=== PATIENT | female | born 1960 | race African-American/Black ===

== ENCOUNTER 2016-05-24 10:36 | Emergency (ER) | payer OTHER ==
[2016-05-24 10:53] VITALS: BMI 35.2
--- NOTE | 2016-05-24 11:49 | PDOC ---
History of Present Illness - General Chief Complaint: Blood Pressure Problem Stated Complaint: HEADACHES, LIGHTHEADED Time Seen by Provider: 05/24/16 11:10 History Source: Patient Exam Limitations: No Limitations - History of Present Illness Initial Comments: 05/24/16 11:51 56-year-old female presents to the ED with complaints of episodic lightheadedness and mild occipital throbbing headache while at work this morning. Patient states had her blood pressure checked at work and was noted to be 180/94 so came to the ER for further evaluation. Patient states has had these episodes before normally associate with her blood pressure but states does take her meds every day with no recent adjustment or new medication added to regimen. Patient has no other associated symptoms such as visual changes, nausea, chest pain, shortness of breath, lower extremity edema, abdominal pain, or decreased urine output. Patient does state history of diabetes and hypertension. Timing/Duration: 1 hour, resolved prior to arrival Severity: mild Associated Symptoms: denies: headaches Past History - Past Medical History Allergies/Adverse Reactions: Allergies Allergy/AdvReac Type Severity Reaction Status Date / Time No Known Allergies Allergy Verified 05/24/16 10:49 Home Medications: Ambulatory Orders Glyburide/Metformin HCl [Glucovance 5-500 mg Tablet] 1 each PO DAILY #0 Cholecalciferol (Vitamin D3) [Vitamin D3 -] 400 unit PO DAILY 05/24/16 Lisinopril [Prinivil] 10 mg PO DAILY 05/24/16 Anemia: No Asthma: No Cancer: No Cardiac Disorders: No CVA: No COPD: No CHF: No Dementia: No Diabetes: Yes (NIDDM) GI Disorders: No Disorders: No HTN: Yes Hypercholesterolemia: Yes (border line) Liver Disease: No Seizures: No Thyroid Disease: No - Surgical History Abdominal Surgery: No Appendectomy: No Cardiac Surgery: No Cholecystectomy: No Lung Surgery: No Neurologic Surgery: No Orthopedic Surgery: No - Immunization History Immunization Up to Date: Yes - Psycho/Social/Smoking Cessation Hx Anxiety: No Suicidal Ideation: No Smoking History: Current some day smoker Have you smoked in the past 12 months: Yes Number of Cigarettes Smoked Daily: 2 If you are a former smoker, when did you quit?: 2013 Information on smoking cessation initiated: Yes 'Breaking Loose' booklet given: 05/24/16 Hx Alcohol Use: No Drug/Substance Use Hx: No Substance Use Type: None Hx Substance Use Treatment: No Patient Lives Alone: No Lives with/in: spouse/SO Review of Systems - Review of Systems Able to Perform ROS?: Yes Constitutional: No: Symptoms Reported HEENTM: No: Symptoms Reported Respiratory: No: Symptoms reported Cardiac (ROS): Yes: Lightheadedness ABD/GI: No: Symptoms Reported : No: Symptoms Reported Musculoskeletal: No: Symptoms Reported Integumentary: No: Symptoms Reported Neurological: Yes: Headache (mild occipital. throbbing ) Endocrine: No: Symptoms Reported Hematologic/Lymphatic: No: Symptoms Reported *Physical Exam - Vital Signs Last Vital Signs Temp Pulse Resp BP Pulse Ox 97.2 F L 72 18 150/97 100 05/24/16 10:50 05/24/16 10:50 05/24/16 10:50 05/24/16 10:50 05/24/16 10:50 - Physical Exam General Appearance: Yes: Nourished, Appropriately Dressed. No: Apparent Distress HEENT: positive: EOMI, ALBERT. negative: Pale Conjunctivae Neck: positive: Supple. negative: Tender, Decreased range of motion Respiratory/Chest: positive: Lungs Clear, Normal Breath Sounds. negative: Respiratory Distress, Accessory Muscle Use Cardiovascular: positive: Regular Rhythm, Regular Rate. negative: Murmur Gastrointestinal/Abdominal: positive: Soft. negative: Tenderness Integumentary: positive: Normal Color, Warm, Moist Neurologic: positive: Motor Strength 5/5 (ambulatory) Heart Score/ECG Review - ECG Intrepretation Rhythm: Regular Rhythm (rate 69. nsr . no acute findings) ED Treatment Course - LABORATORY CBC & Chemistry Diagram: 05/24/16 11:50 05/24/16 11:50 Medical Decision Making - Medical Decision Making 05/24/16 12:02 History of hypertension diabetes presents with episodic lightheadedness and headache that had resolved prior to arrival. Due to patient's initial complaint patient will have a CBC, comp and EKG performed. If negative patient will be given copy of labs and EKG to follow-up with her PCP. 05/24/16 13:02 Laboratory Tests 05/24/16 11:50 Sodium 142 Potassium 4.6 Chloride 111 H Carbon Dioxide 24 Anion Gap 7 L BUN 15 Creatinine 0.9 Random Glucose 208 H D Calcium 8.7 Total Bilirubin 0.3 AST 14 L ALT 26 D Laboratory Tests 05/24/16 11:50 WBC 6.8 Hgb 10.9 D Hct 35.2 MCV 75.4 L Neutrophils % 40.2 L Lymphocytes % 49.6 H Patient remains asymptomatic and is requesting to eat. Patient given lunch tray and will discharge home to follow-up with her PCP. Patient also be given copy of her blood work. Selected Entries 05/24/16 13:40 Temperature 98.6 F Pulse Rate [ 80 Right] Respiratory 20 Rate Blood Pressure 144/78 [Left Arm] O2 Sat by Pulse 100 Oximetry (%) *DC/Admit/Observation/Transfer Diagnosis at time of Disposition: Dizziness HTN (hypertension) Qualifiers: Hypertension type: essential hypertension Qualified Code(s): I10 - Essential ( primary) hypertension - Discharge Dispostion Disposition: HOME Condition at time of disposition: Improved - Referrals Referrals: Xavier Solares MD [Primary Care Provider] - - Patient Instructions Printed Discharge Instructions: DI for High Blood Pressure Additional Instructions: Please continue taking her medication as prescribed. Please follow-up with your PCP and take copy of the blood work with you. Please return to ED if your symptoms return or worsen including dizziness, chest pain, nausea, visual changes, or extremely high blood pressure uncontrolled with your medication
[2016-05-24 12:16] LABS: BASOPHIL 1.5 % (0-2.0); EOSINOPHIL 1.4 % (0-4.5); MCH 23.3 pg (25.7-33.7); MEAN CELL VOLUME 75.4 fl (80-96); MEAN PLT VOLUME 8.1 fl (7.5-11.1); NEUTROPHILS 40.2 % (42.8-82.8); PLATELET COUNT 257 K/MM3 (134-434); RDW 14.1 % (11.6-15.6); WHITE BLOOD COUNT 6.8 K/mm3 (4.0-10.0)
[2016-05-24 12:50] LABS: ALBUMIN 3.8 g/dl (3.4-5.0); ALK PHOS 69 U/L (45-117); ANION GAP 7 (8-16); BILIRUBIN,TOTAL 0.3 mg/dL (0.2-1.0); CALCIUM 8.7 mg/dL (8.5-10.1); CO2 24 mmol/L (21-32); CREATININE 0.9 mg/dL (0.55-1.02); GLUCOSE,RANDOM 208 mg/dL (74-106); SGOT/AST 14 U/L (15-37); SGPT/ALT 26 U/L (12-78); TOT PROT 6.9 g/dl (6.4-8.2)
[2016-05-24 13:59] VITALS: BP 144/78; PULSE 80; TEMP 98.6
--- NOTE | 2016-05-24 21:24 | EKG ---
Test Reason : Blood Pressure : / mmHG Vent. Rate : 069 BPM Atrial Rate : 069 BPM P-R Int : 162 ms QRS Dur : 080 ms QT Int : 394 ms P-R-T Axes : 050 022 025 degrees QTc Int : 422 ms NORMAL SINUS RHYTHM LOW VOLTAGE QRS CANNOT RULE OUT ANTERIOR INFARCT , AGE UNDETERMINED ABNORMAL ECG WHEN COMPARED WITH ECG OF 14-SEP-2013 14:39, NO SIGNIFICANT CHANGE WAS FOUND Confirmed by EBER WAGONER MD ([id number]) on 05/24/2016 9:24:02 PM Referred By: Confirmed By:EBER WAGONER MD
== END 2016-05-24 13:40 | disposition home or self-care (01) ==
LOC: JER 10:36
DX: I10 Essential (primary) hypertension (principal); E11.9 Type 2 diabetes mellitus without complications; Z79.84 Long term (current) use of oral hypoglycemic drugs; E78.00 Pure hypercholesterolemia, unspecified; Z87.891 Personal history of nicotine dependence
CPT/HCPCS: 36415; 80053; 85025; 93005; 93010; 99284-25

== ENCOUNTER 2016-06-20 13:10 | Emergency (ER) | payer OTHER ==
[2016-06-20 13:19] VITALS: TEMP 98; BMI 36.1
--- NOTE | 2016-06-20 14:00 | PDOC ---
History of Present Illness <Silke Esposito - Last Filed: 06/20/16 17:58> - General History Source: Patient Exam Limitations: No Limitations - History of Present Illness Initial Comments: 06/20/16 13:59 56y F hx of NIDDM, htn, presents with complaint of R toe pain. The pt states she saw a head turning machine operator last monday and had some skin and nail removal, states she has had persisetnt pain in her R big toe with erythema, warmth and pain since monday Pt denies any fever, discharge, but states she occasionally will feel cold at night. pt denies any drainage, denies any complaints elsewhere including generalized weakness, nausea/vomiting, abd pain, back pain, cp, sob, leg swelling. <Marco García - Last Filed: 06/20/16 18:31> - General Chief Complaint: Redness To Affected Area Stated Complaint: SWOLLEN RT TOE/ PAIN Time Seen by Provider: 06/20/16 13:32 Past History <Silke Esposito - Last Filed: 06/20/16 17:58> - Past Medical History Anemia: No Asthma: No Cancer: No Cardiac Disorders: No CVA: No COPD: No CHF: No Dementia: No Diabetes: Yes (NIDDM) GI Disorders: No Disorders: No HTN: Yes Hypercholesterolemia: Yes (border line) Liver Disease: No Seizures: No Thyroid Disease: No - Surgical History Abdominal Surgery: No Appendectomy: No Cardiac Surgery: No Cholecystectomy: No Lung Surgery: No Neurologic Surgery: No Orthopedic Surgery: No - Immunization History Immunization Up to Date: Yes - Psycho/Social/Smoking Cessation Hx Anxiety: No Suicidal Ideation: No Smoking History: Current some day smoker Have you smoked in the past 12 months: Yes Number of Cigarettes Smoked Daily: 2 If you are a former smoker, when did you quit?: 2013 Information on smoking cessation initiated: No 'Breaking Loose' booklet given: 05/24/16 Hx Alcohol Use: No Drug/Substance Use Hx: No Substance Use Type: None Hx Substance Use Treatment: No <Marco García - Last Filed: 06/20/16 18:31> - Past Medical History Allergies/Adverse Reactions: Allergies Allergy/AdvReac Type Severity Reaction Status Date / Time No Known Allergies Allergy Verified 06/20/16 13:17 Home Medications: Ambulatory Orders Glyburide/Metformin HCl [Glucovance 5-500 mg Tablet] 1 each PO DAILY #0 Cholecalciferol (Vitamin D3) [Vitamin D3 -] 400 unit PO DAILY 05/24/16 Lisinopril [Prinivil] 10 mg PO DAILY 05/24/16 Levofloxacin [Levaquin] 750 mg PO DAILY #14 tablet 06/20/16 Oxycodone HCl/Acetaminophen [Percocet 5-325 mg Tablet] 1 tab PO Q6H PRN #7 tablet MDD 4 06/20/16 Sitagliptin Phosphate [Januvia] 50 mg PO PRN 06/20/16 Review of Systems - Review of Systems Able to Perform ROS?: Yes Comments:: 06/20/16 14:07 Constitutional - no reported Fever, Chills, weakness, HEENT: no reported vision changes, sore throat Respiratory: no reported cough, sob, hemoptysis Cardiac: no reported chest pain, palpitations, light headedness, leg swelling Abd/GI: no reported abd pain, nausea, vomiting, blood per rectum, melena, diarrhea : no reported dysuria, frequency, discharge Musculskelatal - no reported back pain, joint swelling skin - +redness/swelling of R big toe no reported bruising, neurological: no reported headache, numbness, focal weakness, tingling, ataxia, weakness hematologic: no reported anemia, easy bruising, easy bleeding <Ricky,Marco - Last Filed: 06/20/16 18:31> *Physical Exam - Vital Signs Last Vital Signs Temp Pulse Resp BP Pulse Ox 98 F 79 18 153/76 100 06/20/16 13:17 06/20/16 13:17 06/20/16 13:17 06/20/16 13:17 06/20/16 13:17 <Silke Esposito - Last Filed: 06/20/16 17:58> - Vital Signs Last Vital Signs Temp Pulse Resp BP Pulse Ox 98 F 79 18 153/76 100 06/20/16 13:17 06/20/16 13:17 06/20/16 13:17 06/20/16 13:17 06/20/16 13:17 - Physical Exam Comments: 06/20/16 14:16 GENERAL: The patient is awake, alert, and fully oriented, Nontoxic - in no acute distress. HEAD: Normocephalic, atraumatic. EYES: extraocular movements intact, sclera anicteric, conjunctiva clear. ENT: Normal voice, Moist mucous membranes. NECK: Normal range of motion, supple LUNGS: Breath sounds equal, clear to auscultation bilaterally. No wheezes, no rhonchi, no rales. HEART: Regular rate and rhythm, normal S1 and S2 without murmur, rub or gallop. ABDOMEN: Soft, nontender, normoactive bowel sounds. No guarding, no rebound. No CVA tenderness EXTREMITIES: s/p removal of lateral aspect of 1st toe nail, erythema, warmth over 1st toe extending to the 1st metatarsal, no crepitus, no discharge, no tracking. NEUROLOGICAL: No facial assymetry, Normal speech, PSYCH: Normal mood, normal affect. SKIN: Warm, Dry, normal turgor, <Ricky,Marco - Last Filed: 06/20/16 18:31> ED Treatment Course - LABORATORY CBC & Chemistry Diagram: 06/20/16 14:10 06/20/16 14:10 - ADDITIONAL ORDERS Additional order review: Laboratory Results 06/20/16 14:10 Sodium 142 Potassium 4.2 Chloride 108 H Carbon Dioxide 24 Anion Gap 10 BUN 14 Creatinine 1.0 Creat Clearance w eGFR 57.78 Random Glucose 241 H Calcium 8.5 Total Bilirubin 0.3 AST 10 L D ALT 22 Alkaline Phosphatase 65 Total Protein 6.9 Albumin 3.8 06/20/16 14:10 RBC 4.65 MCV 75.9 L MCHC 31.0 L RDW 14.1 MPV 7.6 Neutrophils % 47.2 Lymphocytes % 43.6 H Monocytes % 7.7 Eosinophils % 1.2 Basophils % 0.3 - Medications Given in the ED: ED Medications Discontinued Medications Generic Name Dose Route Start Last Admin Trade Name Freq PRN Reason Stop Dose Admin Levofloxacin 150 mls @ 100 mls/hr 06/20/16 16:18 06/20/16 16:36 Levaquin 750 Mg Premixed Ivpb - IVPB 06/20/16 17:47 100 mls/hr ONCE ONE Administration Ketorolac Tromethamine 15 mg 06/20/16 16:18 06/20/16 16:36 Toradol Injection - IVPUSH 06/20/16 16:19 15 mg ONCE ONE Administration <Silke Esposito - Last Filed: 06/20/16 17:58> - LABORATORY CBC & Chemistry Diagram: 06/20/16 14:10 06/20/16 14:10 <Marco García - Last Filed: 06/20/16 18:31> Medical Decision Making - Medical Decision Making 06/20/16 17:[address] Anant Adams, covering for patient's PCP (Dr. Solares). Dr. Adams agrees with plan to discharge patient to follow up in office this week. <Silke Esposito - Last Filed: 06/20/16 17:58> - Medical Decision Making 06/20/16 14:17 56y F hx of dm, hypothryoidism presents with complaint of erhthema,/warmth s/p nail/skin dibridement by podiatry likely infection with source of entry will ck lab work will give ivabx, pt may be candidate for outpatient manageemnt will notify PMD and discuss plan with dr. Livingston. 06/20/16 18:12 labs reviewed no leukocytosis case dw dr. Adams covering for Dr Solares agree with outpatient managment will give pt rx for levaquin will have pt fu with dr. adams/yang in 2 days for recheck if pthas any systemic complaints will have pt return to the ED for intpatient ivabx I discussed the physical exam findings, ancillary test results and final diagnoses with the patient. I answered all of the patient's questions. The patient was satisfied with the care received and felt comfortable with the discharge plan and treatment plan. The patient will call their primary care physician within 24 hours to arrange follow-up and will return to the Emergency Department with any new, persistent or worsening symptoms. <Marco García - Last Filed: 06/20/16 18:31> *DC/Admit/Observation/Transfer - Attestations Scribe Attestion: 06/20/16 17:58 Documentation prepared by Silke Esposito, acting as medical office administrator for Marco García MD. <Silke Esposito - Last Filed: 06/20/16 17:58> - Discharge Dispostion Admit: No <Marco García - Last Filed: 06/20/16 18:31> Diagnosis at time of Disposition: Cellulitis of foot Diabetes Qualifiers: Diabetes mellitus type: other specified (including AMA) Diabetes mellitus complication status: with unspecified complications Diabetes mellitus detention insulin use: with technician terminal and repeater use Qualified Code(s): E13.8 - Other specified diabetes mellitus with unspecified complications; Z79.4 - [facility] (current) use of insulin - Discharge Dispostion Disposition: HOME Condition at time of disposition: Stable - Referrals Referrals: Xavier Solares MD [Staff Physician] - - Patient Instructions Printed Discharge Instructions: DI for Cellulitis -- Adult Additional Instructions: Return to the emergency department immediately with ANY new, persistent or worsening symptoms including worsening pain, fever/chills, increased redness or other concerns. Take the antibiotics as prescribd You MUST call and follow up with your doctor in 2 days for further evaluation of your symptoms. Results were discussed with you. Please make sure your doctor reviews the results of your emergency evaluation. If you had any xrays during your visit, it was read preliminarily by myself, a Radiologist will review it and if there are any additional findings we will call you. Print Language: BULGARIAN
[2016-06-20 14:21] LABS: BASOPHIL 0.3 % (0-2.0); EOSINOPHIL 1.2 % (0-4.5); MCH 23.6 pg (25.7-33.7); MEAN CELL VOLUME 75.9 fl (80-96); MEAN PLT VOLUME 7.6 fl (7.5-11.1); NEUTROPHILS 47.2 % (42.8-82.8); PLATELET COUNT 265 K/MM3 (134-434); RDW 14.1 % (11.6-15.6); WHITE BLOOD COUNT 6.6 K/mm3 (4.0-10.0)
[2016-06-20 15:04] LABS: ALBUMIN 3.8 g/dl (3.4-5.0); BILIRUBIN,TOTAL 0.3 mg/dL (0.2-1.0); CALCIUM 8.5 mg/dL (8.5-10.1); TOT PROT 6.9 g/dl (6.4-8.2)
[2016-06-20] MEDS ORDERED: KETOROLAC TROMETHAMINE 30 MG/1 ML VIAL IVPUSH ONE (16:18)
[2016-06-20] MEDS ORDERED: LEVOFLOXACIN 750 MG IVPB 150 ML IVPB ONE ×2 (16:18→16:28)
[2016-06-20] MEDS ORDERED: KETOROLAC TROMETHAMINE 15 MG/ML VIAL ONE (16:28)
[2016-06-20] MEDS ORDERED: OXYCODONE/APAP 5/325MG COMBO TABLET PO ONE (17:56)
[2016-06-20] MEDS ORDERED: OXYCODONE/APAP 5/325MG COMBO TABLET ONE (17:59)
[2016-06-20 18:04] VITALS: BP 149/78; PULSE 76
== END 2016-06-20 18:43 | disposition home or self-care (01) ==
LOC: JER 13:10
PROC: 3E03329 Introduction of Other Anti-infective into Peripheral Vein, Percutaneous Approach (ICD-10-PCS; principal; 2016-06-20)
PROC: 3E0333Z Introduction of Anti-inflammatory into Peripheral Vein, Percutaneous Approach (ICD-10-PCS; 2016-06-20)
DX: L03.115 Cellulitis of right lower limb (principal); L03.031 Cellulitis of right toe; Z98.890 Other specified postprocedural states; L76.82 Other postprocedural complications of skin and subcutaneous tissue; E11.9 Type 2 diabetes mellitus without complications; Z79.84 Long term (current) use of oral hypoglycemic drugs; I10 Essential (primary) hypertension; E78.00 Pure hypercholesterolemia, unspecified
CPT/HCPCS: 36415; 80053; 85025; 96365; 96375; 99282-25

== ENCOUNTER 2016-06-27 20:46 | Inpatient (IN) | payer OTHER ==
[2016-06-27 21:04] VITALS: BMI 36.1
--- NOTE | 2016-06-27 23:37 | PDOC ---
History of Present Illness - General History Source: Patient Exam Limitations: No Limitations - History of Present Illness Initial Comments: 06/28/16 00:15 Patient is a 56 year old female with a significant of NIDDM, htn, presents with complaint of R toe pain. Patient states that she saw a cadd instructor two weeks for nail removal and notes that she was seen in [facility] last monday for the same complaint and was placed on Levaquin PO 750 mg. She states that she completed 1 week of abx and her symptoms have not resolved or gotten better as of yet. Patient reports persistent pain in her R big toe with erythema, warmth and pain that made her present to the ED. Online Marketing Coordinator - Dr. Davis PCP - Dr. Solares <Kimi Chapa - Last Filed: 06/28/16 00:14> <Heather Quinones - Last Filed: 06/29/16 00:26> - General Chief Complaint: Wound Infection Stated Complaint: INFECTED TOE/PAIN Time Seen by Provider: 06/27/16 22:12 Past History <Kimi Chapa - Last Filed: 06/28/16 00:14> - Past Medical History Anemia: No Asthma: No Cancer: No Cardiac Disorders: No CVA: No COPD: No CHF: No Dementia: No Diabetes: Yes (NIDDM) GI Disorders: No Disorders: No HTN: Yes Hypercholesterolemia: Yes (border line) Liver Disease: No Seizures: No Thyroid Disease: No - Surgical History Abdominal Surgery: No Appendectomy: No Cardiac Surgery: No Cholecystectomy: No Lung Surgery: No Neurologic Surgery: No Orthopedic Surgery: No - Immunization History Immunization Up to Date: Yes - Psycho/Social/Smoking Cessation Hx Anxiety: No Suicidal Ideation: No Smoking History: Current some day smoker Have you smoked in the past 12 months: Yes Number of Cigarettes Smoked Daily: 2 If you are a former smoker, when did you quit?: 2013 Information on smoking cessation initiated: No 'Breaking Loose' booklet given: 05/24/16 Hx Alcohol Use: No Drug/Substance Use Hx: No Substance Use Type: None Hx Substance Use Treatment: No <Heather Quinones - Last Filed: 06/29/16 00:26> - Past Medical History Allergies/Adverse Reactions: Allergies Allergy/AdvReac Type Severity Reaction Status Date / Time No Known Allergies Allergy Verified 06/20/16 13:17 Home Medications: Ambulatory Orders Glyburide/Metformin HCl [Glucovance 5-500 mg Tablet] 1 each PO DAILY #0 Cholecalciferol (Vitamin D3) [Vitamin D3 -] 400 unit PO DAILY 05/24/16 Lisinopril [Prinivil] 10 mg PO DAILY 05/24/16 Oxycodone HCl/Acetaminophen [Percocet 5-325 mg Tablet] 1 tab PO Q6H PRN #7 tablet MDD 4 06/20/16 Sitagliptin Phosphate [Januvia] 50 mg PO PRN 06/20/16 Review of Systems - Review of Systems Able to Perform ROS?: Yes Comments:: 06/28/16 00:16 CONSTITUTIONAL: Absent: fever, chills, diaphoresis, generalized weakness, malaise, loss of appetite HEENT: Absent: rhinorrhea, nasal congestion, throat pain, throat swelling, difficulty swallowing, mouth swelling, ear pain, eye pain, visual Changes CARDIOVASCULAR: Absent: chest pain, syncope, palpitations, irregular heart rate, lightheadedness , peripheral edema RESPIRATORY: Absent: cough, shortness of breath, dyspnea with exertion, orthopnea, wheezing, stridor, hemoptysis GASTROINTESTINAL: Absent: abdominal pain, abdominal distension, nausea, vomiting, diarrhea, constipation, melena, hematochezia GENITOURINARY: Absent: dysuria, frequency, urgency, hesitancy, hematuria, flank pain, genital pain MUSCULOSKELETAL: Present: +R great toe pain, swelling and errythema Absent: myalgia, arthralgia, joint swelling SKIN: Absent: rash, itching, pallor HEMATOLOGIC/IMMUNOLOGIC: Absent: easy bleeding, easy bruising, lymphadenopathy, frequent infections ENDOCRINE: Absent: unexplained weight gain, unexplained weight loss, heat intolerance, cold intolerance NEUROLOGIC: Absent: headache, focal weakness or paresthesias, dizziness, unsteady gait, seizure, mental status changes, bladder or bowel incontinence PSYCHIATRIC: Absent: anxiety, depression, suicidal or homicidal ideation, hallucinations. <Kimi Chapa - Last Filed: 06/28/16 00:14> *Physical Exam - Vital Signs Last Vital Signs Temp Pulse Resp BP Pulse Ox 98 F 86 18 144/73 99 06/27/16 21:02 06/27/16 21:02 06/27/16 21:02 06/27/16 21:02 06/27/16 21:02 - Physical Exam Comments: 06/28/16 00:16 GENERAL: Well developed, well nourished. Awake and alert. No acute distress. HEENT: Normocephalic, atraumatic. PERRLA, EOMI. No conjunctival pallor. Sclera are non- icteric. Moist mucous membranes. Oropharynx is clear. NECK: Supple. Full ROM. No JVD. Carotid pulses 2+ and symmetric, without bruits. No thyromegaly. No lymphadenopathy. CARDIOVASCULAR: Regular rate and rhythm. No murmurs, rubs, or gallops. Distal pulses are 2+ and symmetric. PULMONARY: No evidence of respiratory distress. Lungs clear to auscultation bilaterally. No wheezing, rales or rhonchi. ABDOMINAL: Soft. Non-tender. Non-distended. No rebound or guarding. No organomegaly. Normoactive bowel sounds. MUSCULOSKELETAL Normal range of motion at all joints. No bony deformities or tenderness. No CVA tenderness. EXTREMITIES: +R great toe slightly erythematous, no signs of cellulitis. No cyanosis. No clubbing. No edema. No calf tenderness. SKIN: Warm and dry. Normal capillary refill. No rashes. No jaundice. NEUROLOGICAL: Alert, awake, appropriate. Cranial nerves 2-12 intact. No deficits to light touch and temperature in face, upper extremities and lower extremities. No motor deficits in the in face, upper extremities and lower extremities. Normoreflexic in the upper and lower extremities. Normal speech. PSYCHIATRIC: Cooperative. Good eye contact. Appropriate mood and affect. <Kimi Chapa - Last Filed: 06/28/16 00:14> - Vital Signs Last Vital Signs Temp Pulse Resp BP Pulse Ox 98 F 86 18 144/73 99 06/27/16 21:02 06/27/16 21:02 06/27/16 21:02 06/27/16 21:02 06/27/16 21:02 <Heather Quinones - Last Filed: 06/29/16 00:26> ED Treatment Course - LABORATORY CBC & Chemistry Diagram: 06/27/16 23:50 06/27/16 23:50 <Kimi Chapa - Last Filed: 06/28/16 00:14> - LABORATORY CBC & Chemistry Diagram: 06/28/16 06:40 06/28/16 06:40 <Heather Quinones - Last Filed: 06/29/16 00:26> Medical Decision Making - Medical Decision Making 06/29/16 00:24 56 yo female p/w persistent pain in her toe and foot despite 1 week of antibiotics for big toe infection -no fever,normal cbc -pt admitted <Heather Quinones - Last Filed: 06/29/16 00:26> *DC/Admit/Observation/Transfer - Attestations Scribe Attestion: 06/28/16 00:17 Documentation prepared by DOMINICK Conteh, acting as medical claims analyst for Heather Quinones MD. <Kimi Chapa - Last Filed: 06/28/16 00:14> - Discharge Dispostion Admit: Yes <Heather Quinones - Last Filed: 06/29/16 00:26> Diagnosis at time of Disposition: Toe infection Diabetes Qualifiers: Diabetes mellitus type: type 2 Diabetes mellitus complication status: with skin complications Diabetes mellitus complication detail: with other skin complication Diabetes mellitus exterminator termite insulin use: without mcc use Qualified Code(s): E11.628 - Type 2 diabetes mellitus with other skin complications - Referrals
[2016-06-28 00:20] LABS: MCH 23.7 pg (25.7-33.7); MCHC 31.7 g/dl (32.0-36.0); MEAN CELL VOLUME 74.8 fl (80-96); PLATELET COUNT 239 K/MM3 (134-434); RDW 14.5 % (11.6-15.6); WHITE BLOOD COUNT 8.5 K/mm3 (4.0-10.0)
[2016-06-28] MEDS ORDERED: morphine CARPU-JECT 2 MG/1 ML DISP.SYRIN IVPUSH ONE ×3 (00:41→03:51)
[2016-06-28] MEDS ORDERED: morphine CARPU-JECT 2 MG/1 ML DISP.SYRIN ONE ×3 (00:45→04:11)
[2016-06-28 00:47] LABS: ALBUMIN 3.5 g/dl (3.4-5.0); BILIRUBIN,TOTAL 0.4 mg/dL (0.2-1.0); CALCIUM 8.8 mg/dL (8.5-10.1); CREATININE 1.1 mg/dL (0.55-1.02); TOT PROT 6.4 g/dl (6.4-8.2)
[2016-06-28] MEDS ORDERED: PIPERACILLIN/TAZOB 3.375 GM 3.375 GM in DEXTROSE 5%-WATER - 50 ML IVPB ONE (01:10)
[2016-06-28] MEDS ORDERED: PIPERACILLIN/TAZOB 3.375 GM 50 ML IVPB ONE (01:39)
[2016-06-28] MEDS ORDERED: VANCOMYCIN 1 GRAM (PRE-DOCKED) 250 ML IVPB ONE ×2 (03:52→04:11)
[2016-06-28] MEDS ORDERED: SODIUM CHLORIDE 1,000 ML IV SCH ×2 (04:00→15:15)
[2016-06-28] MEDS ORDERED: sitaGLIPtin PHOSPHATE 50 MG TABLET PO SCH (04:00)
--- NOTE | 2016-06-28 04:11 | HP ---
CHIEF COMPLAINT: right great toe pain PCP: Nicolle; Podiatry: Ryan HISTORY OF PRESENT ILLNESS: Thisis a 56 year old female with a past medical history of DM, HTN, HLD who presented to [facility] [place] ED with right great toe pain. She was seen by her chemical etching processor 2 weeks ago for the same and she debrided the nailbed. She presented to this ED one week ago as the pain did not improve and was placed on levaquin for one week which she completed without improvement in her pain level. She also states she was scratched by her cat about 4 weeks ago on that toe. ER course was notable for: (1) WBC 8.5 (2) given zosyn Recent Travel: pt denies PAST MEDICAL HISTORY: NIDDM HTN HLD Gout PAST SURGICAL HISTORY: pilonidal cyst x 2 Social History: Smoking: smokes 1-2 cig/day Alcohol: drinks 2 glasses of red wine per week Drugs: pt denies Family History: mother with lupus, DM, HTN father healthy 1 brother with DM, 1 without medical problems. Allergies No Known Allergies Allergy (Verified 06/20/16 13:17) HOME MEDICATIONS: 3 Medication Instructions Recorded Glyburide/Metformin HCl 1 each PO DAILY #0 09/16/13 [Glucovance 5-500 mg Tablet] Cholecalciferol (Vitamin D3) 400 unit PO DAILY 05/24/16 [Vitamin D3 -] Lisinopril [Prinivil] 10 mg PO DAILY 05/24/16 Oxycodone HCl/Acetaminophen 1 tab PO Q6H PRN #7 tablet MDD 4 06/20/16 [Percocet 5-325 mg Tablet] Sitagliptin Phosphate [Januvia] 50 mg PO PRN 06/20/16 REVIEW OF SYSTEMS CONSTITUTIONAL: Absent: fever, chills, diaphoresis, generalized weakness, malaise, loss of appetite, weight change HEENT: Absent: rhinorrhea, nasal congestion, throat pain, throat swelling, difficulty swallowing, mouth swelling, ear pain, eye pain, visual changes CARDIOVASCULAR: Absent: chest pain, syncope, palpitations, irregular heart rate, lightheadedness , peripheral edema RESPIRATORY: Absent: cough, shortness of breath, dyspnea with exertion, orthopnea, wheezing, stridor, hemoptysis GASTROINTESTINAL: Absent: abdominal pain, abdominal distension, nausea, vomiting, diarrhea, constipation, melena, hematochezia GENITOURINARY: Absent: dysuria, frequency, urgency, hesitancy, hematuria, flank pain, genital pain MUSCULOSKELETAL: Present: Right great toe pain Absent: myalgia, arthralgia, joint swelling, back pain, neck pain SKIN: Present: Right great toe redness and swelling Absent: rash, itching, pallor HEMATOLOGIC/IMMUNOLOGIC: Absent: easy bleeding, easy bruising, lymphadenopathy, frequent infections ENDOCRINE: Absent: unexplained weight gain, unexplained weight loss, heat intolerance, cold intolerance NEUROLOGIC: Absent: headache, focal weakness or paresthesias, dizziness, unsteady gait, seizure, mental status changes, bladder or bowel incontinence PSYCHIATRIC: Absent: anxiety, depression, suicidal or homicidal ideation, hallucinations. PHYSICAL EXAMINATION Vital Signs - 24 hr 3 06/27/16 21:02 Temperature 98 F Pulse Rate 86 Respiratory 18 Rate Blood Pressure 144/73 O2 Sat by Pulse 99 Oximetry (%) GENERAL: Awake, alert, and fully oriented, in no acute distress. HEAD: Normal with no signs of trauma. EYES: Pupils equal, round and reactive to light, extraocular movements intact, sclera anicteric, conjunctiva clear. No lid lag. EARS, NOSE, THROAT: Ears normal, nares patent, oropharynx clear without exudates. Moist mucous membranes. NECK: Normal range of motion, supple without lymphadenopathy, JVD, or masses. LUNGS: Breath sounds equal, clear to auscultation bilaterally. No wheezes, and no crackles. No accessory muscle use. HEART: Regular rate and rhythm, normal S1 and S2 without murmur, rub or gallop. ABDOMEN: Soft, nontender, not distended, normoactive bowel sounds, no guarding, no rebound, no masses. No hepatomegaly or splenomegaly. Obese MUSCULOSKELETAL: Normal range of motion at all joints. No bony deformities or tenderness. No CVA tenderness. Right great toe with erythema, slight swelling, mild warmth, foot without redness, no groin lymphadenopathy noted UPPER EXTREMITIES: 2+ pulses, warm, well-perfused. No cyanosis. No clubbing. No peripheral edema. LOWER EXTREMITIES: 2+ pulses, warm, well-perfused. No calf tenderness. No peripheral edema. NEUROLOGICAL: Cranial nerves II-XII intact. Normal speech. Normal gait. PSYCHIATRIC: Cooperative. Good eye contact. Appropriate mood and affect. SKIN: Warm, dry, normal turgor, no rashes or lesions noted, normal capillary refill. Laboratory Results - last 24 hr 3 06/27/16 06/27/16 23:50 23:50 WBC 8.5 RBC 4.29 Hgb 10.2 L Hct 32.1 L MCV 74.8 L MCHC 31.7 L RDW 14.5 Plt Count 239 MPV 8.0 Neutrophils % Y Lymphocytes % Y Sodium 143 Potassium 4.2 Chloride 109 H Carbon Dioxide 25 Anion Gap 9 BUN 17 D Creatinine 1.1 H Creat Clearance w eGFR 51.76 Random Glucose 252 H Calcium 8.8 Total Bilirubin 0.4 D AST 13 L D ALT 20 Alkaline Phosphatase 60 Total Protein 6.4 Albumin 3.5 Chest and right foot xrays pending ASSESSMENT/PLAN: 56yF with PMH HTN, NIDDM, HLD, gout presented to the ED with right great toe pain, swelling, redness. She is being admitted for cellulitis unresponsive to course of po antibiotics at home. cellulitis right great toe - unresponsive to po levaquin - zosyn given in ED - will start zithromax to treat possible Bartonella - vanco ordered to cover MRSA - ID consult - morpine for pain, trial dose of neurontin ordered, would continue if effective. HTN - cont home medications NIDDM - cont home januvia, hold metformin/glyburide - BGM ACHS with novolog sliding scale - consider adding levemir if persistently elevated HLD - on no medications at home. F/u with PCP for treatment plan DVT PPX - heparin 5000u BID FEN - NS @ 75cc/hr - repeat labs @6a - diabetic diet Dispo: Pt currently requires inpatient care for management of their emergent condition. Visit type - Emergency Visit Emergency Visit: Yes ED Registration Date: 06/27/16 Care time: The patient presented to the Emergency Department on the above date and was hospitalized for further evaluation of their emergent condition. - New Patient This patient is new to me today: Yes Date on this admission: 06/28/16 - Critical Care Critical Care patient: No
[2016-06-28] MEDS ORDERED: GABAPENTIN 300 MG CAPSULE (FP) PO ONE (04:14)
[2016-06-28] MEDS ORDERED: AZITHROMYCIN IVPB 250 ML IVPB ONE ×2 (04:22→07:04)
[2016-06-28 07:02] LABS: MCH 23.6 pg (25.7-33.7); MEAN CELL VOLUME 76.1 fl (80-96); MEAN PLT VOLUME 7.7 fl (7.5-11.1); PLATELET COUNT 205 K/MM3 (134-434); RDW 14.6 % (11.6-15.6); WHITE BLOOD COUNT 7.6 K/mm3 (4.0-10.0)
[2016-06-28] MEDS ORDERED: sitaGLIPtin PHOSPHATE 50 MG TABLET ONE (07:04)
[2016-06-28] MEDS ORDERED: GABAPENTIN 100 MG CAPSULE (FP) ONE (07:04)
[2016-06-28] MEDS: sitaGLIPtin PHOSPHATE 50 MG TABLET PO SCH (07:17)
[2016-06-28 07:28] LABS: CALCIUM 7.9 mg/dL (8.5-10.1); CREATININE 0.9 mg/dL (0.55-1.02); MAGNESIUM 1.4 mg/dL (1.8-2.4); PHOSPHOROUS 3.5 mg/dL (2.5-4.9)
[2016-06-28] MEDS ORDERED: INSULIN (NOVOLOG) ASPART 100 UNITS/ML 10ML VIAL ONE (08:18)
[2016-06-28] MEDS: INSULIN SLIDING SCALE (NOVOLOG) 1 VIAL SQ SCH ×4 (08:18→21:29)
[2016-06-28 09:15] LABS: PLATELET ESTIMATE ADEQUATE (NORMAL)
[2016-06-28] MEDS: HEPARIN NA (PORCINE) 5,000 UNITS/ML 1ML VIAL SQ SCH ×2 (09:15→21:27)
[2016-06-28] MEDS: LISINOPRIL 10 MG TABLET (FP) PO SCH (09:15)
[2016-06-28] MEDS: MAGNESIUM OXIDE 400 MG TABLET (FP) PO SCH ×2 (09:15→21:29)
[2016-06-28] MEDS: CHOLECALCIFEROL (VITAMIN D3) 400 UNIT TABLET (FP) PO SCH (09:15)
[2016-06-28] MEDS ORDERED: PIPERACILLIN/TAZOB 3.375 GM/50 ML PRE-DOCKED IVPB STA (09:38)
[2016-06-28] MEDS ORDERED: OXYCODONE/APAP 5/325MG COMBO TABLET PO PRN (09:58)
[2016-06-28] MEDS ORDERED: morphine CARPU-JECT 4 MG/1 ML DISP.SYRIN IVPUSH ONE (10:01)
[2016-06-28 12:43] LABS: PLATELET ESTIMATE ADEQUATE (NORMAL)
--- NOTE | 2016-06-28 13:28 | EKG ---
Test Reason : Blood Pressure : / mmHG Vent. Rate : 072 BPM Atrial Rate : 072 BPM P-R Int : 162 ms QRS Dur : 080 ms QT Int : 400 ms P-R-T Axes : 047 024 007 degrees QTc Int : 438 ms NORMAL SINUS RHYTHM NORMAL ECG WHEN COMPARED WITH ECG OF 24-MAY-2016 11:50, NO SIGNIFICANT CHANGE WAS FOUND Confirmed by EBER WAGONER MD ([id number]) on 06/28/2016 1:28:13 PM Referred By: Confirmed By:EBER WAGONER MD
--- NOTE | 2016-06-28 13:41 | PN ---
Addendum entered and electronically signed by Jefferson Montenegro, RHIANNA 06/28/16 15:04: Arterial Duplex reviewed with Dr. Rosario from radiology. Patient has high grade stenosis of the SFA on the right Dr. Sullivan from vascular Sx contacted will do CTA NPO past midnight and OR for angioplasty for tomorrow no need for hep gtt Addendum entered and electronically signed by Jefferson Montenegro, RHIANNA 06/28/16 14:20: microcytic anemia: will do iron studies Original Note: Physical Exam: SUBJECTIVE: Patient seen and examined at bedside complains to right toe pain OBJECTIVE: Vital Signs Period Temp Pulse Resp BP Sys/Castillo Pulse Ox Last 24 Hr 71-80 18-18 137-142/71-75 99-99 GENERAL: The patient is awake, alert, and fully oriented, in no acute distress. HEAD: Normal with no signs of trauma. LUNGS: Breath sounds equal, clear to auscultation bilaterally, no wheezes, no crackles, no accessory muscle use. HEART: Regular rate and rhythm, S1, S2 ABDOMEN: Soft, nontender, nondistended, normoactive bowel sounds EXTREMITIES: LLE: 2+ DP pulses, warm, well-perfused, no edema. RLE: no DP pulses appreciated right toe erythematous and tender to palpation. warm extremity good capillary refill. NEUROLOGICAL: Cranial nerves II through XII grossly intact. Normal speech, gait WNL PSYCH: Normal mood, normal affect. Laboratory Results - last 24 hr 06/28/16 06/28/16 06:40 06:40 WBC 7.6 RBC 4.23 Hgb 10.0 L Hct 32.2 L MCV 76.1 L MCHC 31.0 L RDW 14.6 Plt Count 205 MPV 7.7 Neutrophils % 22.0 L D Lymphocytes % 67.0 H Monocytes % 9.0 D Eosinophils % 2.0 Differential Comment Manual diff done Platelet Estimate Adequate Sodium 143 Potassium 3.7 Chloride 111 H Carbon Dioxide 22 Anion Gap 10 BUN 14 Creatinine 0.9 Random Glucose 238 H Calcium 7.9 L Phosphorus 3.5 Magnesium 1.4 L Active Medications Generic Name Dose Route Start Last Admin Trade Name Freq PRN Reason Stop Dose Admin Acetaminophen 650 mg 06/28/16 10:23 Tylenol - PO 07/01/16 10:22 Q4H PRN PAIN LEVEL 6-10 Cholecalciferol 400 unit 06/28/16 10:00 06/28/16 09:15 Vitamin D3 - PO 400 unit DAILY KE Administration Heparin Sodium (Porcine) 5,000 unit 06/28/16 10:00 06/28/16 09:15 Heparin - SQ Not Given BID [facility] Sodium Chloride 1,000 mls @ 75 mls/hr 06/28/16 04:00 06/28/16 04:26 Normal Saline - IV 75 mls/hr ASDIR KE Administration Insulin Aspart 1 vial 06/28/16 07:00 06/28/16 13:14 Novolog Vial Sliding Scale - SQ 3 units ACHS KE Administration Protocol Lisinopril 10 mg 06/28/16 10:00 06/28/16 09:15 Prinivil PO 10 mg DAILY KE Administration Magnesium Oxide 400 mg 06/28/16 10:00 06/28/16 09:15 Mag-Ox - PO 06/28/16 22:01 400 mg BID KE Administration Oxycodone HCl 10 mg 06/28/16 10:23 Roxicodone - PO Q4H PRN PAIN LEVEL 6-10 Sitagliptin Phosphate 50 mg 06/28/16 07:00 06/28/16 07:17 Januvia - PO 50 mg DAILY@0700 KE Administration ASSESSMENT/PLAN: 56yF with PMH HTN, NIDDM, HLD, gout presented to the ED with right great toe pain, swelling, redness. She is being admitted for cellulitis unresponsive to course of po antibiotics at home. Pain and erythema of the right great toe this does not seem like cellulitis or infection to me. it is possible patient had a gouty attack as she has a history of gout but it is unlikely given the location of the tenderness being at the tip of the toe. possible there is some form of ischemia or poor flow to the foot as she does not have pulses on the right RLE. Will do arterial duplex Will give one dose of colchicine 1.2mg to see the response will give another stat dose od zosyn until ID sees the patient podiatry consult pending Xray reviewed no concern for gas or osteomyelitis got one dose of azithromycin as she was scratched by a cat 4-5 weeks ago on the toe. HTN continue lisinopril 10mg po daily NIDDM ISS Fingersticks ACHS Januvia 50mg po Hold glucovanse for now f/u HbA1C HLD no issues not on medications outpatient follow up PPx: HSQ No GI PPx needed no T consult needed at this time will assess daily for the need for PT FEN Stop IVF hypomagnesemia-give PO magnesium Diabetic diet Visit type - Emergency Visit Emergency Visit: Yes ED Registration Date: 06/28/16 Care time: The patient presented to the Emergency Department on the above date and was hospitalized for further evaluation of their emergent condition. - New Patient This patient is new to me today: Yes Date on this admission: 06/28/16 - Critical Care Critical Care patient: No - Discharge Referral Referred to [facility] Med P.C.: No
[2016-06-28] MEDS ORDERED: COLCHICINE 0.6 MG TABLET (FP) PO ONE (13:49)
--- NOTE | 2016-06-28 13:57 | PN ---
Teaching Attending Note Name of Resident: Jefferson Montenegro ATTENDING PHYSICIAN STATEMENT I saw and evaluated the patient. I reviewed the resident's note and discussed the case with the resident. I agree with the resident's findings and plan as documented. SUBJECTIVE: pain in R big toe. no fever or chills. no cough or diarhea. OBJECTIVE: NAD Cv : RRR, 2/6 SM at RUSB. Lungs : CTAB Ext : no edema . R big toe with dark red color , no drainage from around the nail. TTP over tip of toe . erythema extends to 1st metatarsal but no increased tenderness . DP pulse was not felt on R .. 2+ o n L , and could not feel b/l PT . no increased warmth or toe ASSESSMENT AND PLAN: 56 y/o lady with h/o DM , HTN, gout , and other medical problems who presented with pain in R big toe. 1- Pain and erythema in R big toe: Infection is low in my differential. high in differential is decreased perfusion , and less likely gout flare - will give one dose of zosyn and wait for ID evaluation - try one dose of 1.2 of colchicine - Check arterial doppler. if any signs , will call vascular ( had this for 2 weeks ) 2- HTN: cont lisinopril 3- DM : hold metformin cont januvia Hb A1c 8.2 4- DVT px
--- NOTE | 2016-06-28 14:11 | CONSULT ---
Consult Consult Specialty:: infectious diseases Reason for Consultation:: cellulitis of the left toe - History of Present Illness Chief Complaint: pain and swelling of the left toe History of Present Illness: 56 year old female with a past medical history of DM, HTN, HLD who presented to [facility] ED with right great toe pain. She was seen by her dyer and washer 2 weeks ago for the same and she debrided the nailbed. She presented to this ED one week ago as the pain did not improve and was placed on levaquin for one week which she completed without improvement in her pain level. She also states she was scratched by her cat about 4 weeks ago on that toe. patient now having pain at the same site and is tender to touch denies any fever or any drainage from that site - History Source History Provided By: Patient Limitations to Obtaining History: No Limitations - Past Medical History ORE MINER: Yes: TIA. No: CVA ...LMP: 07/02/13 - Alcohol/Substance Use Hx Alcohol Use: No - Smoking History Smoking history: Current some day smoker Have you smoked in the past 12 months: Yes Aproximately how many cigarettes per day: 2 If you are a former smoker, when did you quit?: 2013 Home Medications - Allergies Allergies/Adverse Reactions: Allergies Allergy/AdvReac Type Severity Reaction Status Date / Time No Known Allergies Allergy Verified 06/20/16 13:17 - Home Medications Home Medications: Ambulatory Orders Glyburide/Metformin HCl [Glucovance 5-500 mg Tablet] 1 each PO DAILY #0 Cholecalciferol (Vitamin D3) [Vitamin D3 -] 400 unit PO DAILY 05/24/16 Lisinopril [Prinivil] 10 mg PO DAILY 05/24/16 Oxycodone HCl/Acetaminophen [Percocet 5-325 mg Tablet] 1 tab PO Q6H PRN #7 tablet MDD 4 06/20/16 Sitagliptin Phosphate [Januvia] 50 mg PO PRN 06/20/16 Review of Systems - Review of Systems Constitutional: reports: No Symptoms Eyes: reports: No Symptoms HENT: reports: No Symptoms Neck: reports: No Symptoms Cardiovascular: reports: No Symptoms Respiratory: reports: No Symptoms Gastrointestinal: reports: No Symptoms Musculoskeletal: reports: No Symptoms Integumentary: reports: Erythema, Other Neurological: reports: No Symptoms Endocrine: reports: No Symptoms Hematology/Lymphatic: reports: No Symptoms Psychiatric: reports: No Symptoms Physical Exam Vital Signs: Vital Signs Temperature 98 F 06/27/16 21:02 Pulse Rate 71 06/28/16 10:30 Respiratory Rate 18 06/28/16 10:30 Blood Pressure 142/71 06/28/16 10:30 O2 Sat by Pulse Oximetry (%) 99 06/28/16 10:30 Constitutional: Yes: Calm, Mild Distress Neck: Yes: Supple, Trachea Midline Cardiovascular: Yes: Regular Rate and Rhythm Respiratory: Yes: Regular, CTA Bilaterally Gastrointestinal: Yes: Normal Bowel Sounds, Soft Musculoskeletal: Yes: Other Extremities: Yes: Erythema (of the left toe), Other Integumentary: Yes: Erythema (of left toe tenderness on palpation of the toe) Neurological: Yes: Alert, Oriented Psychiatric: Yes: Alert, Oriented Labs: CBC, BMP 06/28/16 06:40 06/28/16 06:40 Imaging - Results Chest X-ray: Report Reviewed, Image Reviewed X-ray: Report Reviewed, Image Reviewed Assessment/Plan 56yF with PMH HTN, NIDDM, HLD, gout presented to the ED with right great toe pain, swelling, redness. She is being admitted for cellulitis unresponsive to course of po antibiotics at home. cellulitis right great toe HTN NIDDM HLD plan vascular and podiatry to evaluate the patient will start patient on augmentin patient might need removal of the toe nail as it is ingrowing rest as per the team
[2016-06-28] MEDS: oxyCODONE HCL 5 MG TABLET PO PRN ×2 (14:18→21:30)
--- NOTE | 2016-06-28 17:10 | PN ---
Progress Note (short form) - Note Progress Note: Podiatry Brief Note: Went to evaluate patient, she is currently at imaging exam now. Will reevaluate tomorrow. Kathy Loyola DPM
[2016-06-28] MEDS: AMOX TR/POT CLAV 500MG/125MG TABLETS (FP) PO SCH (18:25)
[2016-06-28] MEDS: ACETAMINOPHEN 325 MG TABLET (FP) PO PRN (21:29)
[2016-06-29] MEDS: INSULIN SLIDING SCALE (NOVOLOG) 1 VIAL SQ SCH ×4 (05:59→23:02)
[2016-06-29] MEDS: sitaGLIPtin PHOSPHATE 50 MG TABLET PO SCH (05:59)
[2016-06-29] MEDS ORDERED: INSULIN (NOVOLOG) ASPART 100 UNITS/ML 10ML VIAL ONE (06:11)
[2016-06-29 07:19] LABS: MCH 23.4 pg (25.7-33.7); MCHC 30.7 g/dl (32.0-36.0); MEAN CELL VOLUME 76.2 fl (80-96); MEAN PLT VOLUME 7.8 fl (7.5-11.1); PLATELET COUNT 200 K/MM3 (134-434); RDW 14.7 % (11.6-15.6); WHITE BLOOD COUNT 6.6 K/mm3 (4.0-10.0)
[2016-06-29 07:52] LABS: CALCIUM 7.9 mg/dL (8.5-10.1); CREATININE 0.8 mg/dL (0.55-1.02); MAGNESIUM 1.6 mg/dL (1.8-2.4)
[2016-06-29] MEDS: AMOX TR/POT CLAV 500MG/125MG TABLETS (FP) PO SCH ×2 (08:28→17:04)
[2016-06-29] MEDS: CHOLECALCIFEROL (VITAMIN D3) 400 UNIT TABLET (FP) PO SCH (11:32)
[2016-06-29] MEDS: HEPARIN NA (PORCINE) 5,000 UNITS/ML 1ML VIAL SQ SCH ×2 (11:32→23:02)
[2016-06-29] MEDS: LISINOPRIL 10 MG TABLET (FP) PO SCH (11:32)
--- NOTE | 2016-06-29 12:08 | CONSULT ---
Consult - text type - Consultation Consultation Note: Podiatry Consultation: 56 year old F, history of 20+ years tobacco, HTN, DM presents with severe pain to R great toe x 1 week. About 2 weeks, patient saw her outside stone setter metal optical frames who "cleaned the callus" surrounding the ingrown nail. Patient developed increased pain and discoloration to the nail fold subsequent to the nail procedure. Denies seeing pus or any drainage from the site. Denies F/V/N/C/SOB/CP. Does get occasional walking pain in her legs, however she is not sure if it is her sciatica. Currently afebrile, VSS. PMHx: DM, HTN, TIA, (+) smoking 20+ years, sciatica Meds: noted in chart ALL: NKMA CARLOS: Pedal pulses non-palpable, TG wnl, CFT brisk to all toes. On the right foot, there is discoloration and severe tenderness to the medial nail fold of the right great toe. There is no purulent drainage, no other drainage, no fluctuance, no ST crepitus, no ascending cellulitis, no signs of active infection. WBC: 6.6 R foot XR: no signs of acute osteomyelitis A Duplex: high grade stenosis proximal SFA Imp: 56 year old DM, PVD F s/p ingrown nail procedure with ischemic changes 1. Arterial duplex reviewed, clearly needs vascular consultation. 2. No acute intervention to the R great toe at this time. 3. Thank you for the courtesy of this consultation. Kathy Loyola DPM
--- NOTE | 2016-06-29 13:33 | PN ---
Physical Exam: SUBJECTIVE: Patient seen and examined at bedside still complains of right great toe pain OBJECTIVE: Vital Signs Period Temp Pulse Resp BP Sys/Castillo Pulse Ox Last 24 Hr 97.3 F-98.6 F 67-94 18-20 120-144/57-68 98 GENERAL: The patient is awake, alert, and fully oriented, in no acute distress. HEAD: Normal with no signs of trauma. LUNGS: Breath sounds equal, clear to auscultation bilaterally, no wheezes, no crackles, no accessory muscle use. HEART: Regular rate and rhythm, S1, S2 ABDOMEN: Soft, nontender, nondistended, normoactive bowel sounds EXTREMITIES: LLE: 2+ DP pulses, warm, well-perfused, no edema. RLE: no DP/PT pulses appreciated right toe erythematous and tender to palpation. right great toe is cool when compared to the rest of the foot and other toes. NEUROLOGICAL: Cranial nerves II through XII grossly intact. Normal speech, gait WNL PSYCH: Normal mood, normal affect. Laboratory Results - last 24 hr 06/28/16 06/28/16 06/28/16 06:40 06:40 13:11 WBC RBC Hgb Hct MCV MCHC RDW Plt Count MPV Sodium Potassium Chloride Carbon Dioxide Anion Gap BUN Creatinine POC Glucometer 214 Random Glucose Hemoglobin A1c % 8.2 H D Calcium Magnesium Ferritin 59.703 06/28/16 06/28/16 06/29/16 17:54 21:23 05:54 WBC RBC Hgb Hct MCV MCHC RDW Plt Count MPV Sodium Potassium Chloride Carbon Dioxide Anion Gap BUN Creatinine POC Glucometer 248 248 207 Random Glucose Hemoglobin A1c % Calcium Magnesium Ferritin 06/29/16 06/29/16 06/29/16 06:10 06:10 11:34 WBC 6.6 RBC 4.40 Hgb 10.3 L Hct 33.5 MCV 76.2 L MCHC 30.7 L RDW 14.7 Plt Count 200 MPV 7.8 Sodium 144 Potassium 4.3 Chloride 112 H Carbon Dioxide 22 Anion Gap 10 BUN 17 D Creatinine 0.8 POC Glucometer 202 Random Glucose 194 H Hemoglobin A1c % Calcium 7.9 L Magnesium 1.6 L Ferritin Active Medications Generic Name Dose Route Start Last Admin Trade Name Freq PRN Reason Stop Dose Admin Acetaminophen 650 mg 06/28/16 10:23 06/28/16 21:29 Tylenol - PO 03/31/17 10:22 650 mg Q4H PRN Administration PAIN LEVEL 6-10 Amoxicillin/Clavulanate Potassium 1 tab 06/28/16 17:30 06/29/16 08:28 Augmentin - 500mg Tablet PO 1 tab BID@0800,1730 KE Administration Cholecalciferol 400 unit 06/28/16 10:00 06/29/16 11:32 Vitamin D3 - PO Not Given DAILY KE Heparin Sodium (Porcine) 5,000 unit 06/28/16 10:00 06/29/16 11:32 Heparin - SQ 5,000 unit BID KE Administration Sodium Chloride 1,000 mls @ 50 mls/hr 06/28/16 15:15 06/28/16 17:57 Normal Saline - IV 06/29/16 15:12 50 mls/hr ASDIR KE Administration Insulin Aspart 1 vial 06/28/16 07:00 06/29/16 11:38 Novolog Vial Sliding Scale - SQ 2 units ACHS KE Administration Protocol Lisinopril 10 mg 06/28/16 10:00 06/29/16 11:32 Prinivil PO 10 mg DAILY KE Administration Oxycodone HCl 10 mg 06/28/16 10:23 06/28/16 21:30 Roxicodone - PO 10 mg Q4H PRN Administration PAIN LEVEL 6-10 Sitagliptin Phosphate 50 mg 06/28/16 07:00 06/29/16 05:59 Januvia - PO Not Given DAILY@0700 [facility] ASSESSMENT/PLAN: 56yF with PMH HTN, NIDDM, HLD, gout presented to the ED with right great toe pain, swelling, redness. She was initially admitted for cellulitis unresponsive to course of po antibiotics at home, but at this point it looks like it is more ischemic than infectious Pain and erythema of the right great toe-most likely ischemic from high grade stenosis vs embolic event. embolic event is possible as it is only the right great toe affected this does not seem like cellulitis or infection to me. it is possible patient had a gouty attack as she has a history of gout but it is unlikely given the location of the tenderness being at the tip of the toe. possible there is some form of ischemia or poor flow to the foot as she does not have pulses on the right RLE. arterial duplex shows high grade stenosis CTA read pending augmentin per ID podiatry consult appreciated Vascular consulted-will take patient to OR tomorrow for angiogram and intervention Xray reviewed no concern for gas or osteomyelitis HTN continue lisinopril 10mg po daily NIDDM ISS Fingersticks ACHS Januvia 50mg po Hold glucovanse for now f/u HbA1C Microcytic anemia: f/u Iron studies Give Iron if needed HLD no issues not on medications outpatient follow up PPx: HSQ No GI PPx needed no PT consult needed at this time will assess daily for the need for PT FEN Stop IVF hypomagnesemia-give IV magnesium Diabetic diet--> NPO past midnight Visit type - Emergency Visit Emergency Visit: Yes ED Registration Date: 06/28/16 Care time: The patient presented to the Emergency Department on the above date and was hospitalized for further evaluation of their emergent condition. - New Patient This patient is new to me today: No - Critical Care Critical Care patient: No
[2016-06-29] MEDS: oxyCODONE HCL 5 MG TABLET PO PRN ×2 (13:42→23:03)
[2016-06-29] MEDS ORDERED: MAGNESIUM SULF 50% (8.12 MEQ/2 ML-1 GM VIAL) IVPB ONE (14:30)
--- NOTE | 2016-06-29 14:42 | CONSULT ---
Consult - Past Medical History [employer]: Yes: TIA. No: CVA ...LMP: 07/02/13 - Alcohol/Substance Use Hx Alcohol Use: No - Smoking History Smoking history: Current some day smoker Have you smoked in the past 12 months: Yes Aproximately how many cigarettes per day: 2 If you are a former smoker, when did you quit?: 2012 Home Medications - Allergies Allergies/Adverse Reactions: Allergies Allergy/AdvReac Type Severity Reaction Status Date / Time No Known Allergies Allergy Verified 06/20/16 13:17 - Home Medications Home Medications: Ambulatory Orders Glyburide/Metformin HCl [Glucovance 5-500 mg Tablet] 1 each PO DAILY #0 Cholecalciferol (Vitamin D3) [Vitamin D3 -] 400 unit PO DAILY 05/24/16 Lisinopril [Prinivil] 10 mg PO DAILY 05/24/16 Oxycodone HCl/Acetaminophen [Percocet 5-325 mg Tablet] 1 tab PO Q6H PRN #7 tablet MDD 4 06/20/16 Sitagliptin Phosphate [Januvia] 50 mg PO PRN 06/20/16 Physical Exam Vital Signs: Vital Signs Temperature 98.2 F 06/29/16 09:13 Pulse Rate 67 06/29/16 09:13 Respiratory Rate 20 06/29/16 09:13 Blood Pressure 131/64 06/29/16 09:13 O2 Sat by Pulse Oximetry (%) 98 06/28/16 15:55 Labs: CBC, BMP 06/29/16 06:10 06/29/16 06:10 Assessment/Plan Vascular surgery Thisis a 56 year old female with a past medical history of DM, HTN, HLD who presented to [facility] ED with right great toe pain. She was seen by her ssis etl developer 2 weeks ago for the same and she debrided the nailbed. She presented to this ED one week ago as the pain did not improve and was placed on levaquin for one week which she completed without improvement in her pain level. She also states she was scratched by her cat about 4 weeks ago on that toe. ER course was notable for: (1) WBC 8.5 (2) given zosyn Recent Travel: pt denies PAST MEDICAL HISTORY: NIDDM HTN HLD Gout PAST SURGICAL HISTORY: pilonidal cyst x 2 Social History: Smoking: smokes 1-2 cig/day Alcohol: drinks 2 glasses of red wine per week Drugs: pt denies PE Head - NC/At Lung - CTA Heart - RRR abd - soft,nt,nd ext - left foot - palpable DP pulse. Right foot - faint DP pulse Right great toe tenderness. A/P Right great toe infection, discoloration CTA shows tibial disease. Does show stenosis in right sfa Still not read officiallly from [facility]. Will do angiogram nivia to look at runoff ARterial US - showed high grade stenosis in right sfa NPO past midnight Gael Sullivan DO
--- NOTE | 2016-06-29 15:49 | PN ---
Progress Note, Physician History of Present Illness: patient continues to have pain in the toe vascular and podiatry note noted - Current Medication List Current Medications: Active Medications Acetaminophen (Tylenol -) 650 mg PO Q4H PRN PRN Reason: PAIN LEVEL 6-10 Stop: 07/01/16 10:22 Last Admin: 06/28/16 21:29 Dose: 650 mg Amoxicillin/Clavulanate Potassium (Augmentin - 500mg Tablet) 1 tab PO BID@0800, 1730 [facility] Last Admin: 06/29/16 08:28 Dose: 1 tab Cholecalciferol (Vitamin D3 -) 400 unit PO DAILY [facility] Last Admin: 06/29/16 11:32 Dose: Not Given Heparin Sodium (Porcine) (Heparin -) 5,000 unit SQ BID [facility] Last Admin: 06/29/16 11:32 Dose: 5,000 unit Insulin Aspart (Novolog Vial Sliding Scale -) 1 vial SQ ACHS [facility] PRN Reason: Protocol Last Admin: 06/29/16 11:38 Dose: 2 units Lisinopril (Prinivil) 10 mg PO DAILY [facility] Last Admin: 06/29/16 11:32 Dose: 10 mg Oxycodone HCl (Roxicodone -) 10 mg PO Q4H PRN PRN Reason: PAIN LEVEL 6-10 Last Admin: 06/29/16 13:42 Dose: 10 mg Sitagliptin Phosphate (Januvia -) 50 mg PO DAILY@0700 [facility] Last Admin: 06/29/16 05:59 Dose: Not Given - Objective Vital Signs: Vital Signs Temperature 97.5 F L 06/29/16 14:00 Pulse Rate 76 06/29/16 14:00 Respiratory Rate 20 06/29/16 14:00 Blood Pressure 136/66 06/29/16 14:00 O2 Sat by Pulse Oximetry (%) 98 06/28/16 15:55 Constitutional: Yes: Calm, Mild Distress Cardiovascular: Yes: Regular Rate and Rhythm Respiratory: Yes: Regular, CTA Bilaterally Gastrointestinal: Yes: Normal Bowel Sounds, Soft Musculoskeletal: Yes: Other Extremities: Yes: Other Integumentary: Yes: Erythema (of the rt toe) Neurological: Yes: Alert, Oriented Psychiatric: Yes: Alert, Oriented Labs: CBC, BMP 06/29/16 06:10 06/29/16 06:10 Assessment/Plan 56yF with PMH HTN, NIDDM, HLD, gout presented to the ED with right great toe pain, swelling, redness. She is being admitted for cellulitis unresponsive to course of po antibiotics at home. cellulitis right great toe HTN NIDDM HLD plan as per vascular continue po abx
--- NOTE | 2016-06-29 19:09 | PN ---
Teaching Attending Note Name of Resident: Jefferson Montenegro ATTENDING PHYSICIAN STATEMENT I saw and evaluated the patient. I reviewed the resident's note and discussed the case with the resident. I agree with the resident's findings and plan as documented. Comfortable with no acute distress, no fever or chills, Vital Signs Temperature 98.7 F 06/29/16 18:00 Pulse Rate 86 06/29/16 18:00 Respiratory Rate 20 06/29/16 18:00 Blood Pressure 149/72 06/29/16 18:00 O2 Sat by Pulse Oximetry (%) 98 06/28/16 15:55 CBCD WBC 6.6 K/mm3 (4.0-10.0) 06/29/16 06:10 RBC 4.40 M/mm3 (3.60-5.2) 06/29/16 06:10 Hgb 10.3 GM/dL (10.7-15.3) L 06/29/16 06:10 Hct 33.5 % (32.4-45.2) 06/29/16 06:10 MCV 76.2 fl (80-96) L 06/29/16 06:10 MCHC 30.7 g/dl (32.0-36.0) L 06/29/16 06:10 RDW 14.7 % (11.6-15.6) 06/29/16 06:10 Plt Count 200 K/MM3 (134-434) 06/29/16 06:10 MPV 7.8 fl (7.5-11.1) 06/29/16 06:10 CMP Sodium 144 mmol/L (136-145) 06/29/16 06:10 Potassium 4.3 mmol/L (3.5-5.1) 06/29/16 06:10 Chloride 112 mmol/L (98-107) H 06/29/16 06:10 Carbon Dioxide 22 mmol/L (21-32) 06/29/16 06:10 Anion Gap 10 (8-16) 06/29/16 06:10 BUN 17 mg/dL (7-18) D 06/29/16 06:10 Creatinine 0.8 mg/dL (0.55-1.02) 06/29/16 06:10 Creat Clearance w eGFR 51.76 (>60) 06/27/16 23:50 Random Glucose 194 mg/dL (74-106) H 06/29/16 06:10 Calcium 7.9 mg/dL (8.5-10.1) L 06/29/16 06:10 Total Bilirubin 0.4 mg/dL (0.2-1.0) D 06/27/16 23:50 AST 13 U/L (15-37) L D 06/27/16 23:50 ALT 20 U/L (12-78) 06/27/16 23:50 Alkaline Phosphatase 60 U/L (45-117) 06/27/16 23:50 Total Protein 6.4 g/dl (6.4-8.2) 06/27/16 23:50 Albumin 3.5 g/dl (3.4-5.0) 06/27/16 23:50 Current Medications Generic Name Dose Route Start Last Admin Trade Name Freq PRN Reason Stop Dose Admin Acetaminophen 650 mg 06/28/16 10:23 06/28/16 21:29 Tylenol - PO 07/01/16 10:22 650 mg Q4H PRN Administration PAIN LEVEL 6-10 Amoxicillin/Clavulanate Potassium 1 tab 06/28/16 17:30 06/29/16 17:04 Augmentin - 500mg Tablet PO 1 tab BID@0800,1730 [facility] Administration Cholecalciferol 400 unit 06/28/16 10:00 06/29/16 11:32 Vitamin D3 - PO Not Given DAILY [facility] Heparin Sodium (Porcine) 5,000 unit 06/28/16 10:00 06/29/16 11:32 Heparin - SQ 5,000 unit BID [facility] Administration Insulin Aspart 1 vial 06/28/16 07:00 06/29/16 16:51 Novolog Vial Sliding Scale - SQ 4 units ACHS [facility] Administration Protocol Lisinopril 10 mg 06/28/16 10:00 06/29/16 11:32 Prinivil PO 10 mg DAILY [facility] Administration Oxycodone HCl 10 mg 06/28/16 10:23 06/29/16 13:42 Roxicodone - PO 10 mg Q4H PRN Administration PAIN LEVEL 6-10 Sitagliptin Phosphate 50 mg 06/28/16 07:00 06/29/16 05:59 Januvia - PO Not Given DAILY@0700 [facility] ASSESSMENT AND PLAN: 56 y/o lady with h/o DM , HTN, gout , and other medical problems who presented with pain in R big toe. # Acute Ischemia of right big toe: with no palpable pulse s/p IV antibiotic for possible Infected right toe; arterial doppler positive for distal stenosis Vascular surgeon Dr.Nirav Amezcua to see the patient for angiogram. # HTN: cont lisinopril # DM : hold metformin for angiogram for am ;cont januvia ;Hb A1c 8.2 DVT px : heparin
[2016-06-29] MEDS: ACETAMINOPHEN 325 MG TABLET (FP) PO PRN (23:04)
[2016-06-30 06:06] LABS: SERUM IRON 63 ug/dL (27-159); TOTAL IRON BINDING CAPACITY 262 ug/dL (250-450); UIBC 199 ug/dL (131-425)
[2016-06-30] MEDS: INSULIN SLIDING SCALE (NOVOLOG) 1 VIAL SQ SCH ×4 (06:29→22:26)
[2016-06-30] MEDS: sitaGLIPtin PHOSPHATE 50 MG TABLET PO SCH (06:29)
[2016-06-30 08:26] LABS: INR 1.01 (0.82-1.09); PROTHROMBIN TIME (PATIENT) 11.1 SEC (9.98-11.88)
[2016-06-30 08:27] LABS: ACTIVATED PTT 29.3 SECONDS (26.9-34.4)
[2016-06-30 08:41] LABS: CALCIUM 8.2 mg/dL (8.5-10.1); CREATININE 0.9 mg/dL (0.55-1.02); MAGNESIUM 1.7 mg/dL (1.8-2.4)
[2016-06-30] MEDS: LISINOPRIL 10 MG TABLET (FP) PO SCH ×2 (08:47→09:40)
[2016-06-30] MEDS: HEPARIN NA (PORCINE) 5,000 UNITS/ML 1ML VIAL SQ SCH ×2 (11:04→22:26)
[2016-06-30] MEDS: CHOLECALCIFEROL (VITAMIN D3) 400 UNIT TABLET (FP) PO SCH (12:00)
[2016-06-30] MEDS ORDERED: MAGNESIUM SULF 50% (8.12 MEQ/2 ML-1 GM VIAL) IVPB ONE ×2 (13:30→16:53)
[2016-06-30] MEDS ORDERED: HEPARIN NA (PORCINE) 5,000 UNITS/ML 1ML VIAL ONE (14:31)
[2016-06-30] MEDS ORDERED: LIDOCAINE HCL 1%, 10 MG/ML (20ML VIAL) ONE (14:31)
--- NOTE | 2016-06-30 14:38 | PN ---
Progress Note, Physician History of Present Illness: patient stable no new issues - Current Medication List Current Medications: Active Medications Acetaminophen (Tylenol -) 650 mg PO Q4H PRN PRN Reason: PAIN LEVEL 6-10 Stop: 07/01/16 10:22 Last Admin: 06/29/16 23:04 Dose: 650 mg Amoxicillin/Clavulanate Potassium (Augmentin - 500mg Tablet) 1 tab PO BID@0800, 1730 [facility] Last Admin: 06/29/16 17:04 Dose: 1 tab Cholecalciferol (Vitamin D3 -) 400 unit PO DAILY [facility] Last Admin: 06/29/16 11:32 Dose: Not Given Heparin Sodium (Porcine) (Heparin -) 5,000 unit SQ BID [facility] Last Admin: 06/30/16 11:04 Dose: Not Given Insulin Aspart (Novolog Vial Sliding Scale -) 1 vial SQ ACHS [facility] PRN Reason: Protocol Last Admin: 06/30/16 11:04 Dose: Not Given Lisinopril (Prinivil) 10 mg PO DAILY [facility] Last Admin: 06/30/16 09:40 Dose: Not Given Magnesium Oxide (Mag-Ox -) 400 mg PO ONCE ONE Stop: 06/30/16 22:01 Oxycodone HCl (Roxicodone -) 10 mg PO Q4H PRN PRN Reason: PAIN LEVEL 6-10 Last Admin: 06/29/16 23:03 Dose: 10 mg Sitagliptin Phosphate (Januvia -) 50 mg PO DAILY@0700 [facility] Last Admin: 06/30/16 06:29 Dose: Not Given - Objective Vital Signs: Vital Signs Temperature 98.2 F 06/30/16 10:00 Pulse Rate 73 06/30/16 10:00 Respiratory Rate 20 06/30/16 10:00 Blood Pressure 134/69 06/30/16 10:00 O2 Sat by Pulse Oximetry (%) 100 06/30/16 05:00 Constitutional: Yes: No Distress, Calm Eyes: Yes: Conjunctiva Clear HENT: Yes: Atraumatic Respiratory: Yes: Regular, CTA Bilaterally Gastrointestinal: Yes: Normal Bowel Sounds, Soft Musculoskeletal: Yes: WNL Extremities: Yes: Other Integumentary: Yes: Erythema Wound/Incision: Yes: Other Neurological: Yes: Alert, Oriented Psychiatric: Yes: Alert, Oriented Labs: INR, PTT INR 1.01 (0.82-1.09) 06/30/16 06:00 Assessment/Plan 56yF with PMH HTN, NIDDM, HLD, gout presented to the ED with right great toe pain, swelling, redness. She is being admitted for cellulitis unresponsive to course of po antibiotics at home. cellulitis right great toe HTN NIDDM HLD plan continue po abx rest as per primary team
[2016-06-30] MEDS ORDERED: PROPOFOL 20 ML ONE (15:03)
[2016-06-30] MEDS ORDERED: MIDAZOLAM HCL 2 MG/2 ML SINGLE DOSE VIAL ONE (15:03)
[2016-06-30] MEDS ORDERED: ceFAZolin SODIUM 1 GM VIAL ONE (15:17)
[2016-06-30] MEDS ORDERED: ceFAZolin SODIUM 1 GM VIAL IVPB ONE (15:22)
[2016-06-30] MEDS ORDERED: LIDOCAINE HCL 1%, 10 MG/ML (20ML VIAL) IJ ONE ×2 (15:31)
--- NOTE | 2016-06-30 16:22 | OP ---
Operative Note - Note: Operative Date: 06/30/16 Pre-Operative Diagnosis: Right great toe discoloration Operation: Aortogram, RLE angiogram Post-Operative Diagnosis: Same as Pre-op Surgeon: Gael Sullivan Anesthesia: Fractional Estimated Blood Loss (mls): 10 Operative Report Dictated: Yes
--- NOTE | 2016-06-30 16:25 | PN ---
Physical Exam: SUBJECTIVE: Patient seen and examined at bedside in the PACU s/p RLE angiogram OBJECTIVE: GENERAL: The patient is awake, alert, and fully oriented, in no acute distress. HEAD: Normal with no signs of trauma. LUNGS: Breath sounds equal, clear to auscultation bilaterally, no wheezes, no crackles, no accessory muscle use. HEART: Regular rate and rhythm, S1, S2 ABDOMEN: Soft, nontender, nondistended, normoactive bowel sounds EXTREMITIES: LLE: 2+ DP pulses, warm, well-perfused, no edema. RLE: no very faint DP pulse appreciated right toe erythematous and tender to palpation. erythema improved. right great toe is cool when compared to the rest of the foot and other toes. NEUROLOGICAL: Cranial nerves II through XII grossly intact. Normal speech, gait WNL PSYCH: Normal mood, normal affect. Active Medications Generic Name Dose Route Start Last Admin Trade Name Freq PRN Reason Stop Dose Admin Acetaminophen 650 mg 06/28/16 10:23 06/29/16 23:04 Tylenol - PO 07/01/16 10:22 650 mg Q4H PRN Administration PAIN LEVEL 6-10 Amoxicillin/Clavulanate Potassium 1 tab 06/28/16 17:30 06/29/16 17:04 Augmentin - 500mg Tablet PO 1 tab BID@0800,1730 [facility] Administration Cholecalciferol 400 unit 06/28/16 10:00 06/29/16 11:32 Vitamin D3 - PO Not Given DAILY [facility] Heparin Sodium (Porcine) 5,000 unit 06/28/16 10:00 06/30/16 11:04 Heparin - SQ Not Given BID [facility] Insulin Aspart 1 vial 06/28/16 07:00 06/30/16 11:04 Novolog Vial Sliding Scale - SQ Not Given ACHS [facility] Protocol Lisinopril 10 mg 06/28/16 10:00 06/30/16 09:40 Prinivil PO Not Given DAILY [facility] Magnesium Oxide 400 mg 06/30/16 22:00 Mag-Ox - PO 06/30/16 22:01 ONCE ONE Oxycodone HCl 10 mg 06/28/16 10:23 06/29/16 23:03 Roxicodone - PO 10 mg Q4H PRN Administration PAIN LEVEL 6-10 Sitagliptin Phosphate 50 mg 06/28/16 07:00 06/30/16 06:29 Januvia - PO Not Given DAILY@0700 [facility] ASSESSMENT/PLAN: 56F with PMH HTN, NIDDM, HLD, gout presented to the ED with right great toe pain , swelling, redness. She was initially admitted for cellulitis unresponsive to course of po antibiotics at home, but at this point it looks like it is more ischemic than infectious Pain and erythema of the right great toe-most likely ischemic from high grade stenosis vs embolic event. embolic event is possible as it is only the right great toe affected POD#0 s/p RLE angiogram-patient found to have only microvascular disease likely from diabetes this does not seem like cellulitis or infection to me. it is possible patient had a gouty attack as she has a history of gout but it is unlikely given the location of the tenderness being at the tip of the toe. possible there is some form of ischemia or poor flow to the foot as she does not have pulses on the right RLE. arterial duplex shows high grade stenosis CTA read pending augmentin per ID podiatry consult appreciated Vascular consulted-will take patient to OR tomorrow for angiogram and intervention Xray reviewed no concern for gas or osteomyelitis HTN continue lisinopril 10mg po daily NIDDM ISS Fingersticks ACHS Januvia 50mg po Hold glucovanse for now f/u HbA1C Microcytic anemia: f/u Iron studies Give Iron if needed HLD no issues not on medications outpatient follow up PPx: HSQ No GI PPx needed no PT consult needed at this time will assess daily for the need for PT FEN off IVF hypomagnesemia-give IV and PO magnesium Diabetic diet Discharge tomorrow on antibiotics Visit type - Emergency Visit Emergency Visit: Yes ED Registration Date: 06/30/16 Care time: The patient presented to the Emergency Department on the above date and was hospitalized for further evaluation of their emergent condition. - New Patient This patient is new to me today: No - Critical Care Critical Care patient: No
[2016-06-30] MEDS ORDERED: ONDANSETRON 4 MG/2 ML VIAL IVPUSH PRN (16:47)
[2016-06-30] MEDS ORDERED: ACETAMINOPHEN 325 MG TABLET (FP) PO PRN (16:53)
[2016-06-30] MEDS ORDERED: PT OWN MED DRAWER 7, Y5N ONE ×4 (17:32→21:00)
[2016-06-30] MEDS ORDERED: INSULIN (NOVOLOG) ASPART 100 UNITS/ML 10ML VIAL ONE (17:33)
[2016-06-30] MEDS: AMOX TR/POT CLAV 500MG/125MG TABLETS (FP) PO SCH (17:49)
--- NOTE | 2016-06-30 18:32 | PN ---
Teaching Attending Note Name of Resident: Jefferson Montenegro ATTENDING PHYSICIAN STATEMENT I saw and evaluated the patient. I reviewed the resident's note and discussed the case with the resident. I agree with the resident's findings and plan as documented. Patient is s/p Angiogram. Vital Signs Temperature 99 F 06/30/16 16:05 Pulse Rate 64 06/30/16 16:50 Respiratory Rate 18 06/30/16 16:50 Blood Pressure 142/61 06/30/16 16:50 O2 Sat by Pulse Oximetry (%) 100 06/30/16 16:50 CBCD WBC 6.6 K/mm3 (4.0-10.0) 06/29/16 06:10 RBC 4.40 M/mm3 (3.60-5.2) 06/29/16 06:10 Hgb 10.3 GM/dL (10.7-15.3) L 06/29/16 06:10 Hct 33.5 % (32.4-45.2) 06/29/16 06:10 MCV 76.2 fl (80-96) L 06/29/16 06:10 MCHC 30.7 g/dl (32.0-36.0) L 06/29/16 06:10 RDW 14.7 % (11.6-15.6) 06/29/16 06:10 Plt Count 200 K/MM3 (134-434) 06/29/16 06:10 MPV 7.8 fl (7.5-11.1) 06/29/16 06:10 CMP Sodium 142 mmol/L (136-145) 06/30/16 06:00 Potassium 4.3 mmol/L (3.5-5.1) 06/30/16 06:00 Chloride 110 mmol/L (98-107) H 06/30/16 06:00 Carbon Dioxide 22 mmol/L (21-32) 06/30/16 06:00 Anion Gap 10 (8-16) 06/30/16 06:00 BUN 23 mg/dL (7-18) H D 06/30/16 06:00 Creatinine 0.9 mg/dL (0.55-1.02) 06/30/16 06:00 Creat Clearance w eGFR 51.76 (>60) 06/27/16 23:50 Random Glucose 237 mg/dL (74-106) H D 06/30/16 06:00 Calcium 8.2 mg/dL (8.5-10.1) L 06/30/16 06:00 Total Bilirubin 0.4 mg/dL (0.2-1.0) D 06/27/16 23:50 AST 13 U/L (15-37) L D 06/27/16 23:50 ALT 20 U/L (12-78) 06/27/16 23:50 Alkaline Phosphatase 60 U/L (45-117) 06/27/16 23:50 Total Protein 6.4 g/dl (6.4-8.2) 06/27/16 23:50 Albumin 3.5 g/dl (3.4-5.0) 06/27/16 23:50 Current Medications Generic Name Dose Route Start Last Admin Trade Name Freq PRN Reason Stop Dose Admin Acetaminophen 650 mg 06/30/16 16:53 Tylenol - PO 07/01/16 10:22 Q4H PRN PAIN LEVEL 6-10 Amoxicillin/Clavulanate Potassium 1 tab 06/30/16 17:30 06/30/16 17:49 Augmentin - 500mg Tablet PO 1 tab BID@0800,1730 [facility] Administration Cholecalciferol 400 unit 07/01/16 10:00 Vitamin D3 - PO DAILY [facility] Heparin Sodium (Porcine) 5,000 unit 06/30/16 22:00 Heparin - SQ BID [facility] Insulin Aspart 1 vial 06/30/16 22:00 06/30/16 17:59 Novolog Vial Sliding Scale - SQ 2 units ACHS [facility] Administration Protocol Lisinopril 10 mg 07/01/16 10:00 Prinivil PO DAILY [facility] Magnesium Oxide 400 mg 06/30/16 22:00 Mag-Ox - PO 06/30/16 22:01 ONCE ONE Ondansetron HCl 4 mg 06/30/16 16:47 Zofran Injection IVPUSH 06/30/16 22:48 Q6H PRN NAUSEA AND/OR VOMITING Oxycodone HCl 10 mg 06/30/16 16:53 Roxicodone - PO Q4H PRN PAIN LEVEL 6-10 Sitagliptin Phosphate 50 mg 07/01/16 07:00 Januvia - PO DAILY@0700 [facility] Home Medications Medication Instructions Recorded Glyburide/Metformin HCl 1 each PO DAILY #0 09/16/13 [Glucovance 5-500 mg Tablet] Cholecalciferol (Vitamin D3) 400 unit PO DAILY 05/24/16 [Vitamin D3 -] Lisinopril [Prinivil] 10 mg PO DAILY 05/24/16 Oxycodone HCl/Acetaminophen 1 tab PO Q6H PRN #7 tablet MDD 4 06/20/16 [Percocet 5-325 mg Tablet] Sitagliptin Phosphate [Januvia] 50 mg PO PRN 06/20/16 ASSESSMENT AND PLAN: 56 y/o lady with h/o DM , HTN, gout , and other medical problems who presented with pain in R big toe. #POD # 0 s/p RLE angiogram-patient found to have only microvascular disease likely from diabetes will continue start the patient on ASpirin , will get Lipid profile , LFts. # Ischemic changes of right big toe: s/p arterial doppler positive for distal stenosis ; s/p angiogram by Dr.Nirav Amezcua # HTN: cont lisinopril # DM : hold metformin for angiogram for am ;cont januvia ;Hb A1c 8.2 DVT px : heparin
[2016-06-30] MEDS ORDERED: MAGNESIUM OXIDE 400 MG TABLET (FP) PO ONE ×2 (22:00)
[2016-06-30] MEDS: oxyCODONE HCL 5 MG TABLET PO PRN (22:25)
[2016-07-01] MEDS: oxyCODONE HCL 5 MG TABLET PO PRN (02:32)
[2016-07-01] MEDS: INSULIN SLIDING SCALE (NOVOLOG) 1 VIAL SQ SCH ×3 (06:28→12:30)
[2016-07-01] MEDS ORDERED: sitaGLIPtin PHOSPHATE 50 MG TABLET PO SCH (07:00)
[2016-07-01] MEDS ORDERED: PT OWN MED DRAWER 7, Y5N ONE ×2 (08:00→10:07)
[2016-07-01] MEDS: AMOX TR/POT CLAV 500MG/125MG TABLETS (FP) PO SCH ×2 (08:03→09:29)
[2016-07-01 08:21] LABS: ALBUMIN 2.9 g/dl (3.4-5.0); ALK PHOS 52 U/L (45-117); ANION GAP 6 (8-16); BILIRUBIN,TOTAL 0.3 mg/dL (0.2-1.0); CALCIUM 7.8 mg/dL (8.5-10.1); CO2 27 mmol/L (21-32); CREATININE 0.8 mg/dL (0.55-1.02); GLUCOSE,RANDOM 209 mg/dL (74-106); MAGNESIUM 1.5 mg/dL (1.8-2.4); SGOT/AST 13 U/L (15-37); SGPT/ALT 15 U/L (12-78); TOT PROT 5.4 g/dl (6.4-8.2)
[2016-07-01 08:28] LABS: BASOPHIL 0.5 % (0-2.0); EOSINOPHIL 1.8 % (0-4.5); MCH 23.9 pg (25.7-33.7); MCHC 31.4 g/dl (32.0-36.0); MEAN CELL VOLUME 76.1 fl (80-96); MEAN PLT VOLUME 8.3 fl (7.5-11.1); NEUTROPHILS 30.8 % (42.8-82.8); PLATELET COUNT 192 K/MM3 (134-434); RDW 14.3 % (11.6-15.6); WHITE BLOOD COUNT 5.9 K/mm3 (4.0-10.0)
[2016-07-01] MEDS ORDERED: MAGNESIUM SULF 50% (8.12 MEQ/2 ML-1 GM VIAL) IVPB ONE (08:50)
[2016-07-01 09:33] LABS: CHOLESTEROL 188 mg/dL (50-200); LDL CHOLESTEROL (ONLY SJRH) 121 mg/dL (5-100)
--- NOTE | 2016-07-01 09:37 | OP ---
DATE OF OPERATION: 06/30/2016 PREOPERATIVE DIAGNOSIS: Right great toe discoloration. POSTOPERATIVE DIAGNOSIS: Right great toe discoloration. PROCEDURE: Aortogram, right lower extremity angiogram. SURGEON: Gael Wells MD ANESTHESIA: Fractional. BLOOD LOSS: 10 mL. INDICATIONS: The patient is a 56-year-old female who comes in with a 3-week history of right great toe discoloration with pain. She claims she went to her electronic technologist who did some foot care and after that developed this pain and swelling and discoloration in her right great toe. Patient is a long-time diabetic and a long-time smoker. It was felt that she would need an angiogram. Patient was consented for the procedure understanding all risks, benefits, and alternatives and then was taken to the operating room. PROCEDURE IN DETAIL: Once in the operating suite, she was laid down on the operating table in the supine manner, and the area of the right and left groin were prepped and draped in the sterile surgical manner. We then injected 10 mL of 0.5% lidocaine over the left common femoral artery. We then took our micropuncture needle to puncture the left common femoral artery. A micropuncture wire was inserted, and a traditional 5-[place] sheath was inserted. We then placed a 0.035 floppy guidewire up in the aorta followed by an Omni Flush catheter. We then shot an aortogram by a head injection showing that the aorta and iliac arteries were without any disease. We then placed our 0.035 floppy guidewire up and over to the right common femoral artery, and our Omni Flush catheter followed. We then shot an angiogram of the right lower extremity showing that the common femoral artery had a calcified plaque about taking up 70% of the lumen, but it was not flow limiting. Profunda was patent, SFA was patent, popliteal artery was patent. Below-knee POP was open. Patient did not have a posterior tibial artery. Patient had peroneal and AT runoff, AT went into the forefoot, but did not go any further than that. Patient has some microvascular disease in the foot, as well. At this point, there were no flow-limiting lesions, there were no blockages, there is still bypassable disease. At this point, we took out our Omni Flush catheter, took out our sheath, and pressure was held in the left groin for 5 minutes. There was no bleeding. The area was wet and dried, and Dermabond was placed. The patient tolerated the procedure with no complications. Patient transferred to PACU in stable condition. Total blood loss 10 mL. GAEL WELLS DO [id number]
[2016-07-01] MEDS ORDERED: LISINOPRIL 10 MG TABLET (FP) PO SCH (10:00)
[2016-07-01] MEDS ORDERED: CHOLECALCIFEROL (VITAMIN D3) 400 UNIT TABLET (FP) PO SCH (10:00)
[2016-07-01] MEDS ORDERED: MAGNESIUM OXIDE 400 MG TABLET (FP) PO SCH (10:00)
--- NOTE | 2016-07-01 10:10 | PN ---
Teaching Attending Note Name of Resident: Jefferson Montenegro ATTENDING PHYSICIAN STATEMENT I saw and evaluated the patient. I reviewed the resident's note and discussed the case with the resident. I agree with the resident's findings and plan as documented. Patient is comfortable with no acute distress, no nausea, no fever or chills, no headache. Feels tired since didn't sleep well. Vital Signs Temperature 98.1 F 07/01/16 07:14 Pulse Rate 69 07/01/16 07:14 Respiratory Rate 18 07/01/16 07:14 Blood Pressure 141/74 07/01/16 07:14 O2 Sat by Pulse Oximetry (%) 100 07/01/16 05:00 CBCD WBC 5.9 K/mm3 (4.0-10.0) 07/01/16 06:00 RBC 4.03 M/mm3 (3.60-5.2) 07/01/16 06:00 Hgb 9.6 GM/dL (10.7-15.3) L 07/01/16 06:00 Hct 30.7 % (32.4-45.2) L 07/01/16 06:00 MCV 76.1 fl (80-96) L 07/01/16 06:00 MCHC 31.4 g/dl (32.0-36.0) L 07/01/16 06:00 RDW 14.3 % (11.6-15.6) 07/01/16 06:00 Plt Count 192 K/MM3 (134-434) 07/01/16 06:00 MPV 8.3 fl (7.5-11.1) 07/01/16 06:00 CMP Sodium 140 mmol/L (136-145) 07/01/16 06:00 Potassium 4.2 mmol/L (3.5-5.1) 07/01/16 06:00 Chloride 107 mmol/L (98-107) 07/01/16 06:00 Carbon Dioxide 27 mmol/L (21-32) D 07/01/16 06:00 Anion Gap 6 (8-16) L 07/01/16 06:00 BUN 17 mg/dL (7-18) D 07/01/16 06:00 Creatinine 0.8 mg/dL (0.55-1.02) 07/01/16 06:00 Creat Clearance w eGFR > 60 (>60) 07/01/16 06:00 Random Glucose 209 mg/dL (74-106) H 07/01/16 06:00 Calcium 7.8 mg/dL (8.5-10.1) L 07/01/16 06:00 Total Bilirubin 0.3 mg/dL (0.2-1.0) D 07/01/16 06:00 AST 13 U/L (15-37) L 07/01/16 06:00 ALT 15 U/L (12-78) D 07/01/16 06:00 Alkaline Phosphatase 52 U/L (45-117) 07/01/16 06:00 Total Protein 5.4 g/dl (6.4-8.2) L 07/01/16 06:00 Albumin 2.9 g/dl (3.4-5.0) L 07/01/16 06:00 Current Medications Generic Name Dose Route Start Last Admin Trade Name Freq PRN Reason Stop Dose Admin Acetaminophen 650 mg 06/30/16 16:53 Tylenol - PO 07/01/16 10:22 Q4H PRN PAIN LEVEL 6-10 Amoxicillin/Clavulanate Potassium 1 tab 06/30/16 17:30 07/01/16 08:03 Augmentin - 500mg Tablet PO 1 tab BID@0800,1730 [facility] Administration Cholecalciferol 400 unit 07/01/16 10:00 Vitamin D3 - PO DAILY [facility] Heparin Sodium (Porcine) 5,000 unit 06/30/16 22:00 06/30/16 22:26 Heparin - SQ 5,000 unit BID [facility] Administration Insulin Aspart 1 vial 06/30/16 22:00 07/01/16 06:28 Novolog Vial Sliding Scale - SQ 3 units ACHS [facility] Administration Protocol Lisinopril 10 mg 07/01/16 10:00 Prinivil PO DAILY [facility] Magnesium Oxide 400 mg 07/01/16 10:00 Mag-Ox - PO 07/01/16 22:01 BID [facility] Oxycodone HCl 10 mg 06/30/16 16:53 07/01/16 02:32 Roxicodone - PO 10 mg Q4H PRN Administration PAIN LEVEL 6-10 Sitagliptin Phosphate 50 mg 07/01/16 07:00 07/01/16 06:28 Januvia - PO 50 mg DAILY@0700 [facility] Administration Home Medications Medication Instructions Recorded Glyburide/Metformin HCl 1 each PO DAILY #0 09/16/13 [Glucovance 5-500 mg Tablet] Cholecalciferol (Vitamin D3) 400 unit PO DAILY 05/24/16 [Vitamin D3 -] Lisinopril [Prinivil] 10 mg PO DAILY 05/24/16 Oxycodone HCl/Acetaminophen 1 tab PO Q6H PRN #7 tablet MDD 4 06/20/16 [Percocet 5-325 mg Tablet] Sitagliptin Phosphate [Januvia] 50 mg PO PRN 06/20/16 Laboratory Tests 07/01/16 06:00 Triglycerides 223 H Cholesterol 188 Total LDL Cholesterol 121 H HDL Cholesterol 32 L ASSESSMENT AND PLAN: 56 y/o lady with h/o DM , HTN, gout , and other medical problems who presented with pain in R big toe. #POD # 1 s/p RLE angiogram-patient found to have only microvascular disease likely from diabetes., On Aspirin will continue. will add Lovaza 4gm daily, can't take lipitor , patient will follow with her PMD for further care. # Acute Hypomag. getting replaced with 2gms mg # HTN: cont lisinopril # DM : hold metformin for angiogram for am ;cont januvia ;Hb A1c 8.2
--- NOTE | 2016-07-01 10:17 | PN ---
Progress Note (short form) - Note Progress Note: POD #1 s/p RLE angio Alert. doing well. resting in position of comfort. Pain control via PRN meds. Denies n/v/f/c, CP, SOB or RLE numbness/tingling. Last Vital Signs Temp Pulse Resp BP Pulse Ox 98.1 F 69 18 141/74 100 07/01/16 07:14 07/01/16 07:14 07/01/16 07:14 07/01/16 07:14 07/01/16 05:00 CBC, BMP 07/01/16 06:00 07/01/16 06:00 PE General: alert. nad Left groin: stab incision intact. no hematoma. warm Right groin: warm. right great toe with mild erythema. no bogginess/induration or purulent drainage. Mildly ttp Problem List - Problems (1) Toe infection Assessment/Plan: POD #1 s/p RLE angio Cont care per medicine. Local wound care No further vascular surgery intervention Re-consult prn Above discussed with Dr. Sullivan and agrees Code(s): L08.9 - LOCAL INFECTION OF THE SKIN AND SUBCUTANEOUS TISSUE, UNSP
[2016-07-01] MEDS: HEPARIN NA (PORCINE) 5,000 UNITS/ML 1ML VIAL SQ SCH (10:18)
--- NOTE | 2016-07-01 10:32 | DS ---
Physical Exam: SUBJECTIVE: Patient seen and examined at bedside. OBJECTIVE: Vital Signs Period Temp Pulse Resp BP Sys/Castillo Pulse Ox Last 24 Hr 97.9 F-100 F 63-75 15-20 124-145/55-74 100-100 PHYSICAL EXAM GENERAL: The patient is awake, alert, and fully oriented, in no acute distress. HEAD: Normal with no signs of trauma. LUNGS: Breath sounds equal, clear to auscultation bilaterally, no wheezes, no crackles, no accessory muscle use. HEART: Regular rate and rhythm, S1, S2 ABDOMEN: Soft, nontender, nondistended, normoactive bowel sounds EXTREMITIES: LLE: 2+ DP pulses, warm, well-perfused, no edema. RLE: no palpable DP pulse appreciated right toe erythematous and tender to palpation but less tender to palpation. erythema improved. right great toe is cool when compared to the rest of the foot and other toes. NEUROLOGICAL: Cranial nerves II through XII grossly intact. Normal speech PSYCH: Normal mood, normal affect. LABS Laboratory Results - last 24 hr 06/30/16 06/30/16 06/30/16 16:59 17:36 22:10 WBC RBC Hgb Hct MCV MCHC RDW Plt Count MPV Neutrophils % Lymphocytes % Monocytes % Eosinophils % Basophils % Sodium Potassium Chloride Carbon Dioxide Anion Gap BUN Creatinine Creat Clearance w eGFR POC Glucometer 162 166 249 Random Glucose Calcium Magnesium Total Bilirubin AST ALT Alkaline Phosphatase Total Protein Albumin Triglycerides Cholesterol Total LDL Cholesterol HDL Cholesterol 07/01/16 07/01/16 07/01/16 06:00 06:00 06:00 WBC 5.9 RBC 4.03 Hgb 9.6 L Hct 30.7 L MCV 76.1 L MCHC 31.4 L RDW 14.3 Plt Count 192 MPV 8.3 Neutrophils % 30.8 L D Lymphocytes % 57.3 H Monocytes % 9.6 Eosinophils % 1.8 Basophils % 0.5 Sodium 140 Potassium 4.2 Chloride 107 Carbon Dioxide 27 D Anion Gap 6 L BUN 17 D Creatinine 0.8 Creat Clearance w eGFR > 60 POC Glucometer Random Glucose 209 H Calcium 7.8 L Magnesium 1.5 L Total Bilirubin 0.3 D AST 13 L ALT 15 D Alkaline Phosphatase 52 Total Protein 5.4 L Albumin 2.9 L Triglycerides 223 H Cholesterol 188 Total LDL Cholesterol 121 H HDL Cholesterol 32 L 07/01/16 08:57 WBC RBC Hgb Hct MCV MCHC RDW Plt Count MPV Neutrophils % Lymphocytes % Monocytes % Eosinophils % Basophils % Sodium Potassium Chloride Carbon Dioxide Anion Gap BUN Creatinine Creat Clearance w eGFR POC Glucometer 219 Random Glucose Calcium Magnesium Total Bilirubin AST ALT Alkaline Phosphatase Total Protein Albumin Triglycerides Cholesterol Total LDL Cholesterol HDL Cholesterol HOSPITAL COURSE: Date of Admission:06/30/16 Date of Discharge: 07/01/16 56F admitted to the hospital for right toes pain found to be possible cellulitis after a 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 After evaluation we concluded that it is less likely infectious and more likely a vascular issue after pulses were not appreciated in the right foot but were strong in the left foot. She had a duplex arterial US which showed high grade stenosis of the right SFA. She then had a CTA angiogram and then an angiogram done by vascular surgery. no intervention done as she had good flow throughout her major vessels but had microvascular disease form her diabetes affecting that toe. She is stable for discharge to complete her course of antibiotics Minutes to complete discharge: 47 Discharge Summary Reason For Visit: DIABETES TOE INFECTION Current Active Problems Dizziness (Acute) Hyperlipidemia (Acute) Ischemia of toe (Acute) Toe infection (Acute) Diabetes (Chronic) HTN (hypertension) (Chronic) Condition: Improved - Instructions Diet, Activity, Other Instructions: eat a low sodium low fat low carbohydrate diet continue antibiotics for 5 more days follow up with your primary care doctor follow up with vascular surgery follow up with your cnc mill set up operator go to the emergency room if your symptoms worsen do not take the metformin until 07/02/2016 as you had contrast given on 06/30/16 i will give you a prescription for a lab test in 1 week either get it done at your primary care doctor's office or in the hospital Referrals: Xavier Solares MD [Primary Care Provider] - 1 Week Gael Sullivan MD [Staff Physician] - 2 Weeks Disposition: HOME - Home Medications Comprehensive Discharge Medication List: Ambulatory Orders Glyburide/Metformin HCl [Glucovance 5-500 mg Tablet] 1 each PO DAILY #0 Cholecalciferol (Vitamin D3) [Vitamin D -] 400 unit PO DAILY 05/24/16 Lisinopril [Prinivil] 10 mg PO DAILY 05/24/16 Oxycodone HCl/Acetaminophen [Percocet 5-325 mg Tablet] 1 tab PO Q6H PRN #7 tablet MDD 4 06/20/16 Sitagliptin Phosphate [Januvia] 50 mg PO PRN 06/20/16 Amox-Tr/K Cl [Augmentin 500-125mg Tablet -] 1 tab PO BID@0800,1730 #10 tablet Atorvastatin Ca [Lipitor] 20 mg PO HS #30 tablet 07/01/16 Miscellaneous Drug Not In Syst [Outpatient Lab Test] 1 each ASDIR #1 misc This patient is new to me today: No Emergency Visit: Yes ED Registration Date: 06/30/16 Care time: The patient presented to the Emergency Department on the above date and was hospitalized for further evaluation of their emergent condition. Critical Care patient: No - Discharge Referral Referred to [facility] No
[2016-07-01] MEDS ORDERED: INSULIN (NOVOLOG) ASPART 100 UNITS/ML 10ML VIAL ONE (12:21)
[2016-07-01 13:40] VITALS: BP 137/78; PULSE 74; TEMP 97.9
== END 2016-07-01 14:12 | disposition home or self-care (01) | DRG 197 ==
LOC: JER 20:46 → JERBED 06-28 02:29 → J7W 06-28 11:14 → OBSVTOIN 06-30 12:31 → J7W 06-30 14:09
PROVIDERS: ADMIT Internal Medicine; ATTEND Internal Medicine
PROC: B40D1ZZ Plain Radiography of Aorta and Bilateral Lower Extremity Arteries using Low Osmolar Contrast (ICD-10-PCS; 2016-06-30)
PROC: B50BYZZ Plain Radiography of Right Lower Extremity Veins using Other Contrast (ICD-10-PCS; principal; 2016-06-30 13:00)
DX: E11.51 Type 2 diabetes mellitus with diabetic peripheral angiopathy without gangrene (principal); I10 Essential (primary) hypertension; E78.5 Hyperlipidemia, unspecified; M10.9 Gout, unspecified; F17.210 Nicotine dependence, cigarettes, uncomplicated; I87.1 Compression of vein; D64.9 Anemia, unspecified; E83.42 Hypomagnesemia; L08.9 Local infection of the skin and subcutaneous tissue, unspecified; M54.30 Sciatica, unspecified side; E66.8 Other obesity; Z68.34 Body mass index [BMI] 34.0-34.9, adult; Z71.3 Dietary counseling and surveillance
CPT/HCPCS: 36415; 71020-TC; 73660-TC; 75635-TC; 76001-TC; 80048; 80053; 80061; 82728; 83036; 83540; 83550; 83721; 83735; 84100; 85025; 85027; 85610; 85730; 93005; 93010; 93925-TC; 94760; 99284-25; G0378; J1644

== ENCOUNTER → 2016-08-25 | Emergency (ER) | payer OTHER ==
[~2016-08-25] MED LIST: OXYCODONE/APAP 5/325MG COMBO TABLET ONE; OXYCODONE/APAP 5/325MG COMBO TABLET PO ONE
[2016-08-25 18:25] VITALS: BMI 34.7
--- NOTE | 2016-08-25 19:08 | PDOC ---
History of Present Illness - General History Source: Patient Exam Limitations: No Limitations - History of Present Illness Initial Comments: 56 yo F history HTN, DM, chronic R toe wound currently on hyperbaric therapy presents with R great toe pain. She states that she was recently placed on elavil by her landscape painter for the pain, she took her first dose last night. No relief. She denies fever. The toe is dark and red, but she states that with the HBO, the color has significantly improved, much closer to normal than before. No drainage from the toe. She has HBO appointment tomorrow as well. <Monica Pike - Last Filed: 08/25/16 20:27> <Jenise Gamble - Last Filed: 08/25/16 20:39> - General Chief Complaint: Pain Stated Complaint: PAIN Time Seen by Provider: 08/25/16 19:02 Past History - Past Medical History Anemia: No Asthma: No Cancer: No Cardiac Disorders: No CVA: No COPD: No CHF: No Dementia: No Diabetes: Yes (NIDDM) GI Disorders: No Disorders: No HTN: Yes Hypercholesterolemia: Yes (border line) Liver Disease: No Seizures: No Thyroid Disease: No - Surgical History Abdominal Surgery: No Appendectomy: No Cardiac Surgery: No Cholecystectomy: No Lung Surgery: No Neurologic Surgery: No Orthopedic Surgery: No - Immunization History Immunization Up to Date: Yes - Psycho/Social/Smoking Cessation Hx Anxiety: No Suicidal Ideation: No Smoking History: Current some day smoker Have you smoked in the past 12 months: Yes Number of Cigarettes Smoked Daily: 2 If you are a former smoker, when did you quit?: 2012 Information on smoking cessation initiated: No 'Breaking Loose' booklet given: 05/24/16 Hx Alcohol Use: No Drug/Substance Use Hx: No Substance Use Type: None Hx Substance Use Treatment: No <Monica Pike - Last Filed: 08/25/16 20:27> <Jenise Gamble - Last Filed: 08/25/16 20:39> - Past Medical History Allergies/Adverse Reactions: Allergies Allergy/AdvReac Type Severity Reaction Status Date / Time No Known Allergies Allergy Verified 08/25/16 18:25 Home Medications: Ambulatory Orders Glyburide/Metformin HCl [Glucovance 5-500 mg Tablet] 1 each PO DAILY #0 Cholecalciferol (Vitamin D3) [Vitamin D -] 400 unit PO DAILY 05/24/16 Lisinopril [Prinivil] 10 mg PO DAILY 05/24/16 Sitagliptin Phosphate [Januvia] 50 mg PO PRN 06/20/16 Rogerson-3 Acid Ethyl Esters [Lovaza] 2 gm PO BID #120 capsule 07/01/16 Review of Systems - Review of Systems Able to Perform ROS?: Yes Comments:: GENERAL/CONSTITUTIONAL: No fever or chills. No weakness. HEAD, EYES, EARS, NOSE AND THROAT: No change in vision. No ear pain or discharge. No sore throat. MUSCULOSKELETAL: +R great toe pain. Otherwise no joint or muscle swelling or pain. No neck or back pain. SKIN: No rash NEUROLOGIC: No headache, vertigo, loss of consciousness, or change in strength/ sensation. ENDOCRINE: No increased thirst. No abnormal weight change. Blood sugar was elevated to 300 this morning. HEMATOLOGIC/LYMPHATIC: No anemia, easy bleeding, or history of blood clots. ALLERGIC/IMMUNOLOGIC: No hives or skin allergy. <Monica Pike - Last Filed: 08/25/16 20:27> *Physical Exam - Vital Signs Last Vital Signs Temp Pulse Resp BP Pulse Ox 97.9 F 92 H 18 152/85 100 08/25/16 18:22 08/25/16 18:22 08/25/16 18:22 08/25/16 18:22 08/25/16 18:22 - Physical Exam Comments: GENERAL: Awake, alert, and fully oriented, in no acute distress HEAD: No signs of trauma EYES: PERRLA, EOMI, sclera anicteric, conjunctiva clear EXTREMITIES: R great toe with mod erythema, wound to the medial side of the toe at the edge of the nailbed. No active drainage. Remainder of extremities with normal range of motion, no edema. No clubbing or cyanosis. No cords, erythema, or tenderness NEUROLOGICAL: Cranial nerves II through XII grossly intact. Normal speech, normal gait SKIN: Warm, Dry, normal turgor, no rashes or lesions noted. <Monica Pike - Last Filed: 08/25/16 20:27> - Vital Signs Last Vital Signs Temp Pulse Resp BP Pulse Ox 97.9 F 92 H 18 152/85 100 08/25/16 18:22 08/25/16 18:22 08/25/16 18:22 08/25/16 18:22 08/25/16 18:22 <Jenise Gamble - Last Filed: 08/25/16 20:39> ED Treatment Course - RADIOLOGY Radiograph Interpretation: 08/25/16 20:39 Toes XRay As reviewed by Dr. Yoel Cerrato IMPRESSION: No fracture or acute pathology. - Medications Given in the ED: ED Medications Discontinued Medications Generic Name Dose Route Start Last Admin Trade Name Freq PRN Reason Stop Dose Admin Oxycodone/Acetaminophen 1 combo 08/25/16 19:35 08/25/16 20:03 Percocet 5/325 - PO 08/25/16 19:36 1 combo ONCE ONE Administration <Jenise Gamble - Last Filed: 08/25/16 20:39> Medical Decision Making - Medical Decision Making 08/25/16 19:28 i-STOP Reference #: [id number]- one prior rx for percocet 2 day supply in June 2016. 08/25/16 20:28 XR reviewed. No subcutaneous gas. Will refer back to [facility] for outpatient follow- up. She has appointment tomorrow. <Monica Pike - Last Filed: 08/25/16 20:27> *DC/Admit/Observation/Transfer - Discharge Dispostion Admit: No <Monica Pike - Last Filed: 08/25/16 20:27> <Jenise Gamble - Last Filed: 08/25/16 20:39> Diagnosis at time of Disposition: Toe infection - Discharge Dispostion Disposition: HOME Condition at time of disposition: Stable - Referrals Referrals: Xavier Solares MD [Primary Care Provider] -
[2016-08-25 22:36] VITALS: BP 143/61; PULSE 75; TEMP 98.3
== END | disposition home or self-care (01) ==
LOC: JER 18:15
DX: L08.9 Local infection of the skin and subcutaneous tissue, unspecified (principal); E11.9 Type 2 diabetes mellitus without complications; I10 Essential (primary) hypertension; F17.210 Nicotine dependence, cigarettes, uncomplicated
CPT/HCPCS: 73660-TC; 99283-25

== ENCOUNTER 2016-09-28 11:07 | Day surgery (SDC) | payer OTHER ==
[2016-09-21 10:36] VITALS: BMI 34.5
[2016-09-28] MEDS ORDERED: LIDOCAINE HCL 1%, 10 MG/ML (20ML VIAL) ONE (14:02)
[2016-09-28] MEDS ORDERED: MIDAZOLAM HCL 2 MG/2 ML SINGLE DOSE VIAL ONE (14:27)
[2016-09-28] MEDS ORDERED: PROPOFOL 20 ML ONE ×4 (14:27)
[2016-09-28] MEDS ORDERED: ceFAZolin SODIUM 1 GM VIAL IVPB ONE (14:37)
[2016-09-28] MEDS ORDERED: LIDOCAINE HCL 1%, 10 MG/ML (20ML VIAL) IJ ONE (14:39)
[2016-09-28] MEDS ORDERED: ceFAZolin SODIUM 1 GM VIAL ONE (14:41)
--- NOTE | 2016-09-28 14:53 | OP ---
Operative Note - Note: Operative Date: 09/28/16 Pre-Operative Diagnosis: Right great toe ulcer Operation: Aortogram, RLE angiogram Post-Operative Diagnosis: Same as Pre-op Surgeon: Gael Sullivan Anesthesia: Fractional Estimated Blood Loss (mls): 5 Operative Report Dictated: Yes
--- NOTE | 2016-09-28 14:54 | HP ---
Admitting History and Physical - Admission Chief Complaint: right great toe ulcer - Past Medical History HEAD CONCIERGE: Yes: TIA. No: CVA ...LMP: 07/02/13 - Smoking History Smoking history: Current some day smoker Have you smoked in the past 12 months: Yes Aproximately how many cigarettes per day: 2 If you are a former smoker, when did you quit?: 2012 - Alcohol/Substance Use Hx Alcohol Use: No Home Medications - Allergies Allergies/Adverse Reactions: Allergies Allergy/AdvReac Type Severity Reaction Status Date / Time No Known Allergies Allergy Verified 08/25/16 18:25 - Home Medications Home Medications: Ambulatory Orders Glyburide/Metformin HCl [Glucovance 5-500 mg Tablet] 1 each PO DAILY #0 Cholecalciferol (Vitamin D3) [Vitamin D -] 400 unit PO DAILY 05/24/16 Lisinopril [Prinivil] 10 mg PO DAILY 05/24/16 Sitagliptin Phosphate [Januvia] 50 mg PO PRN 06/20/16 Ibuprofen [Motrin -] 800 mg PO QID #120 tablet MDD 4 09/01/16 Amitriptyline HCl [Elavil -] 25 mg PO HS 09/21/16 Aspirin [ASA -] 81 mg PO DAILY 09/21/16 Magnesium 30 mg PO DAILY 09/21/16 Physical Examination Vital Signs: Vital Signs Temperature 98.0 F 09/28/16 12:08 Pulse Rate 89 09/28/16 12:08 Respiratory Rate 18 09/28/16 12:08 Blood Pressure 144/77 09/28/16 12:08 O2 Sat by Pulse Oximetry (%) 100 09/28/16 12:08 Constitutional: Yes: Well Nourished, Pallor HENT: Yes: WNL Neck: Yes: WNL Cardiovascular: Yes: WNL Respiratory: Yes: WNL Gastrointestinal: Yes: WNL Musculoskeletal: Yes: WNL Edema: No Assessment/Plan right great toe ulcer 1. For angiogram
[2016-09-28] MEDS ORDERED: ONDANSETRON 4 MG/2 ML VIAL IVPUSH PRN (14:57)
[2016-09-28] MEDS ORDERED: PROMETHAZINE HCL 25 MG/1 ML VIAL IVPUSH PRN (14:57)
[2016-09-28] MEDS ORDERED: LACTATED RINGERS SOLUTION 1,000 ML IV SCH (15:00)
[2016-09-28 15:59] VITALS: TEMP 98.7
[2016-09-28] MEDS ORDERED: IBUPROFEN 600 MG TABLET (FP) PO ONE ×2 (17:00→17:13)
[2016-09-28 18:01] VITALS: BP 175/78; PULSE 90
--- NOTE | 2016-11-01 08:09 | OP ---
DATE OF OPERATION: 09/28/2016 PREOPERATIVE DIAGNOSIS: Right great toe ulcer. POSTOPERATIVE DIAGNOSIS: Right great toe ulcer. PROCEDURE: Aortogram, right lower extremity angiogram. SURGEON: Gael Wells DO ANESTHESIA: Fractional. BLOOD LOSS: 5 mL. The patient is a 56-year-old female that has a right great toe ulcer. It was thought that she would need an angiogram. Patient was consented for the procedure understanding all risks, benefits, and alternatives, and was then taken to the operating room. Once in the operating room, she was laid on the operating table in the supine manner. The area of the right and left groin was prepped and draped in a sterile surgical manner. We then injected 10 mL of lidocaine 1% over the left common femoral artery. We then took our micropuncture needle and punctured the left common femoral artery. Micropuncture wire was inserted and a traditional 5-Welsh sheath was inserted. A 0.035 floppy guidewire was inserted into the aorta via fluoroscopy. Under fluoroscopy, we then placed our Omniflush catheter up into the aorta. We then shot an aortogram by hand injection, showing that the aorta and the iliac arteries were without any disease. We then placed up a 0.035 floppy guidewire up and over and our Omniflush catheter was placed in the right common femoral artery. We then shot an angiogram of the right lower extremity by hand injection showing that the common femoral artery, the profunda, and the SFA were patent. Popliteal artery was patent. TB trunk was patent. Patient had 2-vessel runoff, PT and AT, getting into the foot. However, once the anterior tibial artery becomes the dorsalis pedis artery, the artery does not go any further and there was lots of small-vessel disease feeding the toes in the right foot. At this point, there was no disease that needed angioplasty or intervention. Patient as small-vessel disease in her foot. At this point, we brought our Omniflush catheter up and over and we took our sheath out of the left common femoral artery and pressure was held to the left groin for 5 minutes. After this, there was no bleeding. The area was wet and dried and Dermabond was placed. The patient tolerated the procedure with no complication. The patient transferred to the PACU in stable condition. GAEL WELLS DO LUMBER HACKER/[id number]
== END 2016-09-28 17:45 | disposition home or self-care (01) ==
LOC: JASU-SURG 11:07
PROVIDERS: ATTEND Surgery Vascular Surgery
PROC: B410YZZ Fluoroscopy of Abdominal Aorta using Other Contrast (ICD-10-PCS; 2016-09-28)
PROC: B41FYZZ Fluoroscopy of Right Lower Extremity Arteries using Other Contrast (ICD-10-PCS; principal; 2016-09-28 14:00)
DX: I73.9 Peripheral vascular disease, unspecified (principal); L97.519 Non-pressure chronic ulcer of other part of right foot with unspecified severity
CPT/HCPCS: 76000-TC; 94760

== ENCOUNTER 2016-11-21 14:21 | Inpatient (IN) | payer OTHER ==
--- NOTE | 2016-11-21 17:07 | PDOC ---
History of Present Illness - General History Source: Patient Exam Limitations: No Limitations - History of Present Illness Initial Comments: 11/21/16 17:07 Patient is a 56 year old female with history of DM, HTN and a chronic poor healing right great toe wound presenting with concerns that the toe may have become infected. 11/21/16 18:00 <Vincenzo Wallace - Last Filed: 11/21/16 20:02> <Kindra Hussein - Last Filed: 11/21/16 20:19> - General Chief Complaint: Wound Infection Stated Complaint: RIGHT TOE PAIN/DIABETIC Time Seen by Provider: 11/21/16 17:06 Past History - Past Medical History Anemia: No Asthma: No Cancer: No Cardiac Disorders: No CVA: No COPD: No CHF: No Dementia: No Diabetes: Yes (NIDDM) GI Disorders: No Disorders: No HTN: Yes Hypercholesterolemia: Yes (border line) Liver Disease: No Seizures: No Thyroid Disease: No - Surgical History Abdominal Surgery: No Appendectomy: No Cardiac Surgery: No Cholecystectomy: No Lung Surgery: No Neurologic Surgery: No Orthopedic Surgery: No - Immunization History Immunization Up to Date: Yes - Psycho/Social/Smoking Cessation Hx Anxiety: No Suicidal Ideation: No Smoking History: Former smoker Have you smoked in the past 12 months: Yes Number of Cigarettes Smoked Daily: 2 If you are a former smoker, when did you quit?: 2017 Information on smoking cessation initiated: No 'Breaking Loose' booklet given: 05/24/16 Hx Alcohol Use: No Drug/Substance Use Hx: No Substance Use Type: None Hx Substance Use Treatment: No <Vincenzo Wallace - Last Filed: 11/21/16 20:02> <Kindra Hussein - Last Filed: 11/21/16 20:19> - Past Medical History Allergies/Adverse Reactions: Allergies Allergy/AdvReac Type Severity Reaction Status Date / Time No Known Allergies Allergy Verified 11/21/16 14:24 Home Medications: Ambulatory Orders Glyburide/Metformin HCl [Glucovance 5-500 mg Tablet] 1 each PO DAILY #0 Cholecalciferol (Vitamin D3) [Vitamin D -] 400 unit PO DAILY 05/24/16 Lisinopril [Prinivil] 10 mg PO DAILY 05/24/16 Sitagliptin Phosphate [Januvia] 50 mg PO PRN 06/20/16 Ibuprofen [Motrin -] 800 mg PO QID #120 tablet MDD 4 09/01/16 Amitriptyline HCl [Elavil -] 25 mg PO HS 09/21/16 Aspirin [ASA -] 81 mg PO DAILY 09/21/16 Magnesium 30 mg PO DAILY 09/21/16 Acetaminophen W/ Codeine #3 [Tylenol # 3 -] 1 tab PO Q6H #60 tablet MDD 4 Atorvastatin Ca [Lipitor] 1 tab PO DAILY 10/28/16 Gabapentin [Neurontin] 1 cap PO TID 10/28/16 *Physical Exam - Vital Signs Last Vital Signs Temp Pulse Resp BP Pulse Ox 98.0 F 94 H 18 158/72 100 11/21/16 14:25 11/21/16 14:25 11/21/16 14:25 11/21/16 14:25 11/21/16 14:25 <Vincenzo Wallace - Last Filed: 11/21/16 20:02> - Vital Signs Last Vital Signs Temp Pulse Resp BP Pulse Ox 98.0 F 94 H 18 158/72 100 11/21/16 14:25 11/21/16 14:25 11/21/16 14:25 11/21/16 14:25 11/21/16 14:25 <Kindra Hussein - Last Filed: 11/21/16 20:19> ED Treatment Course - LABORATORY CBC & Chemistry Diagram: 11/21/16 18:20 11/21/16 18:20 <Vincenzo Wallace - Last Filed: 11/21/16 20:02> - LABORATORY CBC & Chemistry Diagram: 11/21/16 18:20 11/21/16 18:20 - ADDITIONAL ORDERS Additional order review: Laboratory Results 11/21/16 18:20 Sodium 141 Potassium 4.6 Chloride 109 H Carbon Dioxide 23 Anion Gap 9 BUN 18 D Creatinine 1.0 D Creat Clearance w eGFR 57.78 Random Glucose 226 H Calcium 8.6 Total Bilirubin 0.3 AST 10 L D ALT 24 D Alkaline Phosphatase 67 Total Protein 6.5 Albumin 3.4 11/21/16 18:20 RBC 3.66 MCV 77.2 L MCHC 30.3 L RDW 14.1 MPV 8.1 Neutrophils % 42.0 L D Lymphocytes % 48.3 H D Monocytes % 7.3 Eosinophils % 1.7 Basophils % 0.7 <Kindra Hussein - Last Filed: 11/21/16 20:19> Medical Decision Making - Medical Decision Making 11/21/16 17:07 56 year old female with DM and poor healing wound to the right great toe concerned for infection ddx includes but is not limited to necrotic wound, wound infection, osteomyelitis Plan: Basic labs (CBC, CMP) Consult with Dr. Sullivan Consider admission, if admission xray, ESR, CRP monitor and reassess 11/21/16 18:[address] Sullivan who agrees to see the patient in the ED in an hour. Spoke with Dr. Coates who agreed to admit patient based on Dr. Sullivan's recommendations. 11/21/16 19:[address] Sullivan after he spoke with patient. Patient is extremely interested in keeping the toe if possible. The wound is suspicious for infection with concern for osteomyelitis and patient has failed outpatient antibiotics Dr. Sullivan recommends - Pain control - Admission for broad spectrum IV antibiotics Vanc 15-20 mg/kg q12hr (97kg) - 2 g Zosyn 3.375 mg q6hr Pharmacy consulted and signed off on starting patient on 2 g Vanc in ED Abx need to be continued or adjusted after admission <Vincenzo Wallace - Last Filed: 11/21/16 20:02> - Medical Decision Making 11/21/16 20:[address] Aliyah Grover (via answering service) at 20:18 Awaiting call back <Kindra Hussein - Last Filed: 11/21/16 20:19> *DC/Admit/Observation/Transfer - Discharge Dispostion Admit: Yes - Attestations Physician Attestion: 11/21/16 20:08 I, Dr. Vincenzo Wallace, attest that this document has been prepared under my direction and personally reviewed by me in its entirety. I further attest, that it accurately reflects all work, treatment, procedures and medical decision -making performed by me. <Vincenzo Wallace - Last Filed: 11/21/16 20:02> <Kindra Hussein - Last Filed: 11/21/16 20:19> Diagnosis at time of Disposition: Toe infection - Referrals Referrals: Xavier Solares MD [Primary Care Provider] -
--- NOTE | 2016-11-21 17:15 | PDOC ---
Attending Attestation - Resident Resident Name: Vincenzo Wallace - ED Attending Attestation I have performed the following: I have examined & evaluated the patient, The case was reviewed & discussed with the resident, I agree w/resident's findings & plan, Exceptions are as noted - HPI HPI: 11/21/16 17:14 Right Great Toe Infection, Diabetic - Physicial Exam PE: 11/21/16 17:15 Infection - Medical Decision Making 11/21/16 17:[address] Wallace's Assessment and Plan
[2016-11-21 19:01] LABS: ALBUMIN 3.4 g/dl (3.4-5.0); ALK PHOS 67 U/L (45-117); ANION GAP 9 (8-16); BILIRUBIN,TOTAL 0.3 mg/dL (0.2-1.0); CALCIUM 8.6 mg/dL (8.5-10.1); CO2 23 mmol/L (21-32); GLUCOSE,RANDOM 226 mg/dL (74-106); SGOT/AST 10 U/L (15-37); SGPT/ALT 24 U/L (12-78); TOT PROT 6.5 g/dl (6.4-8.2)
[2016-11-21 19:25] LABS: BASOPHIL 0.7 % (0-2.0); EOSINOPHIL 1.7 % (0-4.5); MCH 23.4 pg (25.7-33.7); MCHC 30.3 g/dl (32.0-36.0); MEAN CELL VOLUME 77.2 fl (80-96); MEAN PLT VOLUME 8.1 fl (7.5-11.1); PLATELET COUNT 308 K/MM3 (134-434); RDW 14.1 % (11.6-15.6); WHITE BLOOD COUNT 8.9 K/mm3 (4.0-10.0)
--- NOTE | 2016-11-21 19:43 | CONSULT ---
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 No: CVA ...LMP: 07/02/13 - Alcohol/Substance Use Hx Alcohol Use: No - Smoking History Smoking history: Former smoker Have you smoked in the past 12 months: Yes Aproximately how many cigarettes per day: 2 If you are a former smoker, when did you quit?: 2017 Home Medications - Allergies Allergies/Adverse Reactions: Allergies Allergy/AdvReac Type Severity Reaction Status Date / Time No Known Allergies Allergy Verified 11/21/16 14:24 - Home Medications Home Medications: Ambulatory Orders Glyburide/Metformin HCl [Glucovance 5-500 mg Tablet] 1 each PO DAILY #0 Cholecalciferol (Vitamin D3) [Vitamin D -] 400 unit PO DAILY 05/24/16 Lisinopril [Prinivil] 10 mg PO DAILY 05/24/16 Sitagliptin Phosphate [Januvia] 50 mg PO PRN 06/20/16 Ibuprofen [Motrin -] 800 mg PO QID #120 tablet MDD 4 09/01/16 Amitriptyline HCl [Elavil -] 25 mg PO HS 09/21/16 Aspirin [ASA -] 81 mg PO DAILY 09/21/16 Magnesium 30 mg PO DAILY 09/21/16 Acetaminophen W/ Codeine #3 [Tylenol # 3 -] 1 tab PO Q6H #60 tablet MDD 4 Atorvastatin Ca [Lipitor] 1 tab PO DAILY 10/28/16 Gabapentin [Neurontin] 1 cap PO TID 10/28/16 Physical Exam Vital Signs: Vital Signs Temperature 98.0 F 11/21/16 14:25 Pulse Rate 94 H 11/21/16 14:25 Respiratory Rate 18 11/21/16 14:25 Blood Pressure 158/72 11/21/16 14:25 O2 Sat by Pulse Oximetry (%) 100 11/21/16 14:25 Labs: CBC, BMP 11/21/16 18:20 11/21/16 18:20 Assessment/Plan VAscular Surgery Patient is a 56 year old female with history of DM, HTN and a chronic poor healing right great toe wound presenting with concerns that the toe may have become infected. 11/21/16 18:00 Past History - Past Medical History Allergies/Adverse Reactions: Allergies Allergy/AdvReac Type Severity Reaction Status Date / Time No Known Allergies Allergy Verified 11/21/16 14:24 Home Medications: Ambulatory Orders Glyburide/Metformin HCl [Glucovance 5-500 mg Tablet] 1 each PO DAILY #0 Cholecalciferol (Vitamin D3) [Vitamin D -] 400 unit PO DAILY 05/24/16 Lisinopril [Prinivil] 10 mg PO DAILY 05/24/16 Sitagliptin Phosphate [Januvia] 50 mg PO PRN 06/20/16 Ibuprofen [Motrin -] 800 mg PO QID #120 tablet MDD 4 09/01/16 Amitriptyline HCl [Elavil -] 25 mg PO HS 09/21/16 Aspirin [ASA -] 81 mg PO DAILY 09/21/16 Magnesium 30 mg PO DAILY 09/21/16 Acetaminophen W/ Codeine #3 [Tylenol # 3 -] 1 tab PO Q6H #60 tablet MDD 4 Atorvastatin Ca [Lipitor] 1 tab PO DAILY 10/28/16 Gabapentin [Neurontin] 1 cap PO TID 10/28/16 PE Head - NC/AT Lung - CTA Heart - RRR abd - soft,nt,nd ext - right great toe gangrene. Palpable DP pulse. A/P Right great toe gangrene. S/p angioplasty Palpable DP pulse. 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 IV antibiotics - ID batool Pt has done 60 treatments of HBO Will follow Gael Sullivan DO
[2016-11-21] MEDS ORDERED: VANCOMYCIN 2,000 MG in DEXTROSE 5%-WATER - 250 ML IVPB ONE (20:06)
[2016-11-21] MEDS ORDERED: PIPERACILLIN/TAZOB 3.375 GM 3.375 GM in DEXTROSE 5%-WATER - 50 ML IVPB ONE (20:07)
[2016-11-21] MEDS ORDERED: morphine CARPU-JECT 4 MG/1 ML DISP.SYRIN IVPUSH ONE (21:00)
[2016-11-21] MEDS ORDERED: morphine CARPU-JECT 2 MG/1 ML DISP.SYRIN ONE (21:06)
[2016-11-21] MEDS ORDERED: PIPERACILLIN/TAZOB 3.375 GM 50 ML IVPB ONE (21:06)
[2016-11-21] MEDS ORDERED: VANCOMYCIN 2,000 MG in DEXTROSE 5%-WATER - 500 ML IVPB ONE (22:00)
--- NOTE | 2016-11-21 22:24 | HP ---
Admitting History and Physical - Primary Care Physician PCP: Venu Coates - Admission Chief Complaint: R big toe infection History of Present Illness: -56 year old female with history of DM, HTN and a chronic poor healing right great toe wound presenting with concerns that the toe may have become infected. 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 No: CVA ...LMP: 07/02/13 Rheumatology: Yes: Other (R BIG TOE CELLULITIS) Endocrine: Yes: Diabetes Mellitus - Smoking History Smoking history: Former smoker Have you smoked in the past 12 months: Yes Aproximately how many cigarettes per day: 2 If you are a former smoker, when did you quit?: 2017 - Alcohol/Substance Use Hx Alcohol Use: No Home Medications - Allergies Allergies/Adverse Reactions: Allergies Allergy/AdvReac Type Severity Reaction Status Date / Time No Known Allergies Allergy Verified 11/21/16 14:24 - Home Medications Home Medications: Ambulatory Orders Glyburide/Metformin HCl [Glucovance 5-500 mg Tablet] 1 each PO DAILY #0 Cholecalciferol (Vitamin D3) [Vitamin D -] 400 unit PO DAILY 05/24/16 Lisinopril [Prinivil] 10 mg PO DAILY 05/24/16 Sitagliptin Phosphate [Januvia] 50 mg PO PRN 06/20/16 Ibuprofen [Motrin -] 800 mg PO QID #120 tablet MDD 4 09/01/16 Amitriptyline HCl [Elavil -] 25 mg PO HS 09/21/16 Aspirin [ASA -] 81 mg PO DAILY 09/21/16 Magnesium 30 mg PO DAILY 09/21/16 Acetaminophen W/ Codeine #3 [Tylenol # 3 -] 1 tab PO Q6H #60 tablet MDD 4 Atorvastatin Ca [Lipitor] 1 tab PO DAILY 10/28/16 Gabapentin [Neurontin] 1 cap PO TID 10/28/16 Physical Examination Vital Signs: Vital Signs Temperature 98.0 F 11/21/16 14:25 Pulse Rate 94 H 11/21/16 14:25 Respiratory Rate 18 11/21/16 14:25 Blood Pressure 158/72 11/21/16 14:25 O2 Sat by Pulse Oximetry (%) 100 11/21/16 14:25 Constitutional: Yes: No Distress HENT: Yes: Atraumatic Neck: Yes: Supple Cardiovascular: Yes: Regular Rate and Rhythm Respiratory: Yes: CTA Bilaterally Gastrointestinal: Yes: Normal Bowel Sounds Extremities: Yes: Other (R big toe cellulitis/gangrene) Neurological: Yes: Alert, Oriented Problem List - Problems (1) Hyperlipidemia Assessment/Plan: on meds Code(s): E78.5 - HYPERLIPIDEMIA, UNSPECIFIED (2) Toe infection Assessment/Plan: IV ABX WOUND CARE CONSULT ID CONSULT Code(s): L08.9 - LOCAL INFECTION OF THE SKIN AND SUBCUTANEOUS TISSUE, UNSP (3) Diabetes Assessment/Plan: on po meds sliding scale insulin/bgms Code(s): E11.9 - TYPE 2 DIABETES MELLITUS WITHOUT COMPLICATIONS Qualifiers: Diabetes mellitus type: type 2 Diabetes mellitus complication status: with skin complications Diabetes mellitus complication detail: with other skin complication Diabetes mellitus shelter insulin use: without tank terminal gauger use Qualified Code(s): E11.628 - Type 2 diabetes mellitus with other skin complications; Z79.4 - custodial (current) use of insulin (4) HTN (hypertension) Assessment/Plan: on meds stable Code(s): I10 - ESSENTIAL (PRIMARY) HYPERTENSION Qualifiers: Hypertension type: essential hypertension Qualified Code(s): I10 - Essential (primary) hypertension Assessment/Plan Laboratory Tests 11/21/16 11/21/16 11/21/16 18:20 18:20 20:00 WBC 8.9 RBC 3.66 Hgb 8.6 L D Hct 28.2 L MCV 77.2 L MCH 23.4 L MCHC 30.3 L RDW 14.1 Plt Count 308 MPV 8.1 Neutrophils % 42.0 L D Lymphocytes % 48.3 H D Monocytes % 7.3 Eosinophils % 1.7 Basophils % 0.7 ESR Sodium 141 Potassium 4.6 Chloride 109 H Carbon Dioxide 23 Anion Gap 9 BUN 18 D Creatinine 1.0 D Creat Clearance w eGFR 57.78 Random Glucose 226 H Calcium 8.6 Total Bilirubin 0.3 AST 10 L D ALT 24 D Alkaline Phosphatase 67 C-Reactive Protein 0.3 Total Protein 6.5 Albumin 3.4 11/21/16 20:00 WBC RBC Hgb Hct MCV MCH MCHC RDW Plt Count MPV Neutrophils % Lymphocytes % Monocytes % Eosinophils % Basophils % ESR 20 Sodium Potassium Chloride Carbon Dioxide Anion Gap BUN Creatinine Creat Clearance w eGFR Random Glucose Calcium Total Bilirubin AST ALT Alkaline Phosphatase C-Reactive Protein Total Protein Albumin Active Medications Generic Name Dose Route Start Last Admin Trade Name Freq PRN Reason Stop Dose Admin Vancomycin HCl 2,000 mg/ 500 mls @ 250 mls/hr 11/21/16 22:00 Dextrose IVPB 11/21/16 23:59 ONCE ONE Protocol
[2016-11-22 00:17] VITALS: BMI 35.5
[2016-11-22] MEDS: oxyCODONE HCL 5 MG TABLET PO PRN ×3 (00:33→16:59)
[2016-11-22] MEDS: metFORMIN HCL 500 MG TABLET (FP) PO SCH (06:42)
[2016-11-22] MEDS: glyBURIDE 5 MG TABLET (UD) PO SCH (06:52)
[2016-11-22] MEDS ORDERED: PATIENT'S OWN MEDICATION (NON-FORMULARY) (Glyburide/Metformin Hcl [Glucovance 5-500 Mg Tab PO SCH (10:00)
[2016-11-22] MEDS: LISINOPRIL 10 MG TABLET (FP) PO SCH (10:48)
[2016-11-22] MEDS: ASPIRIN 81 MG CHEWABLE TABLETS PO SCH (10:48)
--- NOTE | 2016-11-22 13:55 | CONSULT ---
Consult Consult Specialty:: infectious diseases Referred by:: Reason for Consultation:: infected rt toe - History of Present Illness Chief Complaint: pain and discharge rt toe History of Present Illness: 56 year old female with history of DM, HTN and a chronic poor healing right great toe wound .according to the patient the toe has been infected and wpatient took treatment for the same and according to her she was given 60 hyperbaric treatment patients toe has not improved and patient started having pain and discharge from the toe the pain was severe which made patient come to the hospital - History Source History Provided By: Patient Limitations to Obtaining History: No Limitations - 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 No: CVA ...LMP: 07/02/13 Endocrine: Yes: Diabetes Mellitus - Alcohol/Substance Use Hx Alcohol Use: No - Smoking History Smoking history: Former smoker Have you smoked in the past 12 months: Yes Aproximately how many cigarettes per day: 2 If you are a former smoker, when did you quit?: 2017 Home Medications - Allergies Allergies/Adverse Reactions: Allergies Allergy/AdvReac Type Severity Reaction Status Date / Time No Known Allergies Allergy Verified 11/21/16 14:24 - Home Medications Home Medications: Ambulatory Orders Glyburide/Metformin HCl [Glucovance 5-500 mg Tablet] 1 each PO DAILY #0 Cholecalciferol (Vitamin D3) [Vitamin D -] 400 unit PO DAILY 05/24/16 Lisinopril [Prinivil] 10 mg PO DAILY 05/24/16 Sitagliptin Phosphate [Januvia] 50 mg PO PRN 06/20/16 Ibuprofen [Motrin -] 800 mg PO QID #120 tablet MDD 4 09/01/16 Amitriptyline HCl [Elavil -] 25 mg PO HS 09/21/16 Aspirin [ASA -] 81 mg PO DAILY 09/21/16 Magnesium 30 mg PO DAILY 09/21/16 Acetaminophen W/ Codeine #3 [Tylenol # 3 -] 1 tab PO Q6H #60 tablet MDD 4 Atorvastatin Ca [Lipitor] 1 tab PO DAILY 10/28/16 Gabapentin [Neurontin] 1 cap PO TID 10/28/16 Review of Systems - Review of Systems Constitutional: reports: No Symptoms Eyes: reports: No Symptoms HENT: reports: No Symptoms Neck: reports: No Symptoms Cardiovascular: reports: No Symptoms Respiratory: reports: No Symptoms Gastrointestinal: reports: No Symptoms Genitourinary: reports: No Symptoms Musculoskeletal: reports: Joint Pain, Other Integumentary: reports: Change in Color, Lesions, Wound, Other (gangrenous changes) Neurological: reports: No Symptoms Endocrine: reports: No Symptoms Hematology/Lymphatic: reports: No Symptoms Psychiatric: reports: No Symptoms Physical Exam Vital Signs: Vital Signs Temperature 97.9 F 11/22/16 10:00 Pulse Rate 91 H 11/22/16 10:00 Respiratory Rate 20 11/22/16 10:00 Blood Pressure 154/72 11/22/16 10:00 O2 Sat by Pulse Oximetry (%) 97 11/22/16 09:00 Constitutional: Yes: Well Nourished, Calm, Mild Distress Eyes: Yes: Conjunctiva Clear HENT: Yes: Atraumatic Neck: Yes: Supple, Trachea Midline, Tenderness Respiratory: Yes: Regular, CTA Bilaterally Gastrointestinal: Yes: Normal Bowel Sounds, Soft Musculoskeletal: Yes: Other Extremities: Yes: Other Integumentary: Yes: Erythema, Skin Tear, Other (gangrene of the rt toe) Wound/Incision: Yes: Open to air, Draining Neurological: Yes: Alert, Oriented Psychiatric: Yes: Alert, Oriented Imaging - Results X-ray: Report Reviewed, Image Reviewed Assessment/Plan - Problems (1) Hyperlipidemia Code(s): E78.5 - HYPERLIPIDEMIA, UNSPECIFIED (2) Toe infection Code(s): L08.9 - LOCAL INFECTION OF THE SKIN AND SUBCUTANEOUS TISSUE, UNSP (3) Diabetes Code(s): E11.9 - TYPE 2 DIABETES MELLITUS WITHOUT COMPLICATIONS Qualifiers: Diabetes mellitus type: type 2 Diabetes mellitus complication status: with skin complications Diabetes mellitus complication detail: with other skin complication Diabetes mellitus senior care insulin use: without senior care use Qualified Code(s): E11.628 - Type 2 diabetes mellitus with other skin complications; Z79.4 - half-way (current) use of insulin (4) HTN (hypertension) Code(s): I10 - ESSENTIAL (PRIMARY) HYPERTENSION Qualifiers: Hypertension type: essential hypertension Qualified Code(s): I10 - Essential (primary) hypertension 5 gangrene of the rt toe plan will continue zosyn will order mri of the foot patient has gangrene also the skin changes have extended i think patient needs amputation of that toe rest as per primary
[2016-11-22] MEDS ORDERED: PIPERACILLIN/TAZOBACTAM 3.375 GM VIAL IVPB ONE (15:26)
[2016-11-22] MEDS ORDERED: DEXTROSE 5%-WATER - 50 ML IVPB ONE (15:27)
[2016-11-22] MEDS: PIPERACILLIN/TAZOB 3.375 GM 3.375 GM in DEXTROSE 5%-WATER - 50 ML IVPB SCH ×2 (15:31→17:07)
[2016-11-22] MEDS ORDERED: PT OWN MED DRAWER 7, Y5N ONE (16:09)
--- NOTE | 2016-11-22 19:18 | PN ---
Progress Note, Physician - Current Medication List Current Medications: Active Medications Acetaminophen (Tylenol -) 650 mg PO Q6H PRN PRN Reason: FEVER OR PAIN Amitriptyline HCl (Elavil -) 25 mg PO HS [facility] Aspirin (Asa -) 81 mg PO DAILY [facility] Last Admin: 11/22/16 10:48 Dose: 81 mg Atorvastatin Calcium (Lipitor -) 10 mg PO HS [facility] Glyburide (Diabeta -) 5 mg PO DAILY@0700 [facility] Last Admin: 11/22/16 06:52 Dose: 5 mg Piperacillin Sod/Tazobactam (Sod 3.375 gm/ Dextrose) 50 mls @ 100 mls/hr IVPB Q8H-IV KE PRN Reason: Protocol Last Admin: 11/22/16 17:07 Dose: Not Given Lisinopril (Prinivil) 10 mg PO DAILY [facility] Last Admin: 11/22/16 10:48 Dose: 10 mg Metformin HCl (Glucophage -) 500 mg PO DAILY@0700 [facility] Last Admin: 11/22/16 06:42 Dose: 500 mg Oxycodone HCl (Roxicodone -) 10 mg PO Q6H PRN PRN Reason: pain Last Admin: 11/22/16 16:59 Dose: 10 mg - Objective Vital Signs: Vital Signs Temperature 98.4 F 11/22/16 14:52 Pulse Rate 84 11/22/16 14:52 Respiratory Rate 16 11/22/16 14:52 Blood Pressure 144/69 11/22/16 14:52 O2 Sat by Pulse Oximetry (%) 97 11/22/16 09:00 Constitutional: Yes: No Distress HENT: Yes: Atraumatic Neck: Yes: Supple Cardiovascular: Yes: Regular Rate and Rhythm Respiratory: Yes: CTA Bilaterally Gastrointestinal: Yes: Normal Bowel Sounds Extremities: Yes: Other (R big toe gangrene/cellulitis) Neurological: Yes: Alert Problem List - Problems (1) Hyperlipidemia Code(s): E78.5 - HYPERLIPIDEMIA, UNSPECIFIED (2) Toe infection Assessment/Plan: IV ABX WOUND CARE CONSULT ID CONSULT Code(s): L08.9 - LOCAL INFECTION OF THE SKIN AND SUBCUTANEOUS TISSUE, UNSP (3) Diabetes Assessment/Plan: on po meds sliding scale insulin/bgms pt is non complaint with diet eats candy and lot of starch and carbohydrates brought in by family Code(s): E11.9 - TYPE 2 DIABETES MELLITUS WITHOUT COMPLICATIONS Qualifiers: Diabetes mellitus type: type 2 Diabetes mellitus complication status: with skin complications Diabetes mellitus complication detail: with other skin complication Diabetes mellitus mcc insulin use: without meterman use Qualified Code(s): E11.628 - Type 2 diabetes mellitus with other skin complications; Z79.4 - exterminator helper (current) use of insulin (4) HTN (hypertension) Code(s): I10 - ESSENTIAL (PRIMARY) HYPERTENSION Qualifiers: Hypertension type: essential hypertension Qualified Code(s): I10 - Essential (primary) hypertension
[2016-11-22] MEDS ORDERED: INSULIN (NOVOLOG) ASPART 100 UNITS/ML 10ML VIAL ONE (21:14)
[2016-11-22] MEDS: AMITRIPTYLINE HCL 25 MG TABLET (FP) PO SCH (21:43)
[2016-11-22] MEDS: INSULIN SLIDING SCALE (NOVOLOG) 1 VIAL SQ SCH (21:43)
[2016-11-22] MEDS: ATORVASTATIN CA 10 MG TABLET (FP) PO SCH (21:43)
[2016-11-23] MEDS ORDERED: DEXTROSE 5%-WATER - 50 ML IVPB ONE ×3 (00:28→17:17)
[2016-11-23] MEDS ORDERED: PIPERACILLIN/TAZOBACTAM 3.375 GM VIAL IVPB ONE ×3 (00:28→17:17)
[2016-11-23] MEDS ORDERED: PT OWN MED DRAWER 7, Y5N ONE ×3 (06:11→21:59)
[2016-11-23] MEDS: glyBURIDE 5 MG TABLET (UD) PO SCH ×2 (07:36→16:27)
[2016-11-23] MEDS: PIPERACILLIN/TAZOB 3.375 GM 3.375 GM in DEXTROSE 5%-WATER - 50 ML IVPB SCH ×3 (07:37→17:26)
[2016-11-23] MEDS: metFORMIN HCL 500 MG TABLET (FP) PO SCH (07:37)
[2016-11-23] MEDS: INSULIN SLIDING SCALE (NOVOLOG) 1 VIAL SQ SCH ×4 (09:45→22:08)
[2016-11-23] MEDS: LISINOPRIL 10 MG TABLET (FP) PO SCH (09:50)
[2016-11-23] MEDS: ASPIRIN 81 MG CHEWABLE TABLETS PO SCH (09:50)
--- NOTE | 2016-11-23 09:52 | PN ---
Progress Note (short form) - Note Progress Note: Vascular Surgery Pt seen and examined. MRI shows osteo. Can try course of antibiotics. If does not get better, pt understands she will need a amputation. Gael beyer DO
[2016-11-23] MEDS: morphine CARPU-JECT 2 MG/1 ML DISP.SYRIN IVPUSH PRN ×2 (11:18→23:14)
--- NOTE | 2016-11-23 13:04 | PN ---
Progress Note, Physician History of Present Illness: c/o left ankle pain she is saying her gout is flaring - Current Medication List Current Medications: Active Medications Acetaminophen (Tylenol -) 650 mg PO Q6H PRN PRN Reason: FEVER OR PAIN Amitriptyline HCl (Elavil -) 25 mg PO HS [facility] Last Admin: 11/22/16 21:43 Dose: 25 mg Aspirin (Asa -) 81 mg PO DAILY [facility] Last Admin: 11/23/16 09:50 Dose: 81 mg Atorvastatin Calcium (Lipitor -) 10 mg PO HS [facility] Last Admin: 11/22/16 21:43 Dose: 10 mg Glyburide (Diabeta -) 5 mg PO BID [facility] Piperacillin Sod/Tazobactam (Sod 3.375 gm/ Dextrose) 50 mls @ 100 mls/hr IVPB Q8H-IV [facility] PRN Reason: Protocol Last Admin: 11/23/16 09:50 Dose: 100 mls/hr Indomethacin (Indocin -) 25 mg PO TID [facility] Insulin Aspart (Novolog Vial Sliding Scale -) 1 vial SQ ACHS [facility] PRN Reason: Protocol Last Admin: 11/23/16 11:18 Dose: 8 units Lisinopril (Prinivil) 10 mg PO DAILY [facility] Last Admin: 11/23/16 09:50 Dose: 10 mg Metformin HCl (Glucophage -) 500 mg PO DAILY@0700 [facility] Last Admin: 11/23/16 07:37 Dose: Not Given Morphine Sulfate (Morphine Injection -) 2 mg IVPUSH Q6H PRN PRN Reason: PAIN Last Admin: 11/23/16 11:18 Dose: 2 mg Sitagliptin Phosphate (Januvia -) 50 mg PO DAILY [facility] - Objective Vital Signs: Vital Signs Temperature 98.1 F 11/23/16 10:00 Pulse Rate 81 11/23/16 10:00 Respiratory Rate 18 11/23/16 10:00 Blood Pressure 130/67 11/23/16 10:00 O2 Sat by Pulse Oximetry (%) 97 11/23/16 09:00 Constitutional: Yes: No Distress HENT: Yes: Atraumatic Neck: Yes: Supple Cardiovascular: Yes: Regular Rate and Rhythm Respiratory: Yes: CTA Bilaterally Gastrointestinal: Yes: Normal Bowel Sounds Extremities: Yes: WNL, Other (r toe blackish blue r ankle not swollen warm r tender) Neurological: Yes: Alert, Oriented Problem List - Problems (1) Hyperlipidemia Code(s): E78.5 - HYPERLIPIDEMIA, UNSPECIFIED (2) Toe infection Assessment/Plan: IV ABX WOUND CARE CONSULT ID CONSULT Code(s): L08.9 - LOCAL INFECTION OF THE SKIN AND SUBCUTANEOUS TISSUE, UNSP (3) Diabetes Assessment/Plan: on po meds sliding scale insulin/bgms pt is non complaint with diet eats candy and lot of starch and carbohydrates brought in by family Code(s): E11.9 - TYPE 2 DIABETES MELLITUS WITHOUT COMPLICATIONS Qualifiers: Diabetes mellitus type: type 2 Diabetes mellitus complication status: with skin complications Diabetes mellitus complication detail: with other skin complication Diabetes mellitus fdc insulin use: without termite exterminator helper use Qualified Code(s): E11.628 - Type 2 diabetes mellitus with other skin complications; Z79.4 - senior care (current) use of insulin (4) HTN (hypertension) Assessment/Plan: on meds stable Code(s): I10 - ESSENTIAL (PRIMARY) HYPERTENSION Qualifiers: Hypertension type: essential hypertension Qualified Code(s): I10 - Essential (primary) hypertension (5) Gout Assessment/Plan: check uric acid level start indomethacin Code(s): M10.9 - GOUT, UNSPECIFIED
--- NOTE | 2016-11-23 15:13 | PN ---
Progress Note, Physician History of Present Illness: patient stable no new issues - Current Medication List Current Medications: Active Medications Acetaminophen (Tylenol -) 650 mg PO Q6H PRN PRN Reason: FEVER OR PAIN Amitriptyline HCl (Elavil -) 25 mg PO HS [facility] Last Admin: 11/22/16 21:43 Dose: 25 mg Aspirin (Asa -) 81 mg PO DAILY [facility] Last Admin: 11/23/16 09:50 Dose: 81 mg Atorvastatin Calcium (Lipitor -) 10 mg PO HS [facility] Last Admin: 11/22/16 21:43 Dose: 10 mg Glyburide (Diabeta -) 5 mg PO BIDAC [facility] Piperacillin Sod/Tazobactam (Sod 3.375 gm/ Dextrose) 50 mls @ 100 mls/hr IVPB Q8H-IV [facility] PRN Reason: Protocol Last Admin: 11/23/16 09:50 Dose: 100 mls/hr Indomethacin (Indocin -) 25 mg PO TID [facility] Insulin Aspart (Novolog Vial Sliding Scale -) 1 vial SQ ACHS [facility] PRN Reason: Protocol Last Admin: 11/23/16 11:18 Dose: 8 units Lisinopril (Prinivil) 10 mg PO DAILY [facility] Last Admin: 11/23/16 09:50 Dose: 10 mg Metformin HCl (Glucophage -) 500 mg PO DAILY@0700 [facility] Last Admin: 11/23/16 07:37 Dose: Not Given Morphine Sulfate (Morphine Injection -) 2 mg IVPUSH Q6H PRN PRN Reason: PAIN Last Admin: 11/23/16 11:18 Dose: 2 mg Sitagliptin Phosphate (Januvia -) 50 mg PO DAILY@0700 [facility] - Objective Vital Signs: Vital Signs Temperature 97.6 F 11/23/16 14:45 Pulse Rate 90 11/23/16 14:45 Respiratory Rate 16 11/23/16 14:45 Blood Pressure 122/60 11/23/16 14:45 O2 Sat by Pulse Oximetry (%) 97 11/23/16 09:00 Constitutional: Yes: No Distress, Calm Neck: Yes: Supple Cardiovascular: Yes: Regular Rate and Rhythm Respiratory: Yes: Regular, CTA Bilaterally Gastrointestinal: Yes: Normal Bowel Sounds, Soft Musculoskeletal: Yes: Other Extremities: Yes: Other Integumentary: Yes: Other Wound/Incision: Yes: Dressing Dry and Intact Neurological: Yes: Alert, Oriented Psychiatric: Yes: Alert, Oriented Assessment/Plan - Problems (1) Hyperlipidemia Code(s): E78.5 - HYPERLIPIDEMIA, UNSPECIFIED (2) Toe infection Code(s): L08.9 - LOCAL INFECTION OF THE SKIN AND SUBCUTANEOUS TISSUE, UNSP (3) Diabetes Code(s): E11.9 - TYPE 2 DIABETES MELLITUS WITHOUT COMPLICATIONS Qualifiers: Diabetes mellitus type: type 2 Diabetes mellitus complication status: with skin complications Diabetes mellitus complication detail: with other skin complication Diabetes mellitus senior living insulin use: without continuous churn buttermaker use Qualified Code(s): E11.628 - Type 2 diabetes mellitus with other skin complications; Z79.4 - intermediate card tender (current) use of insulin (4) HTN (hypertension) Code(s): I10 - ESSENTIAL (PRIMARY) HYPERTENSION Qualifiers: Hypertension type: essential hypertension Qualified Code(s): I10 - Essential (primary) hypertension 5 gangrene of the rt toe plan zosyn mri result noted await for final cx and sensitivities rest as per primary
[2016-11-23] MEDS: sitaGLIPtin PHOSPHATE 50 MG TABLET PO SCH (15:59)
[2016-11-23] MEDS: INDOMETHACIN 25 MG CAPSULE PO SCH ×2 (16:27→22:09)
[2016-11-23] MEDS: AMITRIPTYLINE HCL 25 MG TABLET (FP) PO SCH (22:09)
[2016-11-23] MEDS: ATORVASTATIN CA 10 MG TABLET (FP) PO SCH (22:09)
[2016-11-24] MEDS ORDERED: DEXTROSE 5%-WATER - 50 ML IVPB ONE ×2 (01:15→10:39)
[2016-11-24] MEDS ORDERED: PIPERACILLIN/TAZOBACTAM 3.375 GM VIAL IVPB ONE ×2 (01:15→10:39)
[2016-11-24] MEDS: PIPERACILLIN/TAZOB 3.375 GM 3.375 GM in DEXTROSE 5%-WATER - 50 ML IVPB SCH ×2 (01:24→10:42)
[2016-11-24] MEDS: metFORMIN HCL 500 MG TABLET (FP) PO SCH (06:59)
[2016-11-24] MEDS: sitaGLIPtin PHOSPHATE 50 MG TABLET PO SCH (06:59)
[2016-11-24] MEDS: INSULIN SLIDING SCALE (NOVOLOG) 1 VIAL SQ SCH ×4 (07:02→22:19)
[2016-11-24] MEDS ORDERED: INSULIN (NOVOLOG) ASPART 100 UNITS/ML 10ML VIAL ONE (07:44)
[2016-11-24] MEDS ORDERED: PT OWN MED DRAWER 7, Y5N ONE ×3 (07:45→20:26)
[2016-11-24] MEDS: INDOMETHACIN 25 MG CAPSULE PO SCH ×3 (10:41→22:19)
[2016-11-24] MEDS: ASPIRIN 81 MG CHEWABLE TABLETS PO SCH (10:42)
[2016-11-24] MEDS: glyBURIDE 5 MG TABLET (UD) PO SCH ×2 (10:42→17:38)
[2016-11-24] MEDS: LISINOPRIL 10 MG TABLET (FP) PO SCH (10:42)
--- NOTE | 2016-11-24 13:58 | PN ---
Progress Note, Physician History of Present Illness: patient stable no new issues - Current Medication List Current Medications: Active Medications Acetaminophen (Tylenol -) 650 mg PO Q6H PRN PRN Reason: FEVER OR PAIN Amitriptyline HCl (Elavil -) 25 mg PO HS [facility] Last Admin: 11/23/16 22:09 Dose: 25 mg Aspirin (Asa -) 81 mg PO DAILY [facility] Last Admin: 11/24/16 10:42 Dose: 81 mg Atorvastatin Calcium (Lipitor -) 10 mg PO HS [facility] Last Admin: 11/23/16 22:09 Dose: 10 mg Glyburide (Diabeta -) 5 mg PO BIDAC [facility] Last Admin: 11/24/16 10:42 Dose: Not Given Piperacillin Sod/Tazobactam (Sod 3.375 gm/ Dextrose) 50 mls @ 100 mls/hr IVPB Q8H-[facility] PRN Reason: Protocol Last Admin: 11/24/16 10:42 Dose: 100 mls/hr Indomethacin (Indocin -) 25 mg PO TID [facility] Last Admin: 11/24/16 10:41 Dose: Not Given Insulin Aspart (Novolog Vial Sliding Scale -) 1 vial SQ ACHS [facility] PRN Reason: Protocol Last Admin: 11/24/16 12:25 Dose: 8 units Lisinopril (Prinivil) 10 mg PO DAILY [facility] Last Admin: 11/24/16 10:42 Dose: 10 mg Metformin HCl (Glucophage -) 500 mg PO DAILY@0700 [facility] Last Admin: 11/24/16 06:59 Dose: 500 mg Morphine Sulfate (Morphine Injection -) 2 mg IVPUSH Q6H PRN PRN Reason: PAIN Last Admin: 11/23/16 23:14 Dose: 2 mg Sitagliptin Phosphate (Januvia -) 50 mg PO DAILY@0700 [facility] Last Admin: 11/24/16 06:59 Dose: 50 mg - Objective Vital Signs: Vital Signs Temperature 98.3 F 11/24/16 09:00 Pulse Rate 91 H 11/24/16 09:00 Respiratory Rate 18 11/24/16 09:00 Blood Pressure 119/63 11/24/16 09:00 O2 Sat by Pulse Oximetry (%) 97 11/23/16 21:00 Constitutional: Yes: No Distress, Calm Cardiovascular: Yes: Regular Rate and Rhythm Respiratory: Yes: Regular, CTA Bilaterally Gastrointestinal: Yes: Normal Bowel Sounds, Soft Musculoskeletal: Yes: WNL Extremities: Yes: Other Integumentary: Yes: Other Wound/Incision: Yes: Dressing Dry and Intact Neurological: Yes: Alert, Oriented Psychiatric: Yes: Alert, Oriented Assessment/Plan - Problems (1) Hyperlipidemia Code(s): E78.5 - HYPERLIPIDEMIA, UNSPECIFIED (2) Toe infection Code(s): L08.9 - LOCAL INFECTION OF THE SKIN AND SUBCUTANEOUS TISSUE, UNSP (3) Diabetes Code(s): E11.9 - TYPE 2 DIABETES MELLITUS WITHOUT COMPLICATIONS Qualifiers: Diabetes mellitus type: type 2 Diabetes mellitus complication status: with skin complications Diabetes mellitus complication detail: with other skin complication Diabetes mellitus [facility] insulin use: without exterminator termite use Qualified Code(s): E11.628 - Type 2 diabetes mellitus with other skin complications; Z79.4 - local intermodal truck driver (current) use of insulin (4) HTN (hypertension) Code(s): I10 - ESSENTIAL (PRIMARY) HYPERTENSION Qualifiers: Hypertension type: essential hypertension Qualified Code(s): I10 - Essential (primary) hypertension 5 gangrene of the rt toe plan cx result noted switched abx to levaquin i do not think that abx is going to help the patient i think she needs amputation which i have discussed in detail with the patient vascular on case
--- NOTE | 2016-11-24 14:16 | PN ---
Progress Note, Physician - Current Medication List Current Medications: Active Medications Acetaminophen (Tylenol -) 650 mg PO Q6H PRN PRN Reason: FEVER OR PAIN Amitriptyline HCl (Elavil -) 25 mg PO HS [facility] Last Admin: 11/23/16 22:09 Dose: 25 mg Aspirin (Asa -) 81 mg PO DAILY [facility] Last Admin: 11/24/16 10:42 Dose: 81 mg Atorvastatin Calcium (Lipitor -) 10 mg PO HS [facility] Last Admin: 11/23/16 22:09 Dose: 10 mg Glyburide (Diabeta -) 5 mg PO BIDAC [facility] Last Admin: 11/24/16 10:42 Dose: Not Given Indomethacin (Indocin -) 25 mg PO TID [facility] Last Admin: 11/24/16 10:41 Dose: Not Given Insulin Aspart (Novolog Vial Sliding Scale -) 1 vial SQ ACHS [facility] PRN Reason: Protocol Last Admin: 11/24/16 12:25 Dose: 8 units Levofloxacin (Levaquin -) 750 mg PO DAILY@0600 [facility] Lisinopril (Prinivil) 10 mg PO DAILY [facility] Last Admin: 11/24/16 10:42 Dose: 10 mg Metformin HCl (Glucophage -) 500 mg PO DAILY@0700 [facility] Last Admin: 11/24/16 06:59 Dose: 500 mg Morphine Sulfate (Morphine Injection -) 2 mg IVPUSH Q6H PRN PRN Reason: PAIN Last Admin: 11/23/16 23:14 Dose: 2 mg Sitagliptin Phosphate (Januvia -) 50 mg PO DAILY@0700 [facility] Last Admin: 11/24/16 06:59 Dose: 50 mg - Objective Vital Signs: Vital Signs Temperature 98.3 F 11/24/16 09:00 Pulse Rate 91 H 11/24/16 09:00 Respiratory Rate 18 11/24/16 09:00 Blood Pressure 119/63 11/24/16 09:00 O2 Sat by Pulse Oximetry (%) 97 11/23/16 21:00 Constitutional: Yes: No Distress HENT: Yes: Atraumatic Neck: Yes: Supple Cardiovascular: Yes: Regular Rate and Rhythm Respiratory: Yes: CTA Bilaterally Gastrointestinal: Yes: Normal Bowel Sounds Extremities: Yes: Other (R big toe gangrene/cellulitis) Neurological: Yes: Alert, Oriented Problem List - Problems (1) Hyperlipidemia Code(s): E78.5 - HYPERLIPIDEMIA, UNSPECIFIED (2) Toe infection Assessment/Plan: IV ABX WOUND CARE CONSULT ID CONSULT Code(s): L08.9 - LOCAL INFECTION OF THE SKIN AND SUBCUTANEOUS TISSUE, UNSP (3) Diabetes Assessment/Plan: on po meds sliding scale insulin/bgms pt is non complaint with diet eats candy and lot of starch and carbohydrates brought in by family Code(s): E11.9 - TYPE 2 DIABETES MELLITUS WITHOUT COMPLICATIONS Qualifiers: Diabetes mellitus type: type 2 Diabetes mellitus complication status: with skin complications Diabetes mellitus complication detail: with other skin complication Diabetes mellitus intermodal dispatcher insulin use: without intermodal dispatcher use Qualified Code(s): E11.628 - Type 2 diabetes mellitus with other skin complications; Z79.4 - senior care (current) use of insulin (4) HTN (hypertension) Assessment/Plan: on meds stable Code(s): I10 - ESSENTIAL (PRIMARY) HYPERTENSION Qualifiers: Hypertension type: essential hypertension Qualified Code(s): I10 - Essential (primary) hypertension (5) Gout Assessment/Plan: check uric acid level start indomethacin Code(s): M10.9 - GOUT, UNSPECIFIED
[2016-11-24] MEDS: LEVOFLOXACIN 250 MG TABLET (FP) PO SCH (15:08)
[2016-11-24] MEDS: morphine CARPU-JECT 2 MG/1 ML DISP.SYRIN IVPUSH PRN (16:10)
[2016-11-24] MEDS: AMITRIPTYLINE HCL 25 MG TABLET (FP) PO SCH (22:19)
[2016-11-24] MEDS: ATORVASTATIN CA 10 MG TABLET (FP) PO SCH (22:19)
[2016-11-25] MEDS: metFORMIN HCL 500 MG TABLET (FP) PO SCH (06:23)
[2016-11-25] MEDS: sitaGLIPtin PHOSPHATE 50 MG TABLET PO SCH (06:23)
[2016-11-25] MEDS: INDOMETHACIN 25 MG CAPSULE PO SCH ×3 (06:23→21:51)
[2016-11-25] MEDS: INSULIN SLIDING SCALE (NOVOLOG) 1 VIAL SQ SCH ×3 (06:23→17:33)
[2016-11-25] MEDS: LEVOFLOXACIN 250 MG TABLET (FP) PO SCH (06:24)
[2016-11-25] MEDS: glyBURIDE 5 MG TABLET (UD) PO SCH (06:24)
[2016-11-25 08:07] LABS: BASOPHIL 0.6 % (0-2.0); EOSINOPHIL 2.3 % (0-4.5); MCH 23.2 pg (25.7-33.7); MCHC 30.8 g/dl (32.0-36.0); MEAN CELL VOLUME 75.5 fl (80-96); MEAN PLT VOLUME 7.6 fl (7.5-11.1); NEUTROPHILS 50.7 % (42.8-82.8); PLATELET COUNT 281 K/MM3 (134-434); RDW 13.7 % (11.6-15.6); WHITE BLOOD COUNT 6.9 K/mm3 (4.0-10.0)
[2016-11-25 08:34] LABS: ALBUMIN 3.1 g/dl (3.4-5.0); ANION GAP 9 (8-16); CALCIUM 8.5 mg/dL (8.5-10.1); CO2 23 mmol/L (21-32)
[2016-11-25 08:40] LABS: ALK PHOS 69 U/L (45-117); BILIRUBIN,TOTAL 0.4 mg/dL (0.2-1.0); CREATININE 1.4 mg/dL (0.55-1.02); SGOT/AST 10 U/L (15-37); SGPT/ALT 21 U/L (12-78)
[2016-11-25 09:20] LABS: GLUCOSE,RANDOM 335 mg/dL (74-106)
--- NOTE | 2016-11-25 09:23 | CONSULT ---
Consult Consult Specialty:: Endocrinology Referred by:: Dr Coates Reason for Consultation:: Hyperglycemia - History of Present Illness Chief Complaint: Rt big toe infection History of Present Illness: This is a 56 year old female with history of T2DM for 12 years, on Insulin intermittently ( takes Levemir 10 units when FS >20), non healing Rt big toe infection, HTN who was admitted for management of the toe wound. Pt says it started as a calluses which evolved into an infection which has been treated since then without much relief. Had angiogram of Rt leg which was negative according to the patient. FS at home usually 200s for the last few months with occasional numbers in the 300s. No hypoglycemia recently. Lowest Fs up to 60s about 4 months ago. No paresthesia of feet. No visual symptoms. Saw ophthalmology around a year ago. Family h/o DM in mother. 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 No: CVA ...LMP: 07/02/13 Rheumatology: Yes: Other (R BIG TOE CELLULITIS) Endocrine: Yes: Diabetes Mellitus - Alcohol/Substance Use Hx Alcohol Use: No - Smoking History Smoking history: Former smoker Have you smoked in the past 12 months: Yes Aproximately how many cigarettes per day: 2 If you are a former smoker, when did you quit?: 2017 Home Medications - Allergies Allergies/Adverse Reactions: Allergies Allergy/AdvReac Type Severity Reaction Status Date / Time No Known Allergies Allergy Verified 11/21/16 14:24 - Home Medications Home Medications: Ambulatory Orders Glyburide/Metformin HCl [Glucovance 5-500 mg Tablet] 1 each PO DAILY #0 Cholecalciferol (Vitamin D3) [Vitamin D -] 400 unit PO DAILY 05/24/16 Lisinopril [Prinivil] 10 mg PO DAILY 05/24/16 Sitagliptin Phosphate [Januvia] 50 mg PO PRN 06/20/16 Ibuprofen [Motrin -] 800 mg PO QID #120 tablet MDD 4 09/01/16 Amitriptyline HCl [Elavil -] 25 mg PO HS 09/21/16 Aspirin [ASA -] 81 mg PO DAILY 09/21/16 Magnesium 30 mg PO DAILY 09/21/16 Acetaminophen W/ Codeine #3 [Tylenol # 3 -] 1 tab PO Q6H #60 tablet MDD 4 Atorvastatin Ca [Lipitor] 1 tab PO DAILY 10/28/16 Gabapentin [Neurontin] 1 cap PO TID 10/28/16 Family Disease History - Family Disease History Family Disease History: Diabetes: Mother Review of Systems - Review of Systems Constitutional: reports: No Symptoms Eyes: reports: No Symptoms HENT: reports: No Symptoms Neck: reports: No Symptoms Cardiovascular: reports: No Symptoms Respiratory: reports: No Symptoms Gastrointestinal: reports: No Symptoms Genitourinary: reports: No Symptoms Breasts: reports: No Symptoms Reported Musculoskeletal: reports: Other (Pain rt big toe) Integumentary: reports: No Symptoms Neurological: reports: No Symptoms Endocrine: reports: No Symptoms Physical Exam Vital Signs: Vital Signs Temperature 99.1 F 11/25/16 08:53 Pulse Rate 85 11/25/16 08:53 Respiratory Rate 16 11/25/16 08:53 Blood Pressure 119/66 11/25/16 08:53 O2 Sat by Pulse Oximetry (%) 97 11/24/16 21:00 Constitutional: Yes: No Distress, Calm Eyes: Yes: Conjunctiva Clear, EOM Intact HENT: Yes: Atraumatic, Normocephalic Neck: Yes: Supple, Trachea Midline Cardiovascular: Yes: Regular Rate and Rhythm Respiratory: Yes: Regular, CTA Bilaterally Gastrointestinal: Yes: Normal Bowel Sounds, Soft Renal/: Yes: WNL Musculoskeletal: Yes: WNL Extremities: Yes: Other (Rt big toe: black discoloration of distal part of the toe with fluctuation over the plantar surface. Tender to touch) Edema: No Neurological: Yes: Alert, Oriented Labs: CBC, BMP 11/25/16 06:00 11/25/16 06:00 Assessment/Plan T2DM: Uncontrolled Check HbA1c Nutrition consult BGM QACHS Levemir 15 units daily at HS Increase Novolog SS coverage DC Metformin and Glyburide b/o worsening renal function and because pt may go for surgery ?Gangrene Rt big toe Osteomyelitis HTN Will f/U
[2016-11-25] MEDS ORDERED: PT OWN MED DRAWER 7, Y5N ONE ×2 (09:37→21:06)
[2016-11-25] MEDS: LISINOPRIL 10 MG TABLET (FP) PO SCH (09:53)
[2016-11-25] MEDS: ASPIRIN 81 MG CHEWABLE TABLETS PO SCH (09:53)
[2016-11-25] MEDS: morphine CARPU-JECT 2 MG/1 ML DISP.SYRIN IVPUSH PRN ×2 (15:33→23:52)
--- NOTE | 2016-11-25 18:26 | PN ---
Progress Note, Physician Chief Complaint: C/o Rt Toe pain, no fever or chills History of Present Illness: 56 yrs old obese F ex smoker H/O poorly controlled T2DM, HTN, Dyslipedemia, non- healing ulcer Rt great toe completed HBO therapy admitted with worsening Rt toe infection on IV abx since 11/21/2016. - Current Medication List Current Medications: Active Medications Acetaminophen (Tylenol -) 650 mg PO Q6H PRN PRN Reason: FEVER OR PAIN Amitriptyline HCl (Elavil -) 25 mg PO HS [facility] Last Admin: 11/24/16 22:19 Dose: 25 mg Aspirin (Asa -) 81 mg PO DAILY [facility] Last Admin: 11/25/16 09:53 Dose: 81 mg Atorvastatin Calcium (Lipitor -) 10 mg PO HS [facility] Last Admin: 11/24/16 22:19 Dose: 10 mg Indomethacin (Indocin -) 25 mg PO TID [facility] Last Admin: 11/25/16 13:45 Dose: 25 mg Insulin Aspart (Novolog Vial Sliding Scale -) 1 vial SQ TIDAC [facility] PRN Reason: Protocol Last Admin: 11/25/16 17:33 Dose: 10 units Insulin Aspart (Novolog) 0 units SQ HS [facility] PRN Reason: Protocol Insulin Detemir (Levemir Vial) 15 units SQ HS [facility] Levofloxacin (Levaquin -) 750 mg PO DAILY@0600 [facility] Last Admin: 11/25/16 06:24 Dose: 750 mg Lisinopril (Prinivil) 10 mg PO DAILY [facility] Last Admin: 11/25/16 09:53 Dose: 10 mg Morphine Sulfate (Morphine Injection -) 2 mg IVPUSH Q6H PRN PRN Reason: PAIN Last Admin: 11/25/16 15:33 Dose: 2 mg Sitagliptin Phosphate (Januvia -) 50 mg PO DAILY@0700 [facility] Last Admin: 11/25/16 06:23 Dose: 50 mg - Objective Vital Signs: Vital Signs Temperature 98.6 F 11/25/16 16:25 Pulse Rate 90 11/25/16 16:25 Respiratory Rate 18 11/25/16 16:25 Blood Pressure 134/69 11/25/16 16:25 O2 Sat by Pulse Oximetry (%) 97 11/25/16 09:00 Middle aged F not in distress HEENT: Mm moost no anemia, PERRLA, EOMI NECK; No JVd No Bruit, no Thyromegaly, trachea central. 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 Labs: CBC, BMP 11/25/16 06:00 11/25/16 06:00 Problem List - Problems (1) T2DM (type 2 diabetes mellitus) Assessment/Plan: Uncontrolled optimize glycemic control increase Levimir to 18 units, rest cont same. Code(s): E11.9 - TYPE 2 DIABETES MELLITUS WITHOUT COMPLICATIONS Qualifiers: Diabetes mellitus complication status: with circulatory complication (2) Gout Assessment/Plan: Dc indomethacin for worsening renal functions.consider adding low dose steroid or colchicine if indicated Code(s): M10.9 - GOUT, UNSPECIFIED (3) Toe infection Assessment/Plan: Rt tOe infection , ID and Vascular consulted Cont current abx Code(s): L08.9 - LOCAL INFECTION OF THE SKIN AND SUBCUTANEOUS TISSUE, UNSP (4) Hyperlipidemia Assessment/Plan: Cont Statin Code(s): E78.5 - HYPERLIPIDEMIA, UNSPECIFIED (5) HTN (hypertension) Assessment/Plan: well controlled cont current meds. Code(s): I10 - ESSENTIAL (PRIMARY) HYPERTENSION Qualifiers: Hypertension type: essential hypertension Qualified Code(s): I10 - Essential (primary) hypertension (6) Acute kidney injury superimposed on chronic kidney disease Assessment/Plan: Base line CKD stage 3 GFR 56 worsening renal functions hold metformin, NSAID and Lisionopril. F/U BMP Code(s): N17.9 - ACUTE KIDNEY FAILURE, UNSPECIFIED N18.9 - CHRONIC KIDNEY DISEASE, UNSPECIFIED
[2016-11-25] MEDS: Insulin (LOG) Aspart 100 UNITS/ML VIAL SQ SCH (21:49)
[2016-11-25] MEDS: ATORVASTATIN CA 10 MG TABLET (FP) PO SCH (21:50)
[2016-11-25] MEDS: AMITRIPTYLINE HCL 25 MG TABLET (FP) PO SCH (21:51)
[2016-11-25] MEDS ORDERED: INSULIN DETEMIR 100 UNITS/ML MDV SQ SCH ×2 (22:00)
[2016-11-26] MEDS: sitaGLIPtin PHOSPHATE 50 MG TABLET PO SCH (06:16)
[2016-11-26] MEDS: LEVOFLOXACIN 250 MG TABLET (FP) PO SCH (06:16)
[2016-11-26] MEDS: INSULIN SLIDING SCALE (NOVOLOG) 1 VIAL SQ SCH ×3 (06:16→17:41)
[2016-11-26 07:55] LABS: BASOPHIL 0.6 % (0-2.0); EOSINOPHIL 2.4 % (0-4.5); MCH 23.2 pg (25.7-33.7); MCHC 30.5 g/dl (32.0-36.0); MEAN CELL VOLUME 76.3 fl (80-96); MEAN PLT VOLUME 7.4 fl (7.5-11.1); NEUTROPHILS 50.2 % (42.8-82.8); PLATELET COUNT 296 K/MM3 (134-434); RDW 13.8 % (11.6-15.6)
[2016-11-26 08:42] LABS: ALBUMIN 3.1 g/dl (3.4-5.0); ALK PHOS 64 U/L (45-117); ANION GAP 8 (8-16); BILIRUBIN,TOTAL 0.3 mg/dL (0.2-1.0); CALCIUM 8.4 mg/dL (8.5-10.1); CO2 23 mmol/L (21-32); CREATININE 1.3 mg/dL (0.55-1.02); GLUCOSE,RANDOM 269 mg/dL (74-106); SGOT/AST 9 U/L (15-37); SGPT/ALT 18 U/L (12-78)
[2016-11-26] MEDS ORDERED: PT OWN MED DRAWER 7, Y5N ONE (09:20)
[2016-11-26] MEDS: ASPIRIN 81 MG CHEWABLE TABLETS PO SCH (09:22)
--- NOTE | 2016-11-26 12:25 | PN ---
Progress Note, Physician History of Present Illness: patient stable no new issues - Current Medication List Current Medications: Active Medications Acetaminophen (Tylenol -) 650 mg PO Q6H PRN PRN Reason: FEVER OR PAIN Amitriptyline HCl (Elavil -) 25 mg PO [facility] Last Admin: 11/25/16 21:51 Dose: 25 mg Aspirin (Asa -) 81 mg PO DAILY [facility] Last Admin: 11/26/16 09:22 Dose: 81 mg Atorvastatin Calcium (Lipitor -) 10 mg PO [facility] Last Admin: 11/25/16 21:50 Dose: 10 mg Insulin Aspart (Novolog Vial Sliding Scale -) 1 vial SQ TIDAC [facility] PRN Reason: Protocol Last Admin: 11/26/16 11:58 Dose: 10 units Insulin Aspart (Novolog) 0 units SQ [facility] PRN Reason: Protocol Last Admin: 11/25/16 21:49 Dose: 4 units Insulin Detemir (Levemir Vial) 18 units SQ [facility] Last Admin: 11/25/16 21:48 Dose: 18 unit Levofloxacin (Levaquin -) 750 mg PO DAILY@0600 [facility] Last Admin: 11/26/16 06:16 Dose: 750 mg Sitagliptin Phosphate (Januvia -) 50 mg PO DAILY@0700 [facility] Last Admin: 11/26/16 06:16 Dose: 50 mg - Objective Vital Signs: Vital Signs Temperature 98.1 F 11/26/16 05:59 Pulse Rate 89 11/26/16 05:59 Respiratory Rate 20 11/26/16 05:59 Blood Pressure 111/53 11/26/16 05:59 O2 Sat by Pulse Oximetry (%) 97 11/25/16 21:00 Constitutional: Yes: No Distress, Calm HENT: Yes: Atraumatic Cardiovascular: Yes: Regular Rate and Rhythm Respiratory: Yes: Regular, CTA Bilaterally Musculoskeletal: Yes: Other Extremities: Yes: Other Integumentary: Yes: Erythema (improving) Neurological: Yes: Alert Labs: CBC, BMP 11/26/16 06:30 11/26/16 06:30 Assessment/Plan - Problems (1) Hyperlipidemia Code(s): E78.5 - HYPERLIPIDEMIA, UNSPECIFIED (2) Toe infection Code(s): L08.9 - LOCAL INFECTION OF THE SKIN AND SUBCUTANEOUS TISSUE, UNSP (3) Diabetes Code(s): E11.9 - TYPE 2 DIABETES MELLITUS WITHOUT COMPLICATIONS Qualifiers: Diabetes mellitus type: type 2 Diabetes mellitus complication status: with skin complications Diabetes mellitus complication detail: with other skin complication Diabetes mellitus long term care social worker insulin use: without long term care social worker use Qualified Code(s): E11.628 - Type 2 diabetes mellitus with other skin complications; Z79.4 - [facility] (current) use of insulin (4) HTN (hypertension) Code(s): I10 - ESSENTIAL (PRIMARY) HYPERTENSION Qualifiers: Hypertension type: essential hypertension Qualified Code(s): I10 - Essential (primary) hypertension 5 gangrene of the rt toe plan continue current mgmt rest as per primary team
[2016-11-26] MEDS: ACETAMINOPHEN 325 MG TABLET (FP) PO PRN ×2 (12:59→18:58)
--- NOTE | 2016-11-26 14:08 | PN ---
Progress Note (short form) - Note Progress Note: Feels better Less Rt big toe pain FS improving Vital Signs Period Temp Pulse Resp BP Sys/Castillo Pulse Ox Last 24 Hr 97.7 F-98.8 F 84-96 16-20 111-139/53-80 97 PE: AOx3 Neck: Supple, No JVD HEENT: PERRL, EOMI Lungs: CTA Abd: Benign CVS: S1S2 Ext; No edema, Rt big toe dark discoloration of distal portion to fluctuation over the plantar surface Neuro: No focal surface CMP Sodium 138 mmol/L (136-145) 11/26/16 06:30 Potassium 5.0 mmol/L (3.5-5.1) 11/26/16 06:30 Chloride 107 mmol/L (98-107) 11/26/16 06:30 Carbon Dioxide 23 mmol/L (21-32) 11/26/16 06:30 Anion Gap 8 (8-16) 11/26/16 06:30 BUN 32 mg/dL (7-18) H 11/26/16 06:30 Creatinine 1.3 mg/dL (0.55-1.02) H 11/26/16 06:30 Creat Clearance w eGFR 42.68 (>60) 11/26/16 06:30 POC Glucometer 202 UNITS (()) 11/26/16 11:56 Random Glucose 269 mg/dL (74-106) H 11/26/16 06:30 Uric Acid 4.4 mg/dL (2.6-7.2) 11/23/16 13:40 Calcium 8.4 mg/dL (8.5-10.1) L 11/26/16 06:30 Total Bilirubin 0.3 mg/dL (0.2-1.0) D 11/26/16 06:30 AST 9 U/L (15-37) L 11/26/16 06:30 ALT 18 U/L (12-78) 11/26/16 06:30 Alkaline Phosphatase 64 U/L (45-117) 11/26/16 06:30 C-Reactive Protein 0.3 MG/DL (0.00-0.3) 11/21/16 20:00 Total Protein 6.0 g/dl (6.4-8.2) L 11/26/16 06:30 Albumin 3.1 g/dl (3.4-5.0) L 11/26/16 06:30 Current Medications Generic Name Dose Route Start Last Admin Trade Name Deidra PRN Reason Stop Dose Admin Acetaminophen 650 mg 11/21/16 22:27 11/26/16 12:59 Tylenol - PO 650 mg Q6H PRN Administration FEVER OR PAIN Amitriptyline HCl 25 mg 11/22/16 22:00 11/25/16 21:51 Elavil - PO 25 mg HS [facility] Administration Aspirin 81 mg 11/22/16 10:00 11/26/16 09:22 Asa - PO 81 mg DAILY [facility] Administration Atorvastatin Calcium 10 mg 11/22/16 22:00 11/25/16 21:50 Lipitor - PO 10 mg HS [facility] Administration Insulin Aspart 1 vial 11/25/16 16:30 11/26/16 11:58 Novolog Vial Sliding Scale - SQ 10 units TIDAC [facility] Administration Protocol Insulin Aspart 0 units 11/25/16 22:00 11/25/16 21:49 Novolog SQ 4 units HS [facility] Administration Protocol Insulin Detemir 18 units 11/25/16 22:00 11/25/16 21:48 Levemir Vial SQ 18 unit HS [facility] Administration Levofloxacin 750 mg 11/24/16 14:00 11/26/16 06:16 Levaquin - PO 750 mg DAILY@0600 [facility] Administration Sitagliptin Phosphate 50 mg 11/23/16 15:00 11/26/16 06:16 Januvia - PO 50 mg DAILY@0700 [facility] Administration AP: T2DM: Uncontrolled Check HbA1c BGM QACHS Increase Levemir 22 units daily at HS Increase Novolog SS coverage Continue Sitagliptin 50 mg QD DC Metformin and Glyburide b/o worsening renal function and because pt may go for surgery ?Gangrene Rt big toe Osteomyelitis HTN Will f/U
[2016-11-26] MEDS ORDERED: INSULIN (NOVOLOG) ASPART 100 UNITS/ML 10ML VIAL ONE (21:35)
[2016-11-26] MEDS: ATORVASTATIN CA 10 MG TABLET (FP) PO SCH (21:57)
[2016-11-26] MEDS: AMITRIPTYLINE HCL 25 MG TABLET (FP) PO SCH (21:57)
[2016-11-26] MEDS: INSULIN DETEMIR 100 UNITS/ML MDV SQ SCH (21:58)
[2016-11-26] MEDS: Insulin (LOG) Aspart 100 UNITS/ML VIAL SQ SCH (21:59)
--- NOTE | 2016-11-26 23:49 | PN ---
Progress Note, Physician History of Present Illness: No new complaints - Current Medication List Current Medications: Active Medications Acetaminophen (Tylenol -) 650 mg PO Q6H PRN PRN Reason: FEVER OR PAIN Last Admin: 11/26/16 18:58 Dose: 650 mg Amitriptyline HCl (Elavil -) 25 mg PO [facility] Last Admin: 11/26/16 21:57 Dose: 25 mg Aspirin (Asa -) 81 mg PO DAILY [facility] Last Admin: 11/26/16 09:22 Dose: 81 mg Atorvastatin Calcium (Lipitor -) 10 mg PO [facility] Last Admin: 11/26/16 21:57 Dose: 10 mg Insulin Aspart (Novolog) 0 units SQ HS [facility] PRN Reason: Protocol Last Admin: 11/26/16 21:59 Dose: Not Given Insulin Aspart (Novolog Vial Sliding Scale -) 1 vial SQ TIDAC [facility] PRN Reason: Protocol Last Admin: 11/26/16 17:41 Dose: 10 units Insulin Detemir (Levemir Vial) 22 units SQ [facility] Last Admin: 11/26/16 21:58 Dose: 22 units Levofloxacin (Levaquin -) 750 mg PO DAILY@0600 [facility] Last Admin: 11/26/16 06:16 Dose: 750 mg Sitagliptin Phosphate (Januvia -) 50 mg PO DAILY@0700 [facility] Last Admin: 11/26/16 06:16 Dose: 50 mg - Objective Vital Signs: Vital Signs Temperature 97.6 F 11/26/16 16:30 Pulse Rate 95 H 11/26/16 16:30 Respiratory Rate 20 11/26/16 16:30 Blood Pressure 128/76 11/26/16 16:30 O2 Sat by Pulse Oximetry (%) 97 11/25/16 21:00 Constitutional: Yes: Well Nourished Neck: Yes: WNL, Supple Cardiovascular: Yes: WNL, Regular Rate and Rhythm Respiratory: Yes: WNL, Regular, CTA Bilaterally Gastrointestinal: Yes: WNL, Normal Bowel Sounds, Soft, Abdomen, Obese Extremities: Yes: Other ((+) gangrene lt big toe) Labs: CBC, BMP 11/26/16 06:30 11/26/16 06:30 Problem List - Problems (1) Toe infection Assessment/Plan: Cont antibxs ?amputation as per vascular MRI showed osteo Code(s): L08.9 - LOCAL INFECTION OF THE SKIN AND SUBCUTANEOUS TISSUE, UNSP (2) Diabetes Assessment/Plan: Cont meds Code(s): E11.9 - TYPE 2 DIABETES MELLITUS WITHOUT COMPLICATIONS Qualifiers: Diabetes mellitus type: type 2 Diabetes mellitus complication status: with skin complications Diabetes mellitus complication detail: with other skin complication Diabetes mellitus intermediate frame tender insulin use: without intermediate frame tender use Qualified Code(s): E11.628 - Type 2 diabetes mellitus with other skin complications; Z79.4 - terminologist (current) use of insulin (3) HTN (hypertension) Code(s): I10 - ESSENTIAL (PRIMARY) HYPERTENSION Qualifiers: Hypertension type: essential hypertension Qualified Code(s): I10 - Essential (primary) hypertension (4) Heel spur Code(s): M77.30 - CALCANEAL SPUR, UNSPECIFIED FOOT Qualifiers: Laterality: left Qualified Code(s): M77.32 - Calcaneal spur, left foot
[2016-11-27] MEDS: INSULIN SLIDING SCALE (NOVOLOG) 1 VIAL SQ SCH ×3 (07:07→17:52)
[2016-11-27] MEDS: LEVOFLOXACIN 250 MG TABLET (FP) PO SCH (07:08)
[2016-11-27] MEDS: sitaGLIPtin PHOSPHATE 50 MG TABLET PO SCH (07:08)
[2016-11-27] MEDS ORDERED: PT OWN MED DRAWER 7, Y5N ONE (10:03)
[2016-11-27] MEDS: ASPIRIN 81 MG CHEWABLE TABLETS PO SCH (10:08)
--- NOTE | 2016-11-27 12:04 | PN ---
Progress Note (short form) - Note Progress Note: Vascular Surgery Pt seen and examined. MRI shows osteo Pt has dry gangrene of right great toe. Spoke to pt about amputation. She is going to speak to family She wants her mom to be her with her She prefers it to be done on mon. All angio's reviewed. Pt has DP runoff into forefoot. Should heal amputation. Please clear from medical stand point. Gael Sullivan DO
--- NOTE | 2016-11-27 12:29 | PN ---
Progress Note, Physician History of Present Illness: stable no new issues vascular plans for amputation - Current Medication List Current Medications: Active Medications Acetaminophen (Tylenol -) 650 mg PO Q6H PRN PRN Reason: FEVER OR PAIN Last Admin: 11/26/16 18:58 Dose: 650 mg Amitriptyline HCl (Elavil -) 25 mg PO [facility] Last Admin: 11/26/16 21:57 Dose: 25 mg Aspirin (Asa -) 81 mg PO DAILY [facility] Last Admin: 11/27/16 10:08 Dose: 81 mg Atorvastatin Calcium (Lipitor -) 10 mg PO HS [facility] Last Admin: 11/26/16 21:57 Dose: 10 mg Insulin Aspart (Novolog) 0 units SQ HS [facility] PRN Reason: Protocol Last Admin: 11/26/16 21:59 Dose: Not Given Insulin Aspart (Novolog Vial Sliding Scale -) 1 vial SQ TIDAC [facility] PRN Reason: Protocol Last Admin: 11/27/16 12:15 Dose: 10 units Insulin Detemir (Levemir Vial) 22 units SQ [facility] Last Admin: 11/26/16 21:58 Dose: 22 units Levofloxacin (Levaquin -) 750 mg PO DAILY@0600 [facility] Last Admin: 11/27/16 07:08 Dose: 750 mg Sitagliptin Phosphate (Januvia -) 50 mg PO DAILY@0700 [facility] Last Admin: 11/27/16 07:08 Dose: 50 mg - Objective Vital Signs: Vital Signs Temperature 98.6 F 11/27/16 06:00 Pulse Rate 89 11/27/16 06:00 Respiratory Rate 20 11/27/16 06:00 Blood Pressure 127/63 11/27/16 06:00 O2 Sat by Pulse Oximetry (%) 97 11/26/16 21:00 Constitutional: Yes: No Distress, Calm Cardiovascular: Yes: Regular Rate and Rhythm Respiratory: Yes: Regular, CTA Bilaterally Musculoskeletal: Yes: WNL Extremities: Yes: Other Wound/Incision: Yes: Other Neurological: Yes: Alert, Oriented Labs: CBC, BMP 11/26/16 06:30 11/26/16 06:30 Assessment/Plan - Problems (1) Hyperlipidemia Code(s): E78.5 - HYPERLIPIDEMIA, UNSPECIFIED (2) Toe infection Code(s): L08.9 - LOCAL INFECTION OF THE SKIN AND SUBCUTANEOUS TISSUE, UNSP (3) Diabetes Code(s): E11.9 - TYPE 2 DIABETES MELLITUS WITHOUT COMPLICATIONS Qualifiers: Diabetes mellitus type: type 2 Diabetes mellitus complication status: with skin complications Diabetes mellitus complication detail: with other skin complication Diabetes mellitus shelter insulin use: without shelter use Qualified Code(s): E11.628 - Type 2 diabetes mellitus with other skin complications; Z79.4 - terminal make up operator (current) use of insulin (4) HTN (hypertension) Code(s): I10 - ESSENTIAL (PRIMARY) HYPERTENSION Qualifiers: Hypertension type: essential hypertension Qualified Code(s): I10 - Essential (primary) hypertension 5 gangrene of the rt toe plan continue current mgmt rest as per primary team await for procedure once done then we will plan accordingly
[2016-11-27] MEDS: oxyCODONE HCL 5 MG TABLET PO PRN (17:09)
--- NOTE | 2016-11-27 20:28 | PN ---
Progress Note, Physician History of Present Illness: Pt does c/o lt heel pain - Current Medication List Current Medications: Active Medications Acetaminophen (Tylenol -) 650 mg PO Q6H PRN PRN Reason: FEVER OR PAIN Last Admin: 11/26/16 18:58 Dose: 650 mg Amitriptyline HCl (Elavil -) 25 mg PO [facility] Last Admin: 11/26/16 21:57 Dose: 25 mg Aspirin (Asa -) 81 mg PO DAILY [facility] Last Admin: 11/27/16 10:08 Dose: 81 mg Atorvastatin Calcium (Lipitor -) 10 mg PO [facility] Last Admin: 11/26/16 21:57 Dose: 10 mg Insulin Aspart (Novolog) 0 units SQ [facility] PRN Reason: Protocol Last Admin: 11/26/16 21:59 Dose: Not Given Insulin Aspart (Novolog Vial Sliding Scale -) 1 vial SQ TIDAC [facility] PRN Reason: Protocol Last Admin: 11/27/16 17:52 Dose: 12 units Insulin Detemir (Levemir Vial) 22 units SQ [facility] Last Admin: 11/26/16 21:58 Dose: 22 units Levofloxacin (Levaquin -) 750 mg PO DAILY@0600 [facility] Last Admin: 11/27/16 07:08 Dose: 750 mg Oxycodone HCl (Roxicodone -) 5 mg PO Q6H PRN PRN Reason: FOR PAIN Last Admin: 11/27/16 17:09 Dose: 5 mg Sitagliptin Phosphate (Januvia -) 50 mg PO DAILY@0700 [facility] Last Admin: 11/27/16 07:08 Dose: 50 mg - Objective Vital Signs: Vital Signs Temperature 99.4 F 11/27/16 16:30 Pulse Rate 107 H 11/27/16 16:30 Respiratory Rate 20 11/27/16 16:30 Blood Pressure 130/64 11/27/16 16:30 O2 Sat by Pulse Oximetry (%) 97 11/26/16 21:00 HENT: Yes: WNL Neck: Yes: WNL, Supple Cardiovascular: Yes: WNL, Regular Rate and Rhythm Respiratory: Yes: WNL, Regular, CTA Bilaterally Gastrointestinal: Yes: WNL, Normal Bowel Sounds, Soft, Abdomen, Obese Extremities: Yes: Other ((+) gangrene lt big toe) Labs: CBC, BMP 11/26/16 06:30 11/26/16 06:30 Problem List - Problems (1) Toe infection Assessment/Plan: Cont antibxs ?amputation as per vascular MRI showed osteo Code(s): L08.9 - LOCAL INFECTION OF THE SKIN AND SUBCUTANEOUS TISSUE, UNSP (2) Diabetes Code(s): E11.9 - TYPE 2 DIABETES MELLITUS WITHOUT COMPLICATIONS Qualifiers: Diabetes mellitus type: type 2 Diabetes mellitus complication status: with skin complications Diabetes mellitus complication detail: with other skin complication Diabetes mellitus long term care administrator insulin use: without long term care administrator use Qualified Code(s): E11.628 - Type 2 diabetes mellitus with other skin complications; Z79.4 - long term (current) use of insulin (3) HTN (hypertension) Code(s): I10 - ESSENTIAL (PRIMARY) HYPERTENSION Qualifiers: Hypertension type: essential hypertension Qualified Code(s): I10 - Essential (primary) hypertension (4) Heel spur Code(s): M77.30 - CALCANEAL SPUR, UNSPECIFIED FOOT Qualifiers: Laterality: left Qualified Code(s): M77.32 - Calcaneal spur, left foot
[2016-11-27] MEDS: ATORVASTATIN CA 10 MG TABLET (FP) PO SCH (21:27)
[2016-11-27] MEDS: AMITRIPTYLINE HCL 25 MG TABLET (FP) PO SCH (21:27)
[2016-11-27] MEDS: INSULIN DETEMIR 100 UNITS/ML MDV SQ SCH (21:28)
[2016-11-27] MEDS: Insulin (LOG) Aspart 100 UNITS/ML VIAL SQ SCH (21:28)
[2016-11-28] MEDS: LEVOFLOXACIN 250 MG TABLET (FP) PO SCH (06:44)
[2016-11-28] MEDS: sitaGLIPtin PHOSPHATE 50 MG TABLET PO SCH (06:45)
[2016-11-28] MEDS: INSULIN SLIDING SCALE (NOVOLOG) 1 VIAL SQ SCH ×3 (06:46→17:08)
[2016-11-28] MEDS ORDERED: PT OWN MED DRAWER 7, Y5N ONE (10:02)
[2016-11-28] MEDS: ASPIRIN 81 MG CHEWABLE TABLETS PO SCH (10:11)
--- NOTE | 2016-11-28 11:34 | PN ---
Progress Note, Physician History of Present Illness: stable no new issues vascular plans for amputation - Current Medication List Current Medications: Active Medications Acetaminophen (Tylenol -) 650 mg PO Q6H PRN PRN Reason: FEVER OR PAIN Last Admin: 11/26/16 18:58 Dose: 650 mg Amitriptyline HCl (Elavil -) 25 mg PO [facility] Last Admin: 11/27/16 21:27 Dose: 25 mg Aspirin (Asa -) 81 mg PO [facility]ILY [facility] Last Admin: 11/28/16 10:11 Dose: 81 mg Atorvastatin Calcium (Lipitor -) 10 mg PO [facility] Last Admin: 11/27/16 21:27 Dose: 10 mg Insulin Aspart (Novolog) 0 units SQ [facility] PRN Reason: Protocol Last Admin: 11/27/16 21:28 Dose: Not Given Insulin Aspart (Novolog Vial Sliding Scale -) 1 vial SQ TIDAC [facility] PRN Reason: Protocol Last Admin: 11/28/16 06:46 Dose: 12 units Insulin Detemir (Levemir Vial) 22 units SQ [facility] Last Admin: 11/27/16 21:28 Dose: 22 units Levofloxacin (Levaquin -) 750 mg PO DAILY@0600 [facility] Last Admin: 11/28/16 06:44 Dose: 750 mg Oxycodone HCl (Roxicodone -) 5 mg PO Q6H PRN PRN Reason: FOR PAIN Last Admin: 11/27/16 17:09 Dose: 5 mg Sitagliptin Phosphate (Januvia -) 50 mg PO DAILY@0700 [facility] Last Admin: 11/28/16 06:45 Dose: 50 mg - Objective Vital Signs: Vital Signs Temperature 98 F 11/28/16 07:42 Pulse Rate 100 H 11/28/16 07:42 Respiratory Rate 20 11/28/16 07:42 Blood Pressure 138/68 11/28/16 07:42 O2 Sat by Pulse Oximetry (%) 97 11/27/16 21:00 Constitutional: Yes: No Distress, Calm Cardiovascular: Yes: Regular Rate and Rhythm Respiratory: Yes: Regular, CTA Bilaterally Gastrointestinal: Yes: Normal Bowel Sounds, Soft Extremities: Yes: Other Wound/Incision: Yes: Open to air, Other (gangrene) Neurological: Yes: Alert, Oriented Psychiatric: Yes: Alert, Oriented Labs: CBC, BMP 11/26/16 06:30 11/26/16 06:30 Assessment/Plan - Problems (1) Hyperlipidemia Code(s): E78.5 - HYPERLIPIDEMIA, UNSPECIFIED (2) Toe infection Code(s): L08.9 - LOCAL INFECTION OF THE SKIN AND SUBCUTANEOUS TISSUE, UNSP (3) Diabetes Code(s): E11.9 - TYPE 2 DIABETES MELLITUS WITHOUT COMPLICATIONS Qualifiers: Diabetes mellitus type: type 2 Diabetes mellitus complication status: with skin complications Diabetes mellitus complication detail: with other skin complication Diabetes mellitus fci insulin use: without termite technician use Qualified Code(s): E11.628 - Type 2 diabetes mellitus with other skin complications; Z79.4 - tank terminal gauger (current) use of insulin (4) HTN (hypertension) Code(s): I10 - ESSENTIAL (PRIMARY) HYPERTENSION Qualifiers: Hypertension type: essential hypertension Qualified Code(s): I10 - Essential (primary) hypertension 5 gangrene of the rt toe plan continue current mgmt rest as per primary team await for procedure once done then we will plan accordingly
[2016-11-28] MEDS ORDERED: INSULIN (NOVOLOG) ASPART 100 UNITS/ML 10ML VIAL ONE (12:08)
--- NOTE | 2016-11-28 13:09 | PN ---
Progress Note (short form) - Note Progress Note: Feels better Denies any new complaints FS improving Vital Signs Period Temp Pulse Resp BP Sys/Castillo Pulse Ox Last 24 Hr 98 F-99.4 F 94-107 18-20 130-138/64-73 97 PE: AOx3 Neck: Supple, No JVD HEENT: PERRL, EOMI Lungs: CTA Abd: Benign CVS: S1S2 Ext; No edema, Rt big toe dark discoloration of distal portion to fluctuation over the plantar surface Neuro: No focal surface CMP Sodium 138 mmol/L (136-145) 11/26/16 06:30 Potassium 5.0 mmol/L (3.5-5.1) 11/26/16 06:30 Chloride 107 mmol/L (98-107) 11/26/16 06:30 Carbon Dioxide 23 mmol/L (21-32) 11/26/16 06:30 Anion Gap 8 (8-16) 11/26/16 06:30 BUN 32 mg/dL (7-18) H 11/26/16 06:30 Creatinine 1.3 mg/dL (0.55-1.02) H 11/26/16 06:30 Creat Clearance w eGFR 42.68 (>60) 11/26/16 06:30 POC Glucometer 216 UNITS (()) 11/28/16 11:52 Random Glucose 269 mg/dL (74-106) H 11/26/16 06:30 Uric Acid 4.4 mg/dL (2.6-7.2) 11/23/16 13:40 Calcium 8.4 mg/dL (8.5-10.1) L 11/26/16 06:30 Total Bilirubin 0.3 mg/dL (0.2-1.0) D 11/26/16 06:30 AST 9 U/L (15-37) L 11/26/16 06:30 ALT 18 U/L (12-78) 11/26/16 06:30 Alkaline Phosphatase 64 U/L (45-117) 11/26/16 06:30 C-Reactive Protein 0.3 MG/DL (0.00-0.3) 11/21/16 20:00 Total Protein 6.0 g/dl (6.4-8.2) L 11/26/16 06:30 Albumin 3.1 g/dl (3.4-5.0) L 11/26/16 06:30 Current Medications Generic Name Dose Route Start Last Admin Trade Name Freq PRN Reason Stop Dose Admin Acetaminophen 650 mg 11/21/16 22:27 11/26/16 18:58 Tylenol - PO 650 mg Q6H PRN Administration FEVER OR PAIN Amitriptyline HCl 25 mg 11/22/16 22:00 11/27/16 21:27 Elavil - PO 25 mg HS [facility] Administration Aspirin 81 mg 11/22/16 10:00 11/28/16 10:11 Asa - PO 81 mg DAILY [facility] Administration Atorvastatin Calcium 10 mg 11/22/16 22:00 11/27/16 21:27 Lipitor - PO 10 mg HS [facility] Administration Insulin Aspart 0 units 11/25/16 22:00 11/27/16 21:28 Novolog SQ Not Given HS [facility] Protocol Insulin Aspart 1 vial 11/26/16 14:11 11/28/16 12:10 Novolog Vial Sliding Scale - SQ 12 units TIDAC [facility] Administration Protocol Insulin Detemir 22 units 11/26/16 22:00 11/27/16 21:28 Levemir Vial SQ 22 units HS [facility] Administration Levofloxacin 750 mg 11/24/16 14:00 11/28/16 06:44 Levaquin - PO 750 mg DAILY@0600 [facility] Administration Oxycodone HCl 5 mg 11/27/16 16:55 11/27/16 17:09 Roxicodone - PO 5 mg Q6H PRN Administration FOR PAIN Sitagliptin Phosphate 50 mg 11/23/16 15:00 11/28/16 06:45 Januvia - PO 50 mg DAILY@0700 [facility] Administration AP: T2DM: Uncontrolled but improving BGM QACHS Increase Levemir 26 units daily at HS Increase Novolog SS coverage Continue Sitagliptin 50 mg QD DC Metformin and Glyburide b/o worsening renal function and because pt may go for surgery Gangrene Rt big toe: Surgery note noted. Needs amputation. Osteomyelitis HTN Will f/U
[2016-11-28] MEDS: oxyCODONE HCL 5 MG TABLET PO PRN ×2 (15:34→23:08)
--- NOTE | 2016-11-28 15:38 | PN ---
Progress Note, Physician - Current Medication List Current Medications: Active Medications Acetaminophen (Tylenol -) 650 mg PO Q6H PRN PRN Reason: FEVER OR PAIN Last Admin: 11/26/16 18:58 Dose: 650 mg Amitriptyline HCl (Elavil -) 25 mg PO [facility] Last Admin: 11/27/16 21:27 Dose: 25 mg Aspirin (Asa -) 81 mg PO DAILY [facility] Last Admin: 11/28/16 10:11 Dose: 81 mg Atorvastatin Calcium (Lipitor -) 10 mg PO [facility] Last Admin: 11/27/16 21:27 Dose: 10 mg Insulin Aspart (Novolog) 0 units SQ HS [facility] PRN Reason: Protocol Last Admin: 11/27/16 21:28 Dose: Not Given Insulin Aspart (Novolog Vial Sliding Scale -) 1 vial SQ TIDAC [facility] PRN Reason: Protocol Insulin Detemir (Levemir Vial) 26 units SQ HS [facility] Levofloxacin (Levaquin -) 750 mg PO DAILY@0600 [facility] Last Admin: 11/28/16 06:44 Dose: 750 mg Oxycodone HCl (Roxicodone -) 5 mg PO Q6H PRN PRN Reason: FOR PAIN Last Admin: 11/27/16 17:09 Dose: 5 mg Sitagliptin Phosphate (Januvia -) 50 mg PO DAILY@0700 [facility] Last Admin: 11/28/16 06:45 Dose: 50 mg - Objective Vital Signs: Vital Signs Temperature 98.7 F 11/28/16 14:54 Pulse Rate 72 11/28/16 14:54 Respiratory Rate 16 11/28/16 14:54 Blood Pressure 128/78 11/28/16 14:54 O2 Sat by Pulse Oximetry (%) 97 11/27/16 21:00 Constitutional: Yes: No Distress HENT: Yes: Atraumatic Neck: Yes: Supple Cardiovascular: Yes: Regular Rate and Rhythm Respiratory: Yes: CTA Bilaterally Gastrointestinal: Yes: Normal Bowel Sounds Extremities: Yes: Other (r big toe gangrene) Neurological: Yes: Alert, Oriented Labs: CBC, BMP 11/26/16 06:30 11/26/16 06:30 Problem List - Problems (1) Hyperlipidemia Assessment/Plan: on meds Code(s): E78.5 - HYPERLIPIDEMIA, UNSPECIFIED (2) Toe infection Assessment/Plan: IV ABX WOUND CARE CONSULT ID CONSULT Code(s): L08.9 - LOCAL INFECTION OF THE SKIN AND SUBCUTANEOUS TISSUE, UNSP (3) Diabetes Assessment/Plan: on po meds sliding scale insulin/bgms pt is non complaint with diet eats candy and lot of starch and carbohydrates brought in by family Code(s): E11.9 - TYPE 2 DIABETES MELLITUS WITHOUT COMPLICATIONS Qualifiers: Diabetes mellitus type: type 2 Diabetes mellitus complication status: with skin complications Diabetes mellitus complication detail: with other skin complication Diabetes mellitus nursing home insulin use: without nursing home use Qualified Code(s): E11.628 - Type 2 diabetes mellitus with other skin complications; Z79.4 - termite helper (current) use of insulin (4) HTN (hypertension) Code(s): I10 - ESSENTIAL (PRIMARY) HYPERTENSION Qualifiers: Hypertension type: essential hypertension Qualified Code(s): I10 - Essential (primary) hypertension (5) Gout Code(s): M10.9 - GOUT, UNSPECIFIED
--- NOTE | 2016-11-28 19:37 | PN ---
Progress Note (short form) - Note Progress Note: Vascular Surgery For right great toe amputation mon. NPO past midnight on . Gael Sullivan DO
[2016-11-28] MEDS: AMITRIPTYLINE HCL 25 MG TABLET (FP) PO SCH (21:21)
[2016-11-28] MEDS: ATORVASTATIN CA 10 MG TABLET (FP) PO SCH (21:21)
[2016-11-28] MEDS: Insulin (LOG) Aspart 100 UNITS/ML VIAL SQ SCH (21:26)
[2016-11-28] MEDS ORDERED: INSULIN DETEMIR 100 UNITS/ML MDV SQ SCH (22:00)
[2016-11-29] MEDS: LEVOFLOXACIN 250 MG TABLET (FP) PO SCH (05:15)
[2016-11-29] MEDS: sitaGLIPtin PHOSPHATE 50 MG TABLET PO SCH (06:54)
[2016-11-29] MEDS: oxyCODONE HCL 5 MG TABLET PO PRN ×3 (06:54→23:07)
[2016-11-29] MEDS: INSULIN SLIDING SCALE (NOVOLOG) 1 VIAL SQ SCH ×3 (06:57→16:58)
--- NOTE | 2016-11-29 08:06 | SPA.PREOP ---
- PRE-OP NOTE Dx: Planned Procedure: Right great toe amputation Surgeon: Gael Sullivan Consent: To be obtained by surgeon after risks, benefits and alternatives explained to patient. Last Vital Signs Temp Pulse Resp BP Pulse Ox 98.5 F 84 20 122/54 97 11/29/16 06:15 11/29/16 06:15 11/29/16 06:15 11/29/16 06:15 11/28/16 21:00 Lab Results WBC 7.0 K/mm3 (4.0-10.0) 11/26/16 06:30 RBC 3.79 M/mm3 (3.60-5.2) 11/26/16 06:30 Hgb 8.8 GM/dL (10.7-15.3) L 11/26/16 06:30 Hct 28.9 % (32.4-45.2) L 11/26/16 06:30 MCV 76.3 fl (80-96) L 11/26/16 06:30 MCHC 30.5 g/dl (32.0-36.0) L 11/26/16 06:30 RDW 13.8 % (11.6-15.6) 11/26/16 06:30 Plt Count 296 K/MM3 (134-434) 11/26/16 06:30 Sodium 138 mmol/L (136-145) 11/26/16 06:30 Potassium 5.0 mmol/L (3.5-5.1) 11/26/16 06:30 Chloride 107 mmol/L (98-107) 11/26/16 06:30 Carbon Dioxide 23 mmol/L (21-32) 11/26/16 06:30 Anion Gap 8 (8-16) 11/26/16 06:30 BUN 32 mg/dL (7-18) H 11/26/16 06:30 Creatinine 1.3 mg/dL (0.55-1.02) H 11/26/16 06:30 Random Glucose 269 mg/dL (74-106) H 11/26/16 06:30 Calcium 8.4 mg/dL (8.5-10.1) L 11/26/16 06:30 - ASSESSMENT/PLAN Problem List - Problems (1) Dry gangrene Assessment/Plan: 1. Make NPO after midnight except po meds 2. GI/DVT PPX 3. Medical optimization / clearance 4. Coags 5. Type and sceen Code(s): I96 - GANGRENE, NOT ELSEWHERE CLASSIFIED Visit type - Case Type Case Type: ED Admission - New patient This patient is new to me today: Yes Date on this admission: 11/29/16
--- NOTE | 2016-11-29 09:04 | PN ---
Progress Note (short form) - Note Progress Note: Feels better Denies any new complaints FS improving but still 200s No hypos For surgery tomorrow Vital Signs Period Temp Pulse Resp BP Sys/Castillo Pulse Ox Last 24 Hr 98.0 F-98.7 F 72-94 16-20 122-137/54-78 97 PE: AOx3 Neck: Supple, No JVD HEENT: PERRL, EOMI Lungs: CTA Abd: Benign CVS: S1S2 Ext; No edema, Rt big toe dark discoloration of distal portion to fluctuation over the plantar surface Neuro: No focal surface CMP Sodium 138 mmol/L (136-145) 11/26/16 06:30 Potassium 5.0 mmol/L (3.5-5.1) 11/26/16 06:30 Chloride 107 mmol/L (98-107) 11/26/16 06:30 Carbon Dioxide 23 mmol/L (21-32) 11/26/16 06:30 Anion Gap 8 (8-16) 11/26/16 06:30 BUN 32 mg/dL (7-18) H 11/26/16 06:30 Creatinine 1.3 mg/dL (0.55-1.02) H 11/26/16 06:30 Creat Clearance w eGFR 42.68 (>60) 11/26/16 06:30 POC Glucometer 169 UNITS (()) 11/29/16 06:48 Random Glucose 269 mg/dL (74-106) H 11/26/16 06:30 Uric Acid 4.4 mg/dL (2.6-7.2) 11/23/16 13:40 Calcium 8.4 mg/dL (8.5-10.1) L 11/26/16 06:30 Total Bilirubin 0.3 mg/dL (0.2-1.0) D 11/26/16 06:30 AST 9 U/L (15-37) L 11/26/16 06:30 ALT 18 U/L (12-78) 11/26/16 06:30 Alkaline Phosphatase 64 U/L (45-117) 11/26/16 06:30 C-Reactive Protein 0.3 MG/DL (0.00-0.3) 11/21/16 20:00 Total Protein 6.0 g/dl (6.4-8.2) L 11/26/16 06:30 Albumin 3.1 g/dl (3.4-5.0) L 11/26/16 06:30 Current Medications Generic Name Dose Route Start Last Admin Trade Name Frealicja PRN Reason Stop Dose Admin Acetaminophen 650 mg 11/21/16 22:27 11/26/16 18:58 Tylenol - PO 650 mg Q6H PRN Administration FEVER OR PAIN Amitriptyline HCl 25 mg 11/22/16 22:00 11/28/16 21:21 Elavil - PO 25 mg HS [facility] Administration Aspirin 81 mg 11/22/16 10:00 11/28/16 10:11 Asa - PO 81 mg DAILY [facility] Administration Atorvastatin Calcium 10 mg 11/22/16 22:00 11/28/16 21:21 Lipitor - PO 10 mg HS [facility] Administration Insulin Aspart 0 units 11/25/16 22:00 11/28/16 21:26 Novolog SQ 4 units HS [facility] Administration Protocol Insulin Aspart 1 vial 11/28/16 13:11 11/29/16 06:57 Novolog Vial Sliding Scale - SQ 10 units TIDAC [facility] Administration Protocol Insulin Detemir 26 units 11/28/16 22:00 11/28/16 21:21 Levemir Vial SQ 26 unit HS [facility] Administration Levofloxacin 750 mg 11/24/16 14:00 11/29/16 05:15 Levaquin - PO 750 mg DAILY@0600 [facility] Administration Oxycodone HCl 5 mg 11/27/16 16:55 11/29/16 06:54 Roxicodone - PO 5 mg Q6H PRN Administration FOR PAIN Sitagliptin Phosphate 50 mg 11/23/16 15:00 11/29/16 06:54 Januvia - PO 50 mg DAILY@0700 [facility] Administration AP: T2DM: Uncontrolled but improving BGM QACHS decrease Levemir 20 units daily at HS for now as pt will be NPO starting tonight Novolog SS coverage Continue Sitagliptin 50 mg QD DC Metformin and Glyburide b/o worsening renal function and because pt may go for surgery Gangrene Rt big toe: Surgery note noted. Scheduled for tomorrow Osteomyelitis HTN Will f/U
[2016-11-29] MEDS: ASPIRIN 81 MG CHEWABLE TABLETS PO SCH (09:48)
--- NOTE | 2016-11-29 09:50 | PN ---
Progress Note, Physician History of Present Illness: stable no complaints for or tomorrow - Current Medication List Current Medications: Active Medications Acetaminophen (Tylenol -) 650 mg PO Q6H PRN PRN Reason: FEVER OR PAIN Last Admin: 11/26/16 18:58 Dose: 650 mg Amitriptyline HCl (Elavil -) 25 mg PO [facility] Last Admin: 11/28/16 21:21 Dose: 25 mg Aspirin (Asa -) 81 mg PO DAILY [facility] Last Admin: 11/29/16 09:48 Dose: 81 mg Atorvastatin Calcium (Lipitor -) 10 mg PO [facility] Last Admin: 11/28/16 21:21 Dose: 10 mg Insulin Aspart (Novolog) 0 units SQ [facility] PRN Reason: Protocol Last Admin: 11/28/16 21:26 Dose: 4 units Insulin Aspart (Novolog Vial Sliding Scale -) 1 vial SQ TIDAC [facility] PRN Reason: Protocol Last Admin: 11/29/16 06:57 Dose: 10 units Insulin Detemir (Levemir Vial) 26 units SQ [facility] Last Admin: 11/28/16 21:21 Dose: 26 unit Levofloxacin (Levaquin -) 750 mg PO DAILY@0600 [facility] Last Admin: 11/29/16 05:15 Dose: 750 mg Oxycodone HCl (Roxicodone -) 5 mg PO Q6H PRN PRN Reason: FOR PAIN Last Admin: 11/29/16 06:54 Dose: 5 mg Sitagliptin Phosphate (Januvia -) 50 mg PO DAILY@0700 [facility] Last Admin: 11/29/16 06:54 Dose: 50 mg - Objective Vital Signs: Vital Signs Temperature 98.5 F 11/29/16 06:15 Pulse Rate 84 11/29/16 06:15 Respiratory Rate 20 11/29/16 06:15 Blood Pressure 122/54 11/29/16 06:15 O2 Sat by Pulse Oximetry (%) 97 11/28/16 21:00 Constitutional: Yes: No Distress, Calm Cardiovascular: Yes: Regular Rate and Rhythm Respiratory: Yes: Regular, CTA Bilaterally Gastrointestinal: Yes: Normal Bowel Sounds, Soft Musculoskeletal: Yes: Other Extremities: Yes: Other Neurological: Yes: Alert, Oriented Psychiatric: Yes: Alert, Oriented Labs: CBC, BMP 11/26/16 06:30 11/26/16 06:30 Assessment/Plan - Problems (1) Hyperlipidemia Code(s): E78.5 - HYPERLIPIDEMIA, UNSPECIFIED (2) Toe infection Code(s): L08.9 - LOCAL INFECTION OF THE SKIN AND SUBCUTANEOUS TISSUE, UNSP (3) Diabetes Code(s): E11.9 - TYPE 2 DIABETES MELLITUS WITHOUT COMPLICATIONS Qualifiers: Diabetes mellitus type: type 2 Diabetes mellitus complication status: with skin complications Diabetes mellitus complication detail: with other skin complication Diabetes mellitus long term acute care registered nurse insulin use: without chcf use Qualified Code(s): E11.628 - Type 2 diabetes mellitus with other skin complications; Z79.4 - terminal make up operator (current) use of insulin (4) HTN (hypertension) Code(s): I10 - ESSENTIAL (PRIMARY) HYPERTENSION Qualifiers: Hypertension type: essential hypertension Qualified Code(s): I10 - Essential (primary) hypertension 5 gangrene of the rt toe plan continue current mgmt rest as per primary team await for procedure will await for results
[2016-11-29 10:32] LABS: INR 1.24 (0.82-1.09); PROTHROMBIN TIME (PATIENT) 13.7 SEC (9.98-11.88)
[2016-11-29] MEDS ORDERED: INSULIN (NOVOLOG) ASPART 100 UNITS/ML 10ML VIAL ONE (11:47)
--- NOTE | 2016-11-29 14:00 | PN ---
Progress Note, Physician History of Present Illness: feeling good - Current Medication List Current Medications: Active Medications Acetaminophen (Tylenol -) 650 mg PO Q6H PRN PRN Reason: FEVER OR PAIN Last Admin: 11/26/16 18:58 Dose: 650 mg Amitriptyline HCl (Elavil -) 25 mg PO [facility] Last Admin: 11/28/16 21:21 Dose: 25 mg Aspirin (Asa -) 81 mg PO DAILY [facility] Last Admin: 11/29/16 09:48 Dose: 81 mg Atorvastatin Calcium (Lipitor -) 10 mg PO [facility] Last Admin: 11/28/16 21:21 Dose: 10 mg Insulin Aspart (Novolog) 0 units SQ [facility] PRN Reason: Protocol Last Admin: 11/28/16 21:26 Dose: 4 units Insulin Aspart (Novolog Vial Sliding Scale -) 1 vial SQ TIDAC [facility] PRN Reason: Protocol Last Admin: 11/29/16 11:56 Dose: 14 units Insulin Detemir (Levemir Vial) 20 units SQ [facility] Levofloxacin (Levaquin -) 750 mg PO DAILY@0600 [facility] Last Admin: 11/29/16 05:15 Dose: 750 mg Oxycodone HCl (Roxicodone -) 5 mg PO Q6H PRN PRN Reason: FOR PAIN Last Admin: 11/29/16 06:54 Dose: 5 mg Sitagliptin Phosphate (Januvia -) 50 mg PO DAILY@0700 [facility] Last Admin: 11/29/16 06:54 Dose: 50 mg - Objective Vital Signs: Vital Signs Temperature 98.6 F 11/29/16 10:00 Pulse Rate 100 H 11/29/16 10:00 Respiratory Rate 20 11/29/16 10:00 Blood Pressure 127/66 11/29/16 10:00 O2 Sat by Pulse Oximetry (%) 100 11/29/16 09:00 Constitutional: Yes: No Distress HENT: Yes: Atraumatic Neck: Yes: Supple Cardiovascular: Yes: Regular Rate and Rhythm Respiratory: Yes: CTA Bilaterally Gastrointestinal: Yes: Normal Bowel Sounds Extremities: Yes: Other (R big toe gangrene) Neurological: Yes: Alert, Oriented Labs: CBC, BMP 11/26/16 06:30 11/26/16 06:30 INR, PTT INR 1.24 (0.82-1.09) H 11/29/16 09:50 Problem List - Problems (1) Hyperlipidemia Assessment/Plan: on meds Code(s): E78.5 - HYPERLIPIDEMIA, UNSPECIFIED (2) Toe infection Assessment/Plan: IV ABX WOUND CARE CONSULT Code(s): L08.9 - LOCAL INFECTION OF THE SKIN AND SUBCUTANEOUS TISSUE, UNSP (3) Diabetes Assessment/Plan: on po meds sliding scale insulin/bgms pt is non complaint with diet eats candy and lot of starch and carbohydrates brought in by family Code(s): E11.9 - TYPE 2 DIABETES MELLITUS WITHOUT COMPLICATIONS Qualifiers: Diabetes mellitus type: type 2 Diabetes mellitus complication status: with skin complications Diabetes mellitus complication detail: with other skin complication Diabetes mellitus terminologist insulin use: without terminologist use Qualified Code(s): E11.628 - Type 2 diabetes mellitus with other skin complications; Z79.4 - petroleum terminal plant operator (current) use of insulin (4) HTN (hypertension) Assessment/Plan: on meds stable Code(s): I10 - ESSENTIAL (PRIMARY) HYPERTENSION Qualifiers: Hypertension type: essential hypertension Qualified Code(s): I10 - Essential (primary) hypertension (5) Gout Assessment/Plan: uric acid normal pt doing good off of indomethacin Code(s): M10.9 - GOUT, UNSPECIFIED (6) Dry gangrene Assessment/Plan: for surgery tomorrow Code(s): I96 - GANGRENE, NOT ELSEWHERE CLASSIFIED
--- NOTE | 2016-11-29 14:47 | CON.CARD ---
Consult Consult Specialty:: Cardiology Referred by:: Dr. Coates Reason for Consultation:: Cardiac evaluation and for cardiac clearance - History of Present Illness Chief Complaint: Toe pain History of Present Illness: Patient is a 56 year old female with underlying history of hypertension, hypercholesterolemia and type 2 diabetes mellitus who presented with right toe pain and evaluation revealing probable osteomyelitis. Currently, she is awaiting toe amputation and cardiology consultation was called for clearance. She denies chest pain, shortness of breath or palpitations. She denies paroxysmal nocturnal dyspnea or orthopnea. She denies fever or chills at this time. She denies headache or lightheadedness. She denies nausea, vomiting, diarrhea or abdominal pain. 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 Cardio/Vascular: Yes: HTN, Hyperlipdemia ...LMP: 07/02/13 Rheumatology: Yes: Other (R BIG TOE CELLULITIS) Endocrine: Yes: Diabetes Mellitus - Alcohol/Substance Use Hx Alcohol Use: No - Smoking History Smoking history: Former smoker Have you smoked in the past 12 months: Yes Aproximately how many cigarettes per day: 2 If you are a former smoker, when did you quit?: 2017 Home Medications - Allergies Allergies/Adverse Reactions: Allergies Allergy/AdvReac Type Severity Reaction Status Date / Time No Known Allergies Allergy Verified 11/21/16 14:24 - Home Medications Home Medications: Ambulatory Orders Glyburide/Metformin HCl [Glucovance 5-500 mg Tablet] 1 each PO DAILY #0 Cholecalciferol (Vitamin D3) [Vitamin D -] 400 unit PO DAILY 05/24/16 Lisinopril [Prinivil] 10 mg PO DAILY 05/24/16 Sitagliptin Phosphate [Januvia] 50 mg PO PRN 06/20/16 Ibuprofen [Motrin -] 800 mg PO QID #120 tablet MDD 4 09/01/16 Amitriptyline HCl [Elavil -] 25 mg PO HS 09/21/16 Aspirin [ASA -] 81 mg PO DAILY 09/21/16 Magnesium 30 mg PO DAILY 09/21/16 Acetaminophen W/ Codeine #3 [Tylenol # 3 -] 1 tab PO Q6H #60 tablet MDD 4 Atorvastatin Ca [Lipitor] 1 tab PO DAILY 10/28/16 Gabapentin [Neurontin] 1 cap PO TID 10/28/16 Family Disease History - Family Disease History Family Disease History: Diabetes: Mother Review of Systems - Review of Systems Constitutional: denies: Chills, Fever Cardiovascular: denies: Chest Pain, Palpitations, Shortness of Breath Respiratory: denies: Cough, Hemoptysis, Orthopnea, PND, SOB, SOB on Exertion Gastrointestinal: denies: Abdominal Pain, Diarrhea, Melena, Nausea, Rectal Bleeding, Vomiting Musculoskeletal: denies: Joint Pain Neurological: denies: Dizziness, Headache, Seizure, Syncope Vital Signs: Vital Signs Temperature 98.6 F 11/29/16 10:00 Pulse Rate 100 H 11/29/16 10:00 Respiratory Rate 20 11/29/16 10:00 Blood Pressure 127/66 11/29/16 10:00 O2 Sat by Pulse Oximetry (%) 100 11/29/16 09:00 Neck: Yes: Supple Respiratory: Yes: CTA Bilaterally Gastrointestinal: Yes: Normal Bowel Sounds, Soft, Abdomen, Obese. No: Tenderness Cardiovascular: Yes: Regular Rate and Rhythm JVD: No Carotid Bruit: No PMI: Non-Displaced Heart Sounds: Yes: S1, S2. No: Gallop Murmur: No: Systolic Murmur, Diastolic Murmur Extremities: Yes: Other (Discoloration of right big toe suggests start of gangrene) Edema: No - Other Data Labs, Other Data: CBC, BMP 11/26/16 06:30 11/26/16 06:30 INR, PTT INR 1.24 (0.82-1.09) H 11/29/16 09:50 Imaging - Results Chest X-ray: Report Reviewed MRI: Report Reviewed (Right toe osteomyelitis) EKG: Report Reviewed Problem List - Problems (1) Dry gangrene Code(s): I96 - GANGRENE, NOT ELSEWHERE CLASSIFIED (2) Hyperlipidemia Code(s): E78.5 - HYPERLIPIDEMIA, UNSPECIFIED (3) Ischemia of toe Code(s): I99.8 - OTHER DISORDER OF CIRCULATORY SYSTEM (4) T2DM (type 2 diabetes mellitus) Code(s): E11.9 - TYPE 2 DIABETES MELLITUS WITHOUT COMPLICATIONS Qualifiers: Diabetes mellitus complication status: with circulatory complication (5) HTN (hypertension) Code(s): I10 - ESSENTIAL (PRIMARY) HYPERTENSION Qualifiers: Hypertension type: essential hypertension Qualified Code(s): I10 - Essential (primary) hypertension (6) Hypercholesterolemia Code(s): E78.00 - PURE HYPERCHOLESTEROLEMIA, UNSPECIFIED (7) TIA (transient ischemic attack) Code(s): G45.9 - TRANSIENT CEREBRAL ISCHEMIC ATTACK, UNSPECIFIED Assessment/Plan 1. Right toe osteomyelitis 2. Hypertension 3. Hypercholesterolemia 4. Type 2 diabetes mellitus 5. TIA PLAN: 1. Continue statin and ASA as tolerated. Consider restarting Lisinopril 10 mg once a day as tolerated 2. ECG should be obtained as a baseline 3. There appears to be no absolute contraindication in proceeding with vascular surgery in view of absence of ischemic symptoms, decompensated congestive heart failure or malignant arrhythmia. 4. Transthoracic echocardiography to assess LV/RV and valvular disease 5. Check carotid Doppler at some point in view of prior history of TIA in the presence of diabetes mellitus Further plans are to follow Ziggy Escalona MD
[2016-11-29] MEDS ORDERED: DOCUSATE NA 100 MG/10 ML UNIT-DOSE CUPS PO PRN (15:58)
--- NOTE | 2016-11-29 16:41 | EKG ---
Test Reason : Blood Pressure : / mmHG Vent. Rate : 087 BPM Atrial Rate : 087 BPM P-R Int : 162 ms QRS Dur : 084 ms QT Int : 346 ms P-R-T Axes : 053 020 017 degrees QTc Int : 416 ms NORMAL SINUS RHYTHM NORMAL ECG WHEN COMPARED WITH ECG OF 28-JUN-2016 04:00, NO SIGNIFICANT CHANGE WAS FOUND Confirmed by SADIA KAUR MD ([id number]) on 11/29/2016 4:41:17 PM Referred By: EBER VANCE Confirmed By:SADIA KAUR MD
[2016-11-29] MEDS ORDERED: INSULIN DETEMIR 100 UNITS/ML MDV SQ SCH (22:00)
[2016-11-29] MEDS: AMITRIPTYLINE HCL 25 MG TABLET (FP) PO SCH (22:08)
[2016-11-29] MEDS: ATORVASTATIN CA 10 MG TABLET (FP) PO SCH (22:08)
[2016-11-29] MEDS: Insulin (LOG) Aspart 100 UNITS/ML VIAL SQ SCH (22:13)
[2016-11-30] MEDS: LEVOFLOXACIN 250 MG TABLET (FP) PO SCH (06:07)
[2016-11-30] MEDS: INSULIN SLIDING SCALE (NOVOLOG) 1 VIAL SQ SCH ×5 (08:13→21:25)
[2016-11-30] MEDS: sitaGLIPtin PHOSPHATE 50 MG TABLET PO SCH (08:13)
--- NOTE | 2016-11-30 09:06 | PN ---
Progress Note (short form) - Note Progress Note: For surgery today Denies any new complaints FS improving but still 200s No hypos Vital Signs Period Temp Pulse Resp BP Sys/Castillo Pulse Ox Last 24 Hr 98.4 F-99.1 F 90-102 16-20 114-141/50-70 100 PE: AOx3 Neck: Supple, No JVD HEENT: PERRL, EOMI Lungs: CTA Abd: Benign CVS: S1S2 Ext; No edema, Rt big toe dark discoloration of distal portion to fluctuation over the plantar surface Neuro: No focal surface CBC,CMP WBC 7.0 K/mm3 (4.0-10.0) 11/26/16 06:30 RBC 3.79 M/mm3 (3.60-5.2) 11/26/16 06:30 Hgb 8.8 GM/dL (10.7-15.3) L 11/26/16 06:30 Hct 28.9 % (32.4-45.2) L 11/26/16 06:30 MCV 76.3 fl (80-96) L 11/26/16 06:30 MCH 23.2 pg (25.7-33.7) L 11/26/16 06:30 MCHC 30.5 g/dl (32.0-36.0) L 11/26/16 06:30 RDW 13.8 % (11.6-15.6) 11/26/16 06:30 Plt Count 296 K/MM3 (134-434) 11/26/16 06:30 MPV 7.4 fl (7.5-11.1) L 11/26/16 06:30 Neutrophils % 50.2 % (42.8-82.8) 11/26/16 06:30 Lymphocytes % 40.0 % (8-40) 11/26/16 06:30 Monocytes % 6.8 % (3.8-10.2) 11/26/16 06:30 Eosinophils % 2.4 % (0-4.5) 11/26/16 06:30 Basophils % 0.6 % (0-2.0) 11/26/16 06:30 ESR 20 mm/hr (0-30) 11/21/16 20:00 Sodium 138 mmol/L (136-145) 11/26/16 06:30 Potassium 5.0 mmol/L (3.5-5.1) 11/26/16 06:30 Chloride 107 mmol/L (98-107) 11/26/16 06:30 Carbon Dioxide 23 mmol/L (21-32) 11/26/16 06:30 Anion Gap 8 (8-16) 11/26/16 06:30 BUN 32 mg/dL (7-18) H 11/26/16 06:30 Creatinine 1.3 mg/dL (0.55-1.02) H 11/26/16 06:30 Creat Clearance w eGFR 42.68 (>60) 11/26/16 06:30 POC Glucometer 168 UNITS (()) 11/30/16 05:53 Random Glucose 269 mg/dL (74-106) H 11/26/16 06:30 Hemoglobin A1c % 9.5 % (4.8-6.0) H D 11/29/16 06:00 Uric Acid 4.4 mg/dL (2.6-7.2) 11/23/16 13:40 Calcium 8.4 mg/dL (8.5-10.1) L 11/26/16 06:30 Total Bilirubin 0.3 mg/dL (0.2-1.0) D 11/26/16 06:30 AST 9 U/L (15-37) L 11/26/16 06:30 ALT 18 U/L (12-78) 11/26/16 06:30 Alkaline Phosphatase 64 U/L (45-117) 11/26/16 06:30 C-Reactive Protein 0.3 MG/DL (0.00-0.3) 11/21/16 20:00 Total Protein 6.0 g/dl (6.4-8.2) L 11/26/16 06:30 Albumin 3.1 g/dl (3.4-5.0) L 11/26/16 06:30 Current Medications Generic Name Dose Route Start Last Admin Trade Name Freq PRN Reason Stop Dose Admin Acetaminophen 650 mg 11/21/16 22:27 11/26/16 18:58 Tylenol - PO 650 mg Q6H PRN Administration FEVER OR PAIN Amitriptyline HCl 25 mg 11/22/16 22:00 11/29/16 22:08 Elavil - PO 25 mg HS KE Administration Aspirin 81 mg 11/22/16 10:00 11/29/16 09:48 Asa - PO 81 mg DAILY [facility] Administration Atorvastatin Calcium 10 mg 11/22/16 22:00 11/29/16 22:08 Lipitor - PO 10 mg HS KE Administration Docusate Sodium 100 mg 11/29/16 15:58 Colace Liquid - PO DAILY PRN CONSTIPATION Insulin Aspart 0 units 11/25/16 22:00 11/29/16 22:13 Novolog SQ 6 units HS [facility] Administration Protocol Insulin Aspart 1 vial 11/28/16 13:11 11/30/16 08:13 Novolog Vial Sliding Scale - SQ Not Given TIDAC [facility] Protocol Insulin Detemir 20 units 11/29/16 22:00 11/29/16 22:09 Levemir Vial SQ 20 unit HS [facility] Administration Levofloxacin 750 mg 11/24/16 14:00 11/30/16 06:07 Levaquin - PO 750 mg DAILY@0600 [facility] Administration Lisinopril 10 mg 11/30/16 10:00 Prinivil PO DAILY [facility] Oxycodone HCl 5 mg 11/27/16 16:55 11/29/16 23:07 Roxicodone - PO 5 mg Q6H PRN Administration FOR PAIN Sitagliptin Phosphate 50 mg 11/23/16 15:00 11/30/16 08:13 Januvia - PO Not Given DAILY@0700 [facility] AP: T2DM: Uncontrolled but improving, A1c 9.5 BGM QACHS Levemir 20 units daily at HS for now Novolog SS coverage Continue Sitagliptin 50 mg QD DC Metformin and Glyburide b/o worsening renal function and because pt may go for surgery Gangrene Rt big toe: Surgery today Osteomyelitis HTN Will f/U
[2016-11-30] MEDS: ASPIRIN 81 MG CHEWABLE TABLETS PO SCH (09:43)
[2016-11-30] MEDS ORDERED: LISINOPRIL 10 MG TABLET (FP) PO SCH (10:00)
--- NOTE | 2016-11-30 11:22 | PN ---
Progress Note, Physician Chief Complaint: Events noted Going to OR for toe amputation this morning History of Present Illness: Patient was seen and examined. Awake and alert. Chart was reviewed Denies chest pain, SOB or palpitations - Current Medication List Current Medications: Active Medications Acetaminophen (Tylenol -) 650 mg PO Q6H PRN PRN Reason: FEVER OR PAIN Last Admin: 11/26/16 18:58 Dose: 650 mg Amitriptyline HCl (Elavil -) 25 mg PO HS [facility] Last Admin: 11/29/16 22:08 Dose: 25 mg Aspirin (Asa -) 81 mg PO DAILY [facility] Last Admin: 11/30/16 09:43 Dose: Not Given Atorvastatin Calcium (Lipitor -) 10 mg PO [facility] Last Admin: 11/29/16 22:08 Dose: 10 mg Docusate Sodium (Colace Liquid -) 100 mg PO DAILY PRN PRN Reason: CONSTIPATION Insulin Aspart (Novolog) 0 units SQ HS [facility] PRN Reason: Protocol Last Admin: 11/29/16 22:13 Dose: 6 units Insulin Aspart (Novolog Vial Sliding Scale -) 1 vial SQ TIDAC [facility] PRN Reason: Protocol Last Admin: 11/30/16 08:13 Dose: Not Given Insulin Detemir (Levemir Vial) 20 units SQ [facility] Last Admin: 11/29/16 22:09 Dose: 20 unit Levofloxacin (Levaquin -) 750 mg PO DAILY@0600 [facility] Last Admin: 11/30/16 06:07 Dose: 750 mg Lisinopril (Prinivil) 10 mg PO DAILY [facility] Last Admin: 11/30/16 10:24 Dose: 10 mg Oxycodone HCl (Roxicodone -) 5 mg PO Q6H PRN PRN Reason: FOR PAIN Last Admin: 11/29/16 23:07 Dose: 5 mg Sitagliptin Phosphate (Januvia -) 50 mg PO DAILY@0700 [facility] Last Admin: 11/30/16 08:13 Dose: Not Given - Objective Vital Signs: Vital Signs Temperature 99.1 F 11/30/16 06:28 Pulse Rate 94 H 11/30/16 06:28 Respiratory Rate 20 11/30/16 06:28 Blood Pressure 118/50 11/30/16 06:28 O2 Sat by Pulse Oximetry (%) 100 11/29/16 21:00 Neck: Yes: Supple Cardiovascular: Yes: Regular Rate and Rhythm, S1, S2 Respiratory: Yes: CTA Bilaterally Gastrointestinal: Yes: Normal Bowel Sounds, Soft. No: Tenderness Edema: No Additional Findings/Remarks: - Review of Systems Constitutional: denies: Chills, Fever Cardiovascular: denies: Chest Pain, Palpitations, Shortness of Breath Respiratory: denies: Cough, Hemoptysis, Orthopnea, PND, SOB, SOB on Exertion Gastrointestinal: denies: Abdominal Pain, Diarrhea, Melena, Nausea, Rectal Bleeding, Vomiting Musculoskeletal: denies: Joint Pain Neurological: denies: Dizziness, Headache, Seizure, Syncope Labs: Problem List - Problems (1) Dry gangrene Code(s): I96 - GANGRENE, NOT ELSEWHERE CLASSIFIED (2) Hyperlipidemia Code(s): E78.5 - HYPERLIPIDEMIA, UNSPECIFIED (3) Ischemia of toe Code(s): I99.8 - OTHER DISORDER OF CIRCULATORY SYSTEM (4) T2DM (type 2 diabetes mellitus) Code(s): E11.9 - TYPE 2 DIABETES MELLITUS WITHOUT COMPLICATIONS Qualifiers: Diabetes mellitus complication status: with circulatory complication (5) HTN (hypertension) Code(s): I10 - ESSENTIAL (PRIMARY) HYPERTENSION Qualifiers: Hypertension type: essential hypertension Qualified Code(s): I10 - Essential (primary) hypertension (6) Hypercholesterolemia Code(s): E78.00 - PURE HYPERCHOLESTEROLEMIA, UNSPECIFIED (7) TIA (transient ischemic attack) Code(s): G45.9 - TRANSIENT CEREBRAL ISCHEMIC ATTACK, UNSPECIFIED Assessment/Plan 1. Right toe osteomyelitis 2. Hypertension 3. Hypercholesterolemia 4. Type 2 diabetes mellitus 5. TIA PLAN: 1. Continue statin and ASA as tolerated. Continue Lisinopril 10 mg once a day as tolerated 2. There appears to be no absolute contraindication in proceeding with vascular surgery in view of absence of ischemic symptoms, decompensated congestive heart failure or malignant arrhythmia. 3. Transthoracic echocardiography to assess LV/RV and valvular disease 4. Check carotid Doppler at some point in view of prior history of TIA in the presence of diabetes mellitus Further plans are to follow Ziggy Escalona MD
[2016-11-30] MEDS ORDERED: LIDOCAINE HCL 1%, 10 MG/ML (20ML VIAL) ONE (11:24)
[2016-11-30] MEDS ORDERED: BUPIVACAINE HCL/PF 0.5% (5MG/ML) 10 ML VIAL ONE (11:24)
[2016-11-30] MEDS ORDERED: PROPOFOL 20 ML ONE (11:25)
[2016-11-30] MEDS ORDERED: MIDAZOLAM HCL 2 MG/2 ML SINGLE DOSE VIAL ONE ×2 (11:26→12:15)
[2016-11-30] MEDS ORDERED: BUPIVACAINE HCL/PF 0.5% (5MG/ML) 10 ML VIAL IJ ONE ×2 (11:50)
[2016-11-30] MEDS ORDERED: LIDOCAINE HCL 1%, 10 MG/ML (50 mL VIAL) IJ ONE ×2 (11:50)
[2016-11-30] MEDS ORDERED: BACITRACIN 15 GM TUBE TOPICAL OINTMENT ONE (12:27)
[2016-11-30] MEDS ORDERED: ONDANSETRON 4 MG/2 ML VIAL IVPUSH PRN ×2 (12:39→12:58)
--- NOTE | 2016-11-30 12:42 | OP ---
Operative Note - Note: Operative Date: 11/30/16 Pre-Operative Diagnosis: right great toe gangrene Operation: Right great toe amputation Post-Operative Diagnosis: Same as Pre-op Surgeon: Gael Sullivan Anesthesia: Fractional Estimated Blood Loss (mls): 10 Operative Report Dictated: Yes
[2016-11-30] MEDS ORDERED: LACTATED RINGERS SOLUTION 1,000 ML IV SCH (12:45)
[2016-11-30] MEDS ORDERED: ACETAMINOPHEN 325 MG TABLET (FP) PO PRN (12:58)
[2016-11-30] MEDS ORDERED: DOCUSATE NA 100 MG/10 ML UNIT-DOSE CUPS PO PRN (12:58)
[2016-11-30] MEDS ORDERED: INSULIN (NOVOLOG) ASPART 100 UNITS/ML 10ML VIAL ONE ×2 (13:21→13:22)
[2016-11-30] MEDS: LACTATED RINGERS SOLUTION 1,000 ML IV SCH (13:25)
--- NOTE | 2016-11-30 13:32 | OP ---
DATE OF OPERATION: 11/30/2016 PREOPERATIVE DIAGNOSIS: Right great toe gangrene. POSTOPERATIVE DIAGNOSIS: Right great toe gangrene. PROCEDURE: Right great toe amputation. SURGEON: Gael Wells MD ANESTHESIA: Fractional. BLOOD LOSS: 10 mL. INDICATIONS: The patient is a 56-year-old female with right toe gangrene. It was decided that she would need an amputation. Patient was consented for the procedure understanding all risks, benefits, and alternatives and was then taken to the operating room. PROCEDURE IN DETAIL: Once in the operating room, she was placed on the operating table in the supine manner. The area of the right foot was prepped and draped in a sterile surgical manner. Using a No. 15 blade, we made an elliptical incision around the right great toe. Bovie electrocautery was used to control hemostasis. We then were able to take a bone cutter and transect the bone. We then were able to use a rongeur and take the bone back to the metatarsal head, and the metatarsal head was removed, as well. We then irrigated the wound copiously, and then, we used 2-0 silk, and placed mattress stitches to close our wound. Area was wet and dried. Bacitracin was placed, Xeroform, 4x4s, and Kerlix. The patient tolerated the procedure with no complications. Patient transferred to PACU in stable condition. Total blood loss was 10 mL. GAEL WELLS DO [id number]
--- NOTE | 2016-11-30 18:03 | PN ---
Progress Note, Physician - Current Medication List Current Medications: Active Medications Acetaminophen (Tylenol -) 650 mg PO Q6H PRN PRN Reason: FEVER OR PAIN Amitriptyline HCl (Elavil -) 25 mg PO HS [facility] Aspirin (Asa -) 81 mg PO DAILY [facility] Atorvastatin Calcium (Lipitor -) 10 mg PO HS [facility] Docusate Sodium (Colace Liquid -) 100 mg PO DAILY PRN PRN Reason: CONSTIPATION Fentanyl (Sublimaze Injection -) 25 mcg IVPUSH [id number] PRN PRN Reason: PAIN Stop: 12/03/16 12:40 Lactated Ringer's (Lactated Ringers Solution) 1,000 mls @ 75 mls/hr IV ASDIR [facility] Last Admin: 11/30/16 13:25 Dose: Not Given Insulin Aspart (Novolog Vial Sliding Scale -) 1 vial SQ TIDAC [facility] PRN Reason: Protocol Last Admin: 11/30/16 17:27 Dose: 20 units Insulin Aspart (Novolog Vial Sliding Scale -) 1 vial SQ HS [facility] PRN Reason: Protocol Insulin Detemir (Levemir Vial) 20 units SQ HS [facility] Levofloxacin (Levaquin -) 750 mg PO DAILY@0600 [facility] Lisinopril (Prinivil) 10 mg PO DAILY [facility] Ondansetron HCl (Zofran Injection) 4 mg IVPUSH Q6H PRN PRN Reason: NAUSEA AND/OR VOMITING Stop: 11/30/16 18:40 Oxycodone HCl (Roxicodone -) 5 mg PO Q6H PRN PRN Reason: FOR PAIN Sitagliptin Phosphate (Januvia -) 50 mg PO DAILY@0700 [facility] - Objective Vital Signs: Vital Signs Temperature 98.1 F 11/30/16 16:58 Pulse Rate 101 H 11/30/16 16:58 Respiratory Rate 20 11/30/16 16:58 Blood Pressure 93/47 11/30/16 16:58 O2 Sat by Pulse Oximetry (%) 99 11/30/16 13:00 Constitutional: Yes: No Distress HENT: Yes: Atraumatic Neck: Yes: Supple Cardiovascular: Yes: Regular Rate and Rhythm Respiratory: Yes: CTA Bilaterally Gastrointestinal: Yes: Normal Bowel Sounds Neurological: Yes: Alert, Oriented Labs: CBC, BMP 11/26/16 06:30 11/26/16 06:30 INR, PTT INR 1.24 (0.82-1.09) H 11/29/16 09:50 Problem List - Problems (1) Hyperlipidemia Assessment/Plan: on meds Code(s): E78.5 - HYPERLIPIDEMIA, UNSPECIFIED Qualifiers: Hyperlipidemia type: pure hypercholesterolemia Qualified Code(s): E78.00 - Pure hypercholesterolemia, unspecified; E78.0 - Pure hypercholesterolemia (2) Toe infection Assessment/Plan: IV ABX WOUND CARE CONSULT Code(s): L08.9 - LOCAL INFECTION OF THE SKIN AND SUBCUTANEOUS TISSUE, UNSP (3) Diabetes Assessment/Plan: on po meds sliding scale insulin/bgms pt is non complaint with diet eats candy and lot of starch and carbohydrates brought in by family Code(s): E11.9 - TYPE 2 DIABETES MELLITUS WITHOUT COMPLICATIONS Qualifiers: Diabetes mellitus type: type 2 Diabetes mellitus complication status: with skin complications Diabetes mellitus complication detail: with other skin complication Diabetes mellitus exterminator helper insulin use: without exterminator helper use Qualified Code(s): E11.628 - Type 2 diabetes mellitus with other skin complications; Z79.4 - exterminator helper (current) use of insulin (4) HTN (hypertension) Assessment/Plan: on meds stable Code(s): I10 - ESSENTIAL (PRIMARY) HYPERTENSION Qualifiers: Hypertension type: essential hypertension Qualified Code(s): I10 - Essential (primary) hypertension (5) Gout Assessment/Plan: stable Code(s): M10.9 - GOUT, UNSPECIFIED (6) Dry gangrene Assessment/Plan: ...s/p toe amputation R Code(s): I96 - GANGRENE, NOT ELSEWHERE CLASSIFIED
[2016-11-30] MEDS: oxyCODONE HCL 5 MG TABLET PO PRN (19:02)
[2016-11-30] MEDS: HYDROmorphone HCL CARPU-JECT 1 MG/1 ML DISP.SYRIN IVPB PRN (21:21)
[2016-11-30] MEDS: ATORVASTATIN CA 10 MG TABLET (FP) PO SCH (21:23)
[2016-11-30] MEDS: AMITRIPTYLINE HCL 25 MG TABLET (FP) PO SCH (21:23)
[2016-11-30] MEDS ORDERED: INSULIN DETEMIR 100 UNITS/ML MDV SQ SCH (22:00)
[2016-12-01] MEDS: HYDROmorphone HCL CARPU-JECT 1 MG/1 ML DISP.SYRIN IVPB PRN ×5 (01:10→22:37)
[2016-12-01] MEDS: LEVOFLOXACIN 250 MG TABLET (FP) PO SCH (06:17)
[2016-12-01] MEDS: sitaGLIPtin PHOSPHATE 50 MG TABLET PO SCH (06:17)
[2016-12-01] MEDS: oxyCODONE HCL 5 MG TABLET PO PRN (06:25)
[2016-12-01] MEDS: INSULIN SLIDING SCALE (NOVOLOG) 1 VIAL SQ SCH ×4 (08:25→22:34)
--- NOTE | 2016-12-01 08:59 | PN ---
Progress Note (short form) - Note Progress Note: S/P Rt big toe amputation C/O pain at surgical site FS 401 yesterday No hypos Vital Signs Period Temp Pulse Resp BP Sys/Castillo Pulse Ox Last 24 Hr 98 F-98.9 F 82-116 16-20 93-148/41-87 98-100 PE: AOx3 Neck: Supple, No JVD HEENT: PERRL, EOMI Lungs: CTA Abd: Benign CVS: S1S2 Ext; No edema, Dressing Rt foot Neuro: No focal surface CBC,CMP WBC 7.0 K/mm3 (4.0-10.0) 11/26/16 06:30 RBC 3.79 M/mm3 (3.60-5.2) 11/26/16 06:30 Hgb 8.8 GM/dL (10.7-15.3) L 11/26/16 06:30 Hct 28.9 % (32.4-45.2) L 11/26/16 06:30 MCV 76.3 fl (80-96) L 11/26/16 06:30 MCH 23.2 pg (25.7-33.7) L 11/26/16 06:30 MCHC 30.5 g/dl (32.0-36.0) L 11/26/16 06:30 RDW 13.8 % (11.6-15.6) 11/26/16 06:30 Plt Count 296 K/MM3 (134-434) 11/26/16 06:30 MPV 7.4 fl (7.5-11.1) L 11/26/16 06:30 Neutrophils % 50.2 % (42.8-82.8) 11/26/16 06:30 Lymphocytes % 40.0 % (8-40) 11/26/16 06:30 Monocytes % 6.8 % (3.8-10.2) 11/26/16 06:30 Eosinophils % 2.4 % (0-4.5) 11/26/16 06:30 Basophils % 0.6 % (0-2.0) 11/26/16 06:30 ESR 20 mm/hr (0-30) 11/21/16 20:00 Sodium 138 mmol/L (136-145) 11/26/16 06:30 Potassium 5.0 mmol/L (3.5-5.1) 11/26/16 06:30 Chloride 107 mmol/L (98-107) 11/26/16 06:30 Carbon Dioxide 23 mmol/L (21-32) 11/26/16 06:30 Anion Gap 8 (8-16) 11/26/16 06:30 BUN 32 mg/dL (7-18) H 11/26/16 06:30 Creatinine 1.3 mg/dL (0.55-1.02) H 11/26/16 06:30 Creat Clearance w eGFR 42.68 (>60) 11/26/16 06:30 POC Glucometer 240 UNITS (()) 12/01/16 05:55 Random Glucose 269 mg/dL (74-106) H 11/26/16 06:30 Hemoglobin A1c % 9.5 % (4.8-6.0) H D 11/29/16 06:00 Uric Acid 4.4 mg/dL (2.6-7.2) 11/23/16 13:40 Calcium 8.4 mg/dL (8.5-10.1) L 11/26/16 06:30 Total Bilirubin 0.3 mg/dL (0.2-1.0) D 11/26/16 06:30 AST 9 U/L (15-37) L 11/26/16 06:30 ALT 18 U/L (12-78) 11/26/16 06:30 Alkaline Phosphatase 64 U/L (45-117) 11/26/16 06:30 C-Reactive Protein 0.3 MG/DL (0.00-0.3) 11/21/16 20:00 Total Protein 6.0 g/dl (6.4-8.2) L 11/26/16 06:30 Albumin 3.1 g/dl (3.4-5.0) L 11/26/16 06:30 Current Medications Generic Name Dose Route Start Last Admin Trade Name Freq PRN Reason Stop Dose Admin Acetaminophen 650 mg 11/30/16 12:58 Tylenol - PO Q6H PRN FEVER OR PAIN Amitriptyline HCl 25 mg 11/30/16 22:00 11/30/16 21:23 Elavil - PO 25 mg HS KE Administration Aspirin 81 mg 12/01/16 10:00 Asa - PO DAILY KE Atorvastatin Calcium 10 mg 11/30/16 22:00 11/30/16 21:23 Lipitor - PO 10 mg HS [facility] Administration Docusate Sodium 100 mg 11/30/16 12:58 Colace Liquid - PO DAILY PRN CONSTIPATION Fentanyl 25 mcg 11/30/16 12:58 Sublimaze Injection - IVPUSH 12/03/16 12:40 [id number] PRN PAIN Hydromorphone HCl 1 mg 11/30/16 19:53 12/01/16 01:10 Dilaudid Injection - IVPB 1 mg Q3H PRN Administration PAIN Lactated Ringer's 1,000 mls @ 75 mls/hr 11/30/16 12:58 11/30/16 13:25 Lactated Ringers Solution IV Not Given ASDIR [facility] Insulin Aspart 1 vial 11/30/16 16:30 12/01/16 08:25 Novolog Vial Sliding Scale - SQ 14 units TIDAC [facility] Administration Protocol Insulin Aspart 1 vial 11/30/16 22:00 11/30/16 21:25 Novolog Vial Sliding Scale - SQ Not Given [facility] Protocol Insulin Detemir 20 units 11/30/16 22:00 11/30/16 21:23 Levemir Vial SQ 20 unit HS [facility] Administration Levofloxacin 750 mg 12/01/16 06:00 12/01/16 06:17 Levaquin - PO 750 mg DAILY@0600 [facility] Administration Lisinopril 10 mg 12/01/16 10:00 Prinivil PO DAILY [facility] Oxycodone HCl 5 mg 11/30/16 12:58 12/01/16 06:25 Roxicodone - PO 5 mg Q6H PRN Administration FOR PAIN Sitagliptin Phosphate 50 mg 12/01/16 07:00 12/01/16 06:17 Januvia - PO 50 mg DAILY@0700 [facility] Administration AP: T2DM: Uncontrolled but improving, A1c 9.5 BGM 401 yesterday post op BGM QACHS Increase Levemir 26 units daily at HS for now Increase Novolog SS coverage Continue Sitagliptin 50 mg QD DC Metformin and Glyburide b/o worsening renal function and because pt may go for surgery Gangrene Rt big toe: S/P Rt big toe amputation on 11.30.16 Osteomyelitis HTN Will f/U
[2016-12-01] MEDS: LISINOPRIL 10 MG TABLET (FP) PO SCH (10:28)
[2016-12-01] MEDS: ASPIRIN 81 MG CHEWABLE TABLETS PO SCH (10:28)
--- NOTE | 2016-12-01 11:45 | PN ---
Progress Note, Physician Chief Complaint: Events noted POD #1 toe amputation History of Present Illness: Patient was seen and examined. Awake and alert. Chart was reviewed Denies chest pain, SOB or palpitations Not in distress - Current Medication List Current Medications: Active Medications Acetaminophen (Tylenol -) 650 mg PO Q6H PRN PRN Reason: FEVER OR PAIN Amitriptyline HCl (Elavil -) 25 mg PO [facility] Last Admin: 11/30/16 21:23 Dose: 25 mg Aspirin (Asa -) 81 mg PO DAILY [facility] Last Admin: 12/01/16 10:28 Dose: 81 mg Atorvastatin Calcium (Lipitor -) 10 mg PO [facility] Last Admin: 11/30/16 21:23 Dose: 10 mg Docusate Sodium (Colace Liquid -) 100 mg PO DAILY PRN PRN Reason: CONSTIPATION Fentanyl (Sublimaze Injection -) 25 mcg IVPUSH [id number] PRN PRN Reason: PAIN Stop: 12/03/16 12:40 Hydromorphone HCl (Dilaudid Injection -) 1 mg IVPB Q3H PRN PRN Reason: PAIN Last Admin: 12/01/16 09:15 Dose: 1 mg Lactated Ringer's (Lactated Ringers Solution) 1,000 mls @ 75 mls/hr IV ASDIR [facility] Last Admin: 11/30/16 13:25 Dose: Not Given Insulin Aspart (Novolog Vial Sliding Scale -) 1 vial SQ [facility] PRN Reason: Protocol Last Admin: 11/30/16 21:25 Dose: Not Given Insulin Aspart (Novolog Vial Sliding Scale -) 1 vial SQ TIDAC [facility] PRN Reason: Protocol Insulin Detemir (Levemir Vial) 26 units SQ [facility] Levofloxacin (Levaquin -) 750 mg PO DAILY@0600 [facility] Last Admin: 12/01/16 06:17 Dose: 750 mg Lisinopril (Prinivil) 10 mg PO DAILY [facility] Last Admin: 12/01/16 10:28 Dose: 10 mg Oxycodone HCl (Roxicodone -) 5 mg PO Q6H PRN PRN Reason: FOR PAIN Last Admin: 12/01/16 06:25 Dose: 5 mg Sitagliptin Phosphate (Januvia -) 50 mg PO DAILY@0700 [facility] Last Admin: 12/01/16 06:17 Dose: 50 mg - Objective Vital Signs: Vital Signs Temperature 98.4 F 12/01/16 07:53 Pulse Rate 116 H 12/01/16 07:53 Respiratory Rate 20 12/01/16 07:53 Blood Pressure 139/76 12/01/16 07:53 O2 Sat by Pulse Oximetry (%) 98 11/30/16 21:00 Neck: Yes: Supple Cardiovascular: Yes: Regular Rate and Rhythm, S1, S2 Respiratory: Yes: CTA Bilaterally Gastrointestinal: Yes: Normal Bowel Sounds, Soft. No: Tenderness Edema: No Wound/Incision: Yes: Dressing Dry and Intact Problem List - Problems (1) Dry gangrene Code(s): I96 - GANGRENE, NOT ELSEWHERE CLASSIFIED (2) Hyperlipidemia Code(s): E78.5 - HYPERLIPIDEMIA, UNSPECIFIED Qualifiers: Hyperlipidemia type: pure hypercholesterolemia Qualified Code(s): E78.00 - Pure hypercholesterolemia, unspecified; E78.0 - Pure hypercholesterolemia (3) Ischemia of toe Code(s): I99.8 - OTHER DISORDER OF CIRCULATORY SYSTEM (4) T2DM (type 2 diabetes mellitus) Code(s): E11.9 - TYPE 2 DIABETES MELLITUS WITHOUT COMPLICATIONS Qualifiers: Diabetes mellitus complication status: without complication Diabetes mellitus skilled nursing insulin use: without skilled nursing use Qualified Code(s): E11.9 - Type 2 diabetes mellitus without complications (5) HTN (hypertension) Code(s): I10 - ESSENTIAL (PRIMARY) HYPERTENSION Qualifiers: Hypertension type: essential hypertension Qualified Code(s): I10 - Essential (primary) hypertension (6) Hypercholesterolemia Code(s): E78.00 - PURE HYPERCHOLESTEROLEMIA, UNSPECIFIED (7) TIA (transient ischemic attack) Code(s): G45.9 - TRANSIENT CEREBRAL ISCHEMIC ATTACK, UNSPECIFIED Qualifiers: Transient cerebral ischemia type: unspecified Qualified Code(s): G45.9 - Transient cerebral ischemic attack, unspecified Assessment/Plan 1. Right toe osteomyelitis 2. Hypertension 3. Hypercholesterolemia 4. Type 2 diabetes mellitus 5. TIA PLAN: 1. Continue statin and ASA as tolerated. Continue Lisinopril 10 mg once a day as tolerated 2. Post operative care. Analgesics PRN 3. Transthoracic echocardiography result noted 4. Check carotid Doppler at some point in view of prior history of TIA in the presence of diabetes mellitus Further plans are to follow Ziggy Escalona MD
--- NOTE | 2016-12-01 12:56 | PN ---
Progress Note (short form) - Note Progress Note: VAscular surgery Pt seen and examined. S/P toe amp Will change dressing in am Gael Sullivan DO
--- NOTE | 2016-12-01 13:15 | PN ---
Progress Note, Physician History of Present Illness: no issues patient post op from amputation of the toe - Current Medication List Current Medications: Active Medications Acetaminophen (Tylenol -) 650 mg PO Q6H PRN PRN Reason: FEVER OR PAIN Amitriptyline HCl (Elavil -) 25 mg PO [facility] Last Admin: 11/30/16 21:23 Dose: 25 mg Aspirin (Asa -) 81 mg PO DAILY [facility] Last Admin: 12/01/16 10:28 Dose: 81 mg Atorvastatin Calcium (Lipitor -) 10 mg PO [facility] Last Admin: 11/30/16 21:23 Dose: 10 mg Docusate Sodium (Colace Liquid -) 100 mg PO DAILY PRN PRN Reason: CONSTIPATION Fentanyl (Sublimaze Injection -) 25 mcg IVPUSH [id number] PRN PRN Reason: PAIN Stop: 12/03/16 12:40 Hydromorphone HCl (Dilaudid Injection -) 1 mg IVPB Q3H PRN PRN Reason: PAIN Last Admin: 12/01/16 09:15 Dose: 1 mg Lactated Ringer's (Lactated Ringers Solution) 1,000 mls @ 75 mls/hr IV ASDIR [facility] Last Admin: 11/30/16 13:25 Dose: Not Given Insulin Aspart (Novolog Vial Sliding Scale -) 1 vial SQ [facility] PRN Reason: Protocol Last Admin: 11/30/16 21:25 Dose: Not Given Insulin Aspart (Novolog Vial Sliding Scale -) 1 vial SQ TIDAC [facility] PRN Reason: Protocol Last Admin: 12/01/16 12:29 Dose: 16 units Insulin Detemir (Levemir Vial) 26 units SQ [facility] Levofloxacin (Levaquin -) 750 mg PO DAILY@0600 [facility] Last Admin: 12/01/16 06:17 Dose: 750 mg Lisinopril (Prinivil) 10 mg PO DAILY [facility] Last Admin: 12/01/16 10:28 Dose: 10 mg Oxycodone HCl (Roxicodone -) 5 mg PO Q6H PRN PRN Reason: FOR PAIN Last Admin: 12/01/16 06:25 Dose: 5 mg Sitagliptin Phosphate (Januvia -) 50 mg PO DAILY@0700 [facility] Last Admin: 12/01/16 06:17 Dose: 50 mg - Objective Vital Signs: Vital Signs Temperature 98.4 F 12/01/16 07:53 Pulse Rate 116 H 12/01/16 07:53 Respiratory Rate 20 12/01/16 07:53 Blood Pressure 139/76 12/01/16 07:53 O2 Sat by Pulse Oximetry (%) 98 11/30/16 21:00 Constitutional: Yes: No Distress, Calm Cardiovascular: Yes: Regular Rate and Rhythm Respiratory: Yes: Regular, CTA Bilaterally Gastrointestinal: Yes: Normal Bowel Sounds, Soft Musculoskeletal: Yes: WNL Extremities: Yes: Other Wound/Incision: Yes: Dressing Dry and Intact Neurological: Yes: Alert, Oriented Psychiatric: Yes: Alert, Oriented Labs: CBC, BMP 11/26/16 06:30 11/26/16 06:30 INR, PTT INR 1.24 (0.82-1.09) H 11/29/16 09:50 Assessment/Plan - Problems (1) Hyperlipidemia Code(s): E78.5 - HYPERLIPIDEMIA, UNSPECIFIED (2) Toe infection Code(s): L08.9 - LOCAL INFECTION OF THE SKIN AND SUBCUTANEOUS TISSUE, UNSP (3) Diabetes Code(s): E11.9 - TYPE 2 DIABETES MELLITUS WITHOUT COMPLICATIONS Qualifiers: Diabetes mellitus type: type 2 Diabetes mellitus complication status: with skin complications Diabetes mellitus complication detail: with other skin complication Diabetes mellitus adobe flex developer insulin use: without residential use Qualified Code(s): E11.628 - Type 2 diabetes mellitus with other skin complications; Z79.4 - cad intern (current) use of insulin (4) HTN (hypertension) Code(s): I10 - ESSENTIAL (PRIMARY) HYPERTENSION Qualifiers: Hypertension type: essential hypertension Qualified Code(s): I10 - Essential (primary) hypertension 5 gangrene of the rt toe plan post op from amputation will stop abx tomorrow
--- NOTE | 2016-12-01 13:25 | PN ---
Progress Note (short form) - Note Progress Note: Anesthesiology Post-op POD#1 s/p Right great toe amputation under MAC anesthesia. Pt. has some pain but is receiving IV pain medication with some relief. Otherwise, VSS, no apparent anesthesia-related issues.
[2016-12-01] MEDS: LACTATED RINGERS SOLUTION 1,000 ML IV SCH (13:32)
--- NOTE | 2016-12-01 16:26 | PN ---
Progress Note, Physician History of Present Illness: feeling good - Current Medication List Current Medications: Active Medications Acetaminophen (Tylenol -) 650 mg PO Q6H PRN PRN Reason: FEVER OR PAIN Amitriptyline HCl (Elavil -) 25 mg PO [facility] Last Admin: 11/30/16 21:23 Dose: 25 mg Aspirin (Asa -) 81 mg PO DAILY [facility] Last Admin: 12/01/16 10:28 Dose: 81 mg Atorvastatin Calcium (Lipitor -) 10 mg PO [facility] Last Admin: 11/30/16 21:23 Dose: 10 mg Docusate Sodium (Colace Liquid -) 100 mg PO DAILY PRN PRN Reason: CONSTIPATION Fentanyl (Sublimaze Injection -) 25 mcg IVPUSH [id number] PRN PRN Reason: PAIN Stop: 12/03/16 12:40 Hydromorphone HCl (Dilaudid Injection -) 1 mg IVPB Q3H PRN PRN Reason: PAIN Last Admin: 12/01/16 13:31 Dose: 1 mg Lactated Ringer's (Lactated Ringers Solution) 1,000 mls @ 75 mls/hr IV ASDIR [facility] Last Admin: 12/01/16 13:32 Dose: Not Given Insulin Aspart (Novolog Vial Sliding Scale -) 1 vial SQ HS [facility] PRN Reason: Protocol Last Admin: 11/30/16 21:25 Dose: Not Given Insulin Aspart (Novolog Vial Sliding Scale -) 1 vial SQ TIDAC [facility] PRN Reason: Protocol Last Admin: 12/01/16 12:29 Dose: 16 units Insulin Detemir (Levemir Vial) 26 units SQ [facility] Levofloxacin (Levaquin -) 750 mg PO DAILY@0600 [facility] Last Admin: 12/01/16 06:17 Dose: 750 mg Lisinopril (Prinivil) 10 mg PO DAILY [facility] Last Admin: 12/01/16 10:28 Dose: 10 mg Oxycodone HCl (Roxicodone -) 5 mg PO Q6H PRN PRN Reason: FOR PAIN Last Admin: 12/01/16 06:25 Dose: 5 mg Sitagliptin Phosphate (Januvia -) 50 mg PO DAILY@0700 [facility] Last Admin: 12/01/16 06:17 Dose: 50 mg - Objective Vital Signs: Vital Signs Temperature 98.2 F 12/01/16 15:08 Pulse Rate 116 H 12/01/16 15:08 Respiratory Rate 18 12/01/16 15:08 Blood Pressure 123/62 12/01/16 15:08 O2 Sat by Pulse Oximetry (%) 98 12/01/16 09:00 Constitutional: Yes: No Distress HENT: Yes: Atraumatic Neck: Yes: Supple Cardiovascular: Yes: Regular Rate and Rhythm Respiratory: Yes: CTA Bilaterally Gastrointestinal: Yes: Normal Bowel Sounds Extremities: Yes: Other (R foot in dressing) Peripheral Pulses WNL: Yes Neurological: Yes: Alert, Oriented Labs: CBC, BMP 11/26/16 06:30 11/26/16 06:30 INR, PTT INR 1.24 (0.82-1.09) H 11/29/16 09:50 Problem List - Problems (1) Hyperlipidemia Assessment/Plan: on meds Code(s): E78.5 - HYPERLIPIDEMIA, UNSPECIFIED Qualifiers: Hyperlipidemia type: pure hypercholesterolemia Qualified Code(s): E78.00 - Pure hypercholesterolemia, unspecified; E78.0 - Pure hypercholesterolemia (2) Toe infection Assessment/Plan: IV ABX WOUND CARE CONSULT Code(s): L08.9 - LOCAL INFECTION OF THE SKIN AND SUBCUTANEOUS TISSUE, UNSP (3) Diabetes Assessment/Plan: on po meds sliding scale insulin/bgms pt is non complaint with diet eats candy and lot of starch and carbohydrates brought in by family Code(s): E11.9 - TYPE 2 DIABETES MELLITUS WITHOUT COMPLICATIONS Qualifiers: Diabetes mellitus type: type 2 Diabetes mellitus complication status: with skin complications Diabetes mellitus complication detail: with other skin complication Diabetes mellitus vermin exterminator insulin use: without vermin exterminator use Qualified Code(s): E11.628 - Type 2 diabetes mellitus with other skin complications; Z79.4 - alf (current) use of insulin (4) HTN (hypertension) Assessment/Plan: on meds stable Code(s): I10 - ESSENTIAL (PRIMARY) HYPERTENSION Qualifiers: Hypertension type: essential hypertension Qualified Code(s): I10 - Essential (primary) hypertension (5) Gout Assessment/Plan: stable Code(s): M10.9 - GOUT, UNSPECIFIED (6) Dry gangrene Assessment/Plan: ...s/p toe amputation R post op day 1 prn pain meds Code(s): I96 - GANGRENE, NOT ELSEWHERE CLASSIFIED
[2016-12-01] MEDS ORDERED: INSULIN DETEMIR 100 UNITS/ML MDV SQ SCH (22:00)
[2016-12-01] MEDS: ATORVASTATIN CA 10 MG TABLET (FP) PO SCH (22:33)
[2016-12-01] MEDS: AMITRIPTYLINE HCL 25 MG TABLET (FP) PO SCH (22:33)
[2016-12-02] MEDS: HYDROmorphone HCL CARPU-JECT 1 MG/1 ML DISP.SYRIN IVPB PRN ×2 (03:32→10:51)
[2016-12-02] MEDS: INSULIN SLIDING SCALE (NOVOLOG) 1 VIAL SQ SCH ×2 (06:58→12:31)
[2016-12-02] MEDS: sitaGLIPtin PHOSPHATE 50 MG TABLET PO SCH (06:58)
[2016-12-02] MEDS: LEVOFLOXACIN 250 MG TABLET (FP) PO SCH (06:58)
[2016-12-02 07:45] LABS: BASOPHIL 0.6 % (0-2.0); EOSINOPHIL 1.3 % (0-4.5); MCH 23.3 pg (25.7-33.7); MCHC 30.6 g/dl (32.0-36.0); MEAN CELL VOLUME 76.1 fl (80-96); MEAN PLT VOLUME 7.1 fl (7.5-11.1); NEUTROPHILS 51.9 % (42.8-82.8); PLATELET COUNT 290 K/MM3 (134-434); RDW 13.5 % (11.6-15.6)
[2016-12-02 08:46] LABS: ALBUMIN 3.1 g/dl (3.4-5.0); ANION GAP 10 (8-16); BILIRUBIN,TOTAL 0.5 mg/dL (0.2-1.0); CALCIUM 8.5 mg/dL (8.5-10.1); CO2 23 mmol/L (21-32); GLUCOSE,RANDOM 178 mg/dL (74-106); SGOT/AST 10 U/L (15-37); SGPT/ALT 20 U/L (12-78); TOT PROT 6.2 g/dl (6.4-8.2)
[2016-12-02 08:47] LABS: ALK PHOS 67 U/L (45-117)
--- NOTE | 2016-12-02 08:48 | PN ---
Progress Note (short form) - Note Progress Note: VAscular Surgery Pt seen and examined. DRessing changed. Incision site is clean , dry , and intact. CAn be discharged to rehab. Please follow up in wound care clinic next monday. Please make appt in wound care clinic prior to DC -- [phone] Bacitracin to incision daily in rehab. Pt is non-weight bearing. Gael Sullivan DO
[2016-12-02] MEDS ORDERED: PT OWN MED DRAWER 7, Y5N ONE (10:27)
--- NOTE | 2016-12-02 10:43 | PN ---
Progress Note, Physician Chief Complaint: Events noted POD #2 toe amputation Not in distress History of Present Illness: Patient was seen and examined. Awake and alert. Chart was reviewed Denies chest pain, SOB or palpitations - Current Medication List Current Medications: Active Medications Acetaminophen (Tylenol -) 650 mg PO Q6H PRN PRN Reason: FEVER OR PAIN Amitriptyline HCl (Elavil -) 25 mg PO [facility] Last Admin: 12/01/16 22:33 Dose: 25 mg Aspirin (Asa -) 81 mg PO DAILY [facility] Last Admin: 12/01/16 10:28 Dose: 81 mg Atorvastatin Calcium (Lipitor -) 10 mg PO [facility] Last Admin: 12/01/16 22:33 Dose: 10 mg Docusate Sodium (Colace Liquid -) 100 mg PO DAILY PRN PRN Reason: CONSTIPATION Fentanyl (Sublimaze Injection -) 25 mcg IVPUSH [id number] PRN PRN Reason: PAIN Stop: 12/03/16 12:40 Hydromorphone HCl (Dilaudid Injection -) 1 mg IVPB Q3H PRN PRN Reason: PAIN Last Admin: 12/02/16 03:32 Dose: 1 mg Lactated Ringer's (Lactated Ringers Solution) 1,000 mls @ 75 mls/hr IV ASDIR [facility] Last Admin: 12/01/16 13:32 Dose: Not Given Insulin Aspart (Novolog Vial Sliding Scale -) 1 vial SQ [facility] PRN Reason: Protocol Last Admin: 12/01/16 22:34 Dose: 2 units Insulin Aspart (Novolog Vial Sliding Scale -) 1 vial SQ TIDAC [facility] PRN Reason: Protocol Last Admin: 12/02/16 06:58 Dose: 12 units Insulin Detemir (Levemir Vial) 26 units SQ [facility] Last Admin: 12/01/16 22:33 Dose: 26 units Levofloxacin (Levaquin -) 750 mg PO DAILY@0600 [facility] Last Admin: 12/02/16 06:58 Dose: 750 mg Lisinopril (Prinivil) 10 mg PO DAILY [facility] Last Admin: 12/01/16 10:28 Dose: 10 mg Oxycodone HCl (Roxicodone -) 5 mg PO Q6H PRN PRN Reason: FOR PAIN Last Admin: 12/01/16 06:25 Dose: 5 mg Sitagliptin Phosphate (Januvia -) 50 mg PO DAILY@0700 [facility] Last Admin: 12/02/16 06:58 Dose: 50 mg - Objective Vital Signs: Vital Signs Temperature 99.2 F 12/02/16 07:11 Pulse Rate 97 H 12/02/16 07:11 Respiratory Rate 20 12/02/16 07:11 Blood Pressure 114/43 12/02/16 07:11 O2 Sat by Pulse Oximetry (%) 98 12/01/16 21:00 Neck: Yes: Supple Cardiovascular: Yes: Regular Rate and Rhythm, S1, S2 Respiratory: Yes: CTA Bilaterally Gastrointestinal: Yes: Normal Bowel Sounds, Soft, Abdomen, Obese. No: Tenderness Edema: No Labs: CBC, BMP 12/02/16 06:30 12/02/16 08:00 Problem List - Problems (1) Dry gangrene Code(s): I96 - GANGRENE, NOT ELSEWHERE CLASSIFIED (2) Hyperlipidemia Code(s): E78.5 - HYPERLIPIDEMIA, UNSPECIFIED Qualifiers: Hyperlipidemia type: pure hypercholesterolemia Qualified Code(s): E78.00 - Pure hypercholesterolemia, unspecified; E78.0 - Pure hypercholesterolemia (3) Ischemia of toe Code(s): I99.8 - OTHER DISORDER OF CIRCULATORY SYSTEM (4) T2DM (type 2 diabetes mellitus) Code(s): E11.9 - TYPE 2 DIABETES MELLITUS WITHOUT COMPLICATIONS Qualifiers: Diabetes mellitus complication status: without complication Diabetes mellitus residential insulin use: without residential use Qualified Code(s): E11.9 - Type 2 diabetes mellitus without complications (5) HTN (hypertension) Code(s): I10 - ESSENTIAL (PRIMARY) HYPERTENSION Qualifiers: Hypertension type: essential hypertension Qualified Code(s): I10 - Essential (primary) hypertension (6) Hypercholesterolemia Code(s): E78.00 - PURE HYPERCHOLESTEROLEMIA, UNSPECIFIED (7) TIA (transient ischemic attack) Code(s): G45.9 - TRANSIENT CEREBRAL ISCHEMIC ATTACK, UNSPECIFIED Qualifiers: Transient cerebral ischemia type: unspecified Qualified Code(s): G45.9 - Transient cerebral ischemic attack, unspecified Assessment/Plan 1. Right toe osteomyelitis post amputation 2. Hypertension 3. Hypercholesterolemia 4. Type 2 diabetes mellitus 5. TIA PLAN: 1. Continue statin and ASA as tolerated. Continue Lisinopril 10 mg once a day as tolerated 2. Post operative care. Analgesics PRN 3. Check carotid Doppler at some point in view of prior history of TIA in the presence of diabetes mellitus Further plans are to follow Ziggy Escalona MD
[2016-12-02] MEDS: LISINOPRIL 10 MG TABLET (FP) PO SCH (10:51)
[2016-12-02] MEDS: ASPIRIN 81 MG CHEWABLE TABLETS PO SCH (10:51)
[2016-12-02] MEDS: oxyCODONE HCL 5 MG TABLET PO PRN (11:14)
[2016-12-02 11:43] VITALS: BP 147/63; PULSE 101; TEMP 99.7
[2016-12-02] MEDS ORDERED: INSULIN (NOVOLOG) ASPART 100 UNITS/ML 10ML VIAL ONE (12:22)
--- NOTE | 2016-12-02 13:13 | PN ---
Progress Note (short form) - Note Progress Note: Denies any new complaints C/O pain at surgical site FS 200s yesterday No hypos Vital Signs Period Temp Pulse Resp BP Sys/Castillo Pulse Ox Last 24 Hr 98.2 F-99.7 F 97-116 18-20 114-147/43-63 98 PE: AOx3 Neck: Supple, No JVD HEENT: PERRL, EOMI Lungs: CTA Abd: Benign CVS: S1S2 Ext; No edema, Dressing Rt foot Neuro: No focal surface CBCD WBC 9.0 K/mm3 (4.0-10.0) 12/02/16 06:30 RBC 3.74 M/mm3 (3.60-5.2) 12/02/16 06:30 Hgb 8.7 GM/dL (10.7-15.3) L 12/02/16 06:30 Hct 28.5 % (32.4-45.2) L 12/02/16 06:30 MCV 76.1 fl (80-96) L 12/02/16 06:30 MCHC 30.6 g/dl (32.0-36.0) L 12/02/16 06:30 RDW 13.5 % (11.6-15.6) 12/02/16 06:30 Plt Count 290 K/MM3 (134-434) 12/02/16 06:30 MPV 7.1 fl (7.5-11.1) L 12/02/16 06:30 CMP Sodium 138 mmol/L (136-145) 12/02/16 08:00 Potassium 4.7 mmol/L (3.5-5.1) 12/02/16 08:00 Chloride 105 mmol/L (98-107) 12/02/16 08:00 Carbon Dioxide 23 mmol/L (21-32) 12/02/16 08:00 Anion Gap 10 (8-16) 12/02/16 08:00 BUN 25 mg/dL (7-18) H D 12/02/16 08:00 Creatinine 1.0 mg/dL (0.55-1.02) D 12/02/16 08:00 Creat Clearance w eGFR 57.78 (>60) 12/02/16 08:00 Calcium 8.5 mg/dL (8.5-10.1) 12/02/16 08:00 Total Bilirubin 0.5 mg/dL (0.2-1.0) D 12/02/16 08:00 AST 10 U/L (15-37) L 12/02/16 08:00 ALT 20 U/L (12-78) 12/02/16 08:00 Alkaline Phosphatase 67 U/L (45-117) 12/02/16 08:00 Total Protein 6.2 g/dl (6.4-8.2) L 12/02/16 08:00 Albumin 3.1 g/dl (3.4-5.0) L 12/02/16 08:00 Current Medications Generic Name Dose Route Start Last Admin Trade Name Freq PRN Reason Stop Dose Admin Acetaminophen 650 mg 11/30/16 12:58 Tylenol - PO Q6H PRN FEVER OR PAIN Amitriptyline HCl 25 mg 11/30/16 22:00 12/01/16 22:33 Elavil - PO 25 mg HS KE Administration Aspirin 81 mg 12/01/16 10:00 12/02/16 10:51 Asa - PO 81 mg DAILY KE Administration Atorvastatin Calcium 10 mg 11/30/16 22:00 12/01/16 22:33 Lipitor - PO 10 mg HS KE Administration Docusate Sodium 100 mg 11/30/16 12:58 Colace Liquid - PO DAILY PRN CONSTIPATION Fentanyl 25 mcg 11/30/16 12:58 Sublimaze Injection - IVPUSH 12/03/16 12:40 [id number] PRN PAIN Hydromorphone HCl 1 mg 11/30/16 19:53 12/02/16 10:51 Dilaudid Injection - IVPB 1 mg Q3H PRN Administration PAIN Lactated Ringer's 1,000 mls @ 75 mls/hr 11/30/16 12:58 12/01/16 13:32 Lactated Ringers Solution IV Not Given ASDIR KE Insulin Aspart 1 vial 11/30/16 22:00 12/01/16 22:34 Novolog Vial Sliding Scale - SQ 2 units HS [facility] Administration Protocol Insulin Aspart 1 vial 12/01/16 09:00 12/02/16 12:31 Novolog Vial Sliding Scale - SQ 16 units TIDAC [facility] Administration Protocol Insulin Detemir 26 units 12/01/16 22:00 12/01/16 22:33 Levemir Vial SQ 26 units HS KE Administration Levofloxacin 750 mg 12/01/16 06:00 12/02/16 06:58 Levaquin - PO 750 mg DAILY@0600 KE Administration Lisinopril 10 mg 12/01/16 10:00 12/02/16 10:51 Prinivil PO 10 mg DAILY KE Administration Oxycodone HCl 5 mg 11/30/16 12:58 12/02/16 11:14 Roxicodone - PO 5 mg Q6H PRN Administration FOR PAIN Sitagliptin Phosphate 50 mg 12/01/16 07:00 12/02/16 06:58 Januvia - PO 50 mg DAILY@0700 KE Administration AP: T2DM: Uncontrolled but improving, A1c 9.5 BGM 200s yesterday BGM QACHS Levemir 26 units daily at HS for now Novolog SS coverage Continue Sitagliptin 50 mg QD Add Metformin 500mg BID, improving renal function with Cr 1.0 today Pt may be discharged on current Insulin and oral hypoglycemic agents. Pt to f/u in office once she is discharged from rehab. Gangrene Rt big toe: S/P Rt big toe amputation on 11.30.16 Osteomyelitis HTN Will f/U
--- NOTE | 2016-12-02 13:51 | PATH ---
Surgical Pathology Report Patient Name: JORDAN CHAHAL Med. Rec. #: [id number] /Age/Gender: 1960 (Age: 56) / F Account: [id number] Location: [facility] MED/SURG Taken: 11/30/2016 Received: 11/30/2016 Reported: 12/02/2016 Physicians: Gael Sullivan Specimen(s) Received RIGHT GREAT TOE AMPUTATION Clinical History Gangrene right great toe Final Diagnosis GREAT TOE, RIGHT, AMPUTATION: SKIN AND UNDERLYING SOFT TISSUE GANGRENOUS NECROSIS. UNDERLYING BONE WITH FOCAL ACUTE OSTEOMYELITIS. SKIN AND SOFT TISSUE AT THE RESECTION MARGIN APPEAR VIABLE. BONE AT THE RESECTION MARGIN APPEARS VIABLE. Electronically Signed Dar Garcia M.D. Gross Description Received in formalin labeled "right great toe" is a 5.0 x 3.2 x 3.0 cm toe amputation specimen. The epidermal surface displays a 4.5 x 2.7 cm [place]-black, ulcerated, gangrenous lesion extending to 0.5 cm from the closest skin and soft tissue margin. The lesion extends to and possibly involves the underlying bone. [place] sections are submitted in 4 cassettes as follows: 1-2-lesion with underlying bone, following decalcification; 3-bone margin, following decalcification; 4-skin and soft tissue margin. 12/01/201612/01/2016
[2016-12-02] MEDS ORDERED: metFORMIN HCL 500 MG TABLET (FP) PO SCH (16:30)
--- NOTE | 2016-12-02 19:11 | DS ---
Physical Examination Vital Signs: Vital Signs Temperature 99.7 F H 12/02/16 10:00 Pulse Rate 101 H 12/02/16 10:00 Respiratory Rate 18 12/02/16 10:00 Blood Pressure 147/63 12/02/16 10:00 O2 Sat by Pulse Oximetry (%) 98 12/01/16 21:00 Labs: CBC, BMP 12/02/16 06:30 12/02/16 08:00 Discharge Summary Reason For Visit: INFECTION OF TOE Current Active Problems Dizziness (Acute) Hyperlipidemia (Acute) Ischemia of toe (Acute) Microcytic anemia (Acute) Diabetes (Chronic) HTN (hypertension) (Chronic) - Instructions Diet, Activity, Other Instructions: RIGHT TOE DRESSING: XEROFORM GAUZE, 4X4, AND KERLIX DAILY NO WEIGHT BEARING TO RIGHT FOOT. OOB WITH BOOT/ ASSIST AND WALKER PHYSICAL THERAPY DAILY FOLLOW LOW NA/ ADA DIET Referrals: Xavier Solares MD [Primary Care Provider] - Gael Sullivan MD [Staff Physician] - Disposition: [facility] - Home Medications Comprehensive Discharge Medication List: Ambulatory Orders Glyburide/Metformin HCl [Glucovance 5-500 mg Tablet] 1 each PO DAILY #0 Cholecalciferol (Vitamin D3) [Vitamin D -] 400 unit PO DAILY 05/24/16 Lisinopril [Prinivil] 10 mg PO DAILY 05/24/16 Sitagliptin Phosphate [Januvia] 50 mg PO PRN 06/20/16 Ibuprofen [Motrin -] 800 mg PO QID #120 tablet MDD 4 09/01/16 Amitriptyline HCl [Elavil -] 25 mg PO HS 09/21/16 Aspirin [ASA -] 81 mg PO DAILY 09/21/16 Magnesium 30 mg PO DAILY 09/21/16 Acetaminophen W/ Codeine #3 [Tylenol # 3 -] 1 tab PO Q6H #60 tablet MDD 4 Atorvastatin Ca [Lipitor] 1 tab PO DAILY 10/28/16 Gabapentin [Neurontin] 1 cap PO TID 10/28/16 Insulin (LOG) Aspart [NovoLOG -] 0 units SQ HS vial 12/01/16 Insulin (Levemir) [Levemir Vial] 26 units SQ HS ml 12/01/16 Lisinopril [Prinivil] 10 mg PO DAILY tablet 12/01/16 dc to snf
== END 2016-12-02 13:47 | DRG 314 ==
LOC: JER 14:21 → JERBED 20:09 → J8W 23:23
PROVIDERS: ADMIT Internal Medicine; ATTEND Internal Medicine
PROC: 0Y6P0Z0 Detachment at Right 1st Toe, Complete, Open Approach (ICD-10-PCS; principal; 2016-11-30 11:00)
DX: E11.52 Type 2 diabetes mellitus with diabetic peripheral angiopathy with gangrene (principal); E11.65 Type 2 diabetes mellitus with hyperglycemia; E11.69 Type 2 diabetes mellitus with other specified complication; M86.9 Osteomyelitis, unspecified; D50.9 Iron deficiency anemia, unspecified; Z79.84 Long term (current) use of oral hypoglycemic drugs; I10 Essential (primary) hypertension; Z87.891 Personal history of nicotine dependence; E78.5 Hyperlipidemia, unspecified; Z91.11 Patient's noncompliance with dietary regimen
CPT/HCPCS: 36415; 73660-TC; 73718-TC; 80053; 83036; 84550; 85025; 85610; 85651; 86140; 86850; 86900; 86901; 87070; 87186; 87205; 88305-TC; 88311-TC; 93005; 93010; 93306-TC; 94760; 97116-GP; 97161-GP; 99281-25

== ENCOUNTER 2017-01-13 12:00 | Emergency (ER) | payer OTHER ==
[2017-01-13 12:07] VITALS: BP 148/77; PULSE 86; TEMP 98; BMI 34.8
[2017-01-13] MEDS ORDERED: KETOROLAC TROMETHAMINE 30 MG/1 ML VIAL IM ONE (12:36)
[2017-01-13] MEDS ORDERED: KETOROLAC TROMETHAMINE 30 MG/1 ML VIAL ONE (12:40)
--- NOTE | 2017-01-13 12:45 | PDOC ---
History of Present Illness - General Chief Complaint: Pain Stated Complaint: WOUND CARE SENT Time Seen by Provider: 01/13/17 12:14 History Source: Patient Exam Limitations: No Limitations - History of Present Illness Initial Comments: 01/13/17 12:51 56 yr states she fell out of wheelchair and injured left hip. no head trauma or LOC. pt has chronic foot ulcer. 01/13/17 16:32 Past History - Past Medical History Allergies/Adverse Reactions: Allergies Allergy/AdvReac Type Severity Reaction Status Date / Time No Known Allergies Allergy Verified 01/13/17 12:01 Home Medications: Ambulatory Orders Glyburide/Metformin HCl [Glucovance 5-500 mg Tablet] 1 each PO DAILY #0 Cholecalciferol (Vitamin D3) [Vitamin D -] 400 unit PO DAILY 05/24/16 Ibuprofen [Motrin -] 800 mg PO QID #120 tablet MDD 4 09/01/16 Amitriptyline HCl [Elavil -] 25 mg PO HS 09/21/16 Aspirin [ASA -] 81 mg PO DAILY 09/21/16 Magnesium 30 mg PO DAILY 09/21/16 Acetaminophen W/ Codeine #3 [Tylenol # 3 -] 1 tab PO Q6H #60 tablet MDD 4 Atorvastatin Ca [Lipitor] 1 tab PO DAILY 10/28/16 Gabapentin [Neurontin] 1 cap PO TID 10/28/16 Insulin (LOG) Aspart [NovoLOG -] 0 units SQ HS vial 12/01/16 Insulin (Levemir) [Levemir Vial] 26 units SQ HS ml 12/01/16 Lisinopril [Prinivil] 10 mg PO DAILY tablet 12/01/16 Anemia: No CVA: (TIA) Diabetes: Yes HTN: Yes Hypercholesterolemia: Yes - Surgical History Abdominal Surgery: No Appendectomy: No Cardiac Surgery: No Cholecystectomy: No Lung Surgery: No Neurologic Surgery: No Orthopedic Surgery: No - Immunization History Immunization Up to Date: Yes - Suicide/Smoking/Psychosocial Hx Smoking History: Never smoked Have you smoked in the past 12 months: Yes Number of Cigarettes Smoked Daily: 2 If you are a former smoker, when did you quit?: 2017 Information on smoking cessation initiated: No 'Breaking Loose' booklet given: 05/24/16 Hx Alcohol Use: No Drug/Substance Use Hx: No Substance Use Type: None Hx Substance Use Treatment: No Trauma Specific PMHX - Complaint Specific PMHX Arthritis: No Back Injury: No Neck Injury: No Hx Sacro Iliac Joint Dysfunction: No *Physical Exam - Vital Signs Last Vital Signs Temp Pulse Resp BP Pulse Ox 98.0 F 86 18 148/77 95 01/13/17 12:03 01/13/17 12:03 01/13/17 12:03 01/13/17 12:03 01/13/17 12:03 - Physical Exam General Appearance: Yes: Nourished, Appropriately Dressed, Obese HEENT: positive: EOMI, ALBERT Neck: positive: Supple. negative: Tender, Tender lateral, Tender midline Respiratory/Chest: positive: Lungs Clear, Normal Breath Sounds. negative: Chest Tender Cardiovascular: positive: Regular Rhythm, Regular Rate Gastrointestinal/Abdominal: positive: Normal Bowel Sounds, Soft. negative: Tender Lymphatic: negative: Adenopathy Musculoskeletal: positive: Normal Inspection Extremity: positive: Normal Capillary Refill, Normal Inspection, Tender (left hip thigh area , no swelling , no bruising no deformity ) Integumentary: positive: Normal Color, Dry, Warm, Other (right foot/heel with surgial dressing and hard sole shoe in place ) ED Treatment Course - RADIOLOGY Radiology Studies Ordered: Category Date Time Status HIP & PELVIS-LEFT [RAD] Stat Radiology 01/13/17 12:36 Ordered Medical Decision Making - Medical Decision Making 01/13/17 13:36 cc: mechanical fall out of the wheelchair injured left hip pt is wheelchair assisted, is able to stand and bend the left leg foot ulcer will xray the hip no sign of trauma or distress will give toradol IM for pain 01/13/17 16:32 *DC/Admit/Observation/Transfer Diagnosis at time of Disposition: Contusion of hip, left Qualifiers: Encounter type: initial encounter Qualified Code(s): S70.02XA - Contusion of left hip, initial encounter - Discharge Dispostion Disposition: HOME Condition at time of disposition: Good - Patient Instructions Additional Instructions: take ibuprofen as directed for pain follow with your doctor as needed apply ice to areas of pain every 2hrs for 20 minutes for the next 2 days while awake
== END 2017-01-13 13:49 | disposition home or self-care (01) ==
LOC: JERFT 12:00
PROC: 3E0233Z Introduction of Anti-inflammatory into Muscle, Percutaneous Approach (ICD-10-PCS; principal; 2017-01-13)
DX: S70.02XA Contusion of left hip, initial encounter (principal); W05.0XXA Fall from non-moving wheelchair, initial encounter; Y93.89 Activity, other specified; Y92.89 Other specified places as the place of occurrence of the external cause; Y99.8 Other external cause status; I10 Essential (primary) hypertension; E11.9 Type 2 diabetes mellitus without complications; Z79.4 Long term (current) use of insulin; E78.00 Pure hypercholesterolemia, unspecified; Z86.73 Personal history of transient ischemic attack (TIA), and cerebral infarction without residual deficits; L97.518 Non-pressure chronic ulcer of other part of right foot with other specified severity
CPT/HCPCS: 73523-TC; 99281-25

== ENCOUNTER 2017-04-10 07:53 | Emergency (ER) | payer OTHER ==
[2017-04-10 08:01] VITALS: TEMP 98.8; BMI 36.1
[2017-04-10 10:54] LABS: HEMATOCRIT 32.7 % (32.4-45.2); HEMOGLOBIN 9.9 GM/dL (10.7-15.3); MCH 22.6 pg (25.7-33.7); MCHC 30.3 g/dl (32.0-36.0); MEAN CELL VOLUME 74.7 fl (80-96); MEAN PLT VOLUME 7.2 fl (7.5-11.1); PLATELET COUNT 257 K/MM3 (134-434); RBC 4.37 M/mm3 (3.60-5.2); RDW 14.5 % (11.6-15.6); WHITE BLOOD COUNT 7.2 K/mm3 (4.0-10.0)
--- NOTE | 2017-04-10 10:55 | PDOC ---
History of Present Illness <Eleazar Posey - Last Filed: 04/10/17 10:31> - General History Source: Patient Exam Limitations: No Limitations - History of Present Illness Initial Comments: 04/10/17 11:05 The patient is a 57 year old female with a significant PMH of diabetes, hypertension, and hyperlipidemia who presents to the emergency department with a healing wound of a recent right great toe amputation, complaining today of yellow discoloration and drainage for the past week. The patient states she last saw Dr. Sullivan on 03/20/17 and was unable to schedule an appointment prompting her visit to the ER. The patient states her right great toe amputation was complicated by osteomyelitis for which she finished a course of antibiotics at the retirement. The patient reports her wound was healing and had a pink color but for the past week is now noticing a yellow discoloration with clear liquid drainage. The patient denies any right foot pain or pain radiating up the right leg, The patient denies warmth to the right foot, The patient denies numbness or tingling of the extremities, fever, chills, nausea, vomit, diarrhea and constipation. The patient states she was discharged from the retirement and now has a home nurse that comes in to change her wound dressings. Allergies: NKA Social history: No reported alcohol, cigarette or drug use. PCP: Dr. Solares <Sonia Welsh - Last Filed: 04/10/17 11:13> - General Chief Complaint: Wound Infection Stated Complaint: PAIN, OPEN WOUND RIGHT FOOT Time Seen by Provider: 04/10/17 08:31 Past History - Past Medical History Anemia: No CVA: Yes (TIA) COPD: No Diabetes: Yes HTN: Yes Hypercholesterolemia: Yes - Surgical History Abdominal Surgery: No Appendectomy: No Cardiac Surgery: No Cholecystectomy: No Lung Surgery: No Neurologic Surgery: No Orthopedic Surgery: No - Immunization History Immunization Up to Date: Yes - Suicide/Smoking/Psychosocial Hx Smoking History: Former smoker Have you smoked in the past 12 months: No Number of Cigarettes Smoked Daily: 2 If you are a former smoker, when did you quit?: 1 year Information on smoking cessation initiated: No 'Breaking Loose' booklet given: 05/24/16 Hx Alcohol Use: No Drug/Substance Use Hx: No Substance Use Type: None Hx Substance Use Treatment: No <Eleazar Posey - Last Filed: 04/10/17 10:31> <Sonia Welsh - Last Filed: 04/10/17 11:13> - Past Medical History Allergies/Adverse Reactions: Allergies Allergy/AdvReac Type Severity Reaction Status Date / Time ampicillin AdvReac Intermediate Nausea Verified 04/10/17 07:57 Home Medications: Ambulatory Orders Glyburide/Metformin HCl [Glucovance 5-500 mg Tablet] 1 each PO DAILY #0 Cholecalciferol (Vitamin D3) [Vitamin D -] 400 unit PO DAILY 05/24/16 Amitriptyline HCl [Elavil -] 25 mg PO HS 09/21/16 Aspirin [ASA -] 81 mg PO DAILY 09/21/16 Gabapentin [Neurontin] 1 cap PO TID 10/28/16 Lisinopril [Prinivil] 10 mg PO DAILY tablet 12/01/16 Calcium Carbonate [Calcium] 0 mg PO DAILY 04/10/17 Collagenase Clostridium Hist. [Santyl] 1 applic TP DAILY 04/10/17 Docusate Sodium [Colace] 0 mg PO TID 04/10/17 Ferrous Sulfate 325 mg PO DAILY 04/10/17 Insulin (LOG) Aspart [NovoLOG -] 0 units SQ TID 04/10/17 Insulin Glargine,Hum.rec.anlog [Lantus] 36 unit SQ HS 04/10/17 Review of Systems - Review of Systems Constitutional: No: Chills, Fever Cardiac (ROS): No: Chest Pain Musculoskeletal: Yes: See HPI Integumentary: Yes: See HPI. No: Rash All Other Systems: Reviewed and Negative <Eleazar Posey - Last Filed: 04/10/17 10:31> *Physical Exam - Vital Signs Last Vital Signs Temp Pulse Resp BP Pulse Ox 98.8 F 89 19 148/74 99 04/10/17 07:57 04/10/17 07:57 04/10/17 07:57 04/10/17 07:57 04/10/17 07:57 <Eleazar Posey - Last Filed: 04/10/17 10:31> - Vital Signs Last Vital Signs Temp Pulse Resp BP Pulse Ox 98.8 F 89 19 148/74 99 04/10/17 07:57 04/10/17 07:57 04/10/17 07:57 04/10/17 07:57 04/10/17 07:57 - Physical Exam Comments: 04/10/17 11:07 GENERAL: The patient is awake, alert, and fully oriented, in no acute distress. HEAD: Normal with no signs of trauma. EYES: Pupils equal, round and reactive to light, extraocular movements intact, sclera anicteric, conjunctiva clear with no pallor. ENT: Ears normal, nares patent, oropharynx clear without exudates. Moist mucous membranes. NECK: Normal range of motion, supple without lymphadenopathy, JVD, or masses. LUNGS: Breath sounds equal, clear to auscultation bilaterally. No wheeze/ crackles. HEART: Regular rate and rhythm, normal S1 and S2 without murmur or rub. ABDOMEN: Soft/nontender/nondistended. BS wnl. No guarding or rebound. No palpable masses. No hepatosplenomegaly. EXTREMITIES: (+) Well perfused healing tissue and granulation/ fibrous tissue. No warmth or erythema. Clear discharge without bleeding or pus. Normal range of motion, no edema. No clubbing or cyanosis. No cords, erythema, or tenderness. NEUROLOGICAL: Cranial nerves II through XII grossly intact. Normal speech, normal gait. PSYCH: Normal mood, normal affect. SKIN: Warm, Dry, normal turgor, no rashes or lesions noted. <Sonia Welsh - Last Filed: 04/10/17 11:13> ED Treatment Course - LABORATORY CBC & Chemistry Diagram: 04/10/17 10:40 04/10/17 10:40 - ADDITIONAL ORDERS Additional order review: 04/10/17 10:40 RBC 4.37 MCV 74.7 L MCHC 30.3 L RDW 14.5 MPV 7.2 L Neutrophils % No Result Required. Lymphocytes % No Result Required. <Sonia Welsh - Last Filed: 04/10/17 11:13> Medical Decision Making - Medical Decision Making 04/10/17 10:32 A portion of this note was documented by scribe services under my direction. I have reviewed the details of the note, within reason, and agree with the documentation with the following case summary and management plan written by me. 57-year-old female with history of diabetes status post right great toe amputation complicated by osteomyelitis status post course of IV antibiotics in retirement, now with frequent visits to wound care seen Dr. Sullivan presents with increasing serous discharge and change in appearance of her right foot wound. Patient missed her last visits with Dr. Sullivan secondary to the weather, denies any fevers or chills but reports some increased discomfort to the area. No injuries. Afebrile. Well-appearing seated in wheelchair Right foot: Open 4 cm wounds over the distal right first metatarsal with well- perfused healing tissue and granulation/fibrous tissue. There is no significant soft tissue swelling or warmth/erythema or tenderness, clear discharge without bleeding or pus. palpable distal pulses. 57y/o F here for increasing clear discharge and change in appearance of her foot wound. no f/c, no evidence of surrounding infection. Wound seems to be healing well. cbc/esr/crp sent discussed with Dr. Sullivan, he can see her in the wound clinic immediately. Will send pt directly upstairs for evaluation by Dr. Sullivan, manage accordingly <Eleazar Posey - Last Filed: 04/10/17 10:31> *DC/Admit/Observation/Transfer <Eleazar Posey - Last Filed: 04/10/17 10:31> - Attestations Scribe Attestion: 04/10/17 11:13 Documentation prepared by Sonia Welsh, acting as medical technologist chief for Eleazar Posey MD. <Sonia Welsh - Last Filed: 04/10/17 11:13> Diagnosis at time of Disposition: Wound, open, foot Qualifiers: Encounter type: subsequent encounter Laterality: right Qualified Code(s): S91.301D - Unspecified open wound, right foot, subsequent encounter - Discharge Dispostion Disposition: HOME Condition at time of disposition: Good - Referrals Referrals: Xavier Solares MD [Primary Care Provider] - Gael Sullivan MD [Staff Physician] - - Patient Instructions Printed Discharge Instructions: How to Care for a Surgical Wound Additional Instructions: Activity as tolerated. Stay hydrated. We will bring you directly to the Wound Care Clinic to see Dr. Sullivan for further evaluation. Continue dressing changes as previously instructed. Continue your medications as previously prescribed by your physician. You should follow up with Dr. Sullivan regarding today's emergency department visit. Return to the emergency department for any new or concerning symptoms, particularly redness or swelling, pus or pain or bleeding, fevers or chills - Post Discharge Activity
[2017-04-10 11:08] LABS: INR 0.88 (0.82-1.09); PROTHROMBIN TIME (PATIENT) 9.9 SEC (9.98-11.88)
[2017-04-10 11:09] VITALS: BP 139/68; PULSE 76
[2017-04-10 11:16] LABS: ALBUMIN 3.7 g/dl (3.4-5.0); ALK PHOS 80 U/L (45-117); ANION GAP 9 (8-16); BILIRUBIN,TOTAL 0.2 mg/dL (0.2-1.0); BLOOD UREA NITROGEN 27 mg/dL (7-18); CHLORIDE 110 mmol/L (98-107); CO2 20 mmol/L (21-32); CREATININE 1.2 mg/dL (0.55-1.02); GLUCOSE,RANDOM 198 mg/dL (74-106); POTASSIUM 4.8 mmol/L (3.5-5.1); SGOT/AST 19 U/L (15-37); SGPT/ALT 39 U/L (12-78); SODIUM 139 mmol/L (136-145); TOT PROT 7.1 g/dl (6.4-8.2)
--- NOTE | 2017-04-10 11:39 | PN ---
Past Medical History Chief Complaint: Patient presents to wound clinic s/p right great toe amputation History Provided By: Patient Limitations to Obtaining History: Yes: No Limitations - Past Medical History Vital Signs: Last Vital Signs Temp Pulse Resp BP Pulse Ox 98.8 F 76 18 139/68 98 04/10/17 07:57 04/10/17 11:08 04/10/17 11:08 04/10/17 11:08 04/10/17 11:08 PMH,PSH,Fam Hx, Meds,Allergies,Previous Tx: Reviewed in Nursing Documentation and no changes since last visit. History of Diabetes: Type II, Comment (Last A1c on 04/05/2017 was 9.8) Review of Systems Constitutional: reports: No Symptoms Eyes: reports: No Symptoms Cardiovascular: reports: No Symptoms Respiratory: reports: No Symptoms Musculoskeletal: reports: No Symptoms Integumentary: reports: Wound Neurological: reports: No Symptoms Endocrine: reports: No Symptoms Hematology/Lymphatic: reports: No Symptoms Psychiatric: reports: No Symptoms Nutrition: Good appetite, Weight stable - Appearance General Appearance: Well groomed, Well nourished, No acute distress Assistive Devices: Wheel Chair - Vascular Lower extremity Pulses: 2+ Right Dorsalis Pedis, 2+ Right Posterior Tibial, 2+ Left Doralis Pedis, 2+ Left Posterior Tibial Varicosities: No Skin Temperature: WNL CFT: Instantaneous Amputations: Yes Location: Right Foot Toe(s) (1st Toe) - Wound Assessment Right Medial Foot Drainage: None Drainage amount: None Odor: No Debridement type: Subq Tissue 20 Sqcm/< Wound bed: [place]/Red, Granulation, Slough Plan of Care: A history was completed , an examination was performed, and the decision was made to perform an excisional debridement and wound culture of right toe amputation site. Applied santyl to wound and ordered Navix study. Return to clinic in 1 week. Goal of Care __X___ To Heal To Maintain (wound healing is slow or stalled but stable, little / no deterioration) To Monitor / Manage ( wound healing not achievable due to untreatable underlying condition e.g. cancer, un-reversible severe peripheral vascular disease. 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 Applied santyl to wound and ordered Navix study. Return to clinic in 1 week. Patient demonstrated verbal understanding of all that was said today and they agreed to alert me on effectiveness. Problem List - Problems (1) Amputated toe of right foot Code(s): Z89.421 - ACQUIRED ABSENCE OF OTHER RIGHT TOE(S)
[2017-04-10 12:19] LABS: ANISOCYTOSIS 1+; MACROCYTOSIS 0; OVALOCYTE 1+; PLATELET ESTIMATE NORMAL
[2017-04-10 13:14] LABS: ERYTHROCYTE SEDIMENTATION RATE 14 mm/hr (0-30)
== END 2017-04-10 11:10 | disposition home or self-care (01) ==
LOC: JER 07:53
DX: S98.111D Complete traumatic amputation of right great toe, subsequent encounter (principal); X58.XXXD Exposure to other specified factors, subsequent encounter; I10 Essential (primary) hypertension; E78.00 Pure hypercholesterolemia, unspecified; E11.9 Type 2 diabetes mellitus without complications; Z79.4 Long term (current) use of insulin; Z87.891 Personal history of nicotine dependence
CPT/HCPCS: 11042; 36415; 80053; 82962; 85025; 85610; 85651; 86140; 87070; 87205; 99283-25

== ENCOUNTER 2017-04-18 08:11 | Inpatient (IN) | payer OTHER ==
[2017-04-18 08:21] VITALS: BMI 36.1
[2017-04-18] MEDS ORDERED: VANCOMYCIN 1,500 MG in DEXTROSE 5%-WATER - 500 ML IVPB ONE (09:29)
[2017-04-18] MEDS ORDERED: PIPERACILLIN/TAZOB 3.375 GM/50 ML PRE-DOCKED IVPB ONE (09:30)
--- NOTE | 2017-04-18 09:38 | PDOC ---
Attending Attestation - Resident Resident Name: Tim Ambrosio - ED Attending Attestation I have performed the following: I have examined & evaluated the patient, The case was reviewed & discussed with the resident, I agree w/resident's findings & plan, Exceptions are as noted - HPI HPI: 04/18/17 09:36 57-year-old female with history of diabetes and peripheral vascular disease status post partial amputation of right great toe complicated by osteomyelitis and October now referred from wound clinic for IV antibiotics in the setting of increasing pain and swelling and discharge to the toe wound. - Physicial Exam PE: 04/18/17 09:36 Afebrile Overall well-appearing Warm to touch to the distal right lower extremity at the ankle and foot, some swelling to the foot, positive discharge that is foul-smelling - Medical Decision Making 04/18/17 09:37 Patient seen and evaluated with the resident. I agree with the overall evaluation, assessment, and management with the following summary of visit: 57-year-old female with infected right great toe wound. Possible recurrent osteomyelitis. Labs, cultures X-ray IV antibiotics Admission
--- NOTE | 2017-04-18 09:42 | PDOC ---
History of Present Illness - General Chief Complaint: Wound Infection Stated Complaint: SENT BY PCP Time Seen by Provider: 04/18/17 08:36 - History of Present Illness Initial Comments: 04/18/17 09:33 Pt is a 57yo F with PMHx of DM2 (last A1C 9.8) with a non-healing R diabetic toe infection, who was seen by Dr Grover and Dr Sullivan at the wound clinic yesterday and was informed to come to the ER today for an admission. 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 She was treated with IV antibiotics at a [facility] with some relief, but 2 weeks post -discharge she had localized pain, drainage, and pressure. She has been regularly following Dr. Sullivan at the wound clinic, and had a recent excisional debridement of the R toe amputation site, which grew polymicrobial organisms including MRSA and Enterococcus. She was seen in the wound clinic yesterday, and was told she will be admitted for IV antibiotics and possible I&D in the OR. She states the pain is getting worse, with increase drainage, swelling, and foul smelling odor. She denies generalized symptoms such as fevers, chills, malaise. Past History - Past Medical History Allergies/Adverse Reactions: Allergies Allergy/AdvReac Type Severity Reaction Status Date / Time No Known Drug Allergies Allergy Verified 04/18/17 09:29 amoxicillin AdvReac Nausea Verified 04/18/17 19:21 Home Medications: Ambulatory Orders Glyburide/Metformin HCl [Glucovance 5-500 mg Tablet] 1 each PO DAILY #0 Cholecalciferol (Vitamin D3) [Vitamin D -] 400 unit PO DAILY 05/24/16 Aspirin [ASA -] 81 mg PO DAILY 09/21/16 Gabapentin [Neurontin] 1 cap PO TID 10/28/16 Lisinopril [Prinivil] 10 mg PO DAILY tablet 12/01/16 Calcium Carbonate [Calcium] 0 mg PO DAILY 04/10/17 Collagenase Clostridium Hist. [Santyl] 1 applic TP DAILY 04/10/17 Docusate Sodium [Colace] 100 mg PO TID 04/10/17 Ferrous Sulfate 325 mg PO TID 04/10/17 Insulin (LOG) Aspart [NovoLOG -] 0 units SQ TID 04/10/17 Insulin Glargine,Hum.rec.anlog [Lantus] 36 unit SQ HS 04/10/17 Atorvastatin Ca [Lipitor] 10 mg PO HS 04/18/17 Oxycodone HCl/Acetaminophen [Percocet 5-325 mg Tablet] 1 tab PO PRN 04/18/17 Ranitidine HCl 75 mg PO DAILY 04/18/17 Anemia: No CVA: Yes (TIA) COPD: No Diabetes: Yes HTN: Yes Hypercholesterolemia: Yes - Surgical History Abdominal Surgery: No Appendectomy: No Cardiac Surgery: No Cholecystectomy: No Lung Surgery: No Neurologic Surgery: No Orthopedic Surgery: No - Immunization History Immunization Up to Date: Yes - Suicide/Smoking/Psychosocial Hx Smoking History: Former smoker Have you smoked in the past 12 months: No Number of Cigarettes Smoked Daily: 2 If you are a former smoker, when did you quit?: 1 year Information on smoking cessation initiated: No 'Breaking Loose' booklet given: 05/24/16 Hx Alcohol Use: No Drug/Substance Use Hx: No Substance Use Type: None Hx Substance Use Treatment: No *Physical Exam - Vital Signs Last Vital Signs Temp Pulse Resp BP Pulse Ox 98.9 F 83 18 140/87 100 04/18/17 08:13 04/18/17 08:13 04/18/17 08:13 04/18/17 08:13 04/18/17 08:13 - Physical Exam Comments: 04/18/17 09:42 GEN: Obese, AAOx3, NAD, Lying comfortably in the bed talking HEENT: PERRLA, EOMi CV: S1, S2, RRR LUNG: CTABL ABD: Soft, NT, ND, normoactive BS MSK: R foot - 1/2+ distal pulses, 2+ pitting edema, open amputated area, with granulation tissue underlying purulent material, no surrounding erythema, foul smelling NEURO: CN 2-12 grossly intact ED Treatment Course - LABORATORY CBC & Chemistry Diagram: 04/22/17 08:00 04/22/17 08:00 - RADIOLOGY Radiology Studies Ordered: Category Date Time Status FOOT-RIGHT [RAD] Stat Radiology 04/18/17 09:10 Ordered Medical Decision Making - Medical Decision Making 04/18/17 09:44 57yo F presents with nonhealing diabetic foot infection at R great toe amputation site. Possible osteomyelitis. Will get CBC, CMP, ESR, CRP. Obtained wound cultures. Will get R foot XR. Discussed w/ Dr. Grover and Dr Arita. Will start one dose IV Vancomycin 1.5 and Zosyn 3.375. Pt states she may have had an adverse reaction (upset stomach) once after taking amoxicillin but states she is not allergic. Is willing to try Zosyn. Pharmacy notified. CP Dr. Valvedre. Plan for admission as service patient when lab work returns 04/18/17 11:07 No WBC count on labwork. ESR pending. Plan for admission as service patient. Attempted to reach Dr Escalona, service is busy, will retry 04/18/17 13:[address] Zuniga covering Dr. Escalona, she accepts patient for admission *DC/Admit/Observation/Transfer Diagnosis at time of Disposition: Diabetic foot ulcer associated with diabetes mellitus due to underlying condition Qualifiers: Diabetic foot ulcer location: toe Laterality: unspecified laterality - Discharge Dispostion Admit: Yes - Referrals - Patient Instructions - Post Discharge Activity
[2017-04-18] MEDS ORDERED: VANCOMYCIN 1,500 MG in SODIUM CHLORIDE 500 ML IVPB ONE (09:47)
[2017-04-18 10:15] LABS: BASO % 1.2 % (0-2.0); EOS % 2.4 % (0-4.5); HEMATOCRIT 31.3 % (32.4-45.2); HEMOGLOBIN 9.4 GM/dL (10.7-15.3); LYMPH % 36.9 % (8-40); MCH 22.5 pg (25.7-33.7); MCHC 30.1 g/dl (32.0-36.0); MEAN CELL VOLUME 74.8 fl (80-96); MEAN PLT VOLUME 7.7 fl (7.5-11.1); MONO % 8.6 % (3.8-10.2); NEUT % 50.9 % (42.8-82.8); PLATELET COUNT 263 K/MM3 (134-434); RBC 4.18 M/mm3 (3.60-5.2); RDW 14.6 % (11.6-15.6); WHITE BLOOD COUNT 7.6 K/mm3 (4.0-10.0)
[2017-04-18 10:36] LABS: ALBUMIN 3.4 g/dl (3.4-5.0); ALK PHOS 84 U/L (45-117); ANION GAP 7 (8-16); BILIRUBIN,TOTAL 0.3 mg/dL (0.2-1.0); BLOOD UREA NITROGEN 19 mg/dL (7-18); CALCIUM 8.4 mg/dL (8.5-10.1); CHLORIDE 111 mmol/L (98-107); CO2 23 mmol/L (21-32); CREATININE 1.1 mg/dL (0.55-1.02); GLUCOSE,RANDOM 209 mg/dL (74-106); POTASSIUM 4.4 mmol/L (3.5-5.1); SGOT/AST 19 U/L (15-37); SGPT/ALT 34 U/L (12-78); SODIUM 141 mmol/L (136-145); TOT PROT 6.8 g/dl (6.4-8.2)
[2017-04-18] MEDS ORDERED: ACETAMINOPHEN 650 MG/20.3 ML ORAL SOLUTION (CUPS) PO ONE (11:20)
[2017-04-18 12:21] LABS: ERYTHROCYTE SEDIMENTATION RATE 19 mm/hr (0-30)
--- NOTE | 2017-04-18 14:22 | HP ---
Admitting History and Physical - Primary Care Physician PCP: Xaveir Solares - Admission Chief Complaint: non healing right footulcer History of Present Illness: Pt is a 57yo F with PMHx of DM2 (last A1C 9.8) with a non-healing R diabetic toe infection, who was seen by Dr Grover and Dr Sullivan at the wound clinic yesterday and was informed to come to the ER today for an admission. 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 She was treated with IV antibiotics at a group home with some relief, but 2 weeks post -discharge she had localized pain, drainage, and pressure. She has been regularly following Dr. Sullivan at the wound clinic, and had a recent excisional debridement of the R toe amputation site, which grew polymicrobial organisms including MRSA and Enterococcus. She was seen in the wound clinic yesterday, and was told she will be admitted for IV antibiotics and possible I&D in the OR. She states the pain is getting worse, with increase drainage, swelling, and foul smelling odor. She denies generalized symptoms such as fevers, chills, malaise. per patient she was in [facility] from dec to mar for iv abx for osteo and she said when she left the facility her wound was pink. 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 Cardiovascular: Yes: HTN, Hyperlipdemia ...LMP: 07/02/13 Rheumatology: Yes: Other Endocrine: Yes: Diabetes Mellitus - Smoking History Smoking history: Former smoker Have you smoked in the past 12 months: No Aproximately how many cigarettes per day: 2 If you are a former smoker, when did you quit?: 1 year - Alcohol/Substance Use Hx Alcohol Use: No Home Medications - Allergies Allergies/Adverse Reactions: Allergies Allergy/AdvReac Type Severity Reaction Status Date / Time No Known Drug Allergies Allergy Verified 04/18/17 09:29 amoxicillin AdvReac Nausea Verified 04/17/17 10:40 - Home Medications Home Medications: Ambulatory Orders Glyburide/Metformin HCl [Glucovance 5-500 mg Tablet] 1 each PO DAILY #0 Cholecalciferol (Vitamin D3) [Vitamin D -] 400 unit PO DAILY 05/24/16 Amitriptyline HCl [Elavil -] 25 mg PO HS 09/21/16 Aspirin [ASA -] 81 mg PO DAILY 09/21/16 Gabapentin [Neurontin] 1 cap PO TID 10/28/16 Lisinopril [Prinivil] 10 mg PO DAILY tablet 12/01/16 Calcium Carbonate [Calcium] 0 mg PO DAILY 04/10/17 Collagenase Clostridium Hist. [Santyl] 1 applic TP DAILY 04/10/17 Docusate Sodium [Colace] 0 mg PO TID 04/10/17 Ferrous Sulfate 325 mg PO DAILY 04/10/17 Insulin (LOG) Aspart [NovoLOG -] 0 units SQ TID 04/10/17 Insulin Glargine,Hum.rec.anlog [Lantus] 36 unit SQ HS 04/10/17 Family Disease History - Family Disease History Family Disease History: Diabetes: Mother Physical Examination Vital Signs: Vital Signs Temperature 98.9 F 04/18/17 08:13 Pulse Rate 83 04/18/17 08:13 Respiratory Rate 18 04/18/17 08:13 Blood Pressure 140/87 04/18/17 08:13 O2 Sat by Pulse Oximetry (%) 100 04/18/17 08:13 Constitutional: Yes: Obese Cardiovascular: Yes: Regular Rate and Rhythm, S1, S2 Respiratory: Yes: CTA Bilaterally Gastrointestinal: Yes: Normal Bowel Sounds, Soft Wound/Incision: Yes: Dressing Removed (right foot lateral aspect open wound slough yellow color foul odor) Labs: CBC, BMP 04/18/17 09:45 04/18/17 09:45 Problem List - Problems (1) Wound, open, foot Assessment/Plan: ID consult, vascular consult. iv abx dvt ppx Code(s): S91.309A - UNSPECIFIED OPEN WOUND, UNSPECIFIED FOOT, INITIAL ENCOUNTER (2) Hyperlipidemia Assessment/Plan: lipid profile Code(s): E78.5 - HYPERLIPIDEMIA, UNSPECIFIED Qualifiers: (3) Diabetes Assessment/Plan: insulin bgm ac hs hgba1c tight glycemic control Code(s): E11.9 - TYPE 2 DIABETES MELLITUS WITHOUT COMPLICATIONS Qualifiers: Diabetes mellitus type: type 2 (4) HTN (hypertension) Assessment/Plan: prinivil Code(s): I10 - ESSENTIAL (PRIMARY) HYPERTENSION Qualifiers:
--- NOTE | 2017-04-18 16:23 | CON.ID ---
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 [facility], but 2 weeks post-discharge she had localized pain, drainage, and pressure. She has been regularly following Dr. Sullivan at the wound clinic, and had a recent excisional debridement of the R toe amputation site, which grew polymicrobial organisms including MRSA and Enterococcus. Patient cx was seen from the wound ,patient was growing multiple organisms and also wound showed slough and the plan is to debride the wound. patient is c/o of pain and foul draiange from the wound. She denies generalized symptoms such as fevers, chills, malaise. 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 Cardio/Vascular: Yes: HTN, Hyperlipdemia ...LMP: 07/02/13 Rheumatology: Yes: Other Endocrine: Yes: Diabetes Mellitus - Alcohol/Substance Use Hx Alcohol Use: No - Smoking History Smoking history: Former smoker Have you smoked in the past 12 months: No Aproximately how many cigarettes per day: 2 If you are a former smoker, when did you quit?: 1 year Home Medications - Allergies Allergies/Adverse Reactions: Allergies Allergy/AdvReac Type Severity Reaction Status Date / Time No Known Drug Allergies Allergy Verified 04/18/17 09:29 amoxicillin AdvReac Nausea Verified 04/18/17 19:21 - Home Medications Home Medications: Ambulatory Orders Glyburide/Metformin HCl [Glucovance 5-500 mg Tablet] 1 each PO DAILY #0 Cholecalciferol (Vitamin D3) [Vitamin D -] 400 unit PO DAILY 05/24/16 Aspirin [ASA -] 81 mg PO DAILY 09/21/16 Gabapentin [Neurontin] 1 cap PO TID 10/28/16 Lisinopril [Prinivil] 10 mg PO DAILY tablet 12/01/16 Calcium Carbonate [Calcium] 0 mg PO DAILY 04/10/17 Collagenase Clostridium Hist. [Santyl] 1 applic TP DAILY 04/10/17 Docusate Sodium [Colace] 100 mg PO TID 04/10/17 Ferrous Sulfate 325 mg PO TID 04/10/17 Insulin (LOG) Aspart [NovoLOG -] 0 units SQ TID 04/10/17 Insulin Glargine,Hum.rec.anlog [Lantus] 36 unit SQ HS 04/10/17 Atorvastatin Ca [Lipitor] 10 mg PO HS 04/18/17 Oxycodone HCl/Acetaminophen [Percocet 5-325 mg Tablet] 1 tab PO PRN 04/18/17 Ranitidine HCl 75 mg PO DAILY 04/18/17 Family Disease History - Family Disease History Family Disease History: Diabetes: Mother Review of Systems - Review of Systems Constitutional: reports: No Symptoms Eyes: reports: No Symptoms HENT: reports: No Symptoms Neck: reports: No Symptoms Cardiovascular: reports: No Symptoms Respiratory: reports: No Symptoms Gastrointestinal: reports: No Symptoms Genitourinary: reports: No Symptoms Musculoskeletal: reports: No Symptoms Integumentary: reports: No Symptoms Neurological: reports: No Symptoms Endocrine: reports: No Symptoms Hematology/Lymphatic: reports: No Symptoms Psychiatric: reports: No Symptoms Physical Exam Vital Signs: Vital Signs Temperature 98.9 F 04/18/17 08:13 Pulse Rate 83 04/18/17 08:13 Respiratory Rate 18 04/18/17 08:13 Blood Pressure 140/87 04/18/17 08:13 O2 Sat by Pulse Oximetry (%) 100 04/18/17 08:13 Constitutional: Yes: No Distress, Calm Neck: Yes: Supple, Trachea Midline Cardiovascular: Yes: Regular Rate and Rhythm Respiratory: Yes: Regular, CTA Bilaterally Gastrointestinal: Yes: Normal Bowel Sounds, Soft Musculoskeletal: Yes: Other Extremities: Yes: Other Edema: RLE: Trace Wound/Incision: Yes: Draining, Other (foul smell,wiht slough) Neurological: Yes: Alert, Oriented Psychiatric: Yes: Alert, Oriented Labs: CBC, BMP 04/18/17 09:45 04/18/17 09:45 Imaging - Results X-ray: Report Reviewed, Image Reviewed Assessment/Plan Problem List - Problems (1) Wound, open, foot Code(s): S91.309A - UNSPECIFIED OPEN WOUND, UNSPECIFIED FOOT, INITIAL ENCOUNTER (2) Hyperlipidemia Code(s): E78.5 - HYPERLIPIDEMIA, UNSPECIFIED Qualifiers: (3) Diabetes Code(s): E11.9 - TYPE 2 DIABETES MELLITUS WITHOUT COMPLICATIONS Qualifiers: Diabetes mellitus type: type 2 (4) HTN (hypertension) Code(s): I10 - ESSENTIAL (PRIMARY) HYPERTENSION Qualifiers: plan patient needs debridement and iv abx moreno tart on iv abx wound cx result noted also will do mri to figure out if patient might need residential treatment
[2017-04-18] MEDS ORDERED: PIPERACILLIN/TAZOB 3.375 GM 50 ML IVPB SCH (18:00)
--- NOTE | 2017-04-18 18:12 | PN ---
Progress Note (short form) - Note Progress Note: Vascular Surgery Pt seen and examined yest in wound care clinic. S/P right foot amputation with open wound. Granulating well. Recent cultures showed resistant bacteria. ID saw pt and advised pt to be admitted for IV antibiotics. Cont santyl to right foot daily Gael beyer DO
[2017-04-18] MEDS ORDERED: morphine CARPU-JECT 4 MG/1 ML DISP.SYRIN IVPUSH ONE (18:25)
[2017-04-18] MEDS ORDERED: morphine CARPU-JECT 10 MG/1 ML DISP.SYRIN ONE (18:27)
[2017-04-18] MEDS ORDERED: INSULIN REGULAR HUMAN 100 UNITS/ML *VIAL ONE (19:30)
[2017-04-18] MEDS: PIPERACILLIN/TAZOB 3.375 GM 3.375 GM in DEXTROSE 5%-WATER - 100 ML IVPB SCH (19:42)
[2017-04-18] MEDS: INSULIN SLIDING SCALE (NOVOLOG) 1 VIAL SQ SCH ×2 (19:42→23:08)
[2017-04-18] MEDS: AMITRIPTYLINE HCL 25 MG TABLET (FP) PO SCH (22:57)
[2017-04-18] MEDS: GABAPENTIN 300 MG CAPSULE (FP) PO SCH (22:58)
[2017-04-18] MEDS: COLLAGENASE CLOSTRIDIUM HIST. 30 GRAMS TUBE TP SCH ×2 (22:58→23:57)
[2017-04-18] MEDS: HEPARIN NA (PORCINE) 5,000 UNITS/ML 1ML VIAL SQ SCH (22:58)
[2017-04-18] MEDS ORDERED: ACETAMINOPHEN 325 MG TABLET (FP) PO ONE (23:44)
[2017-04-19] MEDS: PIPERACILLIN/TAZOB 3.375 GM 3.375 GM in DEXTROSE 5%-WATER - 100 ML IVPB SCH ×3 (02:11→17:40)
[2017-04-19] MEDS: INSULIN SLIDING SCALE (NOVOLOG) 1 VIAL SQ SCH ×4 (06:35→22:49)
[2017-04-19] MEDS: GABAPENTIN 300 MG CAPSULE (FP) PO SCH ×3 (06:35→21:41)
[2017-04-19 07:30] LABS: HEMATOCRIT 28.4 % (32.4-45.2); HEMOGLOBIN 8.5 GM/dL (10.7-15.3); MCH 22.4 pg (25.7-33.7); MCHC 30.1 g/dl (32.0-36.0); MEAN CELL VOLUME 74.7 fl (80-96); MEAN PLT VOLUME 7.9 fl (7.5-11.1); PLATELET COUNT 245 K/MM3 (134-434); RDW 14.6 % (11.6-15.6)
[2017-04-19 07:52] LABS: ANION GAP 10 (8-16); BLOOD UREA NITROGEN 17 mg/dL (7-18); CALCIUM 8.1 mg/dL (8.5-10.1); CHLORIDE 110 mmol/L (98-107); CO2 21 mmol/L (21-32); CREATININE 1.1 mg/dL (0.55-1.02); GLUCOSE,RANDOM 236 mg/dL (74-106); MAGNESIUM 1.3 mg/dL (1.8-2.4); PHOSPHOROUS 4.4 mg/dL (2.5-4.9); POTASSIUM 4.1 mmol/L (3.5-5.1); SGOT/AST 11 U/L (15-37); SGPT/ALT 27 U/L (12-78); SODIUM 141 mmol/L (136-145)
[2017-04-19 07:54] LABS: ALK PHOS 73 U/L (45-117); BILIRUBIN,TOTAL 0.4 mg/dL (0.2-1.0); TOT PROT 6.1 g/dl (6.4-8.2)
--- NOTE | 2017-04-19 10:26 | PN ---
Progress Note, Physician - Current Medication List Current Medications: Active Medications Amitriptyline HCl (Elavil -) 25 mg PO HS [facility] Last Admin: 04/18/17 22:57 Dose: Not Given Aspirin (Ecotrin -) 81 mg PO DAILY [facility] Collagenase (Santyl -) 1 applic TP DAILY [facility] Last Admin: 04/18/17 23:57 Dose: Not Given Gabapentin (Neurontin -) 300 mg PO TID [facility] Last Admin: 04/19/17 06:35 Dose: 300 mg Heparin Sodium (Porcine) (Heparin -) 5,000 unit SQ BID [facility] Last Admin: 04/18/17 22:58 Dose: 5,000 unit Vancomycin HCl 1,250 mg/ (Dextrose) 250 mls @ 166.667 mls/hr IVPB DAILY [facility] PRN Reason: Protocol Piperacillin Sod/Tazobactam (Sod 3.375 gm/ Dextrose) 100 mls @ 166.667 mls/hr IVPB Q8H-IV [facility] Last Admin: 04/19/17 02:11 Dose: 166.667 mls/hr Insulin Aspart (Novolog Vial Sliding Scale -) 1 vial SQ ACHS [facility] PRN Reason: Protocol Last Admin: 04/19/17 06:35 Dose: 2 units Lisinopril (Prinivil) 10 mg PO DAILY [facility] - Objective Vital Signs: Vital Signs Temperature 98.4 F 04/19/17 07:40 Pulse Rate 90 04/19/17 07:40 Respiratory Rate 20 04/19/17 07:40 Blood Pressure 129/70 04/19/17 07:40 O2 Sat by Pulse Oximetry (%) 98 04/18/17 20:44 Cardiovascular: Yes: Regular Rate and Rhythm Respiratory: Yes: Regular, CTA Bilaterally Gastrointestinal: Yes: Normal Bowel Sounds, Soft Wound/Incision: Yes: Dressing Dry and Intact Labs: CBC, BMP 04/19/17 07:11 04/19/17 07:08 Assessment/Plan - Problems (1) Wound, open, foot Assessment/Plan: ID consult, vascular consult. iv abx dvt ppx Code(s): S91.309A - UNSPECIFIED OPEN WOUND, UNSPECIFIED FOOT, INITIAL ENCOUNTER (2) Hyperlipidemia Assessment/Plan: lipid profile Code(s): E78.5 - HYPERLIPIDEMIA, UNSPECIFIED Qualifiers: (3) Diabetes Assessment/Plan: insulin bgm ac hs hgba1c Laboratory Tests 04/19/17 07:11 Hemoglobin A1c % 10.1 H D ENDO tight glycemic control Code(s): E11.9 - TYPE 2 DIABETES MELLITUS WITHOUT COMPLICATIONS Qualifiers: Diabetes mellitus type: type 2 (4) HTN (hypertension) Assessment/Plan: prinivil Code(s): I10 - ESSENTIAL (PRIMARY) HYPERTENSION Qualifiers: (5) Anemia Assessment/Plan: MONITOR LABS W/U ORDERED GI CONSULT
--- NOTE | 2017-04-19 10:49 | EKG ---
Test Reason : Blood Pressure : / mmHG Vent. Rate : 082 BPM Atrial Rate : 082 BPM P-R Int : 134 ms QRS Dur : 074 ms QT Int : 354 ms P-R-T Axes : 029 014 015 degrees QTc Int : 413 ms POOR DATA QUALITY, INTERPRETATION MAY BE ADVERSELY AFFECTED NORMAL SINUS RHYTHM CANNOT RULE OUT ANTERIOR INFARCT , AGE UNDETERMINED ABNORMAL ECG WHEN COMPARED WITH ECG OF 29-NOV-2016 15:14, NO SIGNIFICANT CHANGE WAS FOUND Confirmed by DARIUS GRANT MD ([id number]) on 04/19/2017 10:48:39 AM Referred By: Confirmed By:DARIUS GRANT MD
[2017-04-19] MEDS: LISINOPRIL 10 MG TABLET (FP) PO SCH (11:28)
[2017-04-19] MEDS: ASPIRIN COATED 81 MG TABLET.EC PO SCH (11:28)
[2017-04-19] MEDS: HEPARIN NA (PORCINE) 5,000 UNITS/ML 1ML VIAL SQ SCH ×2 (11:28→21:41)
[2017-04-19 11:54] LABS: ACANTHOCYTES 0; ANISOCYTOSIS 0; HELMET CELLS 0; HOWELL-JOLLY BODIES 0; MACROCYTOSIS 0; OVALOCYTE 0; PLATELET ESTIMATE NORMAL; SICKELED CELLS 0; TARGET CELLS 0; TEAR DROP CELLS 0; TOXIC GRANULATION 0
[2017-04-19] MEDS ORDERED: oxyCODONE HCL 5 MG TABLET ONE ×2 (12:24→19:30)
[2017-04-19] MEDS: oxyCODONE HCL 5 MG TABLET PO PRN ×2 (12:29→19:30)
[2017-04-19] MEDS: VANCOMYCIN 1,250 MG in DEXTROSE 5%-WATER - 250 ML IVPB SCH (12:40)
[2017-04-19] MEDS ORDERED: INSULIN (NOVOLOG) ASPART 100 UNITS/ML 10ML VIAL ONE (12:46)
--- NOTE | 2017-04-19 14:37 | CON.GI ---
Consult Consult Specialty:: GI Referred by:: Dr Escalona Reason for Consultation:: anemia - History of Present Illness History of Present Illness: 57-year-old female with history of diabetes and peripheral vascular disease status post partial amputation of right great toe complicated by osteomyelitis and October now referred from wound clinic for IV antibiotics in the setting of increasing pain and swelling and discharge to the toe wound. The patinet was diagnosed to have anemia for the past 20 years. No gi w/u was done. She is going for debasement in am and is receiving antibiotics for osteomyleitis. She denies any gi symptoms. 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 Cardio/Vascular: Yes: HTN, Hyperlipdemia ...LMP: 07/02/13 Rheumatology: Yes: Other Endocrine: Yes: Diabetes Mellitus - Alcohol/Substance Use Hx Alcohol Use: No - Smoking History Smoking history: Former smoker Have you smoked in the past 12 months: No Aproximately how many cigarettes per day: 2 If you are a former smoker, when did you quit?: 1 year Home Medications - Allergies Allergies/Adverse Reactions: Allergies Allergy/AdvReac Type Severity Reaction Status Date / Time No Known Drug Allergies Allergy Verified 04/18/17 09:29 amoxicillin AdvReac Nausea Verified 04/18/17 19:21 - Home Medications Home Medications: Ambulatory Orders Glyburide/Metformin HCl [Glucovance 5-500 mg Tablet] 1 each PO DAILY #0 Cholecalciferol (Vitamin D3) [Vitamin D -] 400 unit PO DAILY 05/24/16 Aspirin [ASA -] 81 mg PO DAILY 09/21/16 Gabapentin [Neurontin] 1 cap PO TID 10/28/16 Lisinopril [Prinivil] 10 mg PO DAILY tablet 12/01/16 Calcium Carbonate [Calcium] 0 mg PO DAILY 04/10/17 Collagenase Clostridium Hist. [Santyl] 1 applic TP DAILY 04/10/17 Docusate Sodium [Colace] 100 mg PO TID 04/10/17 Ferrous Sulfate 325 mg PO TID 04/10/17 Insulin (LOG) Aspart [NovoLOG -] 0 units SQ TID 04/10/17 Insulin Glargine,Hum.rec.anlog [Lantus] 36 unit SQ HS 04/10/17 Atorvastatin Ca [Lipitor] 10 mg PO HS 04/18/17 Oxycodone HCl/Acetaminophen [Percocet 5-325 mg Tablet] 1 tab PO PRN 04/18/17 Ranitidine HCl 75 mg PO DAILY 04/18/17 Family Disease History - Family Disease History Family Disease History: Diabetes: Mother Review of Systems - Review of Systems Constitutional: denies: Fever HENT: denies: Difficult Swallowing Neck: denies: Decreased ROM Cardiovascular: denies: Chest Pain Respiratory: denies: SOB Gastrointestinal: denies: Abdominal Pain, Bloating, Constipation, Diarrhea, Dysphagia, Indigestion, Melena, Nausea, Rectal Bleeding, Vomiting Physical Exam-GI Vital Signs: Vital Signs Temperature 98.1 F 04/19/17 12:56 Pulse Rate 90 04/19/17 12:56 Respiratory Rate 20 04/19/17 07:40 Blood Pressure 151/66 04/19/17 12:56 O2 Sat by Pulse Oximetry (%) 100 04/19/17 12:56 Constitutional: Yes: Well Nourished Eyes: Yes: Conjunctiva Clear, Occular Prosthesis Neck: Yes: Supple Cardiovascular: Yes: Regular Rate and Rhythm Respiratory: Yes: CTA Bilaterally ...Palpate: No: Firm/Rigid, Guarding, Hepatomegaly, Mass, Pulsatile Mass, Splenomegaly, Tenderness Labs: CBC, BMP 04/19/17 07:11 04/19/17 07:08 Problem List - Problems (1) Anemia Assessment/Plan: --chronic r> made aware to follow-up, will need gi w/u once osteomyleitis has resolved consider Hematology consult stool guaiac od x 3 Code(s): D64.9 - ANEMIA, UNSPECIFIED
[2017-04-19] MEDS ORDERED: BISACODYL 5 MG TABLET.DR (FP) PO ONE (16:45)
--- NOTE | 2017-04-19 17:10 | PN ---
Progress Note, Physician History of Present Illness: patient stable no new issues - Current Medication List Current Medications: Active Medications Amitriptyline HCl (Elavil -) 25 mg PO HS [facility] Last Admin: 04/18/17 22:57 Dose: Not Given Aspirin (Ecotrin -) 81 mg PO DAILY [facility] Last Admin: 04/19/17 11:28 Dose: 81 mg Collagenase (Santyl -) 1 applic TP DAILY [facility] Last Admin: 04/18/17 23:57 Dose: Not Given Gabapentin (Neurontin -) 300 mg PO TID [facility] Last Admin: 04/19/17 15:49 Dose: 300 mg Heparin Sodium (Porcine) (Heparin -) 5,000 unit SQ BID [facility] Last Admin: 04/19/17 11:28 Dose: 5,000 unit Vancomycin HCl 1,250 mg/ (Dextrose) 250 mls @ 166.667 mls/hr IVPB DAILY [facility] PRN Reason: Protocol Piperacillin Sod/Tazobactam (Sod 3.375 gm/ Dextrose) 100 mls @ 166.667 mls/hr IVPB Q8H-IV [facility] Last Admin: 04/19/17 11:29 Dose: 166.667 mls/hr Insulin Aspart (Novolog Vial Sliding Scale -) 1 vial SQ ACHS [facility] PRN Reason: Protocol Last Admin: 04/19/17 16:16 Dose: 6 units Insulin Detemir (Levemir Vial) 36 units SQ HS [facility] Lisinopril (Prinivil) 10 mg PO DAILY [facility] Last Admin: 04/19/17 11:28 Dose: 10 mg Oxycodone HCl (Roxicodone -) 10 mg PO Q6H PRN PRN Reason: PAIN LEVEL 6-10 Last Admin: 04/19/17 12:29 Dose: 10 mg Polyethylene Glycol (Miralax (For Daily Use) -) 17 gm PO DAILY [facility] - Objective Vital Signs: Vital Signs Temperature 98.1 F 04/19/17 12:56 Pulse Rate 90 04/19/17 12:56 Respiratory Rate 18 04/19/17 09:00 Blood Pressure 151/66 04/19/17 12:56 O2 Sat by Pulse Oximetry (%) 100 04/19/17 12:56 Constitutional: Yes: No Distress, Calm Cardiovascular: Yes: Regular Rate and Rhythm Respiratory: Yes: Regular, CTA Bilaterally Gastrointestinal: Yes: Normal Bowel Sounds, Soft Musculoskeletal: Yes: Other Extremities: Yes: Other Wound/Incision: Yes: Draining, Other Neurological: Yes: Alert, Oriented Psychiatric: Yes: Alert Labs: CBC, BMP 04/19/17 07:11 04/19/17 07:08 Assessment/Plan Problem List - Problems (1) Wound, open, foot Code(s): S91.309A - UNSPECIFIED OPEN WOUND, UNSPECIFIED FOOT, INITIAL ENCOUNTER (2) Hyperlipidemia Code(s): E78.5 - HYPERLIPIDEMIA, UNSPECIFIED Qualifiers: (3) Diabetes Code(s): E11.9 - TYPE 2 DIABETES MELLITUS WITHOUT COMPLICATIONS Qualifiers: Diabetes mellitus type: type 2 (4) HTN (hypertension) Code(s): I10 - ESSENTIAL (PRIMARY) HYPERTENSION Qualifiers: plan continue iv abx await for vascular plan await for mri report continue wound care
[2017-04-19] MEDS ORDERED: ACETAMINOPHEN 325 MG TABLET (FP) ONE (19:30)
[2017-04-19] MEDS: AMITRIPTYLINE HCL 25 MG TABLET (FP) PO SCH (21:41)
[2017-04-19] MEDS ORDERED: INSULIN DETEMIR 100 UNITS/ML MDV SQ ONE (22:37)
[2017-04-19] MEDS: INSULIN DETEMIR 100 UNITS/ML MDV SQ SCH (22:49)
[2017-04-20] MEDS ORDERED: oxyCODONE HCL 5 MG TABLET ONE ×2 (01:48→09:05)
[2017-04-20] MEDS: PIPERACILLIN/TAZOB 3.375 GM 3.375 GM in DEXTROSE 5%-WATER - 100 ML IVPB SCH ×3 (02:08→19:30)
[2017-04-20] MEDS: INSULIN SLIDING SCALE (NOVOLOG) 1 VIAL SQ SCH ×4 (06:26→22:07)
[2017-04-20] MEDS: GABAPENTIN 300 MG CAPSULE (FP) PO SCH ×3 (06:26→22:05)
[2017-04-20 06:59] LABS: BASO % 0.6 % (0-2.0); EOS % 3.3 % (0-4.5); HEMATOCRIT 28.1 % (32.4-45.2); HEMOGLOBIN 8.7 GM/dL (10.7-15.3); LYMPH % 47.7 % (8-40); MCH 22.9 pg (25.7-33.7); MCHC 30.9 g/dl (32.0-36.0); MEAN CELL VOLUME 74.1 fl (80-96); MEAN PLT VOLUME 7.8 fl (7.5-11.1); MONO % 10.6 % (3.8-10.2); NEUT % 37.8 % (42.8-82.8); PLATELET COUNT 270 K/MM3 (134-434); RBC 3.79 M/mm3 (3.60-5.2); RDW 14.4 % (11.6-15.6); WHITE BLOOD COUNT 6.7 K/mm3 (4.0-10.0)
[2017-04-20 07:24] LABS: CALCIUM 8.6 mg/dL (8.5-10.1); CHLORIDE 107 mmol/L (98-107); POTASSIUM 4.4 mmol/L (3.5-5.1); SODIUM 138 mmol/L (136-145)
[2017-04-20 07:31] LABS: ALBUMIN 3.2 g/dl (3.4-5.0); ALK PHOS 73 U/L (45-117); ANION GAP 8 (8-16); BILIRUBIN,TOTAL 0.3 mg/dL (0.2-1.0); CO2 23 mmol/L (21-32); CREATININE 1.1 mg/dL (0.55-1.02); GLUCOSE,RANDOM 272 mg/dL (74-106); SGOT/AST 10 U/L (15-37); SGPT/ALT 29 U/L (12-78); TOT PROT 6.3 g/dl (6.4-8.2)
[2017-04-20 08:06] LABS: SERUM IRON SATURATION 17 % (15-55); TOTAL IRON BINDING CAPACITY 244 ug/dL (250-450); UIBC 203 ug/dL (131-425)
[2017-04-20 08:38] LABS: BLOOD UREA NITROGEN 18 mg/dL (7-18)
[2017-04-20] MEDS: LISINOPRIL 10 MG TABLET (FP) PO SCH (09:09)
[2017-04-20] MEDS: oxyCODONE HCL 5 MG TABLET PO PRN ×2 (09:09→23:32)
[2017-04-20] MEDS: ASPIRIN COATED 81 MG TABLET.EC PO SCH (09:09)
[2017-04-20] MEDS: HEPARIN NA (PORCINE) 5,000 UNITS/ML 1ML VIAL SQ SCH ×3 (09:09→22:05)
[2017-04-20] MEDS: POLYETHYLENE GLYCOL 3350 119 GM BTL PO SCH (11:57)
--- NOTE | 2017-04-20 12:18 | PN ---
Progress Note, Physician History of Present Illness: patient stable no new issues patient tolerating abx - Current Medication List Current Medications: Active Medications Amitriptyline HCl (Elavil -) 25 mg PO HS [facility] Last Admin: 04/19/17 21:41 Dose: Not Given Aspirin (Ecotrin -) 81 mg PO DAILY [facility] Last Admin: 04/20/17 09:09 Dose: 81 mg Collagenase (Santyl -) 1 applic TP DAILY [facility] Last Admin: 04/18/17 23:57 Dose: Not Given Gabapentin (Neurontin -) 300 mg PO TID [facility] Last Admin: 04/20/17 06:26 Dose: 300 mg Heparin Sodium (Porcine) (Heparin -) 5,000 unit SQ BID [facility] Last Admin: 04/20/17 09:15 Dose: Not Given Vancomycin HCl 1,250 mg/ (Dextrose) 250 mls @ 166.667 mls/hr IVPB DAILY [facility] PRN Reason: Protocol Last Admin: 04/19/17 12:40 Dose: 166.667 mls/hr Piperacillin Sod/Tazobactam (Sod 3.375 gm/ Dextrose) 100 mls @ 166.667 mls/hr IVPB Q8H-IV [facility] Last Admin: 04/20/17 10:57 Dose: 166.667 mls/hr Insulin Aspart (Novolog Vial Sliding Scale -) 1 vial SQ ACHS [facility] PRN Reason: Protocol Last Admin: 04/20/17 06:26 Dose: 2 units Insulin Detemir (Levemir Vial) 36 units SQ HS [facility] Last Admin: 04/19/17 22:49 Dose: 36 units Lisinopril (Prinivil) 10 mg PO DAILY [facility] Last Admin: 04/20/17 09:09 Dose: 10 mg Oxycodone HCl (Roxicodone -) 10 mg PO Q6H PRN PRN Reason: PAIN LEVEL 6-10 Last Admin: 04/20/17 09:09 Dose: 10 mg Polyethylene Glycol (Miralax (For Daily Use) -) 17 gm PO DAILY [facility] Last Admin: 04/20/17 11:57 Dose: Not Given - Objective Vital Signs: Vital Signs Temperature 98.8 F 04/20/17 09:10 Pulse Rate 88 04/20/17 09:10 Respiratory Rate 18 04/20/17 09:10 Blood Pressure 148/74 04/20/17 09:10 O2 Sat by Pulse Oximetry (%) 96 04/20/17 11:27 Constitutional: Yes: No Distress, Calm Cardiovascular: Yes: Regular Rate and Rhythm Respiratory: Yes: Regular, CTA Bilaterally Gastrointestinal: Yes: Normal Bowel Sounds, Soft Musculoskeletal: Yes: Other Extremities: Yes: Other Wound/Incision: Yes: Dressing Dry and Intact, Other Neurological: Yes: Alert, Oriented Psychiatric: Yes: Alert, Oriented Labs: CBC, BMP 04/20/17 06:25 04/20/17 06:25 Assessment/Plan Problem List - Problems (1) Wound, open, foot Code(s): S91.309A - UNSPECIFIED OPEN WOUND, UNSPECIFIED FOOT, INITIAL ENCOUNTER (2) Hyperlipidemia Code(s): E78.5 - HYPERLIPIDEMIA, UNSPECIFIED Qualifiers: (3) Diabetes Code(s): E11.9 - TYPE 2 DIABETES MELLITUS WITHOUT COMPLICATIONS Qualifiers: Diabetes mellitus type: type 2 (4) HTN (hypertension) Code(s): I10 - ESSENTIAL (PRIMARY) HYPERTENSION Qualifiers: plan continue iv abx await for vascular plan mri report noted rest continue current mgmt
[2017-04-20] MEDS: VANCOMYCIN 1,250 MG in DEXTROSE 5%-WATER - 250 ML IVPB SCH (12:35)
[2017-04-20] MEDS ORDERED: MAGNESIUM SULF 50% (8.12 MEQ/2 ML-1 GM VIAL) IVPB ONE (13:03)
--- NOTE | 2017-04-20 13:04 | PN ---
Progress Note, Physician Chief Complaint: patient seen and examined in the holding area of the ER NPO for possible debridement - Current Medication List Current Medications: Active Medications Amitriptyline HCl (Elavil -) 25 mg PO HS [facility] Last Admin: 04/19/17 21:41 Dose: Not Given Aspirin (Ecotrin -) 81 mg PO DAILY [facility] Last Admin: 04/20/17 09:09 Dose: 81 mg Collagenase (Santyl -) 1 applic TP DAILY [facility] Last Admin: 04/18/17 23:57 Dose: Not Given Gabapentin (Neurontin -) 300 mg PO TID [facility] Last Admin: 04/20/17 06:26 Dose: 300 mg Heparin Sodium (Porcine) (Heparin -) 5,000 unit SQ BID [facility] Last Admin: 04/20/17 09:15 Dose: Not Given Vancomycin HCl 1,250 mg/ (Dextrose) 250 mls @ 166.667 mls/hr IVPB DAILY [facility] PRN Reason: Protocol Last Admin: 04/19/17 12:40 Dose: 166.667 mls/hr Piperacillin Sod/Tazobactam (Sod 3.375 gm/ Dextrose) 100 mls @ 166.667 mls/hr IVPB Q8H-IV [facility] Last Admin: 04/20/17 10:57 Dose: 166.667 mls/hr Sodium Chloride (Normal Saline -) 1,000 mls @ 100 mls/hr IV ASDIR [facility] Insulin Aspart (Novolog Vial Sliding Scale -) 1 vial SQ ACHS [facility] PRN Reason: Protocol Last Admin: 04/20/17 06:26 Dose: 2 units Insulin Detemir (Levemir Vial) 36 units SQ HS [facility] Last Admin: 04/19/17 22:49 Dose: 36 units Lisinopril (Prinivil) 10 mg PO DAILY [facility] Last Admin: 04/20/17 09:09 Dose: 10 mg Oxycodone HCl (Roxicodone -) 10 mg PO Q6H PRN PRN Reason: PAIN LEVEL 6-10 Last Admin: 04/20/17 09:09 Dose: 10 mg Polyethylene Glycol (Miralax (For Daily Use) -) 17 gm PO DAILY [facility] Last Admin: 04/20/17 11:57 Dose: Not Given - Objective Vital Signs: Vital Signs Temperature 98.8 F 04/20/17 09:10 Pulse Rate 88 04/20/17 09:10 Respiratory Rate 18 04/20/17 09:10 Blood Pressure 148/74 04/20/17 09:10 O2 Sat by Pulse Oximetry (%) 96 04/20/17 11:27 Constitutional: Yes: Calm Cardiovascular: Yes: Regular Rate and Rhythm, S1, S2 Respiratory: Yes: CTA Bilaterally Gastrointestinal: Yes: Normal Bowel Sounds, Soft Wound/Incision: Yes: Other (right foot wound) Labs: CBC, BMP 04/20/17 06:25 04/20/17 06:25 Problem List - Problems (1) Wound, open, foot Assessment/Plan: ID consult, vascular consult appreicated possible debridement OR today- MRI noted for soft tissue and bone marrow edema collagenase to the wound iv abx dvt ppx Code(s): S91.309A - UNSPECIFIED OPEN WOUND, UNSPECIFIED FOOT, INITIAL ENCOUNTER (2) Hyperlipidemia Assessment/Plan: lipid profile noted start lipitor 20mg Code(s): E78.5 - HYPERLIPIDEMIA, UNSPECIFIED Qualifiers: (3) Diabetes Assessment/Plan: insulin bgm ac hs [id number] 10.1 tight glycemic control currently NPO for OR Code(s): E11.9 - TYPE 2 DIABETES MELLITUS WITHOUT COMPLICATIONS Qualifiers: Diabetes mellitus type: type 2 (4) HTN (hypertension) Assessment/Plan: prinivil Code(s): I10 - ESSENTIAL (PRIMARY) HYPERTENSION Qualifiers:
[2017-04-20] MEDS ORDERED: MAGNESIUM 1GM/D5W - 1 GM/100 ML IVPB IVPB ONE (13:15)
[2017-04-20] MEDS: COLLAGENASE CLOSTRIDIUM HIST. 30 GRAMS TUBE TP SCH ×2 (13:38→15:27)
[2017-04-20] MEDS: SODIUM CHLORIDE 1,000 ML IV SCH (13:40)
[2017-04-20] MEDS ORDERED: PT OWN MED DRAWER 7, Y5N ONE (21:51)
[2017-04-20] MEDS: ATORVASTATIN CA 20 MG TABLET (FP) PO SCH (22:05)
[2017-04-20] MEDS: INSULIN DETEMIR 100 UNITS/ML MDV SQ SCH (22:06)
[2017-04-20] MEDS: AMITRIPTYLINE HCL 25 MG TABLET (FP) PO SCH (22:11)
[2017-04-21] MEDS: PIPERACILLIN/TAZOB 3.375 GM 3.375 GM in SODIUM CHLORIDE 100 ML IVPB SCH ×3 (01:51→17:25)
[2017-04-21] MEDS: GABAPENTIN 300 MG CAPSULE (FP) PO SCH ×3 (06:31→21:33)
[2017-04-21] MEDS: INSULIN SLIDING SCALE (NOVOLOG) 1 VIAL SQ SCH ×4 (06:31→21:33)
[2017-04-21 08:56] LABS: BASO % 0.8 % (0-2.0); EOS % 3.7 % (0-4.5); HEMATOCRIT 29.5 % (32.4-45.2); HEMOGLOBIN 8.9 GM/dL (10.7-15.3); LYMPH % 43.2 % (8-40); MCH 22.5 pg (25.7-33.7); MCHC 30.1 g/dl (32.0-36.0); MEAN CELL VOLUME 74.7 fl (80-96); MEAN PLT VOLUME 7.9 fl (7.5-11.1); MONO % 9.6 % (3.8-10.2); NEUT % 42.7 % (42.8-82.8); PLATELET COUNT 265 K/MM3 (134-434); RBC 3.94 M/mm3 (3.60-5.2); RDW 14.5 % (11.6-15.6); WHITE BLOOD COUNT 6.5 K/mm3 (4.0-10.0)
[2017-04-21 08:57] LABS: ALBUMIN 3.1 g/dl (3.4-5.0); ANION GAP 11 (8-16); BLOOD UREA NITROGEN 19 mg/dL (7-18); CALCIUM 8.5 mg/dL (8.5-10.1); CHLORIDE 105 mmol/L (98-107); CO2 22 mmol/L (21-32); GLUCOSE,RANDOM 240 mg/dL (74-106); MAGNESIUM 1.7 mg/dL (1.8-2.4); SODIUM 138 mmol/L (136-145)
[2017-04-21 09:00] LABS: ALK PHOS 78 U/L (45-117); BILIRUBIN,TOTAL 0.5 mg/dL (0.2-1.0); CREATININE 1.1 mg/dL (0.55-1.02); SGOT/AST 10 U/L (15-37); SGPT/ALT 28 U/L (12-78); TOT PROT 6.6 g/dl (6.4-8.2)
[2017-04-21] MEDS: VANCOMYCIN 1,250 MG in SODIUM CHLORIDE 250 ML IVPB SCH (10:26)
[2017-04-21] MEDS: HEPARIN NA (PORCINE) 5,000 UNITS/ML 1ML VIAL SQ SCH ×2 (10:29→21:33)
[2017-04-21] MEDS: ASPIRIN COATED 81 MG TABLET.EC PO SCH (10:29)
[2017-04-21] MEDS: COLLAGENASE CLOSTRIDIUM HIST. 30 GRAMS TUBE TP SCH (10:29)
[2017-04-21] MEDS: LISINOPRIL 10 MG TABLET (FP) PO SCH (10:30)
[2017-04-21] MEDS: MAGNESIUM OXIDE 400 MG TABLET (FP) PO SCH ×2 (10:30→21:33)
[2017-04-21] MEDS: POLYETHYLENE GLYCOL 3350 119 GM BTL PO SCH (10:32)
[2017-04-21] MEDS: oxyCODONE HCL 5 MG TABLET PO PRN ×3 (11:48→23:44)
--- NOTE | 2017-04-21 14:24 | PN ---
Progress Note, Physician Chief Complaint: Right foot osteomyelitis History of Present Illness: NAD, in bed moderate pain - Current Medication List Current Medications: Active Medications Aspirin (Ecotrin -) 81 mg PO DAILY [facility] Last Admin: 04/21/17 10:29 Dose: 81 mg Atorvastatin Calcium (Lipitor -) 20 mg PO HS [facility] Last Admin: 04/20/17 22:05 Dose: 20 mg Collagenase (Santyl -) 1 applic TP DAILY [facility] Last Admin: 04/21/17 10:29 Dose: 1 applic Gabapentin (Neurontin -) 300 mg PO TID [facility] Last Admin: 04/21/17 06:31 Dose: 300 mg Heparin Sodium (Porcine) (Heparin -) 5,000 unit SQ BID [facility] Last Admin: 04/21/17 10:29 Dose: 5,000 unit Sodium Chloride (Normal Saline -) 1,000 mls @ 100 mls/hr IV ASDIR [facility] Last Admin: 04/20/17 13:40 Dose: 100 mls/hr Piperacillin Sod/Tazobactam (Sod 3.375 gm/ Sodium Chloride) 100 mls @ 166.667 mls/hr IVPB Q8H-IV [facility] Last Admin: 04/21/17 10:26 Dose: 166.667 mls/hr Vancomycin HCl 1,250 mg/ (Sodium Chloride) 250 mls @ 166.667 mls/hr IVPB DAILY [facility] PRN Reason: Protocol Last Admin: 04/21/17 10:26 Dose: 166.667 mls/hr Insulin Aspart (Novolog Vial Sliding Scale -) 1 vial SQ ACHS [facility] PRN Reason: Protocol Last Admin: 04/21/17 11:48 Dose: 4 units Insulin Detemir (Levemir Vial) 36 units SQ HS [facility] Last Admin: 04/20/17 22:06 Dose: 36 units Lisinopril (Prinivil) 10 mg PO DAILY [facility] Last Admin: 04/21/17 10:30 Dose: 10 mg Magnesium Oxide (Mag-Ox -) 400 mg PO BID [facility] Last Admin: 04/21/17 10:30 Dose: 400 mg Oxycodone HCl (Roxicodone -) 10 mg PO Q6H PRN PRN Reason: PAIN LEVEL 6-10 Last Admin: 04/21/17 11:48 Dose: 10 mg Polyethylene Glycol (Miralax (For Daily Use) -) 17 gm PO DAILY [facility] Last Admin: 04/21/17 10:32 Dose: 17 gm - Objective Vital Signs: Vital Signs Temperature 98.4 F 04/21/17 02:00 Pulse Rate 76 04/21/17 10:00 Respiratory Rate 20 04/21/17 10:00 Blood Pressure 130/70 04/21/17 10:00 O2 Sat by Pulse Oximetry (%) 96 04/20/17 21:00 Constitutional: Yes: Well Nourished, No Distress, Calm Cardiovascular: Yes: Regular Rate and Rhythm Respiratory: Yes: Regular Gastrointestinal: Yes: Normal Bowel Sounds, Soft, Abdomen, Obese Musculoskeletal: Yes: WNL Edema: No Neurological: Yes: Alert, Oriented Psychiatric: Yes: Alert, Oriented Labs: CBC, BMP 04/21/17 07:00 04/21/17 07:00 Problem List - Problems (1) Chronic osteomyelitis of foot Assessment/Plan: MRI reviewed -IV abx Code(s): M86.679 - OTHER CHRONIC OSTEOMYELITIS, UNSPECIFIED ANKLE AND FOOT (2) Toe infection Assessment/Plan: -ID consult -IV abx -Vascular consult Code(s): L08.9 - LOCAL INFECTION OF THE SKIN AND SUBCUTANEOUS TISSUE, UNSP (3) Diabetes mellitus Assessment/Plan: -sees Dr Maria outpatient -last A1c at 10.1 -insulin sliding scale -diabetic diet Code(s): E11.9 - TYPE 2 DIABETES MELLITUS WITHOUT COMPLICATIONS (4) Anemia Assessment/Plan: likely Anemia of chronic disease stool OB pending Code(s): D64.9 - ANEMIA, UNSPECIFIED Assessment/Plan see problem list
[2017-04-21] MEDS: SODIUM CHLORIDE 1,000 ML IV SCH (14:38)
--- NOTE | 2017-04-21 15:28 | PN ---
Progress Note, Physician History of Present Illness: patient stable no new events - Current Medication List Current Medications: Active Medications Aspirin (Ecotrin -) 81 mg PO DAILY [facility] Last Admin: 04/21/17 10:29 Dose: 81 mg Atorvastatin Calcium (Lipitor -) 20 mg PO HS [facility] Last Admin: 04/20/17 22:05 Dose: 20 mg Collagenase (Santyl -) 1 applic TP DAILY [facility] Last Admin: 04/21/17 10:29 Dose: 1 applic Gabapentin (Neurontin -) 300 mg PO TID [facility] Last Admin: 04/21/17 14:38 Dose: 300 mg Heparin Sodium (Porcine) (Heparin -) 5,000 unit SQ BID [facility] Last Admin: 04/21/17 10:29 Dose: 5,000 unit Sodium Chloride (Normal Saline -) 1,000 mls @ 100 mls/hr IV ASDIR [facility] Last Admin: 04/21/17 14:38 Dose: Not Given Piperacillin Sod/Tazobactam (Sod 3.375 gm/ Sodium Chloride) 100 mls @ 166.667 mls/hr IVPB Q8H-IV [facility] Last Admin: 04/21/17 10:26 Dose: 166.667 mls/hr Vancomycin HCl 1,250 mg/ (Sodium Chloride) 250 mls @ 166.667 mls/hr IVPB DAILY [facility] PRN Reason: Protocol Last Admin: 04/21/17 10:26 Dose: 166.667 mls/hr Insulin Aspart (Novolog Vial Sliding Scale -) 1 vial SQ ACHS [facility] PRN Reason: Protocol Last Admin: 04/21/17 11:48 Dose: 4 units Insulin Detemir (Levemir Vial) 36 units SQ HS [facility] Last Admin: 04/20/17 22:06 Dose: 36 units Lisinopril (Prinivil) 10 mg PO DAILY [facility] Last Admin: 04/21/17 10:30 Dose: 10 mg Magnesium Oxide (Mag-Ox -) 400 mg PO BID [facility] Last Admin: 04/21/17 10:30 Dose: 400 mg Oxycodone HCl (Roxicodone -) 10 mg PO Q6H PRN PRN Reason: PAIN LEVEL 6-10 Last Admin: 04/21/17 11:48 Dose: 10 mg Polyethylene Glycol (Miralax (For Daily Use) -) 17 gm PO DAILY [facility] Last Admin: 04/21/17 10:32 Dose: 17 gm - Objective Vital Signs: Vital Signs Temperature 98.0 F 04/21/17 14:00 Pulse Rate 84 04/21/17 14:00 Respiratory Rate 20 04/21/17 14:00 Blood Pressure 142/68 04/21/17 14:00 O2 Sat by Pulse Oximetry (%) 96 04/20/17 21:00 Constitutional: Yes: No Distress, Calm Cardiovascular: Yes: Regular Rate and Rhythm Respiratory: Yes: Regular, CTA Bilaterally Gastrointestinal: Yes: Normal Bowel Sounds, Soft Musculoskeletal: Yes: WNL Extremities: Yes: Other Wound/Incision: Yes: Dressing Dry and Intact Neurological: Yes: Alert, Oriented Psychiatric: Yes: Alert, Oriented Labs: CBC, BMP 04/21/17 07:00 04/21/17 07:00 Assessment/Plan Problem List - Problems (1) Wound, open, foot Code(s): S91.309A - UNSPECIFIED OPEN WOUND, UNSPECIFIED FOOT, INITIAL ENCOUNTER (2) Hyperlipidemia Code(s): E78.5 - HYPERLIPIDEMIA, UNSPECIFIED Qualifiers: (3) Diabetes Code(s): E11.9 - TYPE 2 DIABETES MELLITUS WITHOUT COMPLICATIONS Qualifiers: Diabetes mellitus type: type 2 (4) HTN (hypertension) Code(s): I10 - ESSENTIAL (PRIMARY) HYPERTENSION Qualifiers: i have discussed the mri finding with the radiologist after discussing it seems that the fluid there present is a new one in view of this finding plan we will continue abx for now would like the fluid to be aspirated will need abx for 4- to 6 weeks wound care rest as per primary check [facility]
--- NOTE | 2017-04-21 16:38 | CONSULT ---
Consult Consult Specialty:: Endocrinology Referred by:: Erin Dumont NP Reason for Consultation:: Hyperglycemia - History of Present Illness Chief Complaint: Rt foot pain History of Present Illness: This is a 57y/o F with h/o of T2DM for around 12 years, on Insulin off and on for 3 years (last A1C 9.8) with a non-healing R diabetic toe infection, who was seen by Dr Grover and Dr Sullivan at the wound clinic and referred to ER for admission to get IV abx and possible I&D. 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 She was treated with IV antibiotics at a care home with some relief, but 2 weeks post-discharge she had localized pain, drainage, and pressure. She complained of worsening pain with increases drainage, swelling, and foul smelling odor. She denies any fevers, chills. Pt referred for management of uncontrolled blood sugar. Pt seen in the office for the first time about 2 weeks ago. Pt's insulin regimen was Lantus 36 units daily at HS and Novolog 4 to 16 units TID with meals. She was prescribed Metformin which she had not been taking at home. Blood sugar at home 200s. No hypos. No polyuria, polydipsia. No visual symptoms. Is due for ophthalmology exam. 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 Cardio/Vascular: Yes: HTN, Hyperlipdemia ...LMP: 07/02/13 ...: No Rheumatology: Yes: Other Endocrine: Yes: Diabetes Mellitus - Alcohol/Substance Use Hx Alcohol Use: No - Smoking History Smoking history: Former smoker Have you smoked in the past 12 months: No Aproximately how many cigarettes per day: 2 If you are a former smoker, when did you quit?: 1 year Home Medications - Allergies Allergies/Adverse Reactions: Allergies Allergy/AdvReac Type Severity Reaction Status Date / Time No Known Drug Allergies Allergy Verified 04/18/17 09:29 amoxicillin AdvReac Nausea Verified 04/18/17 19:21 - Home Medications Home Medications: Ambulatory Orders Glyburide/Metformin HCl [Glucovance 5-500 mg Tablet] 1 each PO DAILY #0 Cholecalciferol (Vitamin D3) [Vitamin D -] 400 unit PO DAILY 05/24/16 Aspirin [ASA -] 81 mg PO DAILY 09/21/16 Gabapentin [Neurontin] 1 cap PO TID 10/28/16 Lisinopril [Prinivil] 10 mg PO DAILY tablet 12/01/16 Calcium Carbonate [Calcium] 0 mg PO DAILY 04/10/17 Collagenase Clostridium Hist. [Santyl] 1 applic TP DAILY 04/10/17 Docusate Sodium [Colace] 100 mg PO TID 04/10/17 Ferrous Sulfate 325 mg PO TID 04/10/17 Insulin (LOG) Aspart [NovoLOG -] 0 units SQ TID 04/10/17 Insulin Glargine,Hum.rec.anlog [Lantus] 36 unit SQ HS 04/10/17 Atorvastatin Ca [Lipitor] 10 mg PO HS 04/18/17 Oxycodone HCl/Acetaminophen [Percocet 5-325 mg Tablet] 1 tab PO PRN 04/18/17 Ranitidine HCl 75 mg PO DAILY 04/18/17 Family Disease History - Family Disease History Family Disease History: Diabetes: Mother Review of Systems - Review of Systems Constitutional: reports: No Symptoms Eyes: reports: No Symptoms HENT: reports: No Symptoms Neck: reports: No Symptoms Cardiovascular: reports: No Symptoms Respiratory: reports: No Symptoms Gastrointestinal: reports: No Symptoms Genitourinary: reports: No Symptoms Breasts: reports: No Symptoms Reported Musculoskeletal: reports: Extremity Pain (RT foot pain) Integumentary: reports: No Symptoms Neurological: reports: No Symptoms Endocrine: reports: No Symptoms Physical Exam Vital Signs: Vital Signs Temperature 98.0 F 04/21/17 14:00 Pulse Rate 84 04/21/17 14:00 Respiratory Rate 20 04/21/17 14:00 Blood Pressure 142/68 04/21/17 14:00 O2 Sat by Pulse Oximetry (%) 96 04/20/17 21:00 Constitutional: Yes: No Distress, Calm Eyes: Yes: Conjunctiva Clear, EOM Intact HENT: Yes: Atraumatic, Normocephalic Neck: Yes: Supple, Trachea Midline Cardiovascular: Yes: Regular Rate and Rhythm Respiratory: Yes: Regular, CTA Bilaterally Gastrointestinal: Yes: Normal Bowel Sounds, Soft Musculoskeletal: Yes: WNL Extremities: Yes: Other (Rt foot dressing) Edema: No Neurological: Yes: Alert, Oriented Labs: CBC, BMP 04/21/17 07:00 04/21/17 07:00 Problem List - Problems (1) Diabetes mellitus Code(s): E11.9 - TYPE 2 DIABETES MELLITUS WITHOUT COMPLICATIONS (2) Open wound of foot Code(s): S91.309A - UNSPECIFIED OPEN WOUND, UNSPECIFIED FOOT, INITIAL ENCOUNTER Assessment/Plan RT foot infection/Osteo s/P Rt big toe amputation T2DM IV Abx Local wound care as per surgery Surgery and I D consult noted Increase Levemir 40 units daily at HS Change Novolog coverage No Oral hypoglycemics for now Will f/u
--- NOTE | 2017-04-21 20:40 | CONSULT ---
Consult - text type - Consultation Consultation Note: 57-year-old female with history of diabetes and peripheral vascular disease status post partial amputation of right great toe complicated by osteomyelitis and October now referred from wound clinic for IV antibiotics in the setting of increasing pain and swelling and discharge to the toe wound. The patinet was diagnosed to have anemia for the past 20 years. No gi w/u was done. She is going for debridement in am and is receiving antibiotics for osteomyleitis. She denies any gi symptoms. 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 Cardio/Vascular: Yes: HTN, Hyperlipdemia ...LMP: 07/02/13 Rheumatology: Yes: Other Endocrine: Yes: Diabetes Mellitus peripheral vascular disease osteomyelitis - Smoking History Smoking history: Former smoker Home Medications - Allergies Allergies/Adverse Reactions: Allergies Allergy/AdvReac Type Severity Reaction Status Date / Time No Known Drug Allergies Allergy Verified 04/18/17 09:29 amoxicillin AdvReac Nausea Verified 04/18/17 19:21 - Home Medications Home Medications: Ambulatory Orders Glyburide/Metformin HCl [Glucovance 5-500 mg Tablet] 1 each PO DAILY #0 Cholecalciferol (Vitamin D3) [Vitamin D -] 400 unit PO DAILY 05/24/16 Aspirin [ASA -] 81 mg PO DAILY 09/21/16 Gabapentin [Neurontin] 1 cap PO TID 10/28/16 Lisinopril [Prinivil] 10 mg PO DAILY tablet 12/01/16 Calcium Carbonate [Calcium] 0 mg PO DAILY 04/10/17 Collagenase Clostridium Hist. [Santyl] 1 applic TP DAILY 04/10/17 Docusate Sodium [Colace] 100 mg PO TID 04/10/17 Ferrous Sulfate 325 mg PO TID 04/10/17 Insulin (LOG) Aspart [NovoLOG -] 0 units SQ TID 04/10/17 Insulin Glargine,Hum.rec.anlog [Lantus] 36 unit SQ HS 04/10/17 Atorvastatin Ca [Lipitor] 10 mg PO HS 04/18/17 Oxycodone HCl/Acetaminophen [Percocet 5-325 mg Tablet] 1 tab PO PRN 04/18/17 Ranitidine HCl 75 mg PO DAILY 04/18/17 Family Disease History - Family Disease History Family Disease History: Diabetes: Mother Physical Exam-GI Vital Signs: Last Vital Signs Temp Pulse Resp BP Pulse Ox 97.6 F 82 18 145/61 96 04/21/17 18:00 04/21/17 18:00 04/21/17 18:00 04/21/17 18:00 04/20/17 21:00 Constitutional: Yes: Well Nourished Eyes: Yes: Conjunctiva Clear, Occular Prosthesis Neck: Yes: Supple Cardiovascular: Yes: Regular Rate and Rhythm Respiratory: Yes: CTA Bilaterally ...Palpate: No: Firm/Rigid, Guarding, Hepatomegaly, Mass, Pulsatile Mass, Splenomegaly, Tenderness Left foot dressing Abnormal Lab Results 04/21/17 04/21/17 07:00 07:00 Hgb 8.9 L Hct 29.5 L MCV 74.7 L MCH 22.5 L MCHC 30.1 L Neutrophils % 42.7 L Lymphocytes % 43.2 H BUN 19 H Creatinine 1.1 H Random Glucose 240 H Magnesium 1.7 L AST 10 L Albumin 3.1 L Active Medications Generic Name Dose Route Start Last Admin Trade Name Deidra PRN Reason Stop Dose Admin Aspirin 81 mg 04/19/17 10:00 04/21/17 10:29 Ecotrin - PO 81 mg DAILY KE Administration Atorvastatin Calcium 20 mg 04/20/17 22:00 04/20/17 22:05 Lipitor - PO 20 mg HS KE Administration Collagenase 1 applic 04/18/17 18:15 04/21/17 10:29 Santyl - TP 1 applic DAILY KE Administration Gabapentin 300 mg 04/18/17 22:00 04/21/17 14:38 Neurontin - PO 300 mg TID KE Administration Heparin Sodium (Porcine) 5,000 unit 04/18/17 22:00 04/21/17 10:29 Heparin - SQ 5,000 unit BID KE Administration Sodium Chloride 1,000 mls @ 100 mls/hr 04/20/17 13:00 04/21/17 14:38 Normal Saline - IV Not Given ASDIR KE Piperacillin Sod/Tazobactam 100 mls @ 166.667 mls/hr 04/21/17 02:00 04/21/17 17:25 Sod 3.375 gm/ Sodium Chloride IVPB 166.667 mls/hr Q8H-IV KE Administration Vancomycin HCl 1,250 mg/ 250 mls @ 166.667 mls/hr 04/21/17 10:00 04/21/17 10: 26 Sodium Chloride IVPB 166.667 mls/hr DAILY KE Administration Protocol Insulin Aspart 1 vial 04/21/17 22:00 Novolog Vial Sliding Scale - SQ HS [facility] Protocol Insulin Aspart 1 vial 04/21/17 16:48 Novolog Vial Sliding Scale - SQ TIDAC [facility] Protocol Insulin Detemir 40 units 04/21/17 22:00 Levemir Vial SQ HS [facility] Lisinopril 10 mg 04/19/17 10:00 04/21/17 10:30 Prinivil PO 10 mg DAILY KE Administration Magnesium Oxide 400 mg 04/21/17 10:00 04/21/17 10:30 Mag-Ox - PO 400 mg BID KE Administration Oxycodone HCl 10 mg 04/19/17 10:35 04/21/17 17:26 Roxicodone - PO 10 mg Q6H PRN Administration PAIN LEVEL 6-10 Polyethylene Glycol 17 gm 04/20/17 10:00 04/21/17 10:32 Miralax (For Daily Use) - PO 17 gm DAILY KE Administration Problem List 57 y/o with DM/PVD - Problems (1) Anemia Anemia of chronic disease +/- gi losses ongoing toe infection iron studies s/o anemia of chronic disease reverse AG ratio--check protein studies check B12/folate transfuse if symptomatic or Hgb < 7 check hgb electrophoresis 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
[2017-04-21] MEDS: ATORVASTATIN CA 20 MG TABLET (FP) PO SCH (21:33)
[2017-04-21] MEDS ORDERED: INSULIN DETEMIR 100 UNITS/ML MDV SQ SCH (22:00)
[2017-04-22] MEDS ORDERED: PT OWN MED DRAWER 7, Y5N ONE ×3 (01:18→20:32)
[2017-04-22] MEDS: PIPERACILLIN/TAZOB 3.375 GM 3.375 GM in SODIUM CHLORIDE 100 ML IVPB SCH ×4 (02:04→19:45)
[2017-04-22] MEDS ORDERED: INSULIN (NOVOLOG) ASPART 100 UNITS/ML 10ML VIAL ONE ×2 (06:12→21:17)
[2017-04-22] MEDS: GABAPENTIN 300 MG CAPSULE (FP) PO SCH ×3 (06:51→21:03)
[2017-04-22] MEDS: INSULIN SLIDING SCALE (NOVOLOG) 1 VIAL SQ SCH ×4 (06:51→21:10)
[2017-04-22] MEDS: oxyCODONE HCL 5 MG TABLET PO PRN ×3 (08:11→23:13)
[2017-04-22 08:52] LABS: BASO % 0.7 % (0-2.0); EOS % 3.9 % (0-4.5); HEMATOCRIT 30.8 % (32.4-45.2); HEMOGLOBIN 9.3 GM/dL (10.7-15.3); LYMPH % 45.6 % (8-40); MCH 22.5 pg (25.7-33.7); MCHC 30.1 g/dl (32.0-36.0); MEAN CELL VOLUME 74.7 fl (80-96); MEAN PLT VOLUME 7.7 fl (7.5-11.1); MONO % 8.8 % (3.8-10.2); PLATELET COUNT 277 K/MM3 (134-434); RBC 4.11 M/mm3 (3.60-5.2); RDW 14.1 % (11.6-15.6); WHITE BLOOD COUNT 7.2 K/mm3 (4.0-10.0)
[2017-04-22 09:35] LABS: CHLORIDE 107 mmol/L (98-107); POTASSIUM 4.3 mmol/L (3.5-5.1); SODIUM 139 mmol/L (136-145)
[2017-04-22 09:43] LABS: ALBUMIN 3.2 g/dl (3.4-5.0); ALK PHOS 80 U/L (45-117); ANION GAP 9 (8-16); BILIRUBIN,TOTAL 0.4 mg/dL (0.2-1.0); BLOOD UREA NITROGEN 18 mg/dL (7-18); CALCIUM 8.4 mg/dL (8.5-10.1); CO2 23 mmol/L (21-32); CREATININE 1.1 mg/dL (0.55-1.02); GLUCOSE,RANDOM 205 mg/dL (74-106); SGOT/AST 11 U/L (15-37); SGPT/ALT 29 U/L (12-78); TOT PROT 6.5 g/dl (6.4-8.2)
[2017-04-22 10:57] LABS: ERYTHROCYTE SEDIMENTATION RATE 23 mm/hr (0-30)
[2017-04-22] MEDS: MAGNESIUM OXIDE 400 MG TABLET (FP) PO SCH ×2 (11:00→21:04)
[2017-04-22] MEDS: HEPARIN NA (PORCINE) 5,000 UNITS/ML 1ML VIAL SQ SCH ×2 (11:00→21:09)
[2017-04-22] MEDS: LISINOPRIL 10 MG TABLET (FP) PO SCH (11:00)
[2017-04-22] MEDS: ASPIRIN COATED 81 MG TABLET.EC PO SCH (11:00)
[2017-04-22] MEDS: COLLAGENASE CLOSTRIDIUM HIST. 30 GRAMS TUBE TP SCH (11:01)
[2017-04-22] MEDS: VANCOMYCIN 1,250 MG in SODIUM CHLORIDE 250 ML IVPB SCH ×2 (11:03→12:40)
[2017-04-22] MEDS ORDERED: DAPTOMYCIN 600 MG in SODIUM CHLORIDE 50 ML IVPB SCH (12:45)
--- NOTE | 2017-04-22 12:48 | PN ---
Progress Note, Physician History of Present Illness: Pt seen and examined. Events noted, labs/imaging results reviewed. Pt is currently afebrile, without any new specific complaints. Dressing to Rt foot was done. - Current Medication List Current Medications: Active Medications Aspirin (Ecotrin -) 81 mg PO DAILY [facility] Last Admin: 04/22/17 11:00 Dose: 81 mg Atorvastatin Calcium (Lipitor -) 20 mg PO HS [facility] Last Admin: 04/21/17 21:33 Dose: 20 mg Collagenase (Santyl -) 1 applic TP DAILY [facility] Last Admin: 04/22/17 11:01 Dose: 1 applic Gabapentin (Neurontin -) 300 mg PO TID [facility] Last Admin: 04/22/17 06:51 Dose: 300 mg Heparin Sodium (Porcine) (Heparin -) 5,000 unit SQ BID [facility] Last Admin: 04/22/17 11:00 Dose: 5,000 unit Sodium Chloride (Normal Saline -) 1,000 mls @ 100 mls/hr IV ASDIR [facility] Last Admin: 04/21/17 14:38 Dose: Not Given Piperacillin Sod/Tazobactam (Sod 3.375 gm/ Sodium Chloride) 100 mls @ 166.667 mls/hr IVPB Q8H-IV [facility] Last Admin: 04/22/17 11:01 Dose: 166.667 mls/hr Daptomycin 600 mg/ Sodium (Chloride) 50 mls @ 50 mls/hr IVPB DAILY [facility] PRN Reason: Protocol Insulin Aspart (Novolog Vial Sliding Scale -) 1 vial SQ HS [facility] PRN Reason: Protocol Last Admin: 04/21/17 21:33 Dose: 10 units Insulin Aspart (Novolog Vial Sliding Scale -) 1 vial SQ TIDAC [facility] PRN Reason: Protocol Last Admin: 04/22/17 11:17 Dose: 12 units Insulin Detemir (Levemir Vial) 40 units SQ HS [facility] Last Admin: 04/21/17 21:33 Dose: 40 units Lisinopril (Prinivil) 10 mg PO DAILY [facility] Last Admin: 04/22/17 11:00 Dose: 10 mg Magnesium Oxide (Mag-Ox -) 400 mg PO BID [facility] Last Admin: 04/22/17 11:00 Dose: 400 mg Oxycodone HCl (Roxicodone -) 10 mg PO Q6H PRN PRN Reason: PAIN LEVEL 6-10 Last Admin: 04/22/17 08:11 Dose: 10 mg Polyethylene Glycol (Miralax (For Daily Use) -) 17 gm PO DAILY [facility] Last Admin: 04/21/17 10:32 Dose: 17 gm - Objective Vital Signs: Vital Signs Temperature 98.7 F 04/22/17 08:21 Pulse Rate 82 04/22/17 08:21 Respiratory Rate 16 04/22/17 08:21 Blood Pressure 129/70 04/22/17 08:21 O2 Sat by Pulse Oximetry (%) 97 04/22/17 08:00 Constitutional: Yes: No Distress, Calm Cardiovascular: Yes: Regular Rate and Rhythm Respiratory: Yes: CTA Bilaterally Gastrointestinal: Yes: Normal Bowel Sounds, Soft Wound/Incision: Yes: Dressing Dry and Intact Neurological: Yes: Alert Labs: CBC, BMP 04/22/17 08:00 04/22/17 08:00 Microbiology 04/18/17 09:24 Foot - Right Gram Stain - Final 04/18/17 09:24 Foot - Right Wound Culture - Final Morganella Morganii Mr S Aureus Vr Ec Faecalis Diphtheroid/Corynebacterium - ....Imaging MRI: Report Reviewed Problem List - Problems (1) Chronic osteomyelitis of foot Code(s): M86.679 - OTHER CHRONIC OSTEOMYELITIS, UNSPECIFIED ANKLE AND FOOT (2) Diabetes mellitus Code(s): E11.9 - TYPE 2 DIABETES MELLITUS WITHOUT COMPLICATIONS (3) Open wound of foot Code(s): S91.309A - UNSPECIFIED OPEN WOUND, UNSPECIFIED FOOT, INITIAL ENCOUNTER (4) Amputated toe of right foot Code(s): Z89.421 - ACQUIRED ABSENCE OF OTHER RIGHT TOE(S) (5) Diabetes Code(s): E11.9 - TYPE 2 DIABETES MELLITUS WITHOUT COMPLICATIONS Qualifiers: Diabetes mellitus type: type 2 Assessment/Plan Rt 1st toe amputation site polymicrobial infection/Osteomyelitis -- d/c Vancomycin -- start Daptomycin, continue Zosyn -- * hold statin while on Daptomycin -- order ck level - surgery following
--- NOTE | 2017-04-22 14:22 | PN ---
Progress Note (short form) - Note Progress Note: Feels better Less foot pain today blood sugar >200 No Hypos Vital Signs Period Temp Pulse Resp BP Sys/Castillo Pulse Ox Last 24 Hr 97.6 F-98.7 F 77-82 12-18 120-145/56-70 96-97 PE: AOx3 Neck: Supple, No JVD HEENT: PERRL, EOMI Lungs: CTA CVS: S1S2 Abd: Benign Ext: rt foot dressing Neuro: No focal deficit CBC, BMP 04/22/17 08:00 04/22/17 08:00 Current Medications Generic Name Dose Route Start Last Admin Trade Name Freq PRN Reason Stop Dose Admin Aspirin 81 mg 04/19/17 10:00 04/22/17 11:00 Ecotrin - PO 81 mg DAILY [facility] Administration Atorvastatin Calcium 20 mg 04/20/17 22:00 04/21/17 21:33 Lipitor - PO 20 mg HS KE Administration Collagenase 1 applic 04/18/17 18:15 04/22/17 11:01 Santyl - TP 1 applic DAILY [facility] Administration Gabapentin 300 mg 04/18/17 22:00 04/22/17 13:21 Neurontin - PO 300 mg TID KE Administration Heparin Sodium (Porcine) 5,000 unit 04/18/17 22:00 04/22/17 11:00 Heparin - SQ 5,000 unit BID KE Administration Sodium Chloride 1,000 mls @ 100 mls/hr 04/20/17 13:00 04/21/17 14:38 Normal Saline - IV Not Given ASDIR KE Piperacillin Sod/Tazobactam 100 mls @ 166.667 mls/hr 04/21/17 02:00 04/22/17 11:01 Sod 3.375 gm/ Sodium Chloride IVPB 166.667 mls/hr Q8H-IV [facility] Administration Vancomycin HCl 1,000 mg/ 250 mls @ 250 mls/hr 04/22/17 14:00 Dextrose IVPB BID@0200,1400 [facility] Protocol Insulin Aspart 1 vial 04/21/17 22:00 04/21/17 21:33 Novolog Vial Sliding Scale - SQ 10 units HS [facility] Administration Protocol Insulin Aspart 1 vial 04/22/17 14:19 Novolog Vial Sliding Scale - SQ TIDAC [facility] Protocol Insulin Detemir 46 units 04/22/17 22:00 Levemir Vial SQ HS [facility] Lisinopril 10 mg 04/19/17 10:00 04/22/17 11:00 Prinivil PO 10 mg DAILY [facility] Administration Magnesium Oxide 400 mg 04/21/17 10:00 04/22/17 11:00 Mag-Ox - PO 400 mg BID [facility] Administration Oxycodone HCl 10 mg 04/19/17 10:35 04/22/17 08:11 Roxicodone - PO 10 mg Q6H PRN Administration PAIN LEVEL 6-10 Polyethylene Glycol 17 gm 04/20/17 10:00 04/21/17 10:32 Miralax (For Daily Use) - PO 17 gm DAILY [facility] Administration RT foot infection/Osteo s/P Rt big toe amputation T2DM Anemia IV Abx Local wound care as per surgery Hematology consult noted Increase Levemir 46 units daily at HS Increase Novolog coverage No Oral hypoglycemics for now Will f/u Problem List - Problems (1) Diabetes mellitus Code(s): E11.9 - TYPE 2 DIABETES MELLITUS WITHOUT COMPLICATIONS (2) Open wound of foot Code(s): S91.309A - UNSPECIFIED OPEN WOUND, UNSPECIFIED FOOT, INITIAL ENCOUNTER
[2017-04-22] MEDS: SODIUM CHLORIDE 1,000 ML IV SCH (15:29)
[2017-04-22] MEDS: POLYETHYLENE GLYCOL 3350 119 GM BTL PO SCH (16:32)
[2017-04-22] MEDS: VANCOMYCIN 1,000 MG in DEXTROSE 5%-WATER - 250 ML IVPB SCH (16:33)
--- NOTE | 2017-04-22 16:56 | PN ---
Progress Note, Physician Chief Complaint: Right foot osteomyelitis History of Present Illness: NAD, in bed mild-moderate pain seen by ID and endocrinology seen by hematology for anemia on IV abx - Current Medication List Current Medications: Active Medications Aspirin (Ecotrin -) 81 mg PO DAILY [facility] Last Admin: 04/22/17 11:00 Dose: 81 mg Atorvastatin Calcium (Lipitor -) 20 mg PO HS [facility] Last Admin: 04/21/17 21:33 Dose: 20 mg Collagenase (Santyl -) 1 applic TP DAILY [facility] Last Admin: 04/22/17 11:01 Dose: 1 applic Gabapentin (Neurontin -) 300 mg PO TID [facility] Last Admin: 04/22/17 13:21 Dose: 300 mg Heparin Sodium (Porcine) (Heparin -) 5,000 unit SQ BID [facility] Last Admin: 04/22/17 11:00 Dose: 5,000 unit Sodium Chloride (Normal Saline -) 1,000 mls @ 100 mls/hr IV ASDIR [facility] Last Admin: 04/22/17 15:29 Dose: Not Given Piperacillin Sod/Tazobactam (Sod 3.375 gm/ Sodium Chloride) 100 mls @ 166.667 mls/hr IVPB Q8H-IV [facility] Last Admin: 04/22/17 11:01 Dose: 166.667 mls/hr Vancomycin HCl 1,000 mg/ (Dextrose) 250 mls @ 250 mls/hr IVPB BID@0200,1400 [facility] PRN Reason: Protocol Last Admin: 04/22/17 16:33 Dose: 250 mls/hr Insulin Aspart (Novolog Vial Sliding Scale -) 1 vial SQ HS [facility] PRN Reason: Protocol Last Admin: 04/21/17 21:33 Dose: 10 units Insulin Aspart (Novolog Vial Sliding Scale -) 1 vial SQ TIDAC [facility] PRN Reason: Protocol Last Admin: 04/22/17 16:39 Dose: 14 units Insulin Detemir (Levemir Vial) 46 units SQ HS [facility] Lisinopril (Prinivil) 10 mg PO DAILY [facility] Last Admin: 04/22/17 11:00 Dose: 10 mg Magnesium Oxide (Mag-Ox -) 400 mg PO BID [facility] Last Admin: 04/22/17 11:00 Dose: 400 mg Oxycodone HCl (Roxicodone -) 10 mg PO Q6H PRN PRN Reason: PAIN LEVEL 6-10 Last Admin: 04/22/17 08:11 Dose: 10 mg Polyethylene Glycol (Miralax (For Daily Use) -) 17 gm PO DAILY [facility] Last Admin: 04/22/17 16:32 Dose: 17 gm - Objective Vital Signs: Vital Signs Temperature 98.5 F 04/22/17 15:08 Pulse Rate 83 04/22/17 15:08 Respiratory Rate 18 04/22/17 15:08 Blood Pressure 127/59 04/22/17 15:08 O2 Sat by Pulse Oximetry (%) 97 04/22/17 08:00 Constitutional: Yes: Well Nourished, No Distress, Calm Cardiovascular: Yes: Regular Rate and Rhythm Respiratory: Yes: Regular Musculoskeletal: Yes: WNL Wound/Incision: Yes: Dressing Dry and Intact Neurological: Yes: Alert, Oriented Psychiatric: Yes: Alert, Oriented Labs: CBC, BMP 04/22/17 08:00 04/22/17 08:00 Problem List - Problems (1) Chronic osteomyelitis of foot Assessment/Plan: MRI reviewed -IV abx -ID on board -IVF -afebrile, no leukocytosis Code(s): M86.679 - OTHER CHRONIC OSTEOMYELITIS, UNSPECIFIED ANKLE AND FOOT (2) Toe infection Assessment/Plan: -ID consult -IV abx -Vascular consult Code(s): L08.9 - LOCAL INFECTION OF THE SKIN AND SUBCUTANEOUS TISSUE, UNSP (3) Diabetes mellitus Assessment/Plan: -seen by Endocrinology -last A1c at 10.1 -insulin sliding scale -diabetic diet Code(s): E11.9 - TYPE 2 DIABETES MELLITUS WITHOUT COMPLICATIONS (4) Anemia Assessment/Plan: likely Anemia of chronic disease stool OB pending -seen by hematology Code(s): D64.9 - ANEMIA, UNSPECIFIED Assessment/Plan see problem list
[2017-04-22] MEDS: ATORVASTATIN CA 20 MG TABLET (FP) PO SCH (21:03)
[2017-04-22] MEDS ORDERED: INSULIN DETEMIR 100 UNITS/ML MDV SQ SCH (22:00)
--- NOTE | 2017-04-22 22:42 | PN ---
Progress Note (short form) - Note Progress Note: Vascular Surgery Will do debridement on monday. ID started new Antibiotic. NPO after midnight on monday. Gael beyer DO
[2017-04-23] MEDS: PIPERACILLIN/TAZOB 3.375 GM 3.375 GM in SODIUM CHLORIDE 100 ML IVPB SCH ×4 (03:03→23:38)
[2017-04-23] MEDS: VANCOMYCIN 1,000 MG in DEXTROSE 5%-WATER - 250 ML IVPB SCH ×2 (03:03→15:01)
[2017-04-23] MEDS: INSULIN SLIDING SCALE (NOVOLOG) 1 VIAL SQ SCH ×4 (06:55→22:25)
[2017-04-23] MEDS: GABAPENTIN 300 MG CAPSULE (FP) PO SCH ×3 (06:55→22:26)
[2017-04-23] MEDS ORDERED: PT OWN MED DRAWER 7, Y5N ONE ×2 (10:42→17:07)
[2017-04-23] MEDS: LISINOPRIL 10 MG TABLET (FP) PO SCH (10:44)
[2017-04-23] MEDS: MAGNESIUM OXIDE 400 MG TABLET (FP) PO SCH ×2 (10:44→22:26)
[2017-04-23] MEDS: HEPARIN NA (PORCINE) 5,000 UNITS/ML 1ML VIAL SQ SCH ×2 (10:44→22:26)
[2017-04-23] MEDS: oxyCODONE HCL 5 MG TABLET PO PRN ×2 (10:45→17:51)
[2017-04-23] MEDS: ASPIRIN COATED 81 MG TABLET.EC PO SCH (10:45)
[2017-04-23] MEDS: COLLAGENASE CLOSTRIDIUM HIST. 30 GRAMS TUBE TP SCH (10:45)
[2017-04-23] MEDS: POLYETHYLENE GLYCOL 3350 119 GM BTL PO SCH (10:46)
--- NOTE | 2017-04-23 15:03 | PN ---
Progress Note, Physician History of Present Illness: Pt remains stable, Afebrile. Denies chills, abd pain/diarrhea, cough. Pain in Rt foot controlled. - Current Medication List Current Medications: Active Medications Aspirin (Ecotrin -) 81 mg PO DAILY [facility] Last Admin: 04/23/17 10:45 Dose: 81 mg Atorvastatin Calcium (Lipitor -) 20 mg PO HS [facility] Last Admin: 04/22/17 21:03 Dose: 20 mg Collagenase (Santyl -) 1 applic TP DAILY [facility] Last Admin: 04/23/17 10:45 Dose: 1 applic Gabapentin (Neurontin -) 300 mg PO TID [facility] Last Admin: 04/23/17 14:02 Dose: 300 mg Heparin Sodium (Porcine) (Heparin -) 5,000 unit SQ BID [facility] Last Admin: 04/23/17 10:44 Dose: 5,000 unit Sodium Chloride (Normal Saline -) 1,000 mls @ 100 mls/hr IV ASDIR [facility] Last Admin: 04/22/17 15:29 Dose: Not Given Piperacillin Sod/Tazobactam (Sod 3.375 gm/ Sodium Chloride) 100 mls @ 166.667 mls/hr IVPB Q8H-IV [facility] Last Admin: 04/23/17 10:45 Dose: 166.667 mls/hr Vancomycin HCl 1,000 mg/ (Dextrose) 250 mls @ 250 mls/hr IVPB BID@0200,1400 [facility] PRN Reason: Protocol Last Admin: 04/23/17 03:03 Dose: 250 mls/hr Insulin Aspart (Novolog Vial Sliding Scale -) 1 vial SQ HS [facility] PRN Reason: Protocol Last Admin: 04/22/17 21:10 Dose: 8 units Insulin Aspart (Novolog Vial Sliding Scale -) 1 vial SQ TIDAC [facility] PRN Reason: Protocol Last Admin: 04/23/17 11:11 Dose: 14 units Insulin Detemir (Levemir Vial) 46 units SQ HS [facility] Last Admin: 04/22/17 21:09 Dose: 46 units Lisinopril (Prinivil) 10 mg PO DAILY [facility] Last Admin: 04/23/17 10:44 Dose: 10 mg Magnesium Oxide (Mag-Ox -) 400 mg PO BID [facility] Last Admin: 04/23/17 10:44 Dose: 400 mg Oxycodone HCl (Roxicodone -) 10 mg PO Q6H PRN PRN Reason: PAIN LEVEL 6-10 Last Admin: 04/23/17 10:45 Dose: 10 mg Polyethylene Glycol (Miralax (For Daily Use) -) 17 gm PO DAILY [facility] Last Admin: 04/23/17 10:46 Dose: Not Given - Objective Vital Signs: Vital Signs Temperature 99.0 F 04/23/17 08:00 Pulse Rate 86 04/23/17 08:00 Respiratory Rate 16 04/23/17 08:00 Blood Pressure 151/71 04/23/17 08:00 O2 Sat by Pulse Oximetry (%) 96 04/23/17 08:00 Constitutional: Yes: No Distress, Calm Respiratory: Yes: Regular Gastrointestinal: Yes: Normal Bowel Sounds, Soft Extremities: Yes: Other (Rt foot dressing changed) Wound/Incision: Yes: Dressing Dry and Intact Labs: CBC, BMP 04/22/17 08:00 04/22/17 08:00 Problem List - Problems (1) Chronic osteomyelitis of foot Code(s): M86.679 - OTHER CHRONIC OSTEOMYELITIS, UNSPECIFIED ANKLE AND FOOT (2) Diabetes mellitus Code(s): E11.9 - TYPE 2 DIABETES MELLITUS WITHOUT COMPLICATIONS (3) Amputated toe of right foot Code(s): Z89.421 - ACQUIRED ABSENCE OF OTHER RIGHT TOE(S) (4) Diabetes Code(s): E11.9 - TYPE 2 DIABETES MELLITUS WITHOUT COMPLICATIONS Qualifiers: Diabetes mellitus type: type 2 Assessment/Plan Rt 1st toe amputation site polymicrobial infection/Osteomyelitis - continue Zosyn/Vancomycin , monitor renal function, check Vancomycin level prior to next a.m. dose - scheduled for debridement - surgery following - continue wound care
--- NOTE | 2017-04-23 15:27 | PN ---
Progress Note (short form) - Note Progress Note: Feels better No new complaints blood sugar >200 Has been snacking after dinner No Hypos Vital Signs Period Temp Pulse Resp BP Sys/Castillo Pulse Ox Last 24 Hr 97.7 F-99.0 F 80-94 16-20 130-151/54-71 96-96 PE: AOx3 Neck: Supple, No JVD HEENT: PERRL, EOMI Lungs: CTA CVS: S1S2 Abd: Benign Ext: rt foot dressing Neuro: No focal deficit CMP Sodium 139 mmol/L (136-145) 04/22/17 08:00 Potassium 4.3 mmol/L (3.5-5.1) 04/22/17 08:00 Chloride 107 mmol/L (98-107) 04/22/17 08:00 Carbon Dioxide 23 mmol/L (21-32) 04/22/17 08:00 Anion Gap 9 (8-16) 04/22/17 08:00 BUN 18 mg/dL (7-18) 04/22/17 08:00 Creatinine 1.1 mg/dL (0.55-1.02) H 04/22/17 08:00 Creat Clearance w eGFR 51.57 (>60) 04/22/17 08:00 POC Glucometer 279 UNITS (80-120) 04/23/17 11:08 Random Glucose 205 mg/dL (74-106) H 04/22/17 08:00 Hemoglobin A1c % 10.1 % (4.8-6.0) H D 04/19/17 07:11 Calcium 8.4 mg/dL (8.5-10.1) L 04/22/17 08:00 Phosphorus 4.4 mg/dL (2.5-4.9) D 04/19/17 07:08 Magnesium 1.7 mg/dL (1.8-2.4) L 04/21/17 07:00 Iron 41 ug/dL (27-159) 04/19/17 15:00 TIBC 244 ug/dL (250-450) L 04/19/17 15:00 Iron Saturation 17 % (15-55) 04/19/17 15:00 Ferritin 82.245 ng/ml (6.9-282.5) 04/19/17 07:08 Total Bilirubin 0.4 mg/dL (0.2-1.0) 04/22/17 08:00 AST 11 U/L (15-37) L 04/22/17 08:00 ALT 29 U/L (12-78) 04/22/17 08:00 Alkaline Phosphatase 80 U/L (45-117) 04/22/17 08:00 C-Reactive Protein 2.1 MG/DL (0.00-0.3) H 04/22/17 08:00 Total Protein 6.5 g/dl (6.4-8.2) 04/22/17 08:00 Albumin 3.2 g/dl (3.4-5.0) L 04/22/17 08:00 [id number]-[id number]-Yemyxahil (%) Cancelled 04/22/17 08:00 Jgwjn-7-Hjkkxpidy (%) Cancelled 04/22/17 08:00 Beta Globulins (%) Cancelled 04/22/17 08:00 Gamma Globulins (%) Cancelled 04/22/17 08:00 M-Chance % Cancelled 04/22/17 08:00 Triglycerides 221 mg/dL (35-160) H 04/19/17 07:08 Cholesterol 263 mg/dL (50-200) H 04/19/17 07:08 Total LDL Cholesterol 175 mg/dL (5-100) H 04/19/17 07:08 HDL Cholesterol 36 mg/dL (40-60) L 04/19/17 07:08 Vitamin B12 424 pg/ml (180-914) 04/19/17 07:08 Current Medications Generic Name Dose Route Start Last Admin Trade Name Freq PRN Reason Stop Dose Admin Aspirin 81 mg 04/19/17 10:00 04/23/17 10:45 Ecotrin - PO 81 mg DAILY [facility] Administration Atorvastatin Calcium 20 mg 04/20/17 22:00 04/22/17 21:03 Lipitor - PO 20 mg HS KE Administration Collagenase 1 applic 04/18/17 18:15 04/23/17 10:45 Santyl - TP 1 applic DAILY KE Administration Gabapentin 300 mg 04/18/17 22:00 04/23/17 14:02 Neurontin - PO 300 mg TID KE Administration Heparin Sodium (Porcine) 5,000 unit 04/18/17 22:00 04/23/17 10:44 Heparin - SQ 5,000 unit BID KE Administration Sodium Chloride 1,000 mls @ 100 mls/hr 04/20/17 13:00 04/22/17 15:29 Normal Saline - IV Not Given ASDIR KE Piperacillin Sod/Tazobactam 100 mls @ 166.667 mls/hr 04/21/17 02:00 04/23/17 10:45 Sod 3.375 gm/ Sodium Chloride IVPB 166.667 mls/hr Q8H-IV [facility] Administration Vancomycin HCl 1,000 mg/ 250 mls @ 250 mls/hr 04/22/17 14:00 04/23/17 15:01 Dextrose IVPB 250 mls/hr BID@0200,1400 [facility] Administration Protocol Insulin Aspart 1 vial 04/21/17 22:00 04/22/17 21:10 Novolog Vial Sliding Scale - SQ 8 units HS [facility] Administration Protocol Insulin Aspart 1 vial 04/22/17 14:19 04/23/17 11:11 Novolog Vial Sliding Scale - SQ 14 units TIDAC [facility] Administration Protocol Insulin Detemir 46 units 04/22/17 22:00 04/22/17 21:09 Levemir Vial SQ 46 units HS [facility] Administration Lisinopril 10 mg 04/19/17 10:00 04/23/17 10:44 Prinivil PO 10 mg DAILY KE Administration Magnesium Oxide 400 mg 04/21/17 10:00 04/23/17 10:44 Mag-Ox - PO 400 mg BID KE Administration Oxycodone HCl 10 mg 04/19/17 10:35 04/23/17 10:45 Roxicodone - PO 10 mg Q6H PRN Administration PAIN LEVEL 6-10 Polyethylene Glycol 17 gm 04/20/17 10:00 04/23/17 10:46 Miralax (For Daily Use) - PO Not Given DAILY [facility] AP: RT foot infection/Osteo s/P Rt big toe amputation T2DM Anemia IV Abx Local wound care as per surgery Increase Levemir 28 units BID Increase Novolog coverage No Oral hypoglycemics for now Will f/u Problem List - Problems (1) Diabetes mellitus Code(s): E11.9 - TYPE 2 DIABETES MELLITUS WITHOUT COMPLICATIONS
[2017-04-23] MEDS: SODIUM CHLORIDE 1,000 ML IV SCH (18:07)
[2017-04-23] MEDS: INSULIN DETEMIR 100 UNITS/ML MDV SQ SCH (22:25)
[2017-04-23] MEDS: ATORVASTATIN CA 20 MG TABLET (FP) PO SCH (22:26)
[2017-04-24] MEDS ORDERED: oxyCODONE HCL 5 MG TABLET PO PRN (00:22)
[2017-04-24] MEDS: VANCOMYCIN 1,000 MG in DEXTROSE 5%-WATER - 250 ML IVPB SCH ×2 (01:55→18:53)
[2017-04-24] MEDS ORDERED: PIPERACILLIN/TAZOB 3.375 GM 3.375 GM in SODIUM CHLORIDE 100 ML IVPB ONE (06:00)
[2017-04-24] MEDS: GABAPENTIN 300 MG CAPSULE (FP) PO SCH ×3 (06:19→21:56)
[2017-04-24] MEDS: INSULIN DETEMIR 100 UNITS/ML MDV SQ SCH ×3 (06:20→21:57)
[2017-04-24] MEDS: INSULIN SLIDING SCALE (NOVOLOG) 1 VIAL SQ SCH ×4 (06:20→21:58)
[2017-04-24] MEDS ORDERED: INSULIN (NOVOLOG) ASPART 100 UNITS/ML 10ML VIAL ONE (06:43)
[2017-04-24 08:16] LABS: INR 1.01 (0.82-1.09); PROTHROMBIN TIME (PATIENT) 11.4 SEC (9.98-11.88)
[2017-04-24 08:19] LABS: ACTIVATED PTT 25.3 SECONDS (26.9-34.4)
[2017-04-24] MEDS: LISINOPRIL 10 MG TABLET (FP) PO SCH (09:37)
[2017-04-24] MEDS: POLYETHYLENE GLYCOL 3350 119 GM BTL PO SCH (10:00)
[2017-04-24] MEDS: ASPIRIN COATED 81 MG TABLET.EC PO SCH (10:00)
[2017-04-24] MEDS: MAGNESIUM OXIDE 400 MG TABLET (FP) PO SCH ×2 (10:00→21:57)
[2017-04-24] MEDS: COLLAGENASE CLOSTRIDIUM HIST. 30 GRAMS TUBE TP SCH (10:00)
[2017-04-24] MEDS: HEPARIN NA (PORCINE) 5,000 UNITS/ML 1ML VIAL SQ SCH ×2 (10:00→21:56)
[2017-04-24] MEDS ORDERED: MIDAZOLAM HCL 2 MG/2 ML SINGLE DOSE VIAL ONE ×2 (10:21→11:22)
[2017-04-24] MEDS ORDERED: LIDOCAINE HCL 1%, 10 MG/ML (20ML VIAL) INF ONE ×3 (10:24→10:56)
[2017-04-24] MEDS ORDERED: PROPOFOL 20 ML ONE (10:49)
[2017-04-24] MEDS ORDERED: LIDOCAINE HCL/PF 2% SDV 5ML VIAL ONE (10:49)
[2017-04-24] MEDS ORDERED: HYDROmorphone HCL CARPU-JECT 2 MG/1 ML DISP.SYRIN IVPUSH PRN ×2 (11:14→12:26)
--- NOTE | 2017-04-24 11:26 | OP ---
Operative Note - Note: Operative Date: 04/24/17 Pre-Operative Diagnosis: right foot ulcer necrotic Operation: excisional debridement skin, subcutaneous tissue, right foot. Placement of vac dressing Post-Operative Diagnosis: Same as Pre-op Surgeon: Gael Sullivan Anesthesia: Fractional Estimated Blood Loss (mls): 20 Operative Report Dictated: Yes
[2017-04-24] MEDS ORDERED: HYDROmorphone HCL CARPU-JECT 2 MG/1 ML DISP.SYRIN ONE (11:45)
[2017-04-24] MEDS: HYDROmorphone HCL CARPU-JECT 1 MG/1 ML DISP.SYRIN IVPUSH PRN ×4 (11:46→12:16)
[2017-04-24] MEDS: SODIUM CHLORIDE 1,000 ML IV SCH (12:40)
--- NOTE | 2017-04-24 13:03 | PN ---
Progress Note (short form) - Note Progress Note: S/P excisional debridement skin, subcutaneous tissue, right foot. Placement of vac dressing No new complaints blood sugar >200 Has been snacking after dinner No Hypos Vital Signs Period Temp Pulse Resp BP Sys/Castillo Pulse Ox Last 24 Hr 98 F-98.8 F 77-91 16-20 123-158/58-74 96-100 PE: AOx3 Neck: Supple, No JVD HEENT: PERRL, EOMI Lungs: CTA CVS: S1S2 Abd: Benign Ext: rt foot vac dressing in place Neuro: No focal deficit CMP Sodium 139 mmol/L (136-145) 04/22/17 08:00 Potassium 4.3 mmol/L (3.5-5.1) 04/22/17 08:00 Chloride 107 mmol/L (98-107) 04/22/17 08:00 Carbon Dioxide 23 mmol/L (21-32) 04/22/17 08:00 Anion Gap 9 (8-16) 04/22/17 08:00 BUN 18 mg/dL (7-18) 04/22/17 08:00 Creatinine 1.1 mg/dL (0.55-1.02) H 04/22/17 08:00 Creat Clearance w eGFR 51.57 (>60) 04/22/17 08:00 POC Glucometer 200 UNITS (80-120) 04/24/17 06:17 Random Glucose 205 mg/dL (74-106) H 04/22/17 08:00 Hemoglobin A1c % 10.1 % (4.8-6.0) H D 04/19/17 07:11 Calcium 8.4 mg/dL (8.5-10.1) L 04/22/17 08:00 Phosphorus 4.4 mg/dL (2.5-4.9) D 04/19/17 07:08 Magnesium 1.7 mg/dL (1.8-2.4) L 04/21/17 07:00 Iron 41 ug/dL (27-159) 04/19/17 15:00 TIBC 244 ug/dL (250-450) L 04/19/17 15:00 Iron Saturation 17 % (15-55) 04/19/17 15:00 Ferritin 82.245 ng/ml (6.9-282.5) 04/19/17 07:08 Total Bilirubin 0.4 mg/dL (0.2-1.0) 04/22/17 08:00 AST 11 U/L (15-37) L 04/22/17 08:00 ALT 29 U/L (12-78) 04/22/17 08:00 Alkaline Phosphatase 80 U/L (45-117) 04/22/17 08:00 C-Reactive Protein 2.1 MG/DL (0.00-0.3) H 04/22/17 08:00 Total Protein 6.5 g/dl (6.4-8.2) 04/22/17 08:00 Albumin 3.2 g/dl (3.4-5.0) L 04/22/17 08:00 Hizkx-2-Uzniboicf (%) Cancelled 04/22/17 08:00 Xttzi-3-Ecgtijwde (%) Cancelled 04/22/17 08:00 Beta Globulins (%) Cancelled 04/22/17 08:00 Gamma Globulins (%) Cancelled 04/22/17 08:00 M-Chance % Cancelled 04/22/17 08:00 Triglycerides 221 mg/dL (35-160) H 04/19/17 07:08 Cholesterol 263 mg/dL (50-200) H 04/19/17 07:08 Total LDL Cholesterol 175 mg/dL (5-100) H 04/19/17 07:08 HDL Cholesterol 36 mg/dL (40-60) L 04/19/17 07:08 Vitamin B12 424 pg/ml (180-914) 04/19/17 07:08 Current Medications Generic Name Dose Route Start Last Admin Trade Name Freq PRN Reason Stop Dose Admin Aspirin 81 mg 04/25/17 10:00 Ecotrin - PO DAILY KE Atorvastatin Calcium 20 mg 04/24/17 22:00 Lipitor - PO HS KE Collagenase 1 applic 04/25/17 10:00 Santyl - TP DAILY KE Gabapentin 300 mg 04/24/17 14:00 Neurontin - PO TID KE Heparin Sodium (Porcine) 5,000 unit 04/24/17 22:00 Heparin - SQ BID KE Hydromorphone HCl 0.5 mg 04/24/17 12:26 Dilaudid Injection - IVPUSH [id number] PRN PAIN-PACU ORDER X 4 DOSES ONLY Sodium Chloride 1,000 mls @ 100 mls/hr 04/24/17 12:16 04/24/17 12:40 Normal Saline - IV 0 mls ASDIR KE Administration Vancomycin HCl 1,000 mg/ 250 mls @ 250 mls/hr 04/24/17 14:00 Dextrose IVPB BID@0200,1400 [facility] Protocol Insulin Aspart 1 vial 04/24/17 22:00 Novolog Vial Sliding Scale - SQ HS [facility] Protocol Insulin Aspart 1 vial 04/24/17 16:30 Novolog Vial Sliding Scale - SQ TIDAC [facility] Protocol Insulin Detemir 28 units 04/24/17 22:00 Levemir Vial SQ BID@0700,2200 [facility] Lisinopril 10 mg 04/25/17 10:00 Prinivil PO DAILY [facility] Magnesium Oxide 400 mg 04/24/17 22:00 Mag-Ox - PO BID [facility] Oxycodone HCl 10 mg 04/24/17 12:16 Roxicodone - PO Q6H PRN PAIN LEVEL 7 - 10 Polyethylene Glycol 17 gm 04/25/17 10:00 Miralax (For Daily Use) - PO DAILY [facility] AP: RT foot infection/Osteo A? Excisional debridement of skin, subcutaneous tissue, right foot and Placement of vac dressing s/P Rt big toe amputation T2DM Anemia IV Abx Local wound care as per surgery Levemir 28 units BID Novolog coverage No Oral hypoglycemics for now Will f/u Problem List - Problems (1) Diabetes mellitus Code(s): E11.9 - TYPE 2 DIABETES MELLITUS WITHOUT COMPLICATIONS
[2017-04-24] MEDS ORDERED: INSULIN DETEMIR 100 UNITS/ML MDV SQ ONE (13:05)
--- NOTE | 2017-04-24 13:26 | PN ---
Progress Note, Physician Chief Complaint: patient seen and examined in PACU s/p excisional debridement of skin and subcutaneous sof tissue of right foot and placement of vac - Current Medication List Current Medications: Active Medications Aspirin (Ecotrin -) 81 mg PO DAILY [facility] Atorvastatin Calcium (Lipitor -) 20 mg PO HS [facility] Collagenase (Santyl -) 1 applic TP DAILY [facility] Gabapentin (Neurontin -) 300 mg PO TID [facility] Last Admin: 04/24/17 13:10 Dose: 300 mg Heparin Sodium (Porcine) (Heparin -) 5,000 unit SQ BID [facility] Hydromorphone HCl (Dilaudid Injection -) 0.5 mg IVPUSH [id number] PRN PRN Reason: PAIN-PACU ORDER X 4 DOSES ONLY Sodium Chloride (Normal Saline -) 1,000 mls @ 100 mls/hr IV ASDIR [facility] Last Admin: 04/24/17 12:40 Dose: 0 mls Vancomycin HCl 1,000 mg/ (Dextrose) 250 mls @ 250 mls/hr IVPB BID@0200,1400 [facility] PRN Reason: Protocol Insulin Aspart (Novolog Vial Sliding Scale -) 1 vial SQ HS [facility] PRN Reason: Protocol Insulin Aspart (Novolog Vial Sliding Scale -) 1 vial SQ TIDAC [facility] PRN Reason: Protocol Insulin Detemir (Levemir Vial) 28 units SQ BID@0700,2200 [facility] Last Admin: 04/24/17 13:10 Dose: 28 unit Lisinopril (Prinivil) 10 mg PO DAILY [facility] Magnesium Oxide (Mag-Ox -) 400 mg PO BID [facility] Oxycodone HCl (Roxicodone -) 10 mg PO Q6H PRN PRN Reason: PAIN LEVEL 7 - 10 Polyethylene Glycol (Miralax (For Daily Use) -) 17 gm PO DAILY [facility] - Objective Vital Signs: Vital Signs Temperature 98.2 F 04/24/17 12:39 Pulse Rate 80 04/24/17 12:39 Respiratory Rate 16 04/24/17 12:39 Blood Pressure 155/74 04/24/17 12:39 O2 Sat by Pulse Oximetry (%) 100 04/24/17 12:20 Constitutional: Yes: Calm Cardiovascular: Yes: Regular Rate and Rhythm, S1, S2 Respiratory: Yes: CTA Bilaterally Gastrointestinal: Yes: Normal Bowel Sounds, Soft Extremities: Yes: Other (wound vac on right foot) Neurological: Yes: Alert, Oriented Labs: CBC, BMP 04/22/17 08:00 04/22/17 08:00 INR, PTT INR 1.01 (0.82-1.09) 04/24/17 07:15 Problem List - Problems (1) Wound, open, foot Assessment/Plan: ID consult, vascular consult appreicated debridement OR today-s/p debridement and now has wound vac MRI noted for soft tissue and bone marrow edema iv abx dvt ppx Code(s): S91.309A - UNSPECIFIED OPEN WOUND, UNSPECIFIED FOOT, INITIAL ENCOUNTER (2) Hyperlipidemia Assessment/Plan: lipid profile noted start lipitor 20mg Code(s): E78.5 - HYPERLIPIDEMIA, UNSPECIFIED Qualifiers: (3) Diabetes Assessment/Plan: insulin bgm ac hs hgba1c 10.1 tight glycemic control Code(s): E11.9 - TYPE 2 DIABETES MELLITUS WITHOUT COMPLICATIONS Qualifiers: Diabetes mellitus type: type 2 (4) HTN (hypertension) Assessment/Plan: prinivil Code(s): I10 - ESSENTIAL (PRIMARY) HYPERTENSION Qualifiers:
--- NOTE | 2017-04-24 14:06 | PN ---
Progress Note, Physician History of Present Illness: patient with debridement now with wound vac patient with nausea had an episode of vomiting - Current Medication List Current Medications: Active Medications Aspirin (Ecotrin -) 81 mg PO DAILY [facility] Atorvastatin Calcium (Lipitor -) 20 mg PO HS [facility] Collagenase (Santyl -) 1 applic TP DAILY [facility] Gabapentin (Neurontin -) 300 mg PO TID [facility] Last Admin: 04/24/17 13:10 Dose: 300 mg Heparin Sodium (Porcine) (Heparin -) 5,000 unit SQ BID [facility] Hydromorphone HCl (Dilaudid Injection -) 0.5 mg IVPUSH [id number] PRN PRN Reason: PAIN-PACU ORDER X 4 DOSES ONLY Sodium Chloride (Normal Saline -) 1,000 mls @ 100 mls/hr IV ASDIR [facility] Last Admin: 04/24/17 12:40 Dose: 0 mls Vancomycin HCl 1,000 mg/ (Dextrose) 250 mls @ 250 mls/hr IVPB BID@0200,1400 [facility] PRN Reason: Protocol Insulin Aspart (Novolog Vial Sliding Scale -) 1 vial SQ HS [facility] PRN Reason: Protocol Insulin Aspart (Novolog Vial Sliding Scale -) 1 vial SQ TIDAC [facility] PRN Reason: Protocol Insulin Detemir (Levemir Vial) 28 units SQ BID@0700,2200 [facility] Last Admin: 04/24/17 13:10 Dose: 28 unit Lisinopril (Prinivil) 10 mg PO DAILY [facility] Magnesium Oxide (Mag-Ox -) 400 mg PO BID [facility] Oxycodone HCl (Roxicodone -) 10 mg PO Q6H PRN PRN Reason: PAIN LEVEL 7 - 10 Polyethylene Glycol (Miralax (For Daily Use) -) 17 gm PO DAILY [facility] - Objective Vital Signs: Vital Signs Temperature 98.2 F 04/24/17 12:39 Pulse Rate 80 04/24/17 12:39 Respiratory Rate 16 04/24/17 12:39 Blood Pressure 155/74 04/24/17 12:39 O2 Sat by Pulse Oximetry (%) 100 04/24/17 12:20 Constitutional: Yes: Calm, Mild Distress Cardiovascular: Yes: Regular Rate and Rhythm Respiratory: Yes: Regular, CTA Bilaterally Gastrointestinal: Yes: Normal Bowel Sounds, Soft Musculoskeletal: Yes: Other Extremities: Yes: Other Wound/Incision: Yes: Dressing Dry and Intact, Other (wound vac present) Neurological: Yes: Alert, Oriented Psychiatric: Yes: Alert, Oriented Labs: CBC, BMP 04/22/17 08:00 04/22/17 08:00 INR, PTT INR 1.01 (0.82-1.09) 04/24/17 07:15 Assessment/Plan Problem List - Problems (1) Wound, open, foot Code(s): S91.309A - UNSPECIFIED OPEN WOUND, UNSPECIFIED FOOT, INITIAL ENCOUNTER (2) Hyperlipidemia Code(s): E78.5 - HYPERLIPIDEMIA, UNSPECIFIED Qualifiers: (3) Diabetes Code(s): E11.9 - TYPE 2 DIABETES MELLITUS WITHOUT COMPLICATIONS Qualifiers: Diabetes mellitus type: type 2 (4) HTN (hypertension) Code(s): I10 - ESSENTIAL (PRIMARY) HYPERTENSION Qualifiers: wound debrided plan will treat as osteo will need couple of weeks of iv abx rest continue as per primary
[2017-04-24] MEDS: oxyCODONE HCL 5 MG TABLET PO PRN ×2 (16:23→23:05)
[2017-04-24] MEDS ORDERED: INSULIN SLIDING SCALE (NOVOLOG) 1 VIAL SQ SCH (16:30)
[2017-04-24] MEDS ORDERED: ONDANSETRON 4 MG/2 ML VIAL IVPUSH PRN (17:32)
[2017-04-24] MEDS: ATORVASTATIN CA 20 MG TABLET (FP) PO SCH (21:57)
[2017-04-25] MEDS: VANCOMYCIN 1,000 MG in DEXTROSE 5%-WATER - 250 ML IVPB SCH ×2 (02:18→15:11)
[2017-04-25] MEDS: GABAPENTIN 300 MG CAPSULE (FP) PO SCH ×3 (06:30→22:04)
[2017-04-25] MEDS: INSULIN DETEMIR 100 UNITS/ML MDV SQ SCH ×2 (06:30→22:06)
[2017-04-25] MEDS: INSULIN SLIDING SCALE (NOVOLOG) 1 VIAL SQ SCH ×4 (06:31→22:09)
[2017-04-25] MEDS: oxyCODONE HCL 5 MG TABLET PO PRN ×3 (06:42→22:12)
[2017-04-25] MEDS ORDERED: PT OWN MED DRAWER 7, Y5N ONE (06:52)
[2017-04-25] MEDS: MAGNESIUM OXIDE 400 MG TABLET (FP) PO SCH ×2 (09:21→22:04)
[2017-04-25] MEDS: ASPIRIN COATED 81 MG TABLET.EC PO SCH (09:21)
[2017-04-25] MEDS: LISINOPRIL 10 MG TABLET (FP) PO SCH (09:21)
[2017-04-25] MEDS: HEPARIN NA (PORCINE) 5,000 UNITS/ML 1ML VIAL SQ SCH ×2 (09:22→22:04)
[2017-04-25] MEDS: POLYETHYLENE GLYCOL 3350 119 GM BTL PO SCH (09:22)
[2017-04-25] MEDS: COLLAGENASE CLOSTRIDIUM HIST. 30 GRAMS TUBE TP SCH (09:23)
--- NOTE | 2017-04-25 09:33 | PN ---
Progress Note (short form) - Note Progress Note: Pt day#1 s/p debridement right foot under MAC. No anesthetic issues/ complications, continue current care
--- NOTE | 2017-04-25 09:52 | PN ---
Progress Note (short form) - Note Progress Note: No new complaints blood sugar slightly better No Hypos Vital Signs Period Temp Pulse Resp BP Sys/Castillo Pulse Ox Last 24 Hr 98.1 F-98.8 F 77-97 16-22 129-158/60-80 94-100 PE: AOx3 Neck: Supple, No JVD HEENT: PERRL, EOMI Lungs: CTA CVS: S1S2 Abd: Benign Ext: rt foot vac dressing in place Neuro: No focal deficit CMP Sodium 139 mmol/L (136-145) 04/22/17 08:00 Potassium 4.3 mmol/L (3.5-5.1) 04/22/17 08:00 Chloride 107 mmol/L (98-107) 04/22/17 08:00 Carbon Dioxide 23 mmol/L (21-32) 04/22/17 08:00 Anion Gap 9 (8-16) 04/22/17 08:00 BUN 18 mg/dL (7-18) 04/22/17 08:00 Creatinine 1.1 mg/dL (0.55-1.02) H 04/22/17 08:00 Creat Clearance w eGFR 51.57 (>60) 04/22/17 08:00 POC Glucometer 248 UNITS (80-120) 04/25/17 06:29 Random Glucose 205 mg/dL (74-106) H 04/22/17 08:00 Hemoglobin A1c % 10.1 % (4.8-6.0) H D 04/19/17 07:11 Calcium 8.4 mg/dL (8.5-10.1) L 04/22/17 08:00 Phosphorus 4.4 mg/dL (2.5-4.9) D 04/19/17 07:08 Magnesium 1.7 mg/dL (1.8-2.4) L 04/21/17 07:00 Iron 41 ug/dL (27-159) 04/19/17 15:00 TIBC 244 ug/dL (250-450) L 04/19/17 15:00 Iron Saturation 17 % (15-55) 04/19/17 15:00 Ferritin 82.245 ng/ml (6.9-282.5) 04/19/17 07:08 Total Bilirubin 0.4 mg/dL (0.2-1.0) 04/22/17 08:00 AST 11 U/L (15-37) L 04/22/17 08:00 ALT 29 U/L (12-78) 04/22/17 08:00 Alkaline Phosphatase 80 U/L (45-117) 04/22/17 08:00 C-Reactive Protein 2.1 MG/DL (0.00-0.3) H 04/22/17 08:00 Total Protein 6.5 g/dl (6.4-8.2) 04/22/17 08:00 Albumin 3.2 g/dl (3.4-5.0) L 04/22/17 08:00 Globulin 3.1 g/dL (2.2-3.9) 04/22/17 08:00 Ryqll-7-[id number] (%) Cancelled 04/22/17 08:00 Tntso-6-[id number] (%) Cancelled 04/22/17 08:00 Beta Globulins 1.0 g/dL (0.7-1.3) 04/22/17 08:00 Beta Globulins (%) Cancelled 04/22/17 08:00 Gamma Globulins (%) Cancelled 04/22/17 08:00 M-Chance % Cancelled 04/22/17 08:00 Triglycerides 221 mg/dL (35-160) H 04/19/17 07:08 Cholesterol 263 mg/dL (50-200) H 04/19/17 07:08 Total LDL Cholesterol 175 mg/dL (5-100) H 04/19/17 07:08 HDL Cholesterol 36 mg/dL (40-60) L 04/19/17 07:08 Vitamin B12 424 pg/ml (180-914) 04/19/17 07:08 Current Medications Generic Name Dose Route Start Last Admin Trade Name Freq PRN Reason Stop Dose Admin Aspirin 81 mg 04/25/17 10:00 04/25/17 09:21 Ecotrin - PO 81 mg DAILY KE Administration Atorvastatin Calcium 20 mg 04/24/17 22:00 04/24/17 21:57 Lipitor - PO 20 mg HS KE Administration Collagenase 1 applic 04/25/17 10:00 04/25/17 09:23 Santyl - TP Not Given DAILY KE Gabapentin 300 mg 04/24/17 14:00 04/25/17 06:30 Neurontin - PO 300 mg TID KE Administration Heparin Sodium (Porcine) 5,000 unit 04/24/17 22:00 04/25/17 09:22 Heparin - SQ 5,000 unit BID KE Administration Hydromorphone HCl 0.5 mg 04/24/17 12:26 Dilaudid Injection - IVPUSH [id number] PRN PAIN-PACU ORDER X 4 DOSES ONLY Sodium Chloride 1,000 mls @ 100 mls/hr 04/24/17 12:16 04/24/17 12:40 Normal Saline - IV 0 mls ASDIR KE Administration Vancomycin HCl 1,000 mg/ 250 mls @ 166.667 mls/hr 04/24/17 18:15 04/25/17 02: 18 Dextrose IVPB 166.667 mls/hr BID@0200,1400 [facility] Administration Protocol Insulin Aspart 1 vial 04/24/17 22:00 04/24/17 21:58 Novolog Vial Sliding Scale - SQ Not Given HS [facility] Protocol Insulin Aspart 1 vial 04/24/17 16:30 04/25/17 06:31 Novolog Vial Sliding Scale - SQ 18 units TIDAC [facility] Administration Protocol Insulin Detemir 28 units 04/24/17 22:00 04/25/17 06:30 Levemir Vial SQ 28 unit BID@0700,2200 [facility] Administration Lisinopril 10 mg 04/25/17 10:00 04/25/17 09:21 Prinivil PO 10 mg DAILY [facility] Administration Magnesium Oxide 400 mg 04/24/17 22:00 04/25/17 09:21 Mag-Ox - PO 400 mg BID [facility] Administration Ondansetron HCl 4 mg 04/24/17 17:32 04/24/17 17:43 Zofran Injection IVPUSH 4 mg Q6H PRN Administration NAUSEA Oxycodone HCl 10 mg 04/24/17 12:16 04/25/17 06:42 Roxicodone - PO 10 mg Q6H PRN Administration PAIN LEVEL 7 - 10 Polyethylene Glycol 17 gm 04/25/17 10:00 04/25/17 09:22 Miralax (For Daily Use) - PO 17 gm DAILY [facility] Administration AP: RT foot infection/Osteo S/P Excisional debridement of skin, subcutaneous tissue, right foot and Placement of vac dressing s/P Rt big toe amputation T2DM Anemia IV Abx Local wound care as per surgery Levemir 28 units BID Novolog coverage No Oral hypoglycemics for now Will f/u Problem List - Problems (1) Diabetes mellitus Code(s): E11.9 - TYPE 2 DIABETES MELLITUS WITHOUT COMPLICATIONS
[2017-04-25] MEDS ORDERED: INSULIN (NOVOLOG) ASPART 100 UNITS/ML 10ML VIAL ONE (11:40)
--- NOTE | 2017-04-25 11:58 | OP ---
DATE OF OPERATION: 04/24/2017 PREOPERATIVE DIAGNOSIS: Necrotic right foot ulcer. POSTOPERATIVE DIAGNOSIS: Necrotic right foot ulcer. PROCEDURE: Excisional debridement of skin and subcutaneous tissues with placement of vacuum-assisted closure dressing. SURGEON: Gael Wells MD ANESTHESIA: Fractional. BLOOD LOSS: 30 mL. 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 The wound was healing well until it became a little necrotic, and it started growing out resistant bacteria. She is now admitted to the hospital for IV antibiotics, and it was decided that we would debride the wound and place the VAC dressing on it. Patient was consented for the procedure understanding all risks, benefits, and alternatives, and then taken to the operating room. PROCEDURE IN DETAIL: Once in the operating suite, she was placed on the operating table in the supine manner, and the area of the right foot was prepped and draped with Betadine in a sterile surgical manner. We then went ahead and injected 15 mL of lidocaine 1% into the foot wound. We then went ahead and took Metzenbaum scissors and debrided away the skin and subcutaneous tissue and all the necrotic tissue. We then took a curette, and we were able to further debride the skin and subcutaneous tissue. We then irrigated the wound copiously. Bovie electrocautery was used to control all hemostasis. We then went ahead and took a small foam VAC dressing, cut it to size for the wound, put it on the wound, and VAC dressing was placed onto the foot, and the tubing was attached to the wound, and the VAC was turned on. There was good negative pressure in the wound now. At this point, the rest of the foot was wet and dried, and the patient was transferred to PACU in stable condition. Total blood loss 30 mL. Patient tolerated the procedure with no complications. GAEL WELLS DO [id number]
[2017-04-25] MEDS ORDERED: PICC LINE 8 ML FLUSH PROTOCOL IVPUSH PRN (13:52)
--- NOTE | 2017-04-25 13:52 | PN ---
Progress Note, Physician Chief Complaint: patient seen in room no distress - Current Medication List Current Medications: Active Medications Aspirin (Ecotrin -) 81 mg PO DAILY [facility] Last Admin: 04/25/17 09:21 Dose: 81 mg Atorvastatin Calcium (Lipitor -) 20 mg PO HS [facility] Last Admin: 04/24/17 21:57 Dose: 20 mg Collagenase (Santyl -) 1 applic TP DAILY [facility] Last Admin: 04/25/17 09:23 Dose: Not Given Gabapentin (Neurontin -) 300 mg PO TID [facility] Last Admin: 04/25/17 06:30 Dose: 300 mg Heparin Sodium (Porcine) (Heparin -) 5,000 unit SQ BID [facility] Last Admin: 04/25/17 09:22 Dose: 5,000 unit Hydromorphone HCl (Dilaudid Injection -) 0.5 mg IVPUSH [id number] PRN PRN Reason: PAIN-PACU ORDER X 4 DOSES ONLY Sodium Chloride (Normal Saline -) 1,000 mls @ 100 mls/hr IV ASDIR [facility] Last Admin: 04/24/17 12:40 Dose: 0 mls Vancomycin HCl 1,000 mg/ (Dextrose) 250 mls @ 166.667 mls/hr IVPB BID@0200, 1400 [facility] PRN Reason: Protocol Last Admin: 04/25/17 02:18 Dose: 166.667 mls/hr Insulin Aspart (Novolog Vial Sliding Scale -) 1 vial SQ [facility] PRN Reason: Protocol Last Admin: 04/24/17 21:58 Dose: Not Given Insulin Aspart (Novolog Vial Sliding Scale -) 1 vial SQ TIDAC [facility] PRN Reason: Protocol Last Admin: 04/25/17 11:50 Dose: 18 units Insulin Detemir (Levemir Vial) 28 units SQ BID@0700,2200 [facility] Last Admin: 04/25/17 06:30 Dose: 28 unit Lisinopril (Prinivil) 10 mg PO DAILY [facility] Last Admin: 04/25/17 09:21 Dose: 10 mg Magnesium Oxide (Mag-Ox -) 400 mg PO BID [facility] Last Admin: 04/25/17 09:21 Dose: 400 mg Ondansetron HCl (Zofran Injection) 4 mg IVPUSH Q6H PRN PRN Reason: NAUSEA Last Admin: 04/24/17 17:43 Dose: 4 mg Oxycodone HCl (Roxicodone -) 10 mg PO Q6H PRN PRN Reason: PAIN LEVEL 7 - 10 Last Admin: 04/25/17 06:42 Dose: 10 mg Polyethylene Glycol (Miralax (For Daily Use) -) 17 gm PO DAILY [facility] Last Admin: 04/25/17 09:22 Dose: 17 gm - Objective Vital Signs: Vital Signs Temperature 98.8 F 04/25/17 06:00 Pulse Rate 87 04/25/17 06:00 Respiratory Rate 16 04/25/17 06:00 Blood Pressure 133/60 04/25/17 06:00 O2 Sat by Pulse Oximetry (%) 94 L 04/24/17 21:00 Constitutional: Yes: Calm Cardiovascular: Yes: Regular Rate and Rhythm, S1, S2 Respiratory: Yes: CTA Bilaterally Gastrointestinal: Yes: Normal Bowel Sounds, Soft Wound/Incision: Yes: Other (wound vac right foot) Psychiatric: Yes: Alert, Oriented Labs: CBC, BMP 04/22/17 08:00 04/22/17 08:00 INR, PTT INR 1.01 (0.82-1.09) 04/24/17 07:15 Problem List - Problems (1) Wound, open, foot Assessment/Plan: ID consult, vascular consult appreicated debridement OR today-s/p debridement and now has wound vac MRI noted for soft tissue and bone marrow edema will need 6 week of iv abx iv abx- vancomycin BID dvt ppx Microbiology 04/18/17 09:24 Foot - Right Gram Stain - Final 04/18/17 09:24 Foot - Right Wound Culture - Final Morganella Morganii Mr S Aureus Vr Ec Faecalis Diphtheroid/Corynebacterium Code(s): S91.309A - UNSPECIFIED OPEN WOUND, UNSPECIFIED FOOT, INITIAL ENCOUNTER (2) Hyperlipidemia Assessment/Plan: lipid profile noted start lipitor 20mg Code(s): E78.5 - HYPERLIPIDEMIA, UNSPECIFIED Qualifiers: (3) Diabetes Assessment/Plan: insulin bgm ac hs hgba1c 10.1 tight glycemic control Code(s): E11.9 - TYPE 2 DIABETES MELLITUS WITHOUT COMPLICATIONS Qualifiers: Diabetes mellitus type: type 2 (4) HTN (hypertension) Assessment/Plan: prinivil Code(s): I10 - ESSENTIAL (PRIMARY) HYPERTENSION Qualifiers:
--- NOTE | 2017-04-25 14:04 | PN ---
Progress Note, Physician History of Present Illness: patient with debridement now with wound vac - Current Medication List Current Medications: Active Medications Aspirin (Ecotrin -) 81 mg PO DAILY [facility] Last Admin: 04/25/17 09:21 Dose: 81 mg Atorvastatin Calcium (Lipitor -) 20 mg PO HS [facility] Last Admin: 04/24/17 21:57 Dose: 20 mg Collagenase (Santyl -) 1 applic TP DAILY [facility] Last Admin: 04/25/17 09:23 Dose: Not Given Gabapentin (Neurontin -) 300 mg PO TID [facility] Last Admin: 04/25/17 06:30 Dose: 300 mg Heparin Sodium (Porcine) (Heparin -) 5,000 unit SQ BID [facility] Last Admin: 04/25/17 09:22 Dose: 5,000 unit Hydromorphone HCl (Dilaudid Injection -) 0.5 mg IVPUSH [id number] PRN PRN Reason: PAIN-PACU ORDER X 4 DOSES ONLY IV Flush (Picc Line Flush) 8 ml IVPUSH PRN PRN PRN Reason: Protocol Sodium Chloride (Normal Saline -) 1,000 mls @ 100 mls/hr IV ASDIR [facility] Last Admin: 04/24/17 12:40 Dose: 0 mls Vancomycin HCl 1,000 mg/ (Dextrose) 250 mls @ 166.667 mls/hr IVPB BID@0200, 1400 [facility] PRN Reason: Protocol Last Admin: 04/25/17 02:18 Dose: 166.667 mls/hr Insulin Aspart (Novolog Vial Sliding Scale -) 1 vial SQ [facility] PRN Reason: Protocol Last Admin: 04/24/17 21:58 Dose: Not Given Insulin Aspart (Novolog Vial Sliding Scale -) 1 vial SQ TIDAC [facility] PRN Reason: Protocol Last Admin: 04/25/17 11:50 Dose: 18 units Insulin Detemir (Levemir Vial) 28 units SQ BID@0700,2200 [facility] Last Admin: 04/25/17 06:30 Dose: 28 unit Lisinopril (Prinivil) 10 mg PO DAILY [facility] Last Admin: 04/25/17 09:21 Dose: 10 mg Magnesium Oxide (Mag-Ox -) 400 mg PO BID [facility] Last Admin: 04/25/17 09:21 Dose: 400 mg Ondansetron HCl (Zofran Injection) 4 mg IVPUSH Q6H PRN PRN Reason: NAUSEA Last Admin: 04/24/17 17:43 Dose: 4 mg Oxycodone HCl (Roxicodone -) 10 mg PO Q6H PRN PRN Reason: PAIN LEVEL 7 - 10 Last Admin: 04/25/17 06:42 Dose: 10 mg Polyethylene Glycol (Miralax (For Daily Use) -) 17 gm PO DAILY [facility] Last Admin: 04/25/17 09:22 Dose: 17 gm - Objective Vital Signs: Vital Signs Temperature 98.8 F 04/25/17 06:00 Pulse Rate 87 04/25/17 06:00 Respiratory Rate 16 04/25/17 06:00 Blood Pressure 133/60 04/25/17 06:00 O2 Sat by Pulse Oximetry (%) 94 L 04/24/17 21:00 Constitutional: Yes: No Distress, Calm Cardiovascular: Yes: Regular Rate and Rhythm Respiratory: Yes: Regular, CTA Bilaterally Gastrointestinal: Yes: Normal Bowel Sounds, Soft Musculoskeletal: Yes: Other Extremities: Yes: Other Wound/Incision: Yes: Other (wound vac in place) Neurological: Yes: Alert, Oriented Psychiatric: Yes: Alert, Oriented Labs: CBC, BMP 04/22/17 08:00 04/22/17 08:00 INR, PTT INR 1.01 (0.82-1.09) 04/24/17 07:15 Assessment/Plan Problem List - Problems (1) Wound, open, foot Code(s): S91.309A - UNSPECIFIED OPEN WOUND, UNSPECIFIED FOOT, INITIAL ENCOUNTER (2) Hyperlipidemia Code(s): E78.5 - HYPERLIPIDEMIA, UNSPECIFIED Qualifiers: (3) Diabetes Code(s): E11.9 - TYPE 2 DIABETES MELLITUS WITHOUT COMPLICATIONS Qualifiers: Diabetes mellitus type: type 2 (4) HTN (hypertension) Code(s): I10 - ESSENTIAL (PRIMARY) HYPERTENSION Qualifiers: wound debrided plan will treat as osteo will need couple of weeks of iv abx rest continue as per primary patient needs to get 1 gm of vanco daily and zosyn 3.375mg daily abx for a total of 3 weeks
[2017-04-25 16:29] LABS: HGB SOLUBILITY Negative (Negative); Hgb A 98.2 % (96.4-98.8); Hgb C 0 % (0.0); Hgb F 0 % (0.0-2.0); Hgb S 0 % (0.0)
[2017-04-25] MEDS: ATORVASTATIN CA 20 MG TABLET (FP) PO SCH (22:04)
[2017-04-26] MEDS: VANCOMYCIN 1,000 MG in DEXTROSE 5%-WATER - 250 ML IVPB SCH ×2 (01:29→13:12)
[2017-04-26] MEDS: oxyCODONE HCL 5 MG TABLET PO PRN ×2 (05:48→14:32)
[2017-04-26] MEDS: GABAPENTIN 300 MG CAPSULE (FP) PO SCH ×2 (05:49→14:32)
[2017-04-26] MEDS: INSULIN DETEMIR 100 UNITS/ML MDV SQ SCH (06:54)
[2017-04-26] MEDS: INSULIN SLIDING SCALE (NOVOLOG) 1 VIAL SQ SCH ×3 (06:54→16:42)
[2017-04-26 08:08] LABS: HEMOGLOBIN 8.8 GM/dL (10.7-15.3); MCH 22.7 pg (25.7-33.7); MCHC 30.3 g/dl (32.0-36.0); MEAN CELL VOLUME 74.8 fl (80-96); MEAN PLT VOLUME 7.7 fl (7.5-11.1); PLATELET COUNT 284 K/MM3 (134-434); RBC 3.87 M/mm3 (3.60-5.2); RDW 14.2 % (11.6-15.6); WHITE BLOOD COUNT 6.9 K/mm3 (4.0-10.0)
[2017-04-26 08:42] LABS: ANION GAP 6 (8-16); BILIRUBIN,TOTAL 0.3 mg/dL (0.2-1.0); CALCIUM 8.4 mg/dL (8.5-10.1); CHLORIDE 104 mmol/L (98-107); CO2 28 mmol/L (21-32); GLUCOSE,RANDOM 223 mg/dL (74-106); POTASSIUM 4.6 mmol/L (3.5-5.1); SGOT/AST 10 U/L (15-37); SGPT/ALT 26 U/L (12-78); SODIUM 138 mmol/L (136-145); TOT PROT 6.1 g/dl (6.4-8.2)
[2017-04-26 08:43] LABS: ALK PHOS 76 U/L (45-117); BLOOD UREA NITROGEN 17 mg/dL (7-18)
[2017-04-26] MEDS: HEPARIN NA (PORCINE) 5,000 UNITS/ML 1ML VIAL SQ SCH (09:39)
[2017-04-26] MEDS: ASPIRIN COATED 81 MG TABLET.EC PO SCH (09:40)
[2017-04-26] MEDS: POLYETHYLENE GLYCOL 3350 119 GM BTL PO SCH (09:40)
--- NOTE | 2017-04-26 10:14 | DS ---
Physical Examination Vital Signs: Vital Signs Temperature 98.8 F 04/26/17 09:23 Pulse Rate 85 04/26/17 09:23 Respiratory Rate 18 04/26/17 09:23 Blood Pressure 127/59 04/26/17 09:23 O2 Sat by Pulse Oximetry (%) 95 04/25/17 21:00 Constitutional: Yes: Well Nourished, No Distress, Calm Cardiovascular: Yes: Regular Rate and Rhythm Respiratory: Yes: Regular Gastrointestinal: Yes: Normal Bowel Sounds Musculoskeletal: Yes: WNL Extremities: Yes: WNL (except noted right foot wound debridement) Edema: No Peripheral Pulses WNL: Yes Wound/Incision: Yes: Dressing Dry and Intact Neurological: Yes: Alert, Oriented Psychiatric: Yes: Alert, Oriented Labs: CBC, BMP 04/26/17 06:30 04/26/17 06:30 Discharge Summary Reason For Visit: TYPE 2 DM,INFECTION OF TOE Current Active Problems Anemia (Acute) Chronic osteomyelitis of foot (Acute) Diabetes mellitus (Acute) Diabetic foot ulcer associated with diabetes mellitus due to underlying condition (Acute) Hospital Course: Pt is a 57yo F with PMHx of DM2 (last A1C 9.8) with a non-healing R diabetic toe infection, who was seen by Dr Grover and Dr Sullivan at the wound clinic yesterday and was informed to come to the ER today for an admission. 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 She was treated with IV antibiotics at a long term with some relief, but 2 weeks post -discharge she had localized pain, drainage, and pressure. She has been regularly following Dr. Sullivan at the wound clinic, and had a recent excisional debridement of the R toe amputation site, which grew polymicrobial organisms including MRSA and Enterococcus. She was seen in the wound clinic yesterday, and was told she will be admitted for IV antibiotics and possible I&D in the OR. She states the pain is getting worse, with increase drainage, swelling, and foul smelling odor. She denies generalized symptoms such as fevers, chills, malaise. per patient she was in [facility] from dec to mar for iv abx for osteo and she said when she left the facility her wound was pink. she says in last 3 weeks it has gotten yellowish color with discharge Condition: Stable - Instructions Referrals: Xavier Solares MD [Primary Care Provider] - Disposition: INTERMEDIATE FACILITY - Home Medications Comprehensive Discharge Medication List: Ambulatory Orders Glyburide/Metformin HCl [Glucovance 5-500 mg Tablet] 1 each PO DAILY #0 Cholecalciferol (Vitamin D3) [Vitamin D -] 400 unit PO DAILY 05/24/16 Aspirin [ASA -] 81 mg PO DAILY 09/21/16 Gabapentin [Neurontin] 1 cap PO TID 10/28/16 Lisinopril [Prinivil] 10 mg PO DAILY tablet 12/01/16 Calcium Carbonate [Calcium] 0 mg PO DAILY 04/10/17 Collagenase Clostridium Hist. [Santyl] 1 applic TP DAILY 04/10/17 Docusate Sodium [Colace] 100 mg PO TID 04/10/17 Ferrous Sulfate 325 mg PO TID 04/10/17 Insulin (LOG) Aspart [NovoLOG -] 0 units SQ TID 04/10/17 Insulin Glargine,Hum.rec.anlog [Lantus] 36 unit SQ HS 04/10/17 Atorvastatin Ca [Lipitor] 10 mg PO HS 04/18/17 Oxycodone HCl/Acetaminophen [Percocet 5-325 mg Tablet] 1 tab PO PRN 04/18/17 Ranitidine HCl 75 mg PO DAILY 04/18/17
[2017-04-26] MEDS: LISINOPRIL 10 MG TABLET (FP) PO SCH (11:39)
[2017-04-26] MEDS: MAGNESIUM OXIDE 400 MG TABLET (FP) PO SCH (11:39)
[2017-04-26] MEDS: COLLAGENASE CLOSTRIDIUM HIST. 30 GRAMS TUBE TP SCH (11:41)
[2017-04-26] MEDS ORDERED: PIPERACILLIN/TAZOB 3.375 GM 50 ML IVPB SCH (13:15)
--- NOTE | 2017-04-26 13:21 | PN ---
Progress Note (short form) - Note Progress Note: No new complaints blood sugar 200s today No Hypos Vital Signs Period Temp Pulse Resp BP Sys/Castillo Pulse Ox Last 24 Hr 98.0 F-98.8 F 84-91 18-20 127-144/59-90 95-95 PE: AOx3 Neck: Supple, No JVD HEENT: PERRL, EOMI Lungs: CTA CVS: S1S2 Abd: Benign Ext: rt foot vac dressing in place Neuro: No focal deficit CMP Sodium 138 mmol/L (136-145) 04/26/17 06:30 Potassium 4.6 mmol/L (3.5-5.1) 04/26/17 06:30 Chloride 104 mmol/L (98-107) 04/26/17 06:30 Carbon Dioxide 28 mmol/L (21-32) 04/26/17 06:30 Anion Gap 6 (8-16) L 04/26/17 06:30 BUN 17 mg/dL (7-18) 04/26/17 06:30 Creatinine 1.0 mg/dL (0.55-1.02) 04/26/17 06:30 Creat Clearance w eGFR 57.56 (>60) 04/26/17 06:30 POC Glucometer 263 UNITS (80-120) 04/26/17 11:46 Random Glucose 223 mg/dL (74-106) H 04/26/17 06:30 Hemoglobin A1c % 10.1 % (4.8-6.0) H D 04/19/17 07:11 Calcium 8.4 mg/dL (8.5-10.1) L 04/26/17 06:30 Phosphorus 4.4 mg/dL (2.5-4.9) D 04/19/17 07:08 Magnesium 1.7 mg/dL (1.8-2.4) L 04/21/17 07:00 Iron 41 ug/dL (27-159) 04/19/17 15:00 TIBC 244 ug/dL (250-450) L 04/19/17 15:00 Iron Saturation 17 % (15-55) 04/19/17 15:00 Ferritin 82.245 ng/ml (6.9-282.5) 04/19/17 07:08 Total Bilirubin 0.3 mg/dL (0.2-1.0) D 04/26/17 06:30 AST 10 U/L (15-37) L 04/26/17 06:30 ALT 26 U/L (12-78) 04/26/17 06:30 Alkaline Phosphatase 76 U/L (45-117) 04/26/17 06:30 C-Reactive Protein 2.1 MG/DL (0.00-0.3) H 04/22/17 08:00 Total Protein 6.1 g/dl (6.4-8.2) L 04/26/17 06:30 Albumin 3.0 g/dl (3.4-5.0) L 04/26/17 06:30 Globulin 3.1 g/dL (2.2-3.9) 04/22/17 08:00 [id number] (%) Cancelled 04/22/17 08:00 [id number] (%) Cancelled 04/22/17 08:00 Beta Globulins 1.0 g/dL (0.7-1.3) 04/22/17 08:00 Beta Globulins (%) Cancelled 04/22/17 08:00 Gamma Globulins (%) Cancelled 04/22/17 08:00 M-Chance % Cancelled 04/22/17 08:00 Triglycerides 221 mg/dL (35-160) H 04/19/17 07:08 Cholesterol 263 mg/dL (50-200) H 04/19/17 07:08 Total LDL Cholesterol 175 mg/dL (5-100) H 04/19/17 07:08 HDL Cholesterol 36 mg/dL (40-60) L 04/19/17 07:08 Vitamin B12 424 pg/ml (180-914) 04/19/17 07:08 Current Medications Generic Name Dose Route Start Last Admin Trade Name Freq PRN Reason Stop Dose Admin Aspirin 81 mg 04/25/17 10:00 04/26/17 09:40 Ecotrin - PO Not Given DAILY KE Atorvastatin Calcium 20 mg 04/24/17 22:00 04/25/17 22:04 Lipitor - PO 20 mg HS KE Administration Collagenase 1 applic 04/25/17 10:00 04/26/17 11:41 Santyl - TP Not Given DAILY KE Gabapentin 300 mg 04/24/17 14:00 04/26/17 05:49 Neurontin - PO 300 mg TID KE Administration Heparin Sodium (Porcine) 5,000 unit 04/24/17 22:00 04/26/17 09:39 Heparin - SQ Not Given BID [facility] Hydromorphone HCl 0.5 mg 04/24/17 12:26 Dilaudid Injection - IVPUSH [id number] PRN PAIN-PACU ORDER X 4 DOSES ONLY IV Flush 8 ml 04/25/17 13:52 Picc Line Flush IVPUSH PRN PRN Protocol Sodium Chloride 1,000 mls @ 100 mls/hr 04/24/17 12:16 04/24/17 12:40 Normal Saline - IV 0 mls ASDIR [facility] Administration Vancomycin HCl 1,000 mg/ 250 mls @ 166.667 mls/hr 04/24/17 18:15 04/26/17 13: 12 Dextrose IVPB Not Given BID@0200,1400 [facility] Protocol Piperacillin/Tazobactam/Dextrose 50 mls @ 100 mls/hr 04/26/17 13:15 Zosyn 3.375gm Ivpb (Premix) IVPB Q8H-IV [facility] Protocol Insulin Aspart 1 vial 04/24/17 22:00 04/25/17 22:09 Novolog Vial Sliding Scale - SQ 8 units HS [facility] Administration Protocol Insulin Aspart 1 vial 04/24/17 16:30 04/26/17 12:08 Novolog Vial Sliding Scale - SQ 22 units TIDAC [facility] Administration Protocol Insulin Detemir 28 units 04/24/17 22:00 04/26/17 06:54 Levemir Vial SQ 28 unit BID@0700,2200 [facility] Administration Lisinopril 10 mg 04/25/17 10:00 04/26/17 11:39 Prinivil PO 10 mg DAILY [facility] Administration Magnesium Oxide 400 mg 04/24/17 22:00 04/26/17 11:39 Mag-Ox - PO 400 mg BID [facility] Administration Ondansetron HCl 4 mg 04/24/17 17:32 04/24/17 17:43 Zofran Injection IVPUSH 4 mg Q6H PRN Administration NAUSEA Oxycodone HCl 10 mg 04/24/17 12:16 04/26/17 05:48 Roxicodone - PO 10 mg Q6H PRN Administration PAIN LEVEL 7 - 10 Polyethylene Glycol 17 gm 04/25/17 10:00 04/26/17 09:40 Miralax (For Daily Use) - PO Not Given DAILY KE AP: RT foot infection/Osteo S/P Excisional debridement of skin, subcutaneous tissue, right foot and Placement of vac dressing s/P Rt big toe amputation T2DM Anemia IV Abx Local wound care as per surgery Increase Levemir 34 units BID Novolog coverage No Oral hypoglycemics for now Will f/u Problem List - Problems (1) Diabetes mellitus Code(s): E11.9 - TYPE 2 DIABETES MELLITUS WITHOUT COMPLICATIONS
--- NOTE | 2017-04-26 13:25 | PN ---
Progress Note, Physician History of Present Illness: patient stable no new issues - Current Medication List Current Medications: Active Medications Aspirin (Ecotrin -) 81 mg PO DAILY [facility] Last Admin: 04/26/17 09:40 Dose: Not Given Atorvastatin Calcium (Lipitor -) 20 mg PO HS [facility] Last Admin: 04/25/17 22:04 Dose: 20 mg Collagenase (Santyl -) 1 applic TP DAILY [facility] Last Admin: 04/26/17 11:41 Dose: Not Given Gabapentin (Neurontin -) 300 mg PO TID [facility] Last Admin: 04/26/17 05:49 Dose: 300 mg Heparin Sodium (Porcine) (Heparin -) 5,000 unit SQ BID [facility] Last Admin: 04/26/17 09:39 Dose: Not Given Hydromorphone HCl (Dilaudid Injection -) 0.5 mg IVPUSH [id number] PRN PRN Reason: PAIN-PACU ORDER X 4 DOSES ONLY IV Flush (Picc Line Flush) 8 ml IVPUSH PRN PRN PRN Reason: Protocol Sodium Chloride (Normal Saline -) 1,000 mls @ 100 mls/hr IV ASDIR [facility] Last Admin: 04/24/17 12:40 Dose: 0 mls Vancomycin HCl 1,000 mg/ (Dextrose) 250 mls @ 166.667 mls/hr IVPB BID@0200, 1400 [facility] PRN Reason: Protocol Last Admin: 04/26/17 13:12 Dose: Not Given Piperacillin/Tazobactam/Dextrose (Zosyn 3.375gm Ivpb (Premix)) 50 mls @ 100 mls /hr IVPB Q8H-IV [facility] PRN Reason: Protocol Insulin Aspart (Novolog Vial Sliding Scale -) 1 vial SQ [facility] PRN Reason: Protocol Last Admin: 04/25/17 22:09 Dose: 8 units Insulin Aspart (Novolog Vial Sliding Scale -) 1 vial SQ TIDAC [facility] PRN Reason: Protocol Last Admin: 04/26/17 12:08 Dose: 22 units Insulin Detemir (Levemir Vial) 28 units SQ BID@0700,2200 [facility] Last Admin: 04/26/17 06:54 Dose: 28 unit Lisinopril (Prinivil) 10 mg PO DAILY [facility] Last Admin: 04/26/17 11:39 Dose: 10 mg Magnesium Oxide (Mag-Ox -) 400 mg PO BID [facility] Last Admin: 04/26/17 11:39 Dose: 400 mg Ondansetron HCl (Zofran Injection) 4 mg IVPUSH Q6H PRN PRN Reason: NAUSEA Last Admin: 04/24/17 17:43 Dose: 4 mg Oxycodone HCl (Roxicodone -) 10 mg PO Q6H PRN PRN Reason: PAIN LEVEL 7 - 10 Last Admin: 04/26/17 05:48 Dose: 10 mg Polyethylene Glycol (Miralax (For Daily Use) -) 17 gm PO DAILY [facility] Last Admin: 04/26/17 09:40 Dose: Not Given - Objective Vital Signs: Vital Signs Temperature 98.8 F 04/26/17 09:23 Pulse Rate 85 04/26/17 09:23 Respiratory Rate 18 04/26/17 09:23 Blood Pressure 127/59 04/26/17 09:23 O2 Sat by Pulse Oximetry (%) 95 04/26/17 09:00 Constitutional: Yes: No Distress, Calm Cardiovascular: Yes: Regular Rate and Rhythm Respiratory: Yes: Regular, CTA Bilaterally Gastrointestinal: Yes: Normal Bowel Sounds, Soft Musculoskeletal: Yes: Other Extremities: Yes: Other Wound/Incision: Yes: Dressing Dry and Intact, Other (wound vac in place) Neurological: Yes: Alert, Oriented Psychiatric: Yes: Alert, Oriented Labs: CBC, BMP 04/26/17 06:30 04/26/17 06:30 INR, PTT INR 1.01 (0.82-1.09) 04/24/17 07:15 Assessment/Plan Problem List - Problems (1) Wound, open, foot Code(s): S91.309A - UNSPECIFIED OPEN WOUND, UNSPECIFIED FOOT, INITIAL ENCOUNTER (2) Hyperlipidemia Code(s): E78.5 - HYPERLIPIDEMIA, UNSPECIFIED Qualifiers: (3) Diabetes Code(s): E11.9 - TYPE 2 DIABETES MELLITUS WITHOUT COMPLICATIONS Qualifiers: Diabetes mellitus type: type 2 (4) HTN (hypertension) Code(s): I10 - ESSENTIAL (PRIMARY) HYPERTENSION Qualifiers: wound debrided plan will order a stat vanco level will decide after that when vanco should be started zosyn 3.375 mg daily tid both abx for 3 weeks follow cbc bmp weekly vanco trough and adjustment of vanco dose rest as per primary
[2017-04-26] MEDS ORDERED: PT OWN MED DRAWER 7, Y5N ONE (14:25)
[2017-04-26] MEDS: SODIUM CHLORIDE 1,000 ML IV SCH (14:31)
[2017-04-26 15:26] VITALS: BP 144/58; PULSE 98; TEMP 98.3
[2017-04-26] MEDS: PIPERACILLIN/TAZOB 3.375 GM 3.375 GM in DEXTROSE 5%-WATER - 100 ML IVPB SCH ×2 (15:29→17:33)
[2017-04-26] MEDS ORDERED: INSULIN DETEMIR 100 UNITS/ML MDV SQ SCH (22:00)
[2017-04-28] MEDS ORDERED: VANCOMYCIN 1,000 MG in DEXTROSE 5%-WATER - 250 ML IVPB SCH (10:00)
== END 2017-04-26 20:38 | DRG 344 ==
LOC: JER 08:11 → JERBED 13:07 → J6S 04-20 15:55
PROVIDERS: ADMIT Student in an Organized Health Care Education/Training Program; ATTEND Student in an Organized Health Care Education/Training Program
PROC: 0JBQ0ZZ Excision of Right Foot Subcutaneous Tissue and Fascia, Open Approach (ICD-10-PCS; principal; 2017-04-24 10:00)
PROC: 05HB33Z Insertion of Infusion Device into Right Basilic Vein, Percutaneous Approach (ICD-10-PCS; 2017-04-26)
PROC: B51MZZA Fluoroscopy of Right Upper Extremity Veins, Guidance (ICD-10-PCS; 2017-04-26)
PROC: B54MZZA Ultrasonography of Right Upper Extremity Veins, Guidance (ICD-10-PCS; 2017-04-26)
DX: E11.621 Type 2 diabetes mellitus with foot ulcer (principal); M86.671 Other chronic osteomyelitis, right ankle and foot; E11.65 Type 2 diabetes mellitus with hyperglycemia; E11.69 Type 2 diabetes mellitus with other specified complication; L97.518 Non-pressure chronic ulcer of other part of right foot with other specified severity; D63.8 Anemia in other chronic diseases classified elsewhere; Z79.84 Long term (current) use of oral hypoglycemic drugs; Z79.4 Long term (current) use of insulin; Z86.73 Personal history of transient ischemic attack (TIA), and cerebral infarction without residual deficits; E78.5 Hyperlipidemia, unspecified; I10 Essential (primary) hypertension; Z87.891 Personal history of nicotine dependence; Z16.30 Resistance to unspecified antimicrobial drugs; I73.9 Peripheral vascular disease, unspecified; Z16.39 Resistance to other specified antimicrobial drug; B95.62 Methicillin resistant Staphylococcus aureus infection as the cause of diseases classified elsewhere; B95.2 Enterococcus as the cause of diseases classified elsewhere; B96.4 Proteus (mirabilis) (morganii) as the cause of diseases classified elsewhere
CPT/HCPCS: 36415; 36569; 73630-TC-RT; 73721-RT-TC; 77001-TC; 80053; 80061; 82607; 82728; 82784; 82947; 82962; 83021; 83036; 83540; 83550; 83721; 83735; 84100; 84155; 84165; 85025; 85027; 85610; 85651; 85660; 85730; 86140; 86334; 86850; 86900; 86901; 87070; 87077; 87186; 87205; 93005; 93010; 94760; 99285-25; C1751; G0480; J1644

== ENCOUNTER 2018-03-02 11:45 | Emergency (ER) | payer OTHER ==
[2018-03-02 12:25] VITALS: BMI 35.6
[2018-03-02] MEDS ORDERED: SODIUM CHLORIDE 1,000 ML IV STA (13:09)
--- NOTE | 2018-03-02 13:31 | PDOC ---
History of Present Illness <Gillian Engle - Last Filed: 03/02/18 16:33> - General History Source: Patient Exam Limitations: No Limitations - History of Present Illness Initial Comments: 03/02/18 13:27 Patient is a 57-year-old female with past medical history of anemia, hypertension, hyperlipidemia, insulin-dependent diabetes, CAD, who presents emergency department for 3 days of weakness. Patient states that she's been feeling tired over the past 3 days. Denies chest pain, shortness of breath on exertion and difficulty breathing. She also admits to dizziness and the room spinning when she turns her head to the right. She states that this started this morning. She states that overall she just does not feel well. Patient states it was recommended to her to have a colonoscopy, however patient states that she has not had a chance to schedule it. Denies fevers, chills, sore throat , earache, nausea, vomiting, diarrhea, abdominal pain, rectal bleeding, urgency and hematuria. <Eliza Aldana - Last Filed: 03/02/18 16:46> - General Chief Complaint: Lightheaded Stated Complaint: WEAKNESS, LIGHTHEADED Time Seen by Provider: 03/02/18 12:26 Past History <Gillian Egnle - Last Filed: 03/02/18 16:33> - Travel Traveled outside of the country in the last 30 days: No Close contact w/someone who was outside of country & ill: No - Past Medical History Anemia: No CVA: Yes (TIA) COPD: No Diabetes: Yes HTN: Yes Hypercholesterolemia: Yes - Surgical History Abdominal Surgery: No Appendectomy: No Cardiac Surgery: No Cholecystectomy: No Lung Surgery: No Neurologic Surgery: No Orthopedic Surgery: No - Immunization History Immunization Up to Date: Yes - Suicide/Smoking/Psychosocial Hx Smoking History: Never smoked Have you smoked in the past 12 months: No Number of Cigarettes Smoked Daily: 2 If you are a former smoker, when did you quit?: 1 year 'Breaking Loose' booklet given: 05/24/16 Hx Alcohol Use: No Drug/Substance Use Hx: No Substance Use Type: None Hx Substance Use Treatment: No <Eliza Aldana - Last Filed: 03/02/18 16:46> - Past Medical History Allergies/Adverse Reactions: Allergies Allergy/AdvReac Type Severity Reaction Status Date / Time No Known Drug Allergies Allergy Verified 03/02/18 12:19 amoxicillin AdvReac Nausea Verified 03/02/18 12:19 Home Medications: Ambulatory Orders Glyburide/Metformin HCl [Glucovance 5-500 mg Tablet] 1 each PO DAILY #0 Aspirin [ASA -] 81 mg PO DAILY 09/21/16 Gabapentin [Neurontin] 1 cap PO TID 10/28/16 Lisinopril [Prinivil] 10 mg PO DAILY tablet 12/01/16 Ferrous Sulfate 325 mg PO TID 04/10/17 Insulin Glargine,Hum.rec.anlog [Lantus] 36 unit SQ HS 04/10/17 Atorvastatin Ca [Lipitor] 10 mg PO HS 04/18/17 Ranitidine HCl 75 mg PO DAILY 04/18/17 Dulaglutide [Trulicity] 1.5 mg SQ WEEKLY 03/02/18 Meclizine HCl [Antivert -] 25 mg PO TID #21 tablet 03/02/18 Review of Systems - Review of Systems Able to Perform ROS?: Yes Comments:: 03/02/18 13:25 CONSTITUTIONAL: Present: generalized weakness Absent: fever, chills, diaphoresis, malaise, loss of appetite HEENT: Absent: rhinorrhea, nasal congestion, throat pain, throat swelling, difficulty swallowing, mouth swelling, ear pain, eye pain, visual Changes CARDIOVASCULAR: Absent: chest pain, loss of consciousness, palpitations, irregular heart rate, peripheral edema RESPIRATORY: Absent: cough, shortness of breath, dyspnea with exertion, orthopnea, wheezing, stridor, hemoptysis GASTROINTESTINAL: Absent: abdominal pain, abdominal distension, nausea, vomiting, diarrhea, constipation, melena, hematochezia GENITOURINARY: Absent: dysuria, frequency, urgency, hesitancy, hematuria, flank pain, genital pain MUSCULOSKELETAL: Absent: myalgia, arthralgia, joint swelling SKIN: Absent: rash, itching, pallor HEMATOLOGIC/IMMUNOLOGIC: Absent: easy bleeding, easy bruising, lymphadenopathy, frequent infections ENDOCRINE: Absent: unexplained weight gain, unexplained weight loss, heat intolerance, cold intolerance NEUROLOGIC: Present: dizziness Absent: headache, focal weakness or paresthesias, unsteady gait, seizure, mental status changes, bladder or bowel incontinence PSYCHIATRIC: Absent: anxiety, depression, suicidal or homicidal ideation, hallucinations. Is the patient limited Mexican proficient: No <Eliza Aldana - Last Filed: 03/02/18 16:46> *Physical Exam - Vital Signs Last Vital Signs Temp Pulse Resp BP Pulse Ox 98.4 F 81 16 158/69 100 03/02/18 12:24 03/02/18 12:24 03/02/18 12:24 03/02/18 12:24 03/02/18 12:24 <Gillian Engle - Last Filed: 03/02/18 16:33> - Vital Signs Last Vital Signs Temp Pulse Resp BP Pulse Ox 98.4 F 81 16 158/69 100 03/02/18 12:24 03/02/18 12:24 03/02/18 12:24 03/02/18 12:24 03/02/18 12:24 - Physical Exam Comments: 03/02/18 13:26 GENERAL: Well developed, well nourished. Awake and alert. No acute distress. Pt is well appearing HEENT: Normocephalic, atraumatic. PERRLA, EOMI. No conjunctival pallor. Sclera are non- icteric. Moist mucous membranes. Oropharynx is clear. NECK: Supple. Full ROM. No JVD. Carotid pulses 2+ and symmetric, without bruits. No thyromegaly. No lymphadenopathy. CARDIOVASCULAR: Regular rate and rhythm. No murmurs, rubs, or gallops. Distal pulses are 2+ and symmetric. PULMONARY: No evidence of respiratory distress. Lungs clear to auscultation bilaterally. No wheezing, rales or rhonchi. ABDOMINAL: Soft. Non-tender. Non-distended. No rebound or guarding. No organomegaly. Normoactive bowel sounds. MUSCULOSKELETAL Normal range of motion at all joints. No bony deformities or tenderness. No CVA tenderness. EXTREMITIES: No cyanosis. No clubbing. No edema. No calf tenderness. SKIN: Warm and dry. Normal capillary refill. No rashes. No jaundice. NEUROLOGICAL: Alert, awake, appropriate. Cranial nerves 2-12 intact. No deficits to light touch and temperature in face, upper extremities and lower extremities. No motor deficits in the in face, upper extremities and lower extremities. Normoreflexic in the upper and lower extremities. Normal speech. Toes are down- going bilaterally. Gait is normal without ataxia. PSYCHIATRIC: Cooperative. Good eye contact. Appropriate mood and affect. <Eliza Aldana - Last Filed: 03/02/18 16:46> Moderate Sedation - Procedure Monitoring Vital Signs: Procedure Monitoring Vital Signs Temperature 98.4 F 03/02/18 12:24 Pulse Rate 81 03/02/18 12:24 Respiratory Rate 16 03/02/18 12:24 Blood Pressure 158/69 03/02/18 12:24 O2 Sat by Pulse Oximetry (%) 100 03/02/18 12:24 <EngleGillian Kadiealyshacatalino - Last Filed: 03/02/18 16:33> - Procedure Monitoring Vital Signs: Procedure Monitoring Vital Signs Temperature 98.4 F 03/02/18 12:24 Pulse Rate 81 03/02/18 12:24 Respiratory Rate 16 03/02/18 12:24 Blood Pressure 158/69 03/02/18 12:24 O2 Sat by Pulse Oximetry (%) 100 03/02/18 12:24 <Eliza Aldana - Last Filed: 03/02/18 16:46> ED Treatment Course - LABORATORY CBC & Chemistry Diagram: 03/02/18 13:30 03/02/18 13:25 - ADDITIONAL ORDERS Additional order review: Laboratory Results 03/02/18 03/02/18 03/02/18 13:30 13:30 13:25 PT with INR INR Sodium Potassium Chloride Carbon Dioxide Anion Gap BUN Creatinine Creat Clearance w eGFR Random Glucose Calcium Total Bilirubin AST ALT Alkaline Phosphatase Creatine Kinase 1041 H Creatine Kinase Index 7.1 H* CK-MB (CK-2) 74.0 H Troponin I < 0.02 Total Protein Albumin TSH Urine Color Straw Urine Appearance Clear Urine pH 6.0 Ur Specific [place] 1.015 Urine Protein Negative Urine Glucose (UA) Negative Urine Ketones Negative Urine Blood Negative Urine Nitrite Negative Urine Bilirubin Negative Urine Urobilinogen Negative Ur Leukocyte Esterase Negative Blood Type A POSITIVE Antibody Screen Negative 03/02/18 03/02/18 13:25 13:25 PT with INR 11.30 INR 0.96 Sodium 138 Potassium 5.0 Chloride 109 H Carbon Dioxide 21 Anion Gap 8 BUN 24 H Creatinine 1.1 Creat Clearance w eGFR 51.57 Random Glucose 144 H Calcium 8.9 Total Bilirubin 0.4 AST 29 ALT 46 Alkaline Phosphatase 75 Creatine Kinase Creatine Kinase Index CK-MB (CK-2) Troponin I Total Protein 6.8 Albumin 3.6 TSH 0.54 Urine Color Urine Appearance Urine pH Ur Specific [place] Urine Protein Urine Glucose (UA) Urine Ketones Urine Blood Urine Nitrite Urine Bilirubin Urine Urobilinogen Ur Leukocyte Esterase Blood Type Antibody Screen 03/02/18 13:30 RBC 4.30 MCV 74.0 L MCHC 32.6 RDW 14.6 MPV 7.9 Neutrophils % 34.3 L Lymphocytes % 52.8 H Monocytes % 9.2 Eosinophils % 2.3 Basophils % 1.4 - Medications Given in the ED: ED Medications Discontinued Medications Generic Name Dose Route Start Last Admin Trade Name Freq PRN Reason Stop Dose Admin Sodium Chloride 1,000 mls @ 1,000 mls/hr 03/02/18 13:09 03/02/18 14:29 Normal Saline - IV 03/02/18 14:08 1,000 mls/hr ASDIR STA Administration Meclizine HCl 50 mg 03/02/18 14:46 03/02/18 14:50 Antivert - PO 03/02/18 14:47 50 mg ONCE ONE Administration <Gillian Engle - Last Filed: 03/02/18 16:33> - LABORATORY CBC & Chemistry Diagram: 03/02/18 13:30 03/02/18 13:25 <Eliza Aldana - Last Filed: 03/02/18 16:46> Medical Decision Making - Medical Decision Making 03/02/18 16:28 The patient was seen and evaluated in conjunction with midlevel provider under my direct supervision, ancillary studies were reviewed. I agree with the plan as outlined by NITIN Aldana. HPI as outlined. Head CT neg. labs and lytes normal, trop neg, less likely cardiac. ck elevated, but not enough to suggest rhabdo/renal dysfunction, also nonspecific and can repeat as outpatient. no muscle aches or pain. EKG nonischemic, nonspecific T wave abnormalities. well appearing and comfortable in hallway. vitals wnl. DC home in stable condition 03/02/18 16:33 <Gillian Engle - Last Filed: 03/02/18 16:33> *DC/Admit/Observation/Transfer <Gillian Engle - Last Filed: 03/02/18 16:33> - Discharge Dispostion Decision to Admit order: No <Eliza Aldana - Last Filed: 03/02/18 16:46> Diagnosis at time of Disposition: Dizziness - Discharge Dispostion Disposition: HOME Condition at time of disposition: Stable - Referrals Referrals: Moris Montenegro MD [Primary Care Provider] - - Patient Instructions Printed Discharge Instructions: DI for Vertigo Additional Instructions: You were evaluated for your dizziness and weakness today. Your hemoglobin was 10.5. This is the lower level of normal. Your head CT was normal today. Your lab work shows you're dehydrated. Please drink plenty of fluids. You may take meclizine 25 mg 3 times a day as needed for your dizziness. Please follow up with her primary care doctor on Monday. Return to the emergency department for lightheadedness, weakness, loss of consciousness, or if you have any new or worsening symptoms. - Post Discharge Activity Forms/Work/School Notes: Back to Work
[2018-03-02 14:05] LABS: BASO % 1.4 % (0-2.0); EOS % 2.3 % (0-4.5); HEMATOCRIT 31.8 % (32.4-45.2); HEMOGLOBIN 10.4 GM/dL (10.7-15.3); LYMPH % 52.8 % (8-40); MCH 24.1 pg (25.7-33.7); MCHC 32.6 g/dl (32.0-36.0); MEAN PLT VOLUME 7.9 fl (7.5-11.1); MONO % 9.2 % (3.8-10.2); NEUT % 34.3 % (42.8-82.8); PLATELET COUNT 319 K/MM3 (134-434); RDW 14.6 % (11.6-15.6); WHITE BLOOD COUNT 4.8 K/mm3 (4.0-10.0)
[2018-03-02 14:13] LABS: INR 0.96 (0.83-1.09); PROTHROMBIN TIME (PATIENT) 11.3 SEC (9.7-13.0)
[2018-03-02 14:29] LABS: URINE APPEARANCE CLEAR; URINE BILIRUBIN NEGATIVE (<2.0 mg/dL); URINE COLOR STRAW; URINE GLUCOSE (UA) NEGATIVE (NEGATIVE); URINE KETONE NEGATIVE (NEGATIVE); URINE LEUK ESTERASE NEGATIVE (NEGATIVE); URINE NITRITE NEGATIVE (NEGATIVE); URINE PROTEIN NEGATIVE (NEGATIVE); URINE UROBILINOGEN NEGATIVE mg/dL (0.2-1.0)
[2018-03-02 14:37] LABS: ALBUMIN 3.6 g/dl (3.4-5.0); ALK PHOS 75 U/L (45-117); ANION GAP 8 MMOL/L (8-16); BILIRUBIN,TOTAL 0.4 mg/dL (0.2-1); BLOOD UREA NITROGEN 24 mg/dL (7-18); CALCIUM 8.9 mg/dL (8.5-10.1); CHLORIDE 109 mmol/L (98-107); CO2 21 mmol/L (21-32); CREATININE 1.1 mg/dL (0.55-1.3); GLUCOSE,RANDOM 144 mg/dL (74-106); SGOT/AST 29 U/L (15-37); SGPT/ALT 46 U/L (13-61); SODIUM 138 mmol/L (136-145); TOT PROT 6.8 g/dl (6.4-8.2)
[2018-03-02] MEDS ORDERED: MECLIZINE HCL 25 MG TABLET (FP) PO ONE (14:46)
[2018-03-02] MEDS ORDERED: MECLIZINE HCL 25 MG TABLET (FP) ONE (14:48)
[2018-03-02 17:07] VITALS: BP 140/78; PULSE 77; TEMP 99.1
--- NOTE | 2018-03-03 17:18 | EKG ---
Test Reason : Blood Pressure : / mmHG Vent. Rate : 077 BPM Atrial Rate : 077 BPM P-R Int : 152 ms QRS Dur : 078 ms QT Int : 374 ms P-R-T Axes : 047 016 030 degrees QTc Int : 423 ms NORMAL SINUS RHYTHM LOW VOLTAGE QRS BORDERLINE ECG WHEN COMPARED WITH ECG OF 18-APR-2017 08:32, NO SIGNIFICANT CHANGE WAS FOUND Confirmed by MD ANDREY, RADHA ([id number]) on 03/03/2018 5:18:10 PM Referred By: Confirmed By:RADHA BALDERAS MD
== END 2018-03-02 18:05 | disposition home or self-care (01) ==
LOC: JER 11:45
PROC: 3E0337Z Introduction of Electrolytic and Water Balance Substance into Peripheral Vein, Percutaneous Approach (ICD-10-PCS; principal; 2018-03-02)
DX: R42 Dizziness and giddiness (principal); Z86.73 Personal history of transient ischemic attack (TIA), and cerebral infarction without residual deficits; I10 Essential (primary) hypertension; E78.00 Pure hypercholesterolemia, unspecified; E11.9 Type 2 diabetes mellitus without complications; Z87.891 Personal history of nicotine dependence
CPT/HCPCS: 36415; 70450-TC; 80053; 81003; 82550; 82553; 84443; 84484; 85025; 85610; 86850; 86900; 86901; 87086; 93005; 93010; 96360; 99284-25; J7030

== ENCOUNTER 2024-08-22 11:34 | Day surgery (SDC) | payer OTHER ==
[2024-08-22] MEDS: FERRIC CARBOXYMALTOSE 750 MG in SODIUM CHLORIDE 250 ML IVPB ONE (12:04)
[2024-08-22 12:14] VITALS: RESP 20; TEMP 98.1
[2024-08-22 13:35] VITALS: BP 170/67; PULSE 71
== END 2024-08-22 13:10 | disposition home or self-care (01) ==
LOC: JONCNONCHE 11:34
PROVIDERS: ATTEND Internal Medicine Hematology & Oncology
PROC: 3E033GC Introduction of Other Therapeutic Substance into Peripheral Vein, Percutaneous Approach (ICD-10-PCS; principal; 2024-08-22)
DX: D50.9 Iron deficiency anemia, unspecified (principal)
CPT/HCPCS: 96365; J1439